=== PATIENT | male | born 1955 | race Two or more races ===

== ENCOUNTER 2022-08-21 10:37 | Emergency (ER) | payer MEDICARE, MEDICAID ==
[~2022-08-21] VITALS: Ht 157.5 cm; Wt 48.0 kg
[2022-08-21 12:27] LABS: Basophils # (auto) 0 10 ^3/uL (0-0.2); Basophils % (auto) 0.5 % (0.0-2.0); Eosinophils # (auto) 0.5 10 ^3/uL (0-0.8); Eosinophils % (auto) 10.6 % (0.0-7.0); Hematocrit 29.7 % (41.0-53.0); Hemoglobin 9.9 g/dL (13.5-17.5); Lymphocytes # (auto) 0.9 10 ^3/uL (0.4-5.4); Lymphocytes % (auto) 18.6 % (10.0-50.0); Mean Corpuscular Hemoglobin 32.6 pg (28.0-32.0); Mean Corpuscular Hgb Conc. 33.4 g/dL (32.0-36.0); Mean Corpuscular Volume 97.4 fL (80.0-100.0); Monocytes # (auto) 0.6 10 ^3/uL (0-1.3); Neutrophils # (auto) 2.9 10 ^3/uL (1.6-8.6); Neutrophils % (auto) 58.3 % (37.0-80.0); Nucleated Red Blood Cells % 0.1 %; Red Blood Cells 3.05 10^6/uL (4.5-5.90); Red Cell Distribution Width 14.5 % (11.8-14.3)
[2022-08-21 12:42] LABS: Albumin 3.2 g/dL (3.4-5.0); Calcium 8.2 mg/dL (8.5-10.1); Magnesium 2.4 mg/dL (1.6-2.6); Potassium 4.6 mmol/L (3.5-5.1)
[2022-08-21 12:48] LABS: BUN/Creatinine Ratio 6.3; Bilirubin, Total 0.5 mg/dL (0.2-1.0); Total Protein 6.8 g/dL (6.4-8.2)
[2022-08-21] MEDS ORDERED: HYDROcodone-ACET 5/325MG TAB PO ONE (13:45)
[2022-08-21 17:00] VITALS: BP 147/19
== END 2022-08-21 17:06 | disposition home or self-care (01) ==
LOC: ER 10:37
DX: R51.9 Headache, unspecified (principal); I12.0 Hypertensive chronic kidney disease with stage 5 chronic kidney disease or end stage renal disease; E11.22 Type 2 diabetes mellitus with diabetic chronic kidney disease; N18.6 End stage renal disease; E78.5 Hyperlipidemia, unspecified; I25.10 Atherosclerotic heart disease of native coronary artery without angina pectoris; Z95.1 Presence of aortocoronary bypass graft
CPT/HCPCS: 36415; 70450; 80053; 82962; 83735; 85025

== ENCOUNTER → 2024-07-14 | Outpatient (CLI) | payer MEDICARE, MEDICAID ==
[~2024-07-14] VITALS: Ht 160 cm; Wt 46.7 kg
[~2024-07-14] MED LIST: ADENOSINE 39 MG in GIVE UN-DILUTED 0 ML IV ONE; ADENOSINE 90 MG/30 ML INJ IV ONE; LIDOCAINE 2%HCL (LOCAL ANESTH.) INJ 20ML MDV ONE
== END | disposition home or self-care (01) ==
LOC: Rad HDHVI 13:36
PROVIDERS: ATTEND Internal Medicine Cardiovascular Disease
DX: I12.0 Hypertensive chronic kidney disease with stage 5 chronic kidney disease or end stage renal disease (principal); E11.22 Type 2 diabetes mellitus with diabetic chronic kidney disease; N18.6 End stage renal disease; I25.10 Atherosclerotic heart disease of native coronary artery without angina pectoris; E78.5 Hyperlipidemia, unspecified; Z99.2 Dependence on renal dialysis; Z95.1 Presence of aortocoronary bypass graft
CPT/HCPCS: 78452; 93005; 93306; 96374; 96375; A9500; J0153

== ENCOUNTER 2024-08-20 20:12 | Inpatient (IN) | payer MEDICARE, MEDICAID ==
[~2024-08-20] VITALS: Ht 154.9 cm; Wt 98.3 kg
[~2024-08-20 20:12] MED LIST changes: -ADENOSINE 39 MG in GIVE UN-DILUTED 0 ML IV ONE; -ADENOSINE 90 MG/30 ML INJ IV ONE; +AMLO1TAB23 PO; +APIX2.5T PO; +ATOR10TA PO; +B-CO-6 PO; +CALC667C PO; +CARV12.544 PO; +LEVO500T91 PO; -LIDOCAINE 2%HCL (LOCAL ANESTH.) INJ 20ML MDV ONE; +METO1TAB77 PO; +MIRT1TAB38 PO; +PRED20TA2 PO
[2024-08-20 21:33] LABS: Alanine Aminotransferase 12 U/L (7-40); Albumin 3.6 g/dL (3.2-4.8); Alkaline Phosphatase 144 U/L (46-116); Anion Gap 5 (5-15); Aspartate Aminotransferase 14 U/L (13-40); BUN/Creatinine Ratio 10.5 (10.0-20.0); Blood Urea Nitrogen 58 mg/dL (9-23); Calcium 8.4 mg/dL (8.7-10.4); Carbon Dioxide 33 mmol/L (20-30); Chloride 94 mmol/L (98-107); Glucose 96 mg/dL (74-106); Lipase 53 U/L (12-53); Potassium 4.2 mmol/L (3.5-5.1); Sodium 132 mmol/L (136-145)
[2024-08-20 21:34] LABS: Bilirubin, Total 0.4 mg/dL (0.2-1.0); Total Protein 6.4 g/dL (5.7-8.2)
[2024-08-20 21:56] LABS: Basophils # (auto) 0 10 ^3/uL (0-0.2); Hemoglobin 10.3 g/dL (13.5-17.5); Neutrophils # (auto) 6.8 10 ^3/uL (1.6-8.6)
[2024-08-20 21:58] LABS: Basophils % (auto) 0.1 % (0.0-2.0); Eosinophils # (auto) 0.3 10 ^3/uL (0-0.8); Eosinophils % (auto) 3.1 % (0.0-7.0); Hematocrit 29.8 % (41.0-53.0); Lymphocytes # (auto) 0.6 10 ^3/uL (0.4-5.4); Lymphocytes % (auto) 6.7 % (10.0-50.0); Mean Corpuscular Hemoglobin 34.9 pg (28.0-32.0); Mean Corpuscular Hgb Conc. 34.6 g/dL (32.0-36.0); Mean Corpuscular Volume 100.9 fL (80.0-100.0); Monocytes # (auto) 0.9 10 ^3/uL (0-1.3); Monocytes % (auto) 10.6 % (0.0-12.0); Neutrophils % (auto) 79.5 % (37.0-80.0); Platelet Count (auto) 130 10^3/uL (140-450); Red Blood Cells 2.96 10^6/uL (4.5-5.90); Red Cell Distribution Width 14.7 % (11.8-14.3); White Blood Cell 8.5 10^3/uL (4.4-10.8)
[2024-08-20 22:40] VITALS: PULSE 70; RESP 18; O2SAT 100
[2024-08-21] MEDS: FUROSEMIDE 40 MG/4 ML VIAL IV ONE (01:25)
[2024-08-21] MEDS ORDERED: ONDANSETRON HCL 4 MG/2 ML VIAL IV PRN (02:00)
[2024-08-21] MEDS ORDERED: MORPHINE SULFATE INJ 2 MG/ml SYRG IV PRN (02:00)
[2024-08-21] MEDS ORDERED: ACETAMINOPHEN 325 MG TAB PO PRN (02:00)
[2024-08-21] MEDS ORDERED: DEXTROSE (50%) 50ML SYRG IV PRN (02:00)
[2024-08-21] MEDS ORDERED: HYDROcodone-ACET 5/325MG TAB PO PRN (02:00)
[2024-08-21] MEDS ORDERED: NITROGLYCERIN 0.4 MG SL TAB SL PRN (02:00)
[2024-08-21] MEDS: MELATONIN 5 MG TAB PO ONE (04:16)
[2024-08-21 05:28] LABS: Basophils # (auto) 0 10 ^3/uL (0-0.2); Eosinophils # (auto) 0.3 10 ^3/uL (0-0.8); Lymphocytes # (auto) 0.7 10 ^3/uL (0.4-5.4); Neutrophils # (auto) 6.2 10 ^3/uL (1.6-8.6)
[2024-08-21 05:31] LABS: Basophils % (auto) 0.1 % (0.0-2.0); Eosinophils % (auto) 3.4 % (0.0-7.0); Hematocrit 30.1 % (41.0-53.0); Hemoglobin 10.6 g/dL (13.5-17.5); Lymphocytes % (auto) 9.1 % (10.0-50.0); Mean Corpuscular Hemoglobin 35.2 pg (28.0-32.0); Mean Corpuscular Hgb Conc. 35.2 g/dL (32.0-36.0); Mean Corpuscular Volume 99.9 fL (80.0-100.0); Monocytes # (auto) 0.9 10 ^3/uL (0-1.3); Monocytes % (auto) 10.8 % (0.0-12.0); Neutrophils % (auto) 76.6 % (37.0-80.0); Platelet Count (auto) 125 10^3/uL (140-450); Red Blood Cells 3.01 10^6/uL (4.5-5.90); Red Cell Distribution Width 14.8 % (11.8-14.3)
[2024-08-21] MEDS: SODIUM CHLOR 0.9% PF (SALINE LOCK) 10ML VIAL/SYR IV SCH (05:52)
[2024-08-21 05:57] LABS: Alanine Aminotransferase 11 U/L (7-40); Alkaline Phosphatase 115 U/L (46-116); Anion Gap 8 (5-15); Blood Urea Nitrogen 64 mg/dL (9-23); Calcium 8.4 mg/dL (8.7-10.4); Carbon Dioxide 31 mmol/L (20-30); Chloride 93 mmol/L (98-107); Glucose 101 mg/dL (74-106); Potassium 4.1 mmol/L (3.5-5.1); Sodium 132 mmol/L (136-145)
[2024-08-21 05:58] LABS: BUN/Creatinine Ratio 10.8 (10.0-20.0)
[2024-08-21 05:59] LABS: Albumin 3.4 g/dL (3.2-4.8); Aspartate Aminotransferase 15 U/L (13-40)
[2024-08-21 06:00] LABS: Bilirubin, Total 0.6 mg/dL (0.2-1.0); Total Protein 6.1 g/dL (5.7-8.2)
[2024-08-21] MEDS: ACCU-CHEK COMFORT CURVE STRIP VI SCH (06:52)
[2024-08-21] MEDS: InsuLIN REG 1unit/0.01ml Soln (100units/ml) SC SCH (06:53)
[2024-08-21 08:00] VITALS: PULSE 73; RESP 26; O2SAT 97
[2024-08-21] MEDS: B-COMPLEX W/ C & FOLIC ACID(NEPHROVITE TAB) PO SCH (10:32)
[2024-08-21] MEDS: FAMOTIDINE (10MG/ML) 2ML VL IV SCH (10:45)
[2024-08-21] MEDS: CARVEDILOL 3.125 MG TAB PO SCH (10:46)
[2024-08-21] MEDS: SODIUM CHL 0.9% 1000 ML BAG XX ONE (14:00)
[2024-08-21 16:04] VITALS: BP 146/26; PULSE 71; RESP 18; TEMP 97.3; O2SAT 96
[2024-08-21 16:16] VITALS: BP 146/35; PULSE 72; RESP 18; TEMP 97.6; O2SAT 100
[2024-08-21 16:51] VITALS: PULSE 71; RESP 18; O2SAT 96
[2024-08-21 20:00] VITALS: PULSE 74
[2024-08-21 21:00] VITALS: BP 143/48; PULSE 74; RESP 17; TEMP 97.7; O2SAT 100
[2024-08-21] MEDS: EPOETIN ALFA-EPBX 4,000 UNIT/ML VIAL SC ONE (23:20)
[2024-08-22] VITALS (8 sets, daily range): BP systolic 102–146; BP diastolic 21–50; PULSE 71–77; RESP 16–19; TEMP 97.8–98.6; O2SAT 99–100
[2024-08-22 07:25] LABS: Alanine Aminotransferase 12 U/L (7-40); Albumin 3.5 g/dL (3.2-4.8); Alkaline Phosphatase 95 U/L (46-116); Anion Gap 10 (5-15); BUN/Creatinine Ratio 9.7 (10.0-20.0); Blood Urea Nitrogen 48 mg/dL (9-23); Carbon Dioxide 30 mmol/L (20-30); Chloride 99 mmol/L (98-107); Glucose 71 mg/dL (74-106); Potassium 3.8 mmol/L (3.5-5.1); Sodium 139 mmol/L (136-145)
[2024-08-22 07:26] LABS: Aspartate Aminotransferase 15 U/L (13-40); Bilirubin, Total 0.7 mg/dL (0.2-1.0); Total Protein 6.1 g/dL (5.7-8.2)
[2024-08-22 07:31] LABS: Basophils # (auto) 0 10 ^3/uL (0-0.2); Basophils % (auto) 0.5 % (0.0-2.0); Eosinophils # (auto) 0.4 10 ^3/uL (0-0.8); Hematocrit 29.2 % (41.0-53.0); Hemoglobin 10.2 g/dL (13.5-17.5); Lymphocytes # (auto) 0.6 10 ^3/uL (0.4-5.4); Lymphocytes % (auto) 8.3 % (10.0-50.0); Mean Corpuscular Hemoglobin 35.3 pg (28.0-32.0); Mean Corpuscular Volume 100.8 fL (80.0-100.0); Monocytes % (auto) 13.2 % (0.0-12.0); Neutrophils # (auto) 5.5 10 ^3/uL (1.6-8.6); Nucleated Red Blood Cells % 0.1 %; Platelet Count (auto) 116 10^3/uL (140-450); Red Cell Distribution Width 15.2 % (11.8-14.3); White Blood Cell 7.6 10^3/uL (4.4-10.8)
[2024-08-22] MEDS: AZITHROMYCIN 500MG/ 250ML 250 ML IV ONE (15:30)
[2024-08-22 16:50] LABS: Body Fluid Polymorphonuclear 5 % (0-25); Body Fluid Red Blood Cells 33 CUMM (0-2000); Body Fluid White Blood Cells 58 CUMM (0-200)
[2024-08-22] MEDS: cefTRIAXone 1GM/50ML D5W 50 ML IV ONE (16:57)
[2024-08-22 18:04] LABS: COVID19 ANTIGEN SOFIA FIA NEGATIVE (NEGATIVE); Rapid Influenza A Negative (Negative); Rapid Influenza B Negative (Negative)
[2024-08-23] VITALS (8 sets, daily range): BP systolic 120–170; BP diastolic 24–50; PULSE 68–73; RESP 16–18; TEMP 96.7–98.4; O2SAT 95–100
[2024-08-23] MEDS: cefTRIAXone 1GM/50ML D5W 50 ML IV SCH (10:00)
[2024-08-23] MEDS: AZITHROMYCIN 500MG/ 250ML 250 ML IV SCH (10:13)
[2024-08-24] VITALS (8 sets, daily range): BP systolic 129–172; BP diastolic 29–80; PULSE 74–83; RESP 16–18; TEMP 97.7–98.7; O2SAT 93–100
[2024-08-24 06:20] LABS: Basophils # (auto) 0 10 ^3/uL (0-0.2); Eosinophils # (auto) 0.5 10 ^3/uL (0-0.8); Hemoglobin 10.6 g/dL (13.5-17.5); Lymphocytes # (auto) 0.8 10 ^3/uL (0.4-5.4); Neutrophils # (auto) 5.9 10 ^3/uL (1.6-8.6); Nucleated Red Blood Cells % 0.1 %; Platelet Count (auto) 102 10^3/uL (140-450)
[2024-08-24 06:23] LABS: Basophils % (auto) 0.4 % (0.0-2.0); Eosinophils % (auto) 5.8 % (0.0-7.0); Hematocrit 30.3 % (41.0-53.0); Lymphocytes % (auto) 9.1 % (10.0-50.0); Mean Corpuscular Hemoglobin 35.1 pg (28.0-32.0); Mean Corpuscular Hgb Conc. 34.9 g/dL (32.0-36.0); Mean Corpuscular Volume 100.5 fL (80.0-100.0); Monocytes # (auto) 1.1 10 ^3/uL (0-1.3); Monocytes % (auto) 13.4 % (0.0-12.0); Neutrophils % (auto) 71.3 % (37.0-80.0); Red Blood Cells 3.02 10^6/uL (4.5-5.90); White Blood Cell 8.3 10^3/uL (4.4-10.8)
[2024-08-24 06:38] LABS: Alanine Aminotransferase 11 U/L (7-40); Albumin 3.2 g/dL (3.2-4.8); Alkaline Phosphatase 89 U/L (46-116); Anion Gap 12 (5-15); Aspartate Aminotransferase 15 U/L (13-40); BUN/Creatinine Ratio 10.2 (10.0-20.0); Calcium 8.9 mg/dL (8.7-10.4); Carbon Dioxide 27 mmol/L (20-30); Chloride 96 mmol/L (98-107); Glucose 83 mg/dL (74-106); Sodium 135 mmol/L (136-145)
[2024-08-24 06:39] LABS: Bilirubin, Total 0.3 mg/dL (0.2-1.0); Total Protein 5.7 g/dL (5.7-8.2)
[2024-08-24 06:50] LABS: Blood Urea Nitrogen 81 mg/dL (9-23)
[2024-08-24] MEDS ORDERED: SODIUM CHL 0.9% 1000 ML BAG XX ONE (07:00)
[2024-08-24 13:07] LABS: Protein, Body Fluid 3.5 g/dL (.)
[2024-08-24] MEDS: EPOETIN ALFA-EPBX 4,000 UNIT/ML VIAL SC ONE (21:24)
[2024-08-25 01:00] VITALS: BP 154/32; PULSE 82; RESP 17; TEMP 98.2; O2SAT 100
[2024-08-25 05:00] VITALS: BP 159/39; PULSE 83; RESP 17; TEMP 98.1; O2SAT 100
[2024-08-25 07:50] LABS: Basophils # (auto) 0 10 ^3/uL (0-0.2); Basophils % (auto) 0.4 % (0.0-2.0); Lymphocytes # (auto) 0.7 10 ^3/uL (0.4-5.4); Monocytes # (auto) 1.3 10 ^3/uL (0-1.3); Neutrophils # (auto) 6.1 10 ^3/uL (1.6-8.6); White Blood Cell 8.6 10^3/uL (4.4-10.8)
[2024-08-25 07:53] LABS: Eosinophils # (auto) 0.5 10 ^3/uL (0-0.8); Eosinophils % (auto) 5.3 % (0.0-7.0); Hematocrit 31.7 % (41.0-53.0); Lymphocytes % (auto) 8.4 % (10.0-50.0); Mean Corpuscular Hemoglobin 34.8 pg (28.0-32.0); Mean Corpuscular Hgb Conc. 34.7 g/dL (32.0-36.0); Mean Corpuscular Volume 100.4 fL (80.0-100.0); Monocytes % (auto) 15.1 % (0.0-12.0); Neutrophils % (auto) 70.8 % (37.0-80.0); Red Blood Cells 3.16 10^6/uL (4.5-5.90); Red Cell Distribution Width 15.2 % (11.8-14.3)
[2024-08-25 08:00] VITALS: PULSE 80; PULSE 81; RESP 14; O2SAT 100
[2024-08-25 08:19] LABS: Alanine Aminotransferase 10 U/L (7-40); Alkaline Phosphatase 130 U/L (46-116); Anion Gap 8 (5-15); Aspartate Aminotransferase 16 U/L (13-40); BUN/Creatinine Ratio 10.1 (10.0-20.0); Calcium 9.1 mg/dL (8.7-10.4); Carbon Dioxide 31 mmol/L (20-30); Chloride 97 mmol/L (98-107); Glucose 90 mg/dL (74-106); Potassium 4.6 mmol/L (3.5-5.1); Sodium 136 mmol/L (136-145)
[2024-08-25 08:20] LABS: Albumin 3.4 g/dL (3.2-4.8); Bilirubin, Total 0.3 mg/dL (0.2-1.0); Total Protein 5.9 g/dL (5.7-8.2)
[2024-08-25 08:21] LABS: Blood Urea Nitrogen 60 mg/dL (9-23)
[2024-08-25 08:29] LABS: Platelet Count (auto) 93 10^3/uL (140-450)
[2024-08-25 09:00] VITALS: BP 137/87; PULSE 71; RESP 16; TEMP 98.2; O2SAT 96
[2024-08-25] MEDS ORDERED: METH4PAK PO (11:14)
[2024-08-25] MEDS ORDERED: ALBUAER3 IN (11:14)
[2024-08-25] MEDS ORDERED: AZIT500T66 PO (11:14)
[2024-08-25 13:00] VITALS: BP 127/43; PULSE 81; RESP 14; TEMP 97.9; O2SAT 100
[2024-08-25 13:53] VITALS: BP 154/32; PULSE 82; TEMP 97.9
== END 2024-08-25 15:45 | disposition home health service (06) | DRG 177 ==
LOC: ER 20:12 → TELE 08-21 01:56 → TELE-WESTW 08-21 16:29
PROVIDERS: ADMIT Nurse Practitioner Family; ATTEND Family Medicine
PROC: 5A1D70Z Performance of Urinary Filtration, Intermittent, Less than 6 Hours Per Day (ICD-10-PCS; 2024-08-21)
PROC: 0W993ZX Drainage of Right Pleural Cavity, Percutaneous Approach, Diagnostic (ICD-10-PCS; principal; 2024-08-22)
PROC: 5A1D70Z Performance of Urinary Filtration, Intermittent, Less than 6 Hours Per Day (ICD-10-PCS; 2024-08-24)
DX: J15.69 Pneumonia due to other Gram-negative bacteria (principal); I50.33 Acute on chronic diastolic (congestive) heart failure; J96.01 Acute respiratory failure with hypoxia; N18.6 End stage renal disease; I13.2 Hypertensive heart and chronic kidney disease with heart failure and with stage 5 chronic kidney disease, or end stage renal disease; E46 Unspecified protein-calorie malnutrition; E87.1 Hypo-osmolality and hyponatremia; J93.9 Pneumothorax, unspecified; Z68.41 Body mass index [BMI] 40.0-44.9, adult; J91.8 Pleural effusion in other conditions classified elsewhere; J15.9 Unspecified bacterial pneumonia; D63.1 Anemia in chronic kidney disease; D69.6 Thrombocytopenia, unspecified; E11.22 Type 2 diabetes mellitus with diabetic chronic kidney disease; I25.10 Atherosclerotic heart disease of native coronary artery without angina pectoris; E78.00 Pure hypercholesterolemia, unspecified; I35.0 Nonrheumatic aortic (valve) stenosis; I48.0 Paroxysmal atrial fibrillation; Z79.01 Long term (current) use of anticoagulants; Z95.1 Presence of aortocoronary bypass graft; Z95.2 Presence of prosthetic heart valve; Z86.16 Personal history of COVID-19; Z99.2 Dependence on renal dialysis; Z79.899 Other long term (current) drug therapy; Z79.4 Long term (current) use of insulin
CPT/HCPCS: 32555; 36415; 71045; 76604; 78582; 80053; 82962; 83690; 83880; 83986; 84484; 85025; 85379; 87040; 87081; 87205; 87426; 87804; 89051; 90935; 93005; 93970; 97163; A4565; G0378; J1815; J3490

== ENCOUNTER → 2024-09-14 | Outpatient (CLI) | payer MEDICARE, MEDICAID ==
[~2024-09-14] MED LIST changes: +ALBUAER3 IN; +AZIT500T66 PO; +METH4PAK PO
[2024-09-14 12:55] VITALS: BP 141/56; PULSE 74; RESP 16; O2SAT 94
[2024-09-14 13:12] VITALS: BP 150/59; PULSE 74; RESP 16; O2SAT 74
== END | disposition home or self-care (01) ==
LOC: Rad HDHVI 12:52
PROVIDERS: ATTEND Internal Medicine Cardiovascular Disease
DX: Z01.811 Encounter for preprocedural respiratory examination (principal); J81.1 Chronic pulmonary edema; J90 Pleural effusion, not elsewhere classified; I35.0 Nonrheumatic aortic (valve) stenosis; I27.21 Secondary pulmonary arterial hypertension; R06.02 Shortness of breath
CPT/HCPCS: 71046; 93005; G0463

== ENCOUNTER 2024-09-16 08:07 | Day surgery (SDC) | payer MEDICARE, MEDICAID ==
[2024-09-14 15:07] LABS: Basophils # (auto) 0.1 10 ^3/uL (0-0.2); Basophils % (auto) 1.5 % (0.0-2.0); Eosinophils # (auto) 0.2 10 ^3/uL (0-0.8); Eosinophils % (auto) 4.7 % (0.0-7.0); Hematocrit 35.8 % (41.0-53.0); Lymphocytes # (auto) 0.8 10 ^3/uL (0.4-5.4); Mean Corpuscular Hemoglobin 33.7 pg (28.0-32.0); Mean Corpuscular Hgb Conc. 33.5 g/dL (32.0-36.0); Mean Corpuscular Volume 100.5 fL (80.0-100.0); Monocytes # (auto) 0.7 10 ^3/uL (0-1.3); Monocytes % (auto) 15.6 % (0.0-12.0); Neutrophils # (auto) 2.7 10 ^3/uL (1.6-8.6); Neutrophils % (auto) 60.2 % (37.0-80.0); Nucleated Red Blood Cells % 0.2 %; Platelet Count (auto) 105 10^3/uL (140-450); Red Blood Cells 3.56 10^6/uL (4.5-5.90); Red Cell Distribution Width 14.4 % (11.8-14.3); White Blood Cell 4.5 10^3/uL (4.4-10.8)
[2024-09-14 15:20] LABS: Chloride 96 mmol/L (98-107); Potassium 3.8 mmol/L (3.5-5.1); Sodium 137 mmol/L (136-145)
[2024-09-14 15:21] LABS: Anion Gap 4 (5-15); Carbon Dioxide 37 mmol/L (20-31)
[2024-09-14 15:22] LABS: Calcium 9.5 mg/dL (8.7-10.4)
[2024-09-14 15:27] LABS: BUN/Creatinine Ratio 6.6 (10.0-20.0); Blood Urea Nitrogen 22 mg/dL (9-23); Glucose 90 mg/dL (74-106)
[2024-09-14 15:39] LABS: INR 1.04 (0.9-1.15); Partial Thromboplastin Time 32.4 SEC (24.5-34.5)
[2024-09-16] VITALS (9 sets, daily range): BP systolic 128–159; BP diastolic 33–44; PULSE 58–66; RESP 12–14; O2SAT 96–100
[~2024-09-16] VITALS: Ht 160 cm; Wt 43.0 kg
[~2024-09-16 08:07] MED LIST changes: -AZIT500T66 PO; -LEVO500T91 PO; -METH4PAK PO; -METO1TAB77 PO; -PRED20TA2 PO
[2024-09-16] MEDS: cloNIDine HCL 0.1 MG TAB PO ONE (09:40)
[2024-09-16] MEDS ORDERED: fentaNYL CITRATE 100 MCG/2 ML VL ONE (10:41)
[2024-09-16] MEDS ORDERED: HEPARIN IN NS 1000Units/500mL 1,500 ML ONE (10:42)
[2024-09-16] MEDS ORDERED: MIDAZOLAM HCL 2MG/2ML 2ml VIAL (1mg/ml) ONE (10:42)
[2024-09-16] MEDS ORDERED: IOHEXOL 350 MG/ML 100ML IJ ONE (10:42)
[2024-09-16] MEDS ORDERED: LIDOCAINE 2%HCL (LOCAL ANESTH.) INJ 20ML MDV ONE ×2 (10:42→12:42)
[2024-09-16] MEDS ORDERED: IODIXANOL 320MG/ML 100ML BTL IV ONE (12:25)
[2024-09-16] MEDS ORDERED: ANGIOMAX 250 MG VIAL IV ONE (12:42)
[2024-09-16] MEDS ORDERED: SODIUM CHL 0.9% 0 ML ONE (12:42)
== END 2024-09-16 16:06 | disposition home or self-care (01) ==
LOC: CATH 08:07
PROVIDERS: ATTEND Internal Medicine Cardiovascular Disease
DX: I25.10 Atherosclerotic heart disease of native coronary artery without angina pectoris (principal); I70.0 Atherosclerosis of aorta; I10 Essential (primary) hypertension; F41.9 Anxiety disorder, unspecified; Z95.1 Presence of aortocoronary bypass graft; Z79.899 Other long term (current) drug therapy
CPT/HCPCS: 36415; 75625; 80048; 85025; 85610; 85730; 93457; C1725; C1760; C1769; C1887; C1894; J1644; J2250; J3010; Q9967; 99152; 99153

== ENCOUNTER 2024-10-26 07:44 | Emergency (ER) | payer MEDICARE, MEDICAID ==
[~2024-10-26] VITALS: Ht 177.8 cm; Wt 65.0 kg
--- NOTE | 2024-10-26 08:14 | ED.PDOC ---
History of Present Illness(SKN HPI Comments Portions of this chart may have been created with an modal fluency direct voice recognition software. Occasional wrong-word or "sound-alike" substitutions may have occurred due to the inherent limitations of voice recognition software. Please read the chart carefully and recognize, using context, where these substitutions have occurred. 69 Year old male presents with his daughters for dialysis dressing change. Reports he had the dialysis port changed yesterday at [facility] and was discharged home. Patient reports taking blood thinners but states the dressings are bleeding. . Denies CP/SOB Denies fevers chills nausea vomiting diarrhea Chief Complaint: Wound Check Time Seen by MD: 08:02 History of Present Illness: Nurses Notes, Medications, Allergies Allergies: Coded Allergies: NO KNOWN ALLERGIES (Unverified , 09/14/24) Home Meds Active Scripts Albuterol Sulfate (VENTOLIN MDI) 90 Mcg Ih, 90 MCG IN Q4HR, #1 INH Prov:CHI KAM MD 08/25/24 Reported Medications B-Complex W/ C & Folic Acid (Henny-Xavier Rx) Tab, 1 TAB PO DAILY for 90 Days, #90 08/23/24 Apixaban Base (ELIQUIS) 2.5 Mg Tab, 1 TAB PO BID for 30 Days, #60 08/23/24 Mirtazapine (Mirtazapine Oral Disintegrating Tablet) 15 Mg Tab, 7.5 MG PO DAILY for 30 Days, #30 08/23/24 Atorvastatin Calcium (Lipitor) 10 Mg Tab, 1 TAB PO DAILY for 30 Days, #30 08/23/24 Carvedilol (Carvedilol) 12.5 Mg Tab, 1 TAB PO BID for 30 Days, #60 08/23/24 Calcium Acetate (Phosphate Bin (Calcium Acetate) 667 Mg Cap, 1 TAB PO TIDWM for 30 Days, #90 08/23/24 Amlodipine Besylate (Amlodipine Besylate) 10 Mg Tab, 1 TAB PO DAILY for 30 Days, #30 08/23/24 Information Source: Patient Mode of Arrival: Ambulatory Past Medical History PAST MEDICAL HISTORY: DM, ESRD, High Lipids, HTN Surgical History: CABG Family History Family History: Reviewed,noncontributory to illness Social History Smoker: Non-Smoker Alcohol: Denies ETOH Use Drugs: Denies Drug Use Lives In: Home All Other Systems: Reviewed and Negative (Per HPI) Physical Exam General Appearance: No Apparent Distress, Normal HEENT: Normal ENT Inspection, Pharynx Normal, TMs Normal Neck: Full Range of Motion, Non-Tender, Normal, Normal Inspection Respiratory: Chest Non-Tender, Lungs Clear, No Accessory Muscle Use, No Respiratory Distress, Normal Breath Sounds Cardiovascular: No Edema, No JVD, No Murmur, No Gallop, Normal Peripheral Pulses, Regular Rate/Rhythm Breast Exam: Deferred Gastrointestinal: No Organomegaly, Non Tender, No Pulsatile Mass, Normal Bowel Sounds, Soft Genitalia: Deferred Pelvic: Deferred Rectal: Deferred Extremities: No calf tenderness, Normal capillary refill, Normal inspection, Normal range of motion, Non-tender, No pedal edema Musculoskeletal : Apperance: Normal Neurologic: Alert, mobility specialist II-XII nml as Tested, No Motor Deficits, Normal Affect, Normal Mood, No Sensory Deficits Cerebellar Function: Normal Reflexes: Normal Skin: Dry, Normal Color, Warm Lymphatic: No Adenopathy Was a procedure done? Was a procedure done?: No Images 1 - Dialysis port soild. No hemorrhaging but mild continuous bleeding. No hemostasis at the exit port. Differential Diagnosis (INTG) Differential Diagnosis: Other X-Ray, Labs, Meds, VS Vital Signs Date Time Temp Pulse Resp B/P (MAP) Pulse Ox O2 Delivery O2 Flow Rate FiO2 10/26/24 07:55 98.9 87 20 154/37 (76) 99 X-Ray, Labs, Meds, VS Comment Spoke with Dr. Carter vascular surgeon at [facility] and advised patient to return to for reevaluation due to bleeding from exit site. Pt stable Time of 1ST Reevaluation: 08:46 Reevaluation 1ST: Improved Patient Education/Counseling: Diagnosis, Treatment Family Education/Counseling: Diagnosis, Treatment Departure 1 Departure Time of Disposition: 08:47 Impression: Primary Impression: Visit for wound check Disposition: 01 HOME / SELF CARE / HOMELESS Condition: Fair Critical Care Note Critical Care Time?: No Stability Stability form required: No Heart Score Heart Score: Heart Score Response (Comments) Value History N/A 0 EKG N/A 0 Age N/A 0 Risk Factors N/A 0 Troponin N/A 0 Total 0 DOMINIC DRUMMOND NP Oct 26, 2024 08:14
[2024-10-26] MEDS: ACETAMINOPHEN 500 MG TAB PO ONE (08:49)
[2024-10-26 08:54] VITALS: BP 133/37; PULSE 89; RESP 18; TEMP 97.8; O2SAT 100
== END 2024-10-26 08:55 | disposition home or self-care (01) ==
LOC: ER 07:44
DX: Z00.00 Encounter for general adult medical examination without abnormal findings (principal)

== ENCOUNTER 2024-11-19 14:30 | Emergency (ER) | payer OTHER, MEDICAID ==
[~2024-11-19] VITALS: Ht 160 cm; Wt 43.3 kg
[2024-11-19 15:20] VITALS: PULSE 86; RESP 20; O2SAT 100
--- NOTE | 2024-11-19 15:55 | ED.PDOC ---
SOB-HPI HPI Comments 69 y.o male with PMH of ESRD, DM, HTN was sent to the ED by control systems drafting officer Dr. Rajput due to reoccurring pleura effusions. Patient reports ongoing SOB with fluid build up, had fluid removed earlier today but was sent to the ED for chest tube procedure that will be done by Dr. Rajput. Patient denies any chest pain, nausea, vomiting, abdominal pain, fever, or chills. Patient uses oxygen at home. Chief Complaint: Shortness of Breath Time Seen by MD: 15:12 Reviewed notes: Nurses Notes, Medications, Allergies Information Source: Patient, Relative, DrKarl Office Mode of Arrival: Ambulatory Severity: Moderate Timing: Days Duration: Since onset Context: At Rest Modifying Factors: Nothing Associated Signs and Symptoms: None Past Medical History PAST MEDICAL HISTORY: DM, ESRD, High Lipids, HTN Surgical History: CABG Surgical History (Other): left upper arm fistula Family History Family History: Reviewed,noncontributory to illness Social History Smoker: Non-Smoker Alcohol: Denies ETOH Use Drugs: Denies Drug Use Lives In: Home Constitutional: denies: chills, diaphoresis, fatigue, fever, malaise, sweats, weakness, others EENTM: denies: blurred vision, double vision, ear bleeding, ear discharge, ear drainage, ear pain, ear ringing, eye pain, eye redness, hearing loss, mouth pain, mouth swelling, nasal discharge, nose bleeding, nose congestion, nose pain, photophobia, tearing, throat pain, throat swelling, voice changes, others Respiratory: reports: SOB at rest, shortness of breath, SOB with excertion; denies: cough, hemoptysis, orthopnea, stridor, wheezing, others Cardiovascular: denies: chest pain, dizzy spells, diaphoresis, Dyspnea on exertion, edema, irregular heart beat, left arm pain, lightheadedness, palpitations, PND, syncope, others Gastrointestinal: denies: abdomen distended, abdominal pain, blood streaked bowels, constipated, diarrhea, dysphagia, difficulty swallowing, hematemesis, melena, nausea, poor appetite, poor fluid intake, rectal bleeding, rectal pain, vomiting, others Genitourinary: denies: burning, dysuria, flank pain, frequency, hematuria, incontinence, penile discharge, penile sore, pain, testicle pain, testicle swelling, urgency, others Neurological: denies: dizziness, fainting, headache, left sided numbness, left sided weakness, numbness, paresthesia, pre-existing deficit, right sided numbness, right sided weakness, seizure, speech problems, tingling, tremors, weakness, others Musculoskeletal: denies: back pain, gout, joint pain, joint swelling, muscle pain, muscle stiffness, neck pain, others Integumetry: denies: bruises, change in color, change in hair/nails, dryness, laceration, lesions, lumps, rash, wounds, others Allergic/Immunocompromised: denies: Difficulty Healing, Frequent Infections, Hives, Itching, others Hematologic/Lymphatic: denies: anemia, blood clots, easy bleeding, easy bruising, swollen glands, others Endocrine: denies: excessive hunger, excessive sweating, excessive thirst, excessive urination, flushing, intolerance to cold, intolerance to heat, u nexplained weight gain, unexplained weight loss, others Psychiatric: denies: anxiety, bipolar disorder, depression, hopeless, panic disorder, schizophrenia, sleepless, suicidal, others All Other Systems: Reviewed and Negative Physical Exam General Appearance: Moderate Distress, Thin HEENT: Normal ENT Inspection, Pharynx Normal, TMs Normal Neck: Full Range of Motion, Non-Tender, Normal, Normal Inspection Respiratory: Respiratory Distress, Other (Decreased right-sided breath sounds) Cardiovascular: No Edema, No JVD, No Murmur, No Gallop, Normal Peripheral Pulses, Regular Rate/Rhythm Breast Exam: Deferred Gastrointestinal: No Organomegaly, Non Tender, No Pulsatile Mass, Normal Bowel Sounds, Soft Genitalia: Deferred Pelvic: Deferred Rectal: Deferred Extremities: No calf tenderness Musculoskeletal : Apperance: Normal Neurologic: Alert Cerebellar Function: NOT DONE Reflexes: NOT DONE Skin: Dry, Normal Color, Warm Peripheral Pulses: 3+ Radial (R), 3+ Radial (L) Lymphatic: No Adenopathy Was a procedure done? Was a procedure done?: No Differential Dx Differential Diagnosis: Anxiety, Asthma, Bronchitis, CHF, COPD, Pneumonia, Pneumothorax, Respiratory Distress, URI X-Ray, Labs, Meds, VS Vital Signs Date Time Temp Pulse Resp B/P (MAP) Pulse Ox O2 Delivery O2 Flow Rate FiO2 11/19/24 15:20 98.4 86 20 159/29 (72) 100 98.4 11/19/24 15:20 86 20 100 Nasal Cannula* 2 28 11/19/24 15:04 98.4 92 16 107/21 (49) 99 Lab Test 11/19/24 15:55 Range/Units White Blood Count 8.4 4.4-10.8 10^3/uL Red Blood Count 2.96 L 4.5-5.90 10^6/uL Hemoglobin 9.6 L 13.5-17.5 g/dL Hematocrit 29.2 L 41.0-53.0 % Mean Corpuscular Volume 98.7 80.0-100.0 fL Mean Corpuscular Hemoglobin 32.4 H 28.0-32.0 pg Mean Corpuscular Hemoglobin Concent 32.9 32.0-36.0 g/dL Red Cell Distribution Width 15.6 H 11.8-14.3 % Platelet Count 166 140-450 10^3/uL Mean Platelet Volume 9.4 6.9-10.8 fL Neutrophils (%) (Auto) 71.8 37.0-80.0 % Lymphocytes (%) (Auto) 8.8 L 10.0-50.0 % Monocytes (%) (Auto) 13.3 H 0.0-12.0 % Eosinophils (%) (Auto) 4.7 0.0-7.0 % Basophils (%) (Auto) 1.4 0.0-2.0 % Neutrophils # (Auto) 6.0 1.6-8.6 10 ^3/uL Lymphocytes # (Auto) 0.7 0.4-5.4 10 ^3/uL Monocytes # (Auto) 1.1 0-1.3 10 ^3/uL Eosinophils # (Auto) 0.4 0-0.8 10 ^3/uL Basophils # (Auto) 0.1 0-0.2 10 ^3/uL Nucleated Red Blood Cells 0.0 % Prothrombin Time 11.7 9.3-11.8 sec Prothrombin Time INR 1.11 0.9-1.15 Activated Partial Thromboplast Time 31.6 24.5-34.5 SEC Sodium Level 135 L 136-145 mmol/L Potassium Level 4.9 3.5-5.1 mmol/L Chloride Level 97 L 98-107 mmol/L Carbon Dioxide Level 30 20-31 mmol/L Anion Gap 8 5-15 Blood Urea Nitrogen 37 H 9-23 mg/dL Creatinine 5.18 H 0.700-1.30 mg/dL Glomerular Filtration Rate Calc 11 >90 mL/min BUN/Creatinine Ratio 7.1 L 10.0-20.0 Serum Glucose 106 74-106 mg/dL Calcium Level 9.0 8.7-10.4 mg/dL Total Bilirubin 0.3 0.2-1.0 mg/dL Aspartate Amino Transferase (AST) 21 13-40 U/L Alanine Aminotransferase (ALT) < 9 7-40 U/L Alkaline Phosphatase 108 46-116 U/L Troponin I High Sensitivity 34 </=54 ng/L Total Protein 6.9 5.7-8.2 g/dL Albumin 3.6 3.2-4.8 g/dL Patient alert. Complaining of shortness a breath. Chronic history. Placed on oxygen. Was sent from his control systems drafting officer. Dialysis patient. Nephrology consultation. Anemia. Continue oxygen. Will require chest tube. Reviewed his previous visit. Explained to the patient. Continue cardiac monitoring. Spoke with control systems drafting officer. Time of 1ST Reevaluation: 17:14 Reevaluation 1ST: Unchanged Patient Education/Counseling: Diagnosis, Treatment, Prognosis Family Education/Counseling: Diagnosis, Treatment, Prognosis Additional Information I reviewed the following notes from patient's past medical encounters: LAB and CT Chest The following tests were ordered, and results were reviewed by me: Labs and CT Chest Additional Information was gathered from interviewing the following independent historians: Family member and Process Chemist, Dr. Rajput I reviewed and agreed with the following test results read by other providers: CT chest I discussed treatment and results with medical personnel and Dr. Rajput, family member and patient Departure 1 Departure Time of Disposition: 17:15 Impression: Primary Impression: Acute respiratory failure Qualified Codes: J96.01 - Acute respiratory failure with hypoxia Additional Impressions: End stage renal disease on dialysis Anemia of chronic disease Disposition: ADMITTED INPATIENT Admit to: Med Surg Condition: Guarded Critical Care Note Critical Care Time?: Yes (90 min-critical care time only) Stability Stability form required: No I personally scribed for MARIBEL CARLOS MD ([email or web address]) on 11/19/24 at 15:55. Electronically submitted by Brina Gipson ([facility]). MARIBEL CARLOS MD Nov 19, 2024 15:55
[2024-11-19 16:11] LABS: Basophils # (auto) 0.1 10 ^3/uL (0-0.2); Basophils % (auto) 1.4 % (0.0-2.0); Eosinophils # (auto) 0.4 10 ^3/uL (0-0.8); Eosinophils % (auto) 4.7 % (0.0-7.0); Hematocrit 29.2 % (41.0-53.0); Hemoglobin 9.6 g/dL (13.5-17.5); Lymphocytes # (auto) 0.7 10 ^3/uL (0.4-5.4); Lymphocytes % (auto) 8.8 % (10.0-50.0); Mean Corpuscular Hemoglobin 32.4 pg (28.0-32.0); Mean Corpuscular Hgb Conc. 32.9 g/dL (32.0-36.0); Mean Corpuscular Volume 98.7 fL (80.0-100.0); Monocytes # (auto) 1.1 10 ^3/uL (0-1.3); Monocytes % (auto) 13.3 % (0.0-12.0); Neutrophils % (auto) 71.8 % (37.0-80.0); Platelet Count (auto) 166 10^3/uL (140-450); Red Blood Cells 2.96 10^6/uL (4.5-5.90); Red Cell Distribution Width 15.6 % (11.8-14.3); White Blood Cell 8.4 10^3/uL (4.4-10.8)
[2024-11-19 16:26] LABS: INR 1.11 (0.9-1.15); Partial Thromboplastin Time 31.6 SEC (24.5-34.5); Prothrombin Time 11.7 sec (9.3-11.8)
[2024-11-19 16:32] LABS: Alkaline Phosphatase 108 U/L (46-116); Anion Gap 8 (5-15); BUN/Creatinine Ratio 7.1 (10.0-20.0); Carbon Dioxide 30 mmol/L (20-31); Potassium 4.9 mmol/L (3.5-5.1)
[2024-11-19 16:33] LABS: Albumin 3.6 g/dL (3.2-4.8); Aspartate Aminotransferase 21 U/L (13-40); Bilirubin, Total 0.3 mg/dL (0.2-1.0); Total Protein 6.9 g/dL (5.7-8.2)
[2024-11-19 16:34] LABS: Alanine Aminotransferase < 9 U/L (7-40); Blood Urea Nitrogen 37 mg/dL (9-23); Chloride 97 mmol/L (98-107); Glucose 106 mg/dL (74-106); Sodium 135 mmol/L (136-145)
--- NOTE | 2024-11-19 17:42 | DVH ---
Procedure: CT CHEST WITH CONTRAST Reason for study/Clinical History: Lung mass. Comparison Study: None available at time of dictation. Exam Date: 11/19/2024 05:00 PM Radiation Dose Information: CT Dose: CTDI volume is 4.61 mGy. Dose-length product is 167.21 mGy*cm TECHNIQUE: After the uneventful administration of intravenous contrast intravenously, CT imaging was performed through the chest. Coronal and sagittal reformations were performed by the technologist. 10 0 cc of Omnipaque 300 contrast was injected intravenously. All CT scans at this medical facility are performed using dose modulation techniques as appropriate t o a performed exam including the following:Automated exposure control was utilized; adjustment of the MA and/or KV according to patient size; and use of iterative reconstruction technique. FINDINGS: Lungs/pleura: There is right lung hydropneumothorax with moderate pneumothorax and [id number] size right pleural effusion. There is a 2.9 cm enhancing mass along the peripheral right lower lobe. There is opacity with air bronchograms in the right lower lobe which may represent airspace disease. There is small left pleural effusion with mild scarring versus atelectasis in the left lung base. Aorta and Vasculature: Normal caliber of thoracic aorta. There are calcified atherosclerotic changes in the coronary arteries and thoracic aorta. Lymph Nodes: No enlarged intrathoracic lymph nodes. Mediastinum: Heart size is normal. There is no pericardial effusion. Upper abdomen: Limited portions of the upper abdomen are unremarkable. Musculoskeletal: No acute osseous abnormality. IMPRESSION: 1. Moderate size right hydropneumothorax. 2. 2.9 cm enhancing mass along the peripheral right lower lobe concerning for primary lung malignancy . 3. There is opacity with air bronchograms in the right lower lobe which may represent airspace diseas e. 4. Small left pleural effusion. HS:Y
[2024-11-19] MEDS: IOHEXOL 350 MG/ML 100ML IJ ONE (17:45)
--- NOTE | 2024-11-19 19:26 | DVHINCON2 ---
Date of service: Nov 19, [address] Sabillon Reason for Consultation Possible chest tube placement, recurrent pleural effusion, pneumonia. History of Present Illness A 69-year-old man with past medical history of recurrent right pleural effusion, end-stage renal disease on hemodialysis, and chronic hypoxic respiratory failure, on supplemental oxygen who presented to ER for possible chest tube placement. Patient was seen at Dr. Rajput's office for thoracentesis, during procedure was noted to have possible pus drainage and was sent to ER by Dr. Rajput for possible placement of chest tube. Patient was admitted for further care and pulmonary consultation is requested for evaluation and management due to the above findings. Review of Systems: 14-point review of systems negative unless otherwise noted above. Past Medical History: Recurrent right pleural effusion, end-stage renal disease on hemodialysis, chronic hypoxic respiratory failure on supplemental oxygen Past Surgical History: Unknown Medications: Reviewed. Allergies: No known drug allergies. Family History: Cancer and pulmonary embolism Social History: Nonsmoker. No alcohol or illicit drug use. Family History: FH: cancer of digestive organ G8 MOTHER FH: pulmonary embolism G8 FATHER Allergies: Coded Allergies: NO KNOWN ALLERGIES (Unverified , 09/14/24) Home Meds Active Scripts Albuterol Sulfate (VENTOLIN MDI) 90 Mcg Ih, 90 MCG IN Q4HR, #1 INH Prov:CHI KAM MD 08/25/24 Reported Medications B-Complex W/ C & Folic Acid (Henny-Xavier Rx) Tab, 1 TAB PO DAILY for 90 Days, #90 08/23/24 Apixaban Base (ELIQUIS) 2.5 Mg Tab, 1 TAB PO BID for 30 Days, #60 08/23/24 Mirtazapine (Mirtazapine Oral Disintegrating Tablet) 15 Mg Tab, 7.5 MG PO DAILY for 30 Days, #30 08/23/24 Atorvastatin Calcium (Lipitor) 10 Mg Tab, 1 TAB PO DAILY for 30 Days, #30 08/23/24 Carvedilol (Carvedilol) 12.5 Mg Tab, 1 TAB PO BID for 30 Days, #60 08/23/24 Calcium Acetate (Phosphate Bin (Calcium Acetate) 667 Mg Cap, 1 TAB PO TIDWM for 30 Days, #90 08/23/24 Amlodipine Besylate (Amlodipine Besylate) 10 Mg Tab, 1 TAB PO DAILY for 30 Days, #30 08/23/24 Vital Signs Vital Signs Date Time Temp Pulse Resp B/P (MAP) Pulse Ox O2 Delivery O2 Flow Rate FiO2 11/19/24 17:30 84 15 157/46 (83) 100 11/19/24 15:20 98.4 98.4 11/19/24 15:20 Nasal Cannula* 2 28 Physical Exam Gen.: Patient lying in bed in no apparent distress. On supplemental oxygen. Head: Normocephalic, atraumatic. Eyes: EOMI/PERRLA. Ears: Normal hearing. Normal anatomy. Neck/trachea: Trachea midline, supple. Nose: Normal external anatomy. Mouth: Moist mucous membranes. Chest: Decreased air entry bilaterally. No wheezing or rhonchi. Cardiovascular: Positive S1, positive S2. Regular rate and rhythm. Abdomen: Positive bowel sounds in all 4 quadrants. Soft, non-tender, non- distended. : Deferred. Rectal: Deferred. Skin: Warm, dry. Intact. Extremities: 2+ radial pulses bilaterally. No lower extremity edema. Neuro: Awake, alert, oriented x3. No gross motor or sensory deficits. Cranial nerves II through XII intact. Gait not assessed. Labs/Diagnostic Data Labs Test 11/19/24 15:55 Range/Units White Blood Count 8.4 4.4-10.8 10^3/uL Red Blood Count 2.96 L 4.5-5.90 10^6/uL Hemoglobin 9.6 L 13.5-17.5 g/dL Hematocrit 29.2 L 41.0-53.0 % Mean Corpuscular Volume 98.7 80.0-100.0 fL Mean Corpuscular Hemoglobin 32.4 H 28.0-32.0 pg Mean Corpuscular Hemoglobin Concent 32.9 32.0-36.0 g/dL Red Cell Distribution Width 15.6 H 11.8-14.3 % Platelet Count 166 140-450 10^3/uL Mean Platelet Volume 9.4 6.9-10.8 fL Neutrophils (%) (Auto) 71.8 37.0-80.0 % Lymphocytes (%) (Auto) 8.8 L 10.0-50.0 % Monocytes (%) (Auto) 13.3 H 0.0-12.0 % Eosinophils (%) (Auto) 4.7 0.0-7.0 % Basophils (%) (Auto) 1.4 0.0-2.0 % Neutrophils # (Auto) 6.0 1.6-8.6 10 ^3/uL Lymphocytes # (Auto) 0.7 0.4-5.4 10 ^3/uL Monocytes # (Auto) 1.1 0-1.3 10 ^3/uL Eosinophils # (Auto) 0.4 0-0.8 10 ^3/uL Basophils # (Auto) 0.1 0-0.2 10 ^3/uL Nucleated Red Blood Cells 0.0 % Prothrombin Time 11.7 9.3-11.8 sec Prothrombin Time INR 1.11 0.9-1.15 Activated Partial Thromboplast Time 31.6 24.5-34.5 SEC Sodium Level 135 L 136-145 mmol/L Potassium Level 4.9 3.5-5.1 mmol/L Chloride Level 97 L 98-107 mmol/L Carbon Dioxide Level 30 20-31 mmol/L Anion Gap 8 5-15 Blood Urea Nitrogen 37 H 9-23 mg/dL Creatinine 5.18 H 0.700-1.30 mg/dL Glomerular Filtration Rate Calc 11 >90 mL/min BUN/Creatinine Ratio 7.1 L 10.0-20.0 Serum Glucose 106 74-106 mg/dL Calcium Level 9.0 8.7-10.4 mg/dL Total Bilirubin 0.3 0.2-1.0 mg/dL Aspartate Amino Transferase (AST) 21 13-40 U/L Alanine Aminotransferase (ALT) < 9 7-40 U/L Alkaline Phosphatase 108 46-116 U/L Troponin I High Sensitivity 34 </=54 ng/L Total Protein 6.9 5.7-8.2 g/dL Albumin 3.6 3.2-4.8 g/dL Assessment Impression: Recurrent right pleural effusion, sanguineous Hydropneumothorax Pneumonia, likely gram negative Atelectasis Cachexia ESRD on HD Chronic hypoxic respiratory failure Dependence on supplemental oxygen Plan: CT chest reviewed. Hydropneumothorax. RLL Pneumonia. Atelectasis. Cannot exclude malignancy. Supp O2 Keep o2 sat above 92 % ESRD on HD Monitor renal fxn Monitor electrolytes Supplement as necessary. Explained CT chest results to patient and daughter He does not want to be admitted. He wishes to spend holidays with family Requests to leave [facility] with full knowledge of risks and benefits. He is aware of risks and benefits. He still chose to leave [facility] Sent prescription to abx to preferred pharmacy. Discussed with daughter. Aware to return if any chest pain, palpitations, fevers, lightheadedness to the ED. DVT prophylaxis. Condition: Critical Prognosis: Poor given multiple comorbidities. Rest of plan per hospitalist and other consultants. A total of 36 minutes of critical care time was spent reviewing the patient record, examining the patient, making a diagnostic and therapeutic plan, discussing this plan with the medical personnel, following up on diagnostic st udies and following the patient for clinical stability excluding any and all procedures. At least 50% of this time was spent in direct, [id number] contact. Thank you Dr. Sabillon for allowing me to participate in this patient's care. Further recommendations will depend on patient's clinical course. Please do not hesitate to contact me if you have any questions or concerns. This medical document was created using an electronic medical record system with [employer] computerized dictation system. Although this document has been carefully reviewed, there may still be some phonetic and typographical errors. These areas are purely typographical due to imperfections of the software programs, and do not reflect any compromise in the patient's medical care. Plan discussed with: Patient, Daughter, Other (ALVARO Back) AUSTIN RAJPUT MD Nov 19, 2024 19:26
[2024-11-19 20:40] VITALS: PULSE 86; RESP 20; O2SAT 100
[2024-11-19 20:41] VITALS: BP 157/21; PULSE 86; RESP 20; TEMP 97.6; O2SAT 100
== END 2024-11-19 21:44 | disposition left against medical advice (07) ==
LOC: ER 14:30
DX: J96.00 Acute respiratory failure, unspecified whether with hypoxia or hypercapnia (principal); E11.22 Type 2 diabetes mellitus with diabetic chronic kidney disease; I12.0 Hypertensive chronic kidney disease with stage 5 chronic kidney disease or end stage renal disease; J18.9 Pneumonia, unspecified organism; J90 Pleural effusion, not elsewhere classified; D63.1 Anemia in chronic kidney disease; J94.8 Other specified pleural conditions; J96.21 Acute and chronic respiratory failure with hypoxia; N18.6 End stage renal disease; Z46.82 Encounter for fitting and adjustment of non-vascular catheter; Z79.01 Long term (current) use of anticoagulants; Z79.899 Other long term (current) drug therapy; Z95.1 Presence of aortocoronary bypass graft; Z99.2 Dependence on renal dialysis; Z99.81 Dependence on supplemental oxygen
CPT/HCPCS: 36415; 71260; 80053; 84484; 85025; 85610; 85730; 99291; 99292; Q9967

== ENCOUNTER 2024-11-29 18:36 | Emergency (ER) | payer MEDICARE, MEDICAID ==
[~2024-11-29] VITALS: Ht 160 cm; Wt 44.0 kg
[2024-11-29 19:43] VITALS: BP 127/48; PULSE 88; RESP 18; O2SAT 97
--- NOTE | 2024-11-29 19:49 | ED.PDOC ---
SOB-HPI HPI Comments 69-year-old male with PMHx COPD presents with a chief complaint of SOB. Per son, patient was instructed by Dr. Rajput to come into the ER to "check for cancer". Patient, however, does not report any symptoms that are not within his baseline. Patient is normally on 4L of home O2 via [place] and states that he feels like he always does. Patient is sating at 97% on 4L. Patient denies any chest pain, abdominal pain, headache, worsening SOB, or vomiting. Chief Complaint: Shortness of Breath Time Seen by MD: 19:39 Reviewed notes: Medications, Allergies Information Source: Patient, Relative (Child) Mode of Arrival: Ambulatory Severity: Moderate Timing: Days Duration: Since onset Context: At Rest PE Risk Factors: None History of: COPD Prehospital treatment: Oxygen (4L of home O2) Associated Signs and Symptoms: None Past Medical History PAST MEDICAL HISTORY: COPD, DM, ESRD, High Lipids, HTN Surgical History: CABG Family History Family History: Reviewed,noncontributory to illness Social History Smoker: Non-Smoker Alcohol: Denies ETOH Use Drugs: Denies Drug Use Lives In: Home Constitutional: denies: chills, diaphoresis, fatigue, fever, malaise, sweats, weakness, others EENTM: denies: blurred vision, double vision, ear bleeding, ear discharge, ear drainage, ear pain, ear ringing, eye pain, eye redness, hearing loss, mouth pain, mouth swelling, nasal discharge, nose bleeding, nose congestion, nose pain, photophobia, tearing, throat pain, throat swelling, voice changes, others Respiratory: reports: shortness of breath; denies: cough, hemoptysis, orth opnea, SOB at rest, SOB with excertion, stridor, wheezing, others Cardiovascular: denies: chest pain, dizzy spells, diaphoresis, Dyspnea on exertion, edema, irregular heart beat, left arm pain, lightheadedness, palpitations, PND, syncope, others Gastrointestinal: denies: abdomen distended, abdominal pain, blood streaked bowels, constipated, diarrhea, dysphagia, difficulty swallowing, hematemesis, melena, nausea, poor appetite, poor fluid intake, rectal bleeding, rectal pain, vomiting, others Genitourinary: denies: burning, dysuria, flank pain, frequency, hematuria, in continence, penile discharge, penile sore, pain, testicle pain, testicle swelling, urgency, others Neurological: denies: dizziness, fainting, headache, left sided numbness, left sided weakness, numbness, paresthesia, pre-existing deficit, right sided numbness, right sided weakness, seizure, speech problems, tingling, tremors, weakness, others Musculoskeletal: denies: back pain, gout, joint pain, joint swelling, muscle pain, muscle stiffness, neck pain, others Integumetry: denies: bruises, change in color, change in hair/nails, dryness, laceration, lesions, lumps, rash, wounds, others Allergic/Immunocompromised: denies: Difficulty Healing, Frequent Infections, Hives, Itching, others Hematologic/Lymphatic: denies: anemia, blood clots, easy bleeding, easy bruising, swollen glands, others Endocrine: denies: excessive hunger, excessive sweating, excessive thirst, excessive urination, flushing, intolerance to cold, intolerance to heat, unexplained weight gain, unexplained weight loss, others Psychiatric: denies: anxiety, bipolar disorder, depression, hopeless, panic disorder, schizophrenia, sleepless, suicidal, others All Other Systems: Reviewed and Negative Physical Exam General Appearance: Mild Distress, Normal HEENT: Normal ENT Inspection, Pharynx Normal, TMs Normal Neck: Full Range of Motion, Non-Tender, Normal, Normal Inspection Respiratory: Chest Non-Tender, Lungs Clear, No Accessory Muscle Use, Other (increased expiratory phase, barrel chest, emphysematous changes) Cardiovascular: No Edema, No JVD, No Murmur, No Gallop, Normal Peripheral Pulses, Regular Rate/Rhythm Breast Exam: Deferred Gastrointestinal: No Organomegaly, Non Tender, No Pulsatile Mass, Normal Bowel Sounds, Soft Genitalia: Deferred Pelvic: Deferred Rectal: Deferred Extremities: No calf tenderness, Normal capillary refill, Normal inspection, Normal range of motion, Non-tender, No pedal edema Musculoskeletal : Apperance: Normal Neurologic: Alert, 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 Was a procedure done?: No Differential Dx Differential Diagnosis: Asthma, Bronchitis, CHF, COPD, Myocardial infarction, Pneumonia, Pneumothorax, URI, Other X-Ray, Labs, Meds, VS Vital Signs Date Time Temp Pulse Resp B/P (MAP) Pulse Ox O2 Delivery O2 Flow Rate FiO2 11/29/24 19:43 97.6 88 18 127/48 (74) 97 Time of 1ST Reevaluation: 20:09 Reevaluation 1ST: Unchanged Time of 2ND Reevaluation: 19:55 Reevaluation 2ND: Unchanged Patient Education/Counseling: Diagnosis, Treatment, Prognosis Family Education/Counseling: Diagnosis, Treatment, Prognosis Departure 1 Departure Time of Disposition: 19:55 (On reevaluation the patient is declining admission and wants to go home. I have voiced my concerns for the patient's health given that a full evaluation and treatment had not occurred. I have discussed the need for continued evaluation to determine if their symptoms are caused by a condition that present risk of or morbidity. Risks including but not limited to , permanent disability, prolonged hospitalization, prolonged illness, were discussed. I discussed the specific benefits of additional treatment, as well as tried offering alternative options in hopes that the patient might be amenable to partial evaluation and treatment which would be medically beneficial to the patient. However, the patient declined my options and insisted on leaving. Patient has a clear sensorium and GCS 15 and expresses understanding of the risks with leaving. Because I have been unable to convince the patient to stay, I answered all of their questions about their condition and asked them to return to the ED as soon as possible to complete their evaluation, especially if their symptoms worsen or do not improve. I emphasized that leaving against medical advice does not preclude returning here for further evaluation. I asked the patient to return if they change their mind about the further evaluation and treatment. I strongly encouraged the patient to return to this Emergency Department or any Emergency Department at any time, particularly with worsening symptoms.) Impression: Primary Impression: COPD (chronic obstructive pulmonary disease) Additional Impression: Dyspnea Disposition: 07 LEFT AGAINST MEDICAL ADVICE Condition: Guarded Discharged With: Self, Relative Critical Care Note Critical Care Time?: No Stability Stability form required: No Heart Score Heart Score: Heart Score Response (Comments) Value History Slightly Suspicious 0 EKG N/A 0 Age >65 2 Risk Factors 1 or 2 risk factors 1 Troponin N/A 0 Total 3 I personally scribed for MARTIR DAY MD ([email or web address]) on 11/29/24 at 19:49. Electronically submitted by Mukund Brush ([email or web address]). MARTIR DAY MD Nov 29, 2024 19:49
== END 2024-11-29 19:50 | disposition left against medical advice (07) ==
LOC: ER 18:36
DX: J44.9 Chronic obstructive pulmonary disease, unspecified (principal); E11.22 Type 2 diabetes mellitus with diabetic chronic kidney disease; I12.0 Hypertensive chronic kidney disease with stage 5 chronic kidney disease or end stage renal disease; N18.6 End stage renal disease; Z95.1 Presence of aortocoronary bypass graft

== ENCOUNTER 2024-12-01 03:36 | Inpatient (IN) | payer MEDICARE, MEDICAID ==
[~2024-12-01] VITALS: Ht 160 cm; Wt 69.4 kg
[2024-12-01] VITALS (10 sets, daily range): BP systolic 99–177; BP diastolic 17–42; PULSE 83–90; RESP 16–25; TEMP 97.4–97.8; O2SAT 2–100
--- NOTE | 2024-12-01 04:17 | ED.PDOC ---
History of Present Illness HPI Comments 69-year-old male brought in by EMS presents with a chief complaint of syncope and generalized weakness x 1 hour. Per EMS, family called due to patient having a near syncope at home where patient became pale, sweaty, and dizzy. Patient reports that he overall feels weak. Patient is on 2L of home O2. Patient is A/Ox4. Patient was given Zofran by EMS after having one episode of vomiting. Chief Complaint: General Weakness Time Seen by MD: 03:53 Reviewed Notes: Medications, Allergies Allergies: Coded Allergies: NO KNOWN ALLERGIES (Unverified , 09/14/24) Home Meds Active Scripts Albuterol Sulfate (VENTOLIN MDI) 90 Mcg Ih, 90 MCG IN Q4HR, #1 INH Prov:CHI KAM MD 08/25/24 Reported Medications B-Complex W/ C & Folic Acid ([facility]-Xavier Rx) Tab, 1 TAB PO DAILY for 90 Days, #90 08/23/24 Apixaban Base (ELIQUIS) 2.5 Mg Tab, 1 TAB PO BID for 30 Days, #60 08/23/24 Mirtazapine (Mirtazapine Oral Disintegrating Tablet) 15 Mg Tab, 7.5 MG PO DAILY for 30 Days, #30 08/23/24 Atorvastatin Calcium (Lipitor) 10 Mg Tab, 1 TAB PO DAILY for 30 Days, #30 08/23/24 Carvedilol (Carvedilol) 12.5 Mg Tab, 1 TAB PO BID for 30 Days, #60 24 Calcium Acetate (Phosphate Bin (Calcium Acetate) 667 Mg Cap, 1 TAB PO TIDWM for 30 Days, #90 08/23/24 Amlodipine Besylate (Amlodipine Besylate) 10 Mg Tab, 1 TAB PO DAILY for 30 Days, #30 08/23/24 Information Source: Emergency Med Personnel Mode of Arrival: EMS Severity: Moderate Timing: Hours Duration: Since onset Prehospital treatment: Accucheck (137), Treatment (4mg Zofran) Past Medical History PAST MEDICAL HISTORY: COPD, DM, ESRD, High Lipids, HTN Surgical History: CABG Family History Family History: Reviewed,noncontributory to illness Social History Smoker: Non-Smoker Alcohol: Denies ETOH Use Drugs: Denies Drug Use Lives In: Home Constitutional: reports: weakness; denies: chills, diaphoresis, fatigue, fever, malaise, sweats, others EENTM: denies: blurred vision, double vision, ear bleeding, ear discharge, ear drainage, ear pain, ear ringing, eye pain, eye redness, hearing loss, mouth pain, mouth swelling, nasal discharge, nose bleeding, nose congestion, nose pain, photophobia, tearing, throat pain, throat swelling, voice changes, others Respiratory: denies: cough, hemoptysis, orthopnea, SOB at rest, shortness of breath, SOB with excertion, stridor, wheezing, others Cardiovascular: reports: syncope; denies: chest pain, dizzy spells, diaphoresis, Dyspnea on exertion, edema, irregular heart beat, left arm pain, lightheadedness, palpitations, PND, others Gastrointestinal: denies: abdomen distended, abdominal pain, blood streaked bowels, constipated, diarrhea, dysphagia, difficulty swallowing, hematemesis, melena, nausea, poor appetite, poor fluid intake, rectal bleeding, rectal pain, vomiting, others Genitourinary: denies: burning, dysuria, flank pain, frequency, hematuria, incontinence, penile discharge, penile sore, pain, testicle pain, testicle swelling, urgency, others Neurological: denies: dizziness, fainting, headache, left sided numbness, left sided weakness, numbness, paresthesia, pre-existing deficit, right sided numbness, right sided weakness, seizure, speech problems, tingling, tremors, weakness, others Musculoskeletal: denies: back pain, gout, joint pain, joint swelling, muscle pain, muscle stiffness, neck pain, others Integumetry: denies: bruises, change in color, change in hair/nails, dryness, laceration, lesions, lumps, rash, wounds, others Allergic/Immunocompromised: denies: Difficulty Healing, Frequent Infections, Hives, Itching, others Hematologic/Lymphatic: denies: anemia, blood clots, easy bleeding, easy bruising, swollen glands, others Endocrine: denies: excessive hunger, excessive sweating, excessive thirst, excessive urination, flushing, intolerance to cold, intolerance to heat, unexplained weight gain, unexplained weight loss, others Psychiatric: denies: anxiety, bipolar disorder, depression, hopeless, panic disorder, schizophrenia, sleepless, suicidal, others All Other Systems: Reviewed and Negative Physical Exam General Appearance: Mild Distress, Thin HEENT: Normal ENT Inspection, Pharynx Normal, TMs Normal Neck: Full Range of Motion, Non-Tender, Normal, Normal Inspection Respiratory: Chest Non-Tender, Lungs Clear, No Accessory Muscle Use, No Respiratory Distress, Normal Breath Sounds Cardiovascular: No Edema, No JVD, No Murmur, No Gallop, Normal Peripheral Pulses, Regular Rate/Rhythm, Other (Dialysis shunt left upper arm and dialysis catheter in right chest) Breast Exam: Deferred Gastrointestinal: No Organomegaly, Non Tender, No Pulsatile Mass, Normal Bowel Sounds, Soft Genitalia: Deferred Pelvic: Deferred Rectal: Deferred Extremities: No calf tenderness, Normal capillary refill, Normal inspection, Normal range of motion, Non-tender, No pedal edema Musculoskeletal : Apperance: Normal Neurologic: Alert, 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 Was a procedure done?: No Differential Dx Considerations may include: Differential diagnosis includes but is not limited to: coronary ischemia, dehyd ration, sepsis, electrolyte abnormality, symptomatic anemia, hypovolemia and others X-Ray, Labs, Meds, VS Vital Signs Date Time Temp Pulse Resp B/P (MAP) Pulse Ox O2 Delivery O2 Flow Rate FiO2 12/01/24 03:48 97.6 91 22 115/19 (51) 99 12/01/24 03:39 89 Lab Test 12/01/24 04:12 Range/Units White Blood Count 12.1 H 4.4-10.8 10^3/uL Red Blood Count 1.86 L 4.5-5.90 10^6/uL Hemoglobin 5.8 *L 13.5-17.5 g/dL Hematocrit 18.4 L 41.0-53.0 % Mean Corpuscular Volume 99.2 80.0-100.0 fL Mean Corpuscular Hemoglobin 31.4 28.0-32.0 pg Mean Corpuscular Hemoglobin Concent 31.7 L 32.0-36.0 g/dL Red Cell Distribution Width 16.0 H 11.8-14.3 % Platelet Count 131 L 140-450 10^3/uL Mean Platelet Volume 8.3 6.9-10.8 fL Neutrophils (%) (Auto) 77.0 37.0-80.0 % Lymphocytes (%) (Auto) 9.8 L 10.0-50.0 % Monocytes (%) (Auto) 9.9 0.0-12.0 % Eosinophils (%) (Auto) 2.5 0.0-7.0 % Basophils (%) (Auto) 0.8 0.0-2.0 % Neutrophils # (Auto) 9.3 H 1.6-8.6 10 ^3/uL Lymphocytes # (Auto) 1.2 0.4-5.4 10 ^3/uL Monocytes # (Auto) 1.2 0-1.3 10 ^3/uL Eosinophils # (Auto) 0.3 0-0.8 10 ^3/uL Basophils # (Auto) 0.1 0-0.2 10 ^3/uL Nucleated Red Blood Cells 0.1 % Sodium Level Pending Potassium Level Pending Chloride Level Pending Carbon Dioxide Level Pending Anion Gap Pending Blood Urea Nitrogen Pending Creatinine Pending Glomerular Filtration Rate Calc Pending BUN/Creatinine Ratio Pending Serum Glucose Pending Calcium Level Pending Total Bilirubin Pending Aspartate Amino Transferase (AST) Pending Alanine Aminotransferase (ALT) Pending Alkaline Phosphatase Pending Troponin I High Sensitivity Pending Total Protein Pending Albumin Pending Time of 1ST Reevaluation: 04:23 Reevaluation 1ST: Unchanged Time of 2ND Reevaluation: 04:25 Reevaluation 2ND: Unchanged Patient Education/Counseling: Diagnosis, Treatment, Prognosis Family Education/Counseling: No Family Present Departure 1 Departure Time of Disposition: 04:25 Impression: Primary Impression: End stage renal disease on dialysis Additional Impressions: Near syncope Symptomatic anemia Disposition: 09 ADMITTED INPATIENT Admit to: [facility] Condition: Guarded Discharged With: Self Critical Care Note Critical Care Time?: Yes (45 min-critical care time only) Critical care comment: Total critical care time: Approximately 36 minutes Due to a high probability of clinically significant, life threatening deterioration, the patient required my highest level of preparedness to intervene emergently and I personally spent this critical care time directly and personally managing the patient. This critical care time included obtaining a history; examining the patient; pulse oximetry; ordering and review of studies; arranging urgent treatment with development of a management plan; evaluation of patient's response to treatment; frequent reassessment; and, discussions with o ther providers. This critical care time was performed to assess and manage the high probability of imminent, life-threatening deterioration that could result in multi-organ failure. It was exclusive of separately billable procedures and treating other patients. Stability Stability form required: No Heart Score Heart Score: Heart Score Response (Comments) Value History Slightly Suspicious 0 EKG Normal 0 Age >65 2 Risk Factors 1 or 2 risk factors 1 Troponin 1-2 x's Normal limit 1 Total 4 I personally scribed for MARTIR DAY MD ([email or web address]) on 12/01/24 at 04:17. Electronically submitted by Mukund Brush [email or web address]). MARTIR DAY MD Dec 01, 2024 04:17
[2024-12-01 04:19] LABS: Basophils # (auto) 0.1 10 ^3/uL (0-0.2); Basophils % (auto) 0.8 % (0.0-2.0); Eosinophils # (auto) 0.3 10 ^3/uL (0-0.8); Eosinophils % (auto) 2.5 % (0.0-7.0); Hematocrit 18.4 % (41.0-53.0); Lymphocytes # (auto) 1.2 10 ^3/uL (0.4-5.4); Lymphocytes % (auto) 9.8 % (10.0-50.0); Mean Corpuscular Hemoglobin 31.4 pg (28.0-32.0); Mean Corpuscular Hgb Conc. 31.7 g/dL (32.0-36.0); Mean Corpuscular Volume 99.2 fL (80.0-100.0); Monocytes # (auto) 1.2 10 ^3/uL (0-1.3); Monocytes % (auto) 9.9 % (0.0-12.0); Neutrophils # (auto) 9.3 10 ^3/uL (1.6-8.6); Nucleated Red Blood Cells % 0.1 %; Platelet Count (auto) 131 10^3/uL (140-450); Red Blood Cells 1.86 10^6/uL (4.5-5.90); White Blood Cell 12.1 10^3/uL (4.4-10.8)
[2024-12-01 04:22] LABS: Hemoglobin 5.8 g/dL (13.5-17.5)
[2024-12-01] MEDS: SODIUM CHLORIDE 0.9% 250 ML IV ONE (04:32)
[2024-12-01 04:36] LABS: Alkaline Phosphatase 103 U/L (46-116); Anion Gap 11 (5-15); Aspartate Aminotransferase 23 U/L (13-40); BUN/Creatinine Ratio 6.6 (10.0-20.0); Bilirubin, Total 0.4 mg/dL (0.2-1.0); Carbon Dioxide 28 mmol/L (20-31); Chloride 99 mmol/L (98-107); Potassium 4.2 mmol/L (3.5-5.1); Sodium 138 mmol/L (136-145)
[2024-12-01 05:03] LABS: INR 1.25 (0.9-1.15); Partial Thromboplastin Time 26.2 SEC (24.5-34.5)
[2024-12-01 05:05] LABS: Alanine Aminotransferase < 9 U/L (7-40); Albumin 2.9 g/dL (3.2-4.8); Blood Urea Nitrogen 37 mg/dL (9-23); Calcium 8.5 mg/dL (8.7-10.4); Glucose 167 mg/dL (74-106); Total Protein 5.4 g/dL (5.7-8.2)
[2024-12-01] MEDS ORDERED: ACETAMINOPHEN 325 MG TAB PO PRN (08:00)
[2024-12-01] MEDS ORDERED: ONDANSETRON HCL 4 MG/2 ML VIAL IV PRN (08:00)
[2024-12-01] MEDS ORDERED: MORPHINE SULFATE INJ 2 MG/ml SYRG IV PRN ×2 (08:00→08:45)
[2024-12-01] MEDS: ONDANSETRON HCL 4 MG/2 ML VIAL IV ONE (08:12)
[2024-12-01] MEDS ORDERED: hydrALAZINE HCL 20 MG/ML VL IV PRN (08:15)
--- NOTE | 2024-12-01 08:36 | DVHHP2 ---
History of Present Illness Reason for Visit: Generalized weakness History of Present Illness The patient is a 69-year-old male with past medical history of COPD, DM, end- stage renal disease on hemodialysis, hyperlipidemia, and hypertension who presented to [facility] ED with complaint of generalized weakness. As reported by family, patient was having a syncope episode at home where patient became pale, sweaty, episodes of vomiting, and dizziness. Patient was seen and evaluated in the ED, laboratory data shows WBC 12.1, hemoglobin 5.8, hematocrit 18.4, platelets 131, sodium 138, potassium 4.2, BUN 37, creatinine 5.62, GFR 10, glucose 169, calcium 8.5, protein 5.4, albumin 2.9 blood pressure 108/28, heart rate 86, temperature 97.6 F, O2 saturation 99% on oxygen. Chest x-ray revealing multifocal right lung airspace disease. Patient was started on IV antibiotic regimen azithromycin, please see medication orders section in the computer. On my assessment, patient denied chest pain, no headache, no dizziness, no diaphoresis, currently on oxygen, no diarrhea, no nausea, no vomiting, no fever, no chills. Patient was admitted for further evaluation and medical management. Past Medical History COPD, DM, ESRD, High Lipids, HTN Past Surgical History CABG, Dialysis access Family History Reviewed, noncontributory to the management of this case. Past Social History The patient lives at home, denies smoking, alcohol or illicit drugs abuse. Review of Systems Constitutional: Yes: Weakness; No: Fever, Chills, Sweats, Malaise, Other Eyes: No: Pain, Vision change, Conjunctivae inflammation, Eyelid inflammation, Other, Redness ENT: No: Ear pain, Ear discharge, Nose pain, Nose discharge, Nose congestion, Mouth pain, Mouth swelling, Throat pain, Throat swelling, Other Respiratory: Shortness of breath; No: Cough, Dry, SOB with excertion, Wheezing, Hemoptysis, Pleuritic Pain, Sputum, Wheezing, Other Cardiovascular: Other (Syncope); No: Chest Pain, Palpitations, Orthopnea, Paroxysmal Noc. Dyspnea, Edema, Lt Headedness Gastrointestinal: No: Nausea, Vomiting, Abdominal Pain, Diarrhea, Constipation, Melena, Hematochezia, Other Genitourinary: No Dysuria, No Frequency, No Incontinence, No Hematuria, No Retention, No Other Musculoskeletal: No: other, neck pain, shoulder pain, arm pain, back pain, hand pain, leg pain, foot pain Skin: No: Rash, Lesions, Jaundice, Bruising, Other Neurological: No: Weakness, Numbness, Incoordination, Change in speech, Confusion, Seizures, Other Allergies: Coded Allergies: NO KNOWN ALLERGIES (Unverified , 09/14/24) Medications Current Medications Medications Dose Ordered Sig/Dioni Route Start Time Stop Time Status Last Admin Dose Admin Sevelamer HCl 800 mg TIDWM PO 12/01/24 08:00 Multivit/Ca Carb/ B Cmplx/FA/Prenat 1 tab DAILY PO 12/01/24 10:00 Atorvastatin Calcium 10 mg HS PO 12/01/24 22:00 Apixaban 2.5 mg BID PO 12/01/24 10:00 Diagnostic Test (Pha) 1 strip ACHS 12/01/24 11:30 Insulin Human Regular ACHS SC 12/01/24 11:30 Dextrose 50 ml UD PRN IV 12/01/24 08:00 Sodium Chloride 10 ml Q8HR IV 12/01/24 14:00 Acetaminophen/ Hydrocodone Bitart 1 tab Q4HP PRN PO 12/01/24 08:00 Ondansetron HCl 4 mg Q4HP PRN IV 12/01/24 08:00 Docusate Sodium 100 mg BIDPRN PRN PO 12/01/24 08:00 Acetaminophen 650 mg Q6HP PRN PO 12/01/24 08:00 Morphine Sulfate 2 mg Q4HPRN PRN IV 12/01/24 08:00 Hydralazine HCl 10 mg Q6HP PRN IV 12/01/24 08:15 Exam Vital Signs Vital Signs Date Time Temp Pulse Resp B/P (MAP) Pulse Ox O2 Delivery O2 Flow Rate FiO2 12/01/24 07:00 86 25 108/28 (54) 12/01/24 04:10 97.6 97.6 12/01/24 04:10 Nasal Cannula* 2 28 12/01/24 03:48 99 General Appearance: Alert, Oriented X3, Cooperative, No acute distress HEENT: Atraumatic, PERRLA, EOMI, Mucous membr. moist/pink Respiratory: Normal air movement, Other (Diminished breath sounds) Cardiovascular: Regular rate, Normal S1, Normal S2, No murmurs Abdominal: Normal bowel sounds, Soft, No tenderness, No hepatospenomegaly, No masses Extremities: No clubbing, No cyanosis, No edema, Normal pulses, No tenderness/swelling Skin: No rashes, No breakdown, No significant lesion Neuro: Normal speech, Normal tone, Sensation intact, Cranial nerves 3-12 NL, Reflexes 2+, Other (Generalized weakness) Psych/Mental Status: Mental status NL, Mood NL Labs/Xrays Labs Test 12/01/24 04:12 Range/Units White Blood Count 12.1 H 4.4-10.8 10^3/uL Red Blood Count 1.86 L 4.5-5.90 10^6/uL Hemoglobin 5.8 *L 13.5-17.5 g/dL Hematocrit 18.4 L 41.0-53.0 % Mean Corpuscular Volume 99.2 80.0-100.0 fL Mean Corpuscular Hemoglobin 31.4 28.0-32.0 pg Mean Corpuscular Hemoglobin Concent 31.7 L 32.0-36.0 g/dL Red Cell Distribution Width 16.0 H 11.8-14.3 % Platelet Count 131 L 140-450 10^3/uL Mean Platelet Volume 8.3 6.9-10.8 fL Neutrophils (%) (Auto) 77.0 37.0-80.0 % Lymphocytes (%) (Auto) 9.8 L 10.0-50.0 % Monocytes (%) (Auto) 9.9 0.0-12.0 % Eosinophils (%) (Auto) 2.5 0.0-7.0 % Basophils (%) (Auto) 0.8 0.0-2.0 % Neutrophils # (Auto) 9.3 H 1.6-8.6 10 ^3/uL Lymphocytes # (Auto) 1.2 0.4-5.4 10 ^3/uL Monocytes # (Auto) 1.2 0-1.3 10 ^3/uL Eosinophils # (Auto) 0.3 0-0.8 10 ^3/uL Basophils # (Auto) 0.1 0-0.2 10 ^3/uL Nucleated Red Blood Cells 0.1 % Prothrombin Time 13.0 H 9.3-11.8 sec Prothrombin Time INR 1.25 H 0.9-1.15 Activated Partial Thromboplast Time 26.2 24.5-34.5 SEC Sodium Level 138 136-145 mmol/L Potassium Level 4.2 3.5-5.1 mmol/L Chloride Level 99 98-107 mmol/L Carbon Dioxide Level 28 20-31 mmol/L Anion Gap 11 5-15 Blood Urea Nitrogen 37 H 9-23 mg/dL Creatinine 5.62 H 0.700-1.30 mg/dL Glomerular Filtration Rate Calc 10 >90 mL/min BUN/Creatinine Ratio 6.6 L 10.0-20.0 Serum Glucose 167 H 74-106 mg/dL Calcium Level 8.5 L 8.7-10.4 mg/dL Total Bilirubin 0.4 0.2-1.0 mg/dL Aspartate Amino Transferase (AST) 23 13-40 U/L Alanine Aminotransferase (ALT) < 9 7-40 U/L Alkaline Phosphatase 103 46-116 U/L Troponin I High Sensitivity 44 </=54 ng/L Total Protein 5.4 L 5.7-8.2 g/dL Albumin 2.9 L 3.2-4.8 g/dL PATIENT: JIMMY LOREDOOACCT: [id number] UNIT: [id number] : 1955 LOC: [facility] ROOM / BED: [address] [place] [address] AGE / SEX: 69 / M ADM STATUS: ADM IN SERVICE 8 ORDERING PHYSICIAN: RIGO SNYDER DNP PROCEDURE(s): CXRP - CHEST PORTABLE REASON: sob ORDER NUMBER(s): [id number], ACCESSION NUMBER(s): [id number] CHEST RADIOGRAPH Indication: sob Technique: Single frontal view of the chest was obtained COMPARISON: XY CHEST XRAY 1 VIEW on DOS: 08/24/24, XY CHEST XRAY 1 VIEW on DOS: 08/23/24, XY CHEST XRAY 1 VIEW on DOS: 08/22/24, XY CHEST XRAY 1 VIEW on DOS: 08/22/24, XY CHEST PORTABLE on DOS: 08/20/24 FINDINGS: Lines and Tubes: Tunneled right central venous catheter in satisfactory position. Median sternotomy. Lungs: Multifocal right lung airspace disease. Pleura: Small right pleural effusion. No pneumothorax. Cardiomediastinal contours: Unremarkable Bones: Unremarkable IMPRESSION: Multifocal right lung airspace disease. Assessment/Plan Assessment/Plan End stage renal disease on dialysis Near syncope Symptomatic anemia Generalized weakness Leukocytosis, unspecified Pneumonia, unspecified organism Diabetes mellitus with hyperglycemia Plan 1. Admit to telemetry unit 2. Breathing treatment 3. Pain control management 4. IV antibiotic management 5. Management of fluids and electrolytes 6. Consultation for pulmonology 7. Diagnostic test chest x-ray 8. DVT prophylaxis on SCDs 9. Repeat labs CBC, CMP in a.m. 10. Home medication reviewed and reconciled 11. Continue with current medical management 12. Treatment plan discussed with patient and RN. Patient/sister verbalized understanding. Plan discussed with: Patient, Other (RN) My Orders Orders - RIGO SNYDER DNP Procedure Category Date Status Time Sevelamer (Renagel) PHA 12/01/24 In Process 08:00 B-Complex W/ C & PHA 12/01/24 In Process Folic Tablet 10:00 Atorvastatin (Lipitor) PHA 12/01/24 In Process 22:00 Consistent DIET 12/01/24 Transmitted Carb(Ccho)Diabetes Breakfast Albumin 25% (Albutein) PHA 12/01/24 In Process 08:00 Apixaban (Eliquis) PHA 12/01/24 In Process 10:00 Glucose Blood PHA 12/01/24 In Process (Accu-Chek Comfort 11:30 Insulin R (Human) PHA 12/01/24 In Process (Insulin R) 11:30 Dextrose 50% Syringe PHA 12/01/24 In Process 08:00 Allergies BIENVENIDO 12/01/24 In Process 07:59 Code Status CODE 12/01/24 Transmitted 07:59 Renal DIET 12/01/24 Transmitted Standard(2gna,3gk,Lopho) Breakfast Sodium Chloride Lock PHA 12/01/24 In Process (Saline Lock Ns) 14:00 Oxygen Per Hour RT 12/01/24 Transmitted 07:59 Hydrocodone-Acet PHA 12/01/24 In Process 5/325mg Tab ([place] 08:00 Ondansetron Hcl PHA 12/01/24 In Process (Zofran) 08:00 Docusate Sodium PHA 12/01/24 In Process Capsule (Colace 08:00 Complete Blood Count LAB 12/02/24 Verified 04:00 Comprehensive LAB 12/02/24 Verified Metabolic Panel 04:00 Condition: Serious BIENVENIDO 12/01/24 In Process 07:59 Acetaminophen Tablet PHA 12/01/24 In Process (Tylenol Tablet) 08:00 Bedrest With Bathroom [facility] 12/01/24 In Process Privileg 07:59 Morphine Sulfate PHA 12/01/24 In Process Injection 08:00 Sequential BIENVENIDO 12/01/24 In Process Compression Device Hydralazine Injection [facility] 12/01/24 In Process (Apresoline Inject 08:15 Chest Portable XY 12/01/24 Logged 08:29 *Consult CONS 12/01/24 Transmitted / 08:29 Admit ADMIT 12/01/24 Verified 08:35 Nitroglycerin [facility] 12/01/24 Verified Sublingual (Ntrostat 08:45 Morphine Sulfate [facility] 12/01/24 Verified Injection 08:45 Notify Of Changes [facility] 12/01/24 Verified From Base 08:35 Youth Ministry Director For [facility] 12/01/24 Verified 24 Hours 08:35 Emergency Dysrhythmia [facility] 12/01/24 Verified Protocol 08:35 Rhythm Strips Once [facility] 12/01/24 Verified Every Shift 08:35 Oxygen By Nasal RT 12/01/24 Verified Cannula 08:35 Problem List: (1) End stage renal disease on dialysis (2) Near syncope (3) Symptomatic anemia (4) Generalized weakness (5) Leukocytosis, unspecified (6) Pneumonia, unspecified organism (7) Diabetes mellitus with hyperglycemia Date of Service: Dec 01, 2024 Billing Provider: RIGO SNYDER DNP Common Visit Codes: [id number] INP/OBS CARE (HIGH) RIGO SNYDER DNP Dec 01, 2024 08:36
[2024-12-01] MEDS ORDERED: NITROGLYCERIN 0.4 MG SL TAB SL PRN (08:45)
[2024-12-01] MEDS: ALBUMIN 25% 100 ML IV ONE (08:52)
--- NOTE | 2024-12-01 09:13 | DVH ---
CHEST RADIOGRAPH Indication: sob Technique: Single frontal view of the chest was obtained COMPARISON: XY CHEST XRAY 1 VIEW on DOS: 08/24/24, XY CHEST XRAY 1 VIEW on DOS: 08/23/24, XY CHEST XRAY 1 VIEW on DOS: 08/22/24, XY CHEST XRAY 1 VIEW on DOS: 08/22/24, XY CHEST PORTABLE on DOS: 08/20/24 FINDINGS: Lines and Tubes: Tunneled right central venous catheter in satisfactory position. Median sternotomy. Lungs: Multifocal right lung airspace disease. Pleura: Small right pleural effusion. No pneumothorax. Cardiomediastinal contours: Unremarkable Bones: Unremarkable IMPRESSION: Multifocal right lung airspace disease.
[2024-12-01] MEDS: APIXABAN 2.5 MG TAB PO SCH (10:00)
[2024-12-01] MEDS: SEVELAMER 800 MG TAB PO SCH (10:04)
[2024-12-01] MEDS: B-COMPLEX W/ C & FOLIC ACID(NEPHROVITE TAB) PO SCH (10:04)
[2024-12-01] MEDS: ACCU-CHEK COMFORT CURVE STRIP VI SCH (11:49)
[2024-12-01] MEDS: InsuLIN REG 1unit/0.01ml Soln (100units/ml) SC SCH (12:14)
[2024-12-01] MEDS: AZITHROMYCIN 500MG/ 250ML 250 ML IV ONE (12:25)
[2024-12-01 12:47] LABS: Hematocrit 18.4 % (41.0-53.0)
[2024-12-01 13:09] LABS: Hemoglobin 5.7 g/dL (13.5-17.5)
[2024-12-01] MEDS: SODIUM CHLOR 0.9% PF (SALINE LOCK) 10ML VIAL/SYR IV SCH (14:03)
[2024-12-01 14:21] LABS: Hematocrit 16.8 % (41.0-53.0)
[2024-12-01 14:24] LABS: Hemoglobin 5.5 g/dL (13.5-17.5)
--- NOTE | 2024-12-01 15:12 | DVHINCON2 ---
Date of service: Dec 01, 2024 Referring Physician Sy Oliver Reason for Consultation Dialysis History of Present Illness 69-year-old male with history of ESRD on HD, hypertension, anemia of chronic kidney disease, hyperphosphatemia, secondary hyperparathyroidism presented chief complaint of near-syncope, after he was found to be pale sweaty and dizzy. Labs significant for hemoglobin of 5.8 g/dl. He was admitted for symptomatic anemia. Patient had last hemodialysis on Friday11/02/2024. In the emergency room patient with a very low diastolic blood pressure. Chest x-ray shows multifocal right lung airspace disease. IV antibiotics versus normal Nephrology is consulted for maintenance dialysis. Past Medical History ESRD HTN Anemia Secondary hyperparathyroidism Past Surgical History AVF creation Allergies: Coded Allergies: NO KNOWN ALLERGIES (Unverified , 09/14/24) Home Meds Active Scripts Albuterol Sulfate (VENTOLIN MDI) 90 Mcg Ih, 90 MCG IN Q4HR, #1 INH Prov:CHI KAM MD 08/25/24 Reported Medications B-Complex W/ C & Folic Acid (Henny-Xavier Rx) Tab, 1 TAB PO DAILY for 90 Days, #90 08/23/24 Apixaban Base (ELIQUIS) 2.5 Mg Tab, 1 TAB PO BID for 30 Days, #60 08/23/24 Mirtazapine (Mirtazapine Oral Disintegrating Tablet) 15 Mg Tab, 7.5 MG PO DAILY for 30 Days, #30 08/23/24 Atorvastatin Calcium (Lipitor) 10 Mg Tab, 1 TAB PO DAILY for 30 Days, #30 08/23/24 Carvedilol (Carvedilol) 12.5 Mg Tab, 1 TAB PO BID for 30 Days, #60 08/23/24 Calcium Acetate (Phosphate Bin (Calcium Acetate) 667 Mg Cap, 1 TAB PO TIDWM for 30 Days, #90 08/23/24 Amlodipine Besylate (Amlodipine Besylate) 10 Mg Tab, 1 TAB PO DAILY for 30 Days, #30 08/23/24 Current Medications Current Medications Medications (Trade) Dose Ordered Sig/Dioni Route PRN Reason Start Time Stop Time Status Last Admin Sevelamer HCl (Renagel) 800 mg TIDWM PO 12/01/24 08:00 12/01/24 10:04 Multivit/Ca Carb/ B Cmplx/FA/Prenat (Nephro-Xavier Tablet) 1 tab DAILY PO 12/01/24 10:00 12/01/24 10:04 Atorvastatin Calcium (Lipitor) 10 mg HS PO 12/01/24 22:00 Apixaban (Eliquis) 2.5 mg BID PO 12/01/24 10:00 Diagnostic Test (Pha) (Accu-Chek Comfort Curve T) 1 strip ACHS 12/01/24 11:30 12/01/24 11:49 Insulin Human Regular (InsuLIN R) ACHS SC 12/01/24 11:30 12/01/24 12:14 Dextrose 50 ml UD PRN IV Blood Sugar LESS THAN 60 12/01/24 08:00 Sodium Chloride (Saline Lock Ns) 10 ml Q8HR IV 12/01/24 14:00 12/01/24 14:03 Acetaminophen/ Hydrocodone Bitart ([place] 5/325MG Tab) 1 tab Q4HP PRN PO MODERATE PAIN (4-6 PAIN SCALE) 12/01/24 08:00 12/01/24 15:31 Ondansetron HCl (Zofran) 4 mg Q4HP PRN IV NAUSEA / VOMITING 12/01/24 08:00 Docusate Sodium (Colace Capsule) 100 mg BIDPRN PRN PO FOR CONSTIPATION 12/01/24 08:00 Acetaminophen (Tylenol Tablet) 650 mg Q6HP PRN PO PAIN SCALE 1-3 OR TEMP>100.4 12/01/24 08:00 Morphine Sulfate 2 mg Q4HPRN PRN IV SEVERE PAIN (7-10 PAIN SCALE) 12/01/24 08:00 Hydralazine HCl (Apresoline Injection) 10 mg Q6HP PRN IV SBP>150 12/01/24 08:15 Nitroglycerin (Ntrostat Sublingual) 0.4 mg Q5MINP PRN SL FOR CHEST PAIN 12/01/24 08:45 Morphine Sulfate 2 mg Q30M PRN IV FOR CHEST PAIN 12/01/24 08:45 Azithromycin 250 ml @ 125 mls/hr DAILY IV 12/02/24 10:00 Family History: FH: cancer of digestive organ G8 MOTHER FH: pulmonary embolism G8 FATHER Review of Systems As per HPI , all other systems were reviewed and are negative. H&P Exam Vital Signs/I&O Vital Sign Date Time Temp Pulse Resp B/P (MAP) Pulse Ox O2 Delivery O2 Flow Rate FiO2 12/01/24 15:07 97.5 89 19 99/17 97.5 12/01/24 04:10 Nasal Cannula* 2 28 12/01/24 03:48 99 Intake and Output 11/30/24 12/01/24 19:00 07:00 Intake Total 250 ml Output Total 0 ml Balance 250 ml Intake Oral 0 ml IV Total 250 ml Output Urine Total 0 ml Physical Exam Gen: NAD HEENT: NC,AT Lungs: decreased breath sounds Rt lung Cardiac: RRR, no murmur Abd: soft, no tenderness Ext: no edema Neuro: no focal deficits Labs/Diagnostic Data Labs/Diagnostic Data Laboratory Tests Test 12/01/24 12:52 12/01/24 11:47 12/01/24 04:12 Range/Units Hemoglobin 5.5 *L 5.7 *L 13.5-17.5 g/dL Hematocrit 16.8 L 18.4 L 41.0-53.0 % POC Glucose 136 H 70-106 mg/dl White Blood Count 12.1 H 4.4-10.8 10^3/uL Red Blood Count 1.86 L 4.5-5.90 10^6/uL Mean Corpuscular Volume 99.2 80.0-100.0 fL Mean Corpuscular Hemoglobin 31.4 28.0-32.0 pg Mean Corpuscular Hemoglobin Concent 31.7 L 32.0-36.0 g/dL Red Cell Distribution Width 16.0 H 11.8-14.3 % Platelet Count 131 L 140-450 10^3/uL Mean Platelet Volume 8.3 6.9-10.8 fL Neutrophils (%) (Auto) 77.0 37.0-80.0 % Lymphocytes (%) (Auto) 9.8 L 10.0-50.0 % Monocytes (%) (Auto) 9.9 0.0-12.0 % Eosinophils (%) (Auto) 2.5 0.0-7.0 % Basophils (%) (Auto) 0.8 0.0-2.0 % Neutrophils # (Auto) 9.3 H 1.6-8.6 10 ^3/uL Lymphocytes # (Auto) 1.2 0.4-5.4 10 ^3/uL Monocytes # (Auto) 1.2 0-1.3 10 ^3/uL Eosinophils # (Auto) 0.3 0-0.8 10 ^3/uL Basophils # (Auto) 0.1 0-0.2 10 ^3/uL Nucleated Red Blood Cells 0.1 % Prothrombin Time 13.0 H 9.3-11.8 sec Prothrombin Time INR 1.25 H 0.9-1.15 Activated Partial Thromboplast Time 26.2 24.5-34.5 SEC Sodium Level 138 136-145 mmol/L Potassium Level 4.2 3.5-5.1 mmol/L Chloride Level 99 98-107 mmol/L Carbon Dioxide Level 28 20-31 mmol/L Anion Gap 11 5-15 Blood Urea Nitrogen 37 H 9-23 mg/dL Creatinine 5.62 H 0.700-1.30 mg/dL Glomerular Filtration Rate Calc 10 >90 mL/min BUN/Creatinine Ratio 6.6 L 10.0-20.0 Serum Glucose 167 H 74-106 mg/dL Calcium Level 8.5 L 8.7-10.4 mg/dL Total Bilirubin 0.4 0.2-1.0 mg/dL Aspartate Amino Transferase (AST) 23 13-40 U/L Alanine Aminotransferase (ALT) < 9 7-40 U/L Alkaline Phosphatase 103 46-116 U/L Troponin I High Sensitivity 44 </=54 ng/L Total Protein 5.4 L 5.7-8.2 g/dL Albumin 2.9 L 3.2-4.8 g/dL Assessment Assessment: ESRD on HD Symptomatic anemia. Unclear source of bleeding Hypotension from blood loss ? Rt hydrothorax Pneumonia Hyperphosphatemia Secondary hyperparathyroidism Metabolic acidosis Plan: Last hemodialysis treatment was on Friday11/29/2024 I will schedule next HD once patient is more hemodynamically stable, unless patient would need it urgently for electrolyte abnormalities. Transfuse PRBC to maintain Hb > 7 g/dl monitor H&H obtain pulmonary consult. Rec getting CT chest CATE post HD Plan discussed with: Patient, Other EVON DAWSON MD Dec 01, 2024 15:12
[2024-12-01] MEDS: HYDROcodone-ACET 5/325MG TAB PO PRN (15:31)
[2024-12-01] MEDS: ATORVASTATIN 20 MG TAB PO SCH (22:23)
--- NOTE | 2024-12-01 23:13 | DVHINCON2 ---
Date of service: Dec 01, 2024 Referring Physician Sy Oliver NP Reason for Consultation AHRF, recurrent pleural effusion, atelectasis History of Present Illness A 69-year-old man with past medical history of COPD, DM, end-stage renal disease on hemodialysis, hyperlipidemia, and hypertension who presented to ED today with c/o generalized weakness. Per family, patient was having a syncopal episode at home where he became pale, sweaty w/ episodes of vomiting and dizziness. ED workup noted WBC 12.1, hemoglobin 5.8, hematocrit 18.4, platelets 131, sodium 138, potassium 4.2, BUN 37, creatinine 5.62, GFR 10, glucose 169, calcium 8.5, protein 5.4, albumin 2.9. O2 saturation was 99% on oxygen. Chest x-ray revealed multifocal right lung airspace disease. Patient was admitted for further care and pulmonary consultation is requested for evaluation and management due to the above findings. Review of Systems: 14-point review of systems negative unless otherwise noted above. Past Medical History: COPD, DM, ESRD on hemodialysis, High Lipids, HTN Past Surgical History: CABG, Dialysis access Medications: Reviewed. Allergies: No known drug allergies. Family History: Pulmonary embolism, cancer. Social History: Nonsmoker. No alcohol or illicit drug use. Family History: FH: cancer of digestive organ G8 MOTHER FH: pulmonary embolism G8 FATHER Allergies: Coded Allergies: NO KNOWN ALLERGIES (Unverified , 09/14/24) Home Meds Active Scripts Albuterol Sulfate (VENTOLIN MDI) 90 Mcg Ih, 90 MCG IN Q4HR, #1 INH Prov:CHI KAM MD 08/25/24 Reported Medications B-Complex W/ C & Folic Acid (Henny-Xavier Rx) Tab, 1 TAB PO DAILY for 90 Days, #90 08/23/24 Apixaban Base (ELIQUIS) 2.5 Mg Tab, 1 TAB PO BID for 30 Days, #60 08/23/24 Mirtazapine (Mirtazapine Oral Disintegrating Tablet) 15 Mg Tab, 7.5 MG PO DAILY for 30 Days, #30 08/23/24 Atorvastatin Calcium (Lipitor) 10 Mg Tab, 1 TAB PO DAILY for 30 Days, #30 08/23/24 Carvedilol (Carvedilol) 12.5 Mg Tab, 1 TAB PO BID for 30 Days, #60 08/23/24 Calcium Acetate (Phosphate Bin (Calcium Acetate) 667 Mg Cap, 1 TAB PO TIDWM for 30 Days, #90 08/23/24 Amlodipine Besylate (Amlodipine Besylate) 10 Mg Tab, 1 TAB PO DAILY for 30 Days, #30 08/23/24 Current Medications Current Medications Medications (Trade) Dose Ordered Sig/Dioni Route PRN Reason Start Time Stop Time Status Last Admin Sevelamer HCl (Renagel) 800 mg TIDWM PO 12/01/24 08:00 12/01/24 18:39 Multivit/Ca Carb/ B Cmplx/FA/Prenat (Nephro-Xavier Tablet) 1 tab DAILY PO 12/01/24 10:00 12/01/24 10:04 Atorvastatin Calcium (Lipitor) 10 mg HS PO 12/01/24 22:00 12/01/24 22:23 Apixaban (Eliquis) 2.5 mg BID PO 12/01/24 10:00 12/01/24 22:22 Diagnostic Test (Pha) (Accu-Chek Comfort Curve T) 1 strip ACHS 12/01/24 11:30 12/01/24 22:19 Insulin Human Regular (InsuLIN R) ACHS SC 12/01/24 11:30 12/01/24 12:14 Dextrose 50 ml UD PRN IV Blood Sugar LESS THAN 60 12/01/24 08:00 Sodium Chloride (Saline Lock Ns) 10 ml Q8HR IV 12/01/24 14:00 12/01/24 22:18 Acetaminophen/ Hydrocodone Bitart ([place] 5/325MG Tab) 1 tab Q4HP PRN PO MODERATE PAIN (4-6 PAIN SCALE) 12/01/24 08:00 12/01/24 15:31 Ondansetron HCl (Zofran) 4 mg Q4HP PRN IV NAUSEA / VOMITING 12/01/24 08:00 Docusate Sodium (Colace Capsule) 100 mg BIDPRN PRN PO FOR CONSTIPATION 12/01/24 08:00 Acetaminophen (Tylenol Tablet) 650 mg Q6HP PRN PO PAIN SCALE 1-3 OR TEMP>100.4 12/01/24 08:00 Morphine Sulfate 2 mg Q4HPRN PRN IV SEVERE PAIN (7-10 PAIN SCALE) 12/01/24 08:00 Hydralazine HCl (Apresoline Injection) 10 mg Q6HP PRN IV SBP>150 12/01/24 08:15 Nitroglycerin (Ntrostat Sublingual) 0.4 mg Q5MINP PRN SL FOR CHEST PAIN 12/01/24 08:45 Morphine Sulfate 2 mg Q30M PRN IV FOR CHEST PAIN 12/01/24 08:45 Azithromycin 250 ml @ 125 mls/hr DAILY IV 12/02/24 10:00 Vital Signs Vital Signs Date Time Temp Pulse Resp B/P (MAP) Pulse Ox O2 Delivery O2 Flow Rate FiO2 12/01/24 21:00 97.8 85 22 134/40 (71) 98 97.8 12/01/24 17:02 Nasal Cannula* 2 28 Physical Exam Gen.: Patient lying in bed in no apparent distress. On supplemental oxygen. Head: Normocephalic, atraumatic. Eyes: EOMI/PERRLA. Ears: Normal hearing. Normal anatomy. Neck/trachea: Trachea midline, supple. Nose: Normal external anatomy. Mouth: Moist mucous membranes. Chest: Decreased air entry bilaterally. No wheezing or rhonchi. Cardiovascular: Positive S1, positive S2. Regular rate and rhythm. Abdomen: Positive bowel sounds in all 4 quadrants. Soft, non-tender, non- distended. : Deferred. Rectal: Deferred. Skin: Warm, dry. Intact. Extremities: 2+ radial pulses bilaterally. No lower extremity edema. Neuro: Awake, alert, oriented x3. No gross motor or sensory deficits. Cranial nerves II through XII intact. Gait not assessed. Labs/Diagnostic Data Labs Test 12/01/24 18:14 12/01/24 12:52 12/01/24 04:12 Range/Units POC Glucose 110 H 70-106 mg/dl Hemoglobin 5.5 *L 13.5-17.5 g/dL Hematocrit 16.8 L 41.0-53.0 % White Blood Count 12.1 H 4.4-10.8 10^3/uL Red Blood Count 1.86 L 4.5-5.90 10^6/uL Mean Corpuscular Volume 99.2 80.0-100.0 fL Mean Corpuscular Hemoglobin 31.4 28.0-32.0 pg Mean Corpuscular Hemoglobin Concent 31.7 L 32.0-36.0 g/dL Red Cell Distribution Width 16.0 H 11.8-14.3 % Platelet Count 131 L 140-450 10^3/uL Mean Platelet Volume 8.3 6.9-10.8 fL Neutrophils (%) (Auto) 77.0 37.0-80.0 % Lymphocytes (%) (Auto) 9.8 L 10.0-50.0 % Monocytes (%) (Auto) 9.9 0.0-12.0 % Eosinophils (%) (Auto) 2.5 0.0-7.0 % Basophils (%) (Auto) 0.8 0.0-2.0 % Neutrophils # (Auto) 9.3 H 1.6-8.6 10 ^3/uL Lymphocytes # (Auto) 1.2 0.4-5.4 10 ^3/uL Monocytes # (Auto) 1.2 0-1.3 10 ^3/uL Eosinophils # (Auto) 0.3 0-0.8 10 ^3/uL Basophils # (Auto) 0.1 0-0.2 10 ^3/uL Nucleated Red Blood Cells 0.1 % Prothrombin Time 13.0 H 9.3-11.8 sec Prothrombin Time INR 1.25 H 0.9-1.15 Activated Partial Thromboplast Time 26.2 24.5-34.5 SEC Sodium Level 138 136-145 mmol/L Potassium Level 4.2 3.5-5.1 mmol/L Chloride Level 99 98-107 mmol/L Carbon Dioxide Level 28 20-31 mmol/L Anion Gap 11 5-15 Blood Urea Nitrogen 37 H 9-23 mg/dL Creatinine 5.62 H 0.700-1.30 mg/dL Glomerular Filtration Rate Calc 10 >90 mL/min BUN/Creatinine Ratio 6.6 L 10.0-20.0 Serum Glucose 167 H 74-106 mg/dL Calcium Level 8.5 L 8.7-10.4 mg/dL Total Bilirubin 0.4 0.2-1.0 mg/dL Aspartate Amino Transferase (AST) 23 13-40 U/L Alanine Aminotransferase (ALT) < 9 7-40 U/L Alkaline Phosphatase 103 46-116 U/L Troponin I High Sensitivity 44 </=54 ng/L Total Protein 5.4 L 5.7-8.2 g/dL Albumin 2.9 L 3.2-4.8 g/dL Assessment Impression: Acute hypoxic respiratory failure Dependence on supplemental oxygen Recurrent pleural effusion Atelectasis End-stage renal disease, on hemodialysis Anemia, symptomatic Plan: Supplemental oxygen 2 LPM NC Titrate to keep O2 sats above 92%. Taper O2 as tolerated. CXR demonstrates multifocal right lung airspace disease. Small right pleural effusion. No pneumothorax. Plan for right chest tube in AM. Hemoglobin low - plan for PRBC tranfusion Monitor hemoglobin Transfuse if less than 7.0 g/dL. Continue antibiotics Incentive spirometry d/t atelectasis Pain control Avoid oversedation On Eliquis Accu-Cheks, ISS. HD per Nephrology Monitor renal function. Monitor electrolytes. Supplement as necessary. Monitor ins and outs. DVT prophylaxis. D/w RN Tae Prognosis: Poor given patient's multiple co-morbidities. Rest of plan per hospitalist and other consultants. Thank you, Sy Oliver NP, for allowing me to participate in this patient's care. Further recommendations will depend on the patient's clinical course. Please do not hesitate to contact me if you have any questions or concerns. This medical document was created using an electronic medical record system with Pull dictation system. Although these documentations are being carefully reviewed, there may still be some phonetic and typographical changes. The errors are purely typographical, due to imperfection on the software program, and do not reflect any compromise in the patient's medical care. Plan discussed with: Patient, Other AUSTIN LISA MD Dec 01, 2024 23:13
[2024-12-02] VITALS (10 sets, daily range): BP systolic 124–149; BP diastolic 18–43; PULSE 81–86; RESP 16–22; TEMP 97.5–97.8; O2SAT 97–100
[2024-12-02 08:02] LABS: Eosinophils # (auto) 0.2 10 ^3/uL (0-0.8); Eosinophils % (auto) 2.1 % (0.0-7.0); Lymphocytes # (auto) 0.8 10 ^3/uL (0.4-5.4); Neutrophils # (auto) 7.4 10 ^3/uL (1.6-8.6); White Blood Cell 9.6 10^3/uL (4.4-10.8)
[2024-12-02 08:04] LABS: Basophils # (auto) 0.1 10 ^3/uL (0-0.2); Basophils % (auto) 1.3 % (0.0-2.0); Hematocrit 24.1 % (41.0-53.0); Lymphocytes % (auto) 8.7 % (10.0-50.0); Mean Corpuscular Hemoglobin 30.6 pg (28.0-32.0); Mean Corpuscular Hgb Conc. 33.4 g/dL (32.0-36.0); Mean Corpuscular Volume 91.6 fL (80.0-100.0); Monocytes % (auto) 10.8 % (0.0-12.0); Neutrophils % (auto) 77.1 % (37.0-80.0); Platelet Count (auto) 127 10^3/uL (140-450); Red Blood Cells 2.63 10^6/uL (4.5-5.90); Red Cell Distribution Width 17.2 % (11.8-14.3)
[2024-12-02 08:21] LABS: Alkaline Phosphatase 73 U/L (46-116); Anion Gap 11 (5-15); BUN/Creatinine Ratio 7.1 (10.0-20.0); Calcium 9.4 mg/dL (8.7-10.4); Carbon Dioxide 29 mmol/L (20-31); Glucose 83 mg/dL (74-106); Potassium 5.1 mmol/L (3.5-5.1); Sodium 137 mmol/L (136-145)
[2024-12-02 08:22] LABS: Albumin 3.3 g/dL (3.2-4.8); Aspartate Aminotransferase 25 U/L (13-40); Bilirubin, Total 0.5 mg/dL (0.2-1.0); Total Protein 6.3 g/dL (5.7-8.2)
[2024-12-02 08:23] LABS: Alanine Aminotransferase 9 U/L (7-40); Blood Urea Nitrogen 49 mg/dL (9-23); Chloride 97 mmol/L (98-107)
[2024-12-02] MEDS: AZITHROMYCIN 500MG/ 250ML 250 ML IV SCH (11:51)
--- NOTE | 2024-12-02 13:35 | DVH ---
Procedure: CT CHEST WITHOUT CONTRAST Reason for study/Clinical History: 69 years old, Male; rule out pneumo. Comparison Study: None available at time of dictation. Exam Date: 12/02/2024 01:09 PM TECHNIQUE: Multidetector CT of the chest was performed from the lung apices to the upper abdomen with out the use of intravenous contract. Axial, coronal and sagittal multiplanar reformats were performed . Radiation dose Information: CT Dose: CTDI volume is 4.74 mGy. Dose-length product is 168.27 mGy*cm The dose indicators for CT are the volume computed Tomography (CT) dose Index (CTDIvol) and the dose Length product (DLP), and are measured in units of mGy and mGy-cm, respectively. These indicators are not patient dose, but values generated from the CT scanner acquisition factors. The report includes radiation exposure data for exposures received during this examination. FINDINGS: Lower neck: Right IJ dialysis catheter in place. Lungs: Patchy atelectasis and consolidation in both lungs. Patchy ground-glass opacities in both rei gs. Heart/Vascular Structures: Moderate cardiomegaly. No pericardial effusion. Calcified atherosclerotic disease noted. Lymph Nodes: No adenopathy Pleura: Large loculated right hydro hemothorax. Small left pleural effusion. No definite pneumothorax identified. Musculoskeletal: No acute osseous abnormality. Soft tissues: Normal. Upper abdomen: Ascites IMPRESSION: 1. Large right hydro hemothorax. No pneumothorax. Small left pleural effusion. Patchy consolidation a nd ground-glass opacities in both lungs. Ascites. Clinical correlation and continued follow-up is rec ommended. Radiation optimization: All CT scans at this facility use at least one of these dose optimization pardeep hniques: Automated exposure control mA and/or kV adjustment per patient size (includes targeted exams where dose is matched to clinical indication) or iterative reconstruction. HS:Y
--- NOTE | 2024-12-02 16:11 | DVHPN2 ---
Progress Note - Dictate Date Seen: Dec 02, 2024 Medical Necessity Reason Pt with a Central, PICC or Fol: No Subjective no new symptoms vital signs Vital Sign Date Time Temp Pulse Resp B/P (MAP) Pulse Ox O2 Delivery O2 Flow Rate FiO2 12/02/24 09:57 100 Nasal Cannula 3.0 12/02/24 08:00 85 16 32 12/02/24 05:00 97.8 134/42 (72) 97.8 Total Intake and Output 12/01/24 12/01/24 12/02/24 15:00 23:00 07:00 Intake Total 350 ml 550 ml 25 ml Balance 350 ml 550 ml 25 ml medications Current Medications Medications Dose Ordered Sig/Dioni Route Start Time Stop Time Status Last Admin Dose Admin Sevelamer HCl 800 mg TIDWM PO 12/01/24 08:00 12/02/24 11:50 800 MG Multivit/Ca Carb/ B Cmplx/FA/Prenat 1 tab DAILY PO 12/01/24 10:00 12/02/24 11:50 1 TAB Atorvastatin Calcium 10 mg HS PO 12/01/24 22:00 12/01/24 22:23 10 MG Apixaban 2.5 mg BID PO 12/01/24 10:00 Hold 12/02/24 11:51 2.5 MG Diagnostic Test (Pha) 1 strip ACHS 12/01/24 11:30 12/02/24 11:56 1 STRIP Insulin Human Regular ACHS SC 12/01/24 11:30 12/01/24 12:14 2 UNITS Dextrose 50 ml UD PRN IV 12/01/24 08:00 Sodium Chloride 10 ml Q8HR IV 12/01/24 14:00 12/02/24 06:29 10 ML Acetaminophen/ Hydrocodone Bitart 1 tab Q4HP PRN PO 12/01/24 08:00 12/01/24 15:31 1 TAB Ondansetron HCl 4 mg Q4HP PRN IV 12/01/24 08:00 Docusate Sodium 100 mg BIDPRN PRN PO 12/01/24 08:00 Acetaminophen 650 mg Q6HP PRN PO 12/01/24 08:00 Morphine Sulfate 2 mg Q4HPRN PRN IV 12/01/24 08:00 Hydralazine HCl 10 mg Q6HP PRN IV 12/01/24 08:15 Nitroglycerin 0.4 mg Q5MINP PRN SL 12/01/24 08:45 Morphine Sulfate 2 mg Q30M PRN IV 12/01/24 08:45 Azithromycin 250 ml @ 125 mls/hr DAILY IV 12/02/24 10:00 12/02/24 11:51 125 MLS/HR objective gen: NAD HEENT: NC,AT Lungs: no breath sounds Rt lung Cardiac: RRR, no murmur Abd: soft, no tenderness Ext: no edema Neuro: no focal deficits laboratory and microbiology Laboratory Tests 12/02/24 07:30 Test 12/02/24 07:30 Range/Units Serum Glucose 83 74-106 mg/dL Assessment/Plan Assessment: ESRD on HD Symptomatic anemia. Unclear source of bleeding Hypotension from blood loss ? Rt hydrothorax Pneumonia Hyperphosphatemia Secondary hyperparathyroidism Metabolic acidosis Plan: I will hold off on hemodialysis for today. there is no urgent need for dialysis, patients diastolic blood pressure is still very low. Next dialysis likely tomorrow with 0 UF Last hemodialysis treatment was on Friday11/29/2024 Pulmonary consult appreciated. plan for chest tube placement Lokelma 10 g PO x1 Anemia has improved. most recent Hb is 8 g/dl Transfuse PRBC to maintain Hb > 7 g/dl monitor H&H obtain pulmonary consult. Rec getting CT chest CATE post HD Plan discussed with: Patient CC Plasma Assessment Blood Product Administration S: [id number] EVON DAWSON MD Dec 02, 2024 16:11
--- NOTE | 2024-12-02 16:53 | DVHPN2 ---
Subjective better Reviewed: Care Plan, H&P, Labs, Medications, Previous Orders, Radiology, Other (consultants) Changes from previous H/P or p: No Changes Objective Vitals Vital Signs Date Time Temp Pulse Resp B/P (MAP) Pulse Ox O2 Delivery O2 Flow Rate FiO2 12/02/24 13:00 97.5 84 16 149/43 (78) 100 97.5 12/02/24 09:57 Nasal Cannula 3.0 12/02/24 08:00 32 Intake/Output Intake and Output 12/02/24 07:00 Intake Total 925 ml Balance 925 ml Intake Oral 25 ml IV Total 350 ml Blood Product 300 ml Other 250 ml General Appearance: Alert, Oriented X3, Cooperative, No acute distress HEENT: Atraumatic Lungs: Other (decreased air entry on right side) Cardiovascular: Regular rate Abdomen: Normal bowel sounds, Soft, No tenderness Extremities: Other (minimal edema ble) Medications Current Medications Medications Dose Ordered Sig/Dioni Route Start Time Stop Time Status Last Admin Dose Admin Sevelamer HCl 800 mg TIDWM PO 12/01/24 08:00 12/02/24 11:50 800 MG Multivit/Ca Carb/ B Cmplx/FA/Prenat 1 tab DAILY PO 12/01/24 10:00 12/02/24 11:50 1 TAB Atorvastatin Calcium 10 mg HS PO 12/01/24 22:00 12/01/24 22:23 10 MG Apixaban 2.5 mg BID PO 12/01/24 10:00 Hold 12/02/24 11:51 2.5 MG Diagnostic Test (Pha) 1 strip ACHS 12/01/24 11:30 12/02/24 11:56 1 STRIP Insulin Human Regular ACHS SC 12/01/24 11:30 12/01/24 12:14 2 UNITS Dextrose 50 ml UD PRN IV 12/01/24 08:00 Sodium Chloride 10 ml Q8HR IV 12/01/24 14:00 12/02/24 16:40 10 ML Acetaminophen/ Hydrocodone Bitart 1 tab Q4HP PRN PO 12/01/24 08:00 12/01/24 15:31 1 TAB Ondansetron HCl 4 mg Q4HP PRN IV 12/01/24 08:00 Docusate Sodium 100 mg BIDPRN PRN PO 12/01/24 08:00 Acetaminophen 650 mg Q6HP PRN PO 12/01/24 08:00 Morphine Sulfate 2 mg Q4HPRN PRN IV 12/01/24 08:00 Hydralazine HCl 10 mg Q6HP PRN IV 12/01/24 08:15 Nitroglycerin 0.4 mg Q5MINP PRN SL 12/01/24 08:45 Morphine Sulfate 2 mg Q30M PRN IV 12/01/24 08:45 Azithromycin 250 ml @ 125 mls/hr DAILY IV 12/02/24 10:00 12/02/24 11:51 125 MLS/HR Laboratory Results Laboratory Tests 12/02/24 07:30 Chemistry Test 12/02/24 07:30 Albumin 3.3 g/dL (3.2-4.8) Calcium Level 9.4 mg/dL (8.7-10.4) Total Protein 6.3 g/dL (5.7-8.2) LFT Test 12/02/24 07:30 Alanine Aminotransferase (ALT) 9 U/L (7-40) Alkaline Phosphatase 73 U/L (46-116) Aspartate Amino Transferase (AST) 25 U/L (13-40) Total Bilirubin 0.5 mg/dL (0.2-1.0) Assessment/Plan Assessment/Plan right hydro-hemothorax minimal left pleural effusion ESRD-HD COPD DM2 CAD/CABG HTN DYSLIPIDEMIA GEN WEAKNESS PLAN CHEST TUBE PER CARDIOVASCULAR RADIOLOGIC TECHNOLOGIST HD TOMORROW PER NEPHRO. HOLD ELIQUIS BECAUSE OF RIGHT HEMOTHORAX CONTINUE CURRENT POC Plan discussed with: Patient, Other (FAMILY AT BEDSIDE) Date of Service: Dec 02, 2024 Billing Provider: PREET BARRIGA MD Common Visit Codes: [id number] INP/OBS CARE(HIGH) PREET BARRIGA MD Dec 02, 2024 16:53
--- NOTE | 2024-12-02 17:10 | ECG ---
[facility] Test Date: 2024-12-01 Test Time: 03:39:26 Pat Name: EULOGIO NAZARIO Department: ED Room: 0290T A Gender: M Activity Therapist: DENIS : [id number] Requested By: MARTIR DAY Order Number: [id number] Reading MD: Reilly Baltazar Measurements Intervals [place] Rate: 89 P: 0 [place]: 0 QRS: -88 QRSD: 94 T: 229 QT: 404 QTc: 492 Interpretive Statements Accelerated junctional rhythm Left anterior fascicular block RSR' in V1 or V2, right VCD or RVH Abnrm T, consider ischemia, anterolateral lds Electronically Signed On 12-03-2024 12:07:45 PST by Reilly Baltazar Please click the below link to view image of tracing.
[2024-12-02] MEDS: SODIUM ZIRCONIUM CYCL 10 GM PAK PO ONE (19:39)
--- NOTE | 2024-12-02 22:26 | DVHPN2 ---
Progress Note - Dictate Date Seen: Dec 02, 2024 Medical Necessity Reason Pt with a Central, PICC or Fol: No Subjective Patient seen and examined at bedside. Remains on supplemental oxygen Overnight events reviewed. vital signs Vital Sign Date Time Temp Pulse Resp B/P (MAP) Pulse Ox O2 Delivery O2 Flow Rate FiO2 12/02/24 20:00 16 Nasal Cannula* 3 32 12/02/24 18:00 149/35 (73) 12/02/24 17:00 97.6 84 99 97.6 Total Intake and Output 12/01/24 12/01/24 12/02/24 15:00 23:00 07:00 Intake Total 350 ml 550 ml 25 ml Balance 350 ml 550 ml 25 ml medications Current Medications Medications Dose Ordered Sig/Dioni Route Start Time Stop Time Status Last Admin Dose Admin Sevelamer HCl 800 mg TIDWM PO 12/01/24 08:00 12/02/24 18:26 800 MG Multivit/Ca Carb/ B Cmplx/FA/Prenat 1 tab DAILY PO 12/01/24 10:00 12/02/24 11:50 1 TAB Atorvastatin Calcium 10 mg HS PO 12/01/24 22:00 12/01/24 22:23 10 MG Diagnostic Test (Pha) 1 strip ACHS 12/01/24 11:30 12/02/24 17:49 1 STRIP Insulin Human Regular ACHS SC 12/01/24 11:30 12/01/24 12:14 2 UNITS Dextrose 50 ml UD PRN IV 12/01/24 08:00 Sodium Chloride 10 ml Q8HR IV 12/01/24 14:00 12/02/24 16:40 10 ML Acetaminophen/ Hydrocodone Bitart 1 tab Q4HP PRN PO 12/01/24 08:00 12/01/24 15:31 1 TAB Ondansetron HCl 4 mg Q4HP PRN IV 12/01/24 08:00 Docusate Sodium 100 mg BIDPRN PRN PO 12/01/24 08:00 Acetaminophen 650 mg Q6HP PRN PO 12/01/24 08:00 Morphine Sulfate 2 mg Q4HPRN PRN IV 12/01/24 08:00 Hydralazine HCl 10 mg Q6HP PRN IV 12/01/24 08:15 Nitroglycerin 0.4 mg Q5MINP PRN SL 12/01/24 08:45 Morphine Sulfate 2 mg Q30M PRN IV 12/01/24 08:45 Azithromycin 250 ml @ 125 mls/hr DAILY IV 12/02/24 10:00 12/02/24 11:51 125 MLS/HR objective Gen.: Patient lying in bed in no apparent distress. On supplemental oxygen. Head: Normocephalic, atraumatic. Eyes: EOMI/PERRLA. Ears: Normal hearing. Normal anatomy. Neck/trachea: Trachea midline, supple. Nose: Normal external anatomy. Mouth: Moist mucous membranes. Chest: Decreased air entry bilaterally. No wheezing or rhonchi. Cardiovascular: Positive S1, positive S2. Regular rate and rhythm. Abdomen: Positive bowel sounds in all 4 quadrants. Soft, non-tender, non- distended. : Deferred. Rectal: Deferred. Skin: Warm, dry. Intact. Extremities: 2+ radial pulses bilaterally. No lower extremity edema. Neuro: Awake, alert, oriented x3. No gross motor or sensory deficits. Cranial nerves II through XII intact. Gait not assessed. laboratory and microbiology Laboratory Tests 12/02/24 07:30 Test 12/02/24 07:30 Range/Units Serum Glucose 83 74-106 mg/dL Assessment/Plan Impression: Acute hypoxic respiratory failure Dependence on supplemental oxygen Recurrent pleural effusion Atelectasis End-stage renal disease, on hemodialysis Anemia, symptomatic Events: Remains on supplemental oxygen, 3 LPM NC Taper O2 as tolerated CT chest without contrast demonstrates Large right hydro hemothorax. No pneumothorax. Small left pleural effusion. Patchy consolidation and ground-glass opacities in both lungs. Ascites. Consult Surgery for decortication. Limited chest ultrasound demonstrated loculated viscous fluid by ultrasound appearance Continue antibiotics Incentive spirometry Labs and imaging reviewed. Rest of plan as noted below. Plan: Supplemental oxygen Titrate to keep O2 sats above 92%. CXR demonstrates multifocal right lung airspace disease. Small right pleural effusion. No pneumothorax. Plan for right chest tube. Monitor hemoglobin Transfuse if less than 7.0 g/dL. Continue antibiotics Incentive spirometry d/t atelectasis Pain control Avoid oversedation On Eliquis Accu-Cheks, ISS. HD per Nephrology Monitor renal function. Monitor electrolytes. Supplement as necessary. Monitor ins and outs. DVT prophylaxis. Prognosis: Poor given patient's multiple co-morbidities. Rest of plan per hospitalist and other consultants. Thank you, Sy Oliver NP, for allowing me to participate in this patient's care. Further recommendations will depend on the patient's clinical course. Please do not hesitate to contact me if you have any questions or concerns. This medical document was created using an electronic medical record system with [employer] dictation system. Although these documentations are being carefully reviewed, there may still be some phonetic and typographical changes. The errors are purely typographical, due to imperfection on the software program, and do not reflect any compromise in the patient's medical care. Plan discussed with: Patient, Other (ALVARO Hopson) CC Plasma Assessment Blood Product Administration S: [id number] AUSTIN LISA MD Dec 02, 2024 22:26
[2024-12-02] MEDS: DOCUSATE SOD 100 MG CAP PO PRN (23:20)
[2024-12-03] VITALS (38 sets, daily range): BP systolic 90–153; BP diastolic 30–89; PULSE 67–102; RESP 16–24; TEMP 97.6–98.8; O2SAT 88–100
--- NOTE | 2024-12-03 05:46 | DVH ---
CHEST RADIOGRAPH Indication: FU Technique: Single frontal view of the chest was obtained COMPARISON: XY CHEST PORTABLE on DOS: 12/01/24, XY CHEST XRAY 1 VIEW on DOS: 08/24/24, XY CHEST XRAY 1 V IEW on DOS: 08/23/24, XY CHEST XRAY 1 VIEW on DOS: 08/22/24, XY CHEST XRAY 1 VIEW on DOS: 08/22/24 FINDINGS: Lines and Tubes: Median sternotomy. Tunneled right central venous catheter in satisfactory position. Lungs: Congestion. Multifocal right lung airspace disease. Pleura: No effusion. No pneumothorax. Cardiomediastinal contours: Cardiomegaly Bones: Unremarkable IMPRESSION: Lines and tubes in satisfactory position. No significant interval change.
--- NOTE | 2024-12-03 06:28 | DVHPN2 ---
Progress Note - Dictate Date Seen: Dec 03, 2024 Medical Necessity Reason Pt with a Central, PICC or Fol: No Subjective no new symptoms vital signs Vital Sign Date Time Temp Pulse Resp B/P (MAP) Pulse Ox O2 Delivery O2 Flow Rate FiO2 12/02/24 21:00 97.6 86 18 124/30 (61) 100 97.6 12/02/24 20:00 Nasal Cannula* 3 32 Total Intake and Output 12/02/24 12/02/24 12/03/24 15:00 23:00 07:00 Intake Total 250 ml 500 ml Balance 250 ml 500 ml medications Current Medications Medications Dose Ordered Sig/Dioni Route Start Time Stop Time Status Last Admin Dose Admin Sevelamer HCl 800 mg TIDWM PO 12/01/24 08:00 12/02/24 18:26 800 MG Multivit/Ca Carb/ B Cmplx/FA/Prenat 1 tab DAILY PO 12/01/24 10:00 12/02/24 11:50 1 TAB Atorvastatin Calcium 10 mg HS PO 12/01/24 22:00 12/02/24 22:55 10 MG Diagnostic Test (Pha) 1 strip ACHS 12/01/24 11:30 12/02/24 22:00 1 STRIP Insulin Human Regular ACHS SC 12/01/24 11:30 12/02/24 22:56 2 UNITS Dextrose 50 ml UD PRN IV 12/01/24 08:00 Sodium Chloride 10 ml Q8HR IV 12/01/24 14:00 12/03/24 06:17 10 ML Acetaminophen/ Hydrocodone Bitart 1 tab Q4HP PRN PO 12/01/24 08:00 12/01/24 15:31 1 TAB Ondansetron HCl 4 mg Q4HP PRN IV 12/01/24 08:00 Docusate Sodium 100 mg BIDPRN PRN PO 12/01/24 08:00 12/02/24 23:20 100 MG Acetaminophen 650 mg Q6HP PRN PO 12/01/24 08:00 Morphine Sulfate 2 mg Q4HPRN PRN IV 12/01/24 08:00 Hydralazine HCl 10 mg Q6HP PRN IV 12/01/24 08:15 Nitroglycerin 0.4 mg Q5MINP PRN SL 12/01/24 08:45 Morphine Sulfate 2 mg Q30M PRN IV 12/01/24 08:45 Azithromycin 250 ml @ 125 mls/hr DAILY IV 12/02/24 10:00 12/02/24 11:51 125 MLS/HR objective gen: NAD HEENT: NC,AT Lungs: no breath sounds Rt lung Cardiac: RRR, no murmur Abd: soft, no tenderness Ext: no edema Neuro: no focal deficits laboratory and microbiology Laboratory Tests 12/02/24 07:30 Test 12/02/24 07:30 Range/Units Serum Glucose 83 74-106 mg/dL Assessment/Plan Assessment: ESRD on HD Symptomatic anemia. Hypotension from blood loss Large Rt hydrothorax, hemothorax Pneumonia Hyperphosphatemia Secondary hyperparathyroidism Metabolic acidosis Plan: Scheduled for HD for today, patient is somewhat fluid overloaded. will attempt 2 L UF Last hemodialysis treatment was on Friday11/29/2024 at [facility] Pulmonary consult appreciated. plan for chest tube placement s/p [facility] x1 yesterday. Anemia has improved. most recent Hb is 8 g/dl Transfuse PRBC to maintain Hb > 7 g/dl monitor H&H CATE post HD Plan discussed with: Patient CC Plasma Assessment Blood Product Administration S: [id number] EVON DAWSON MD Dec 03, 2024 06:28
[2024-12-03] MEDS: SODIUM CHL 0.9% 1000 ML BAG XX ONE (07:00)
[2024-12-03 07:11] LABS: Albumin 3.5 g/dL (3.2-4.8); Alkaline Phosphatase 73 U/L (46-116); Anion Gap 13 (5-15); Aspartate Aminotransferase 23 U/L (13-40); BUN/Creatinine Ratio 7.8 (10.0-20.0); Calcium 9.4 mg/dL (8.7-10.4); Carbon Dioxide 28 mmol/L (20-31); Glucose 78 mg/dL (74-106); Potassium 4.6 mmol/L (3.5-5.1)
[2024-12-03 07:12] LABS: Basophils # (auto) 0.1 10 ^3/uL (0-0.2); Bilirubin, Total 0.4 mg/dL (0.2-1.0); Eosinophils # (auto) 0.3 10 ^3/uL (0-0.8); Eosinophils % (auto) 2.4 % (0.0-7.0); Lymphocytes # (auto) 0.7 10 ^3/uL (0.4-5.4); Monocytes # (auto) 1.3 10 ^3/uL (0-1.3); Neutrophils % (auto) 77.5 % (37.0-80.0); Red Blood Cells 2.51 10^6/uL (4.5-5.90); Total Protein 6.7 g/dL (5.7-8.2); White Blood Cell 10.5 10^3/uL (4.4-10.8)
[2024-12-03 07:15] LABS: Basophils % (auto) 1.3 % (0.0-2.0); Lymphocytes % (auto) 6.6 % (10.0-50.0); Mean Corpuscular Hemoglobin 31.8 pg (28.0-32.0); Mean Corpuscular Hgb Conc. 34.6 g/dL (32.0-36.0); Mean Corpuscular Volume 91.9 fL (80.0-100.0); Monocytes % (auto) 12.2 % (0.0-12.0); Neutrophils # (auto) 8.1 10 ^3/uL (1.6-8.6); Platelet Count (auto) 138 10^3/uL (140-450); Red Cell Distribution Width 16.7 % (11.8-14.3)
[2024-12-03 07:21] LABS: Alanine Aminotransferase < 9 U/L (7-40); Blood Urea Nitrogen 59 mg/dL (9-23); Chloride 95 mmol/L (98-107); Sodium 136 mmol/L (136-145)
--- NOTE | 2024-12-03 14:18 | DVHPN2 ---
Subjective Same Reviewed: Care Plan, H&P, Labs, Medications, Previous Orders, Radiology, Other (consultants) Changes from previous H/P or p: No Changes Objective Vitals Vital Signs Date Time Temp Pulse Resp B/P (MAP) Pulse Ox O2 Delivery O2 Flow Rate FiO2 12/03/24 09:00 97.6 88 18 153/48 (83) 99 97.6 12/03/24 08:47 Nasal Cannula 3.0 12/03/24 08:00 32 Intake/Output Intake and Output 12/03/24 07:00 Intake Total 1250 ml Balance 1250 ml Intake Oral 1000 ml IV Total 250 ml General Appearance: Alert, Oriented X3, Cooperative, No acute distress HEENT: Atraumatic Lungs: Other (decreased air entry on right side) Cardiovascular: Regular rate Abdomen: Normal bowel sounds, Soft, No tenderness Extremities: Other (minimal edema ble) Medications Current Medications Medications Dose Ordered Sig/Dioni Route Start Time Stop Time Status Last Admin Dose Admin Sevelamer HCl 800 mg TIDWM PO 12/01/24 08:00 12/03/24 12:14 800 MG Multivit/Ca Carb/ B Cmplx/FA/Prenat 1 tab DAILY PO 12/01/24 10:00 12/03/24 09:27 1 TAB Atorvastatin Calcium 10 mg HS PO 12/01/24 22:00 12/02/24 22:55 10 MG Diagnostic Test (Pha) 1 strip ACHS 12/01/24 11:30 12/03/24 12:14 1 STRIP Insulin Human Regular ACHS SC 12/01/24 11:30 12/02/24 22:56 2 UNITS Dextrose 50 ml UD PRN IV 12/01/24 08:00 Sodium Chloride 10 ml Q8HR IV 12/01/24 14:00 12/03/24 06:17 10 ML Acetaminophen/ Hydrocodone Bitart 1 tab Q4HP PRN PO 12/01/24 08:00 12/01/24 15:31 1 TAB Ondansetron HCl 4 mg Q4HP PRN IV 12/01/24 08:00 Docusate Sodium 100 mg BIDPRN PRN PO 12/01/24 08:00 12/02/24 23:20 100 MG Acetaminophen 650 mg Q6HP PRN PO 12/01/24 08:00 Morphine Sulfate 2 mg Q4HPRN PRN IV 12/01/24 08:00 Hydralazine HCl 10 mg Q6HP PRN IV 12/01/24 08:15 Nitroglycerin 0.4 mg Q5MINP PRN SL 12/01/24 08:45 Morphine Sulfate 2 mg Q30M PRN IV 12/01/24 08:45 Azithromycin 250 ml @ 125 mls/hr DAILY IV 12/02/24 10:00 12/03/24 09:28 125 MLS/HR Midodrine 10 mg ONCE PRN PO 12/03/24 06:30 Laboratory Results Laboratory Tests 12/03/24 06:05 Chemistry Test 12/03/24 06:05 Albumin 3.5 g/dL (3.2-4.8) Calcium Level 9.4 mg/dL (8.7-10.4) Total Protein 6.7 g/dL (5.7-8.2) LFT Test 12/03/24 06:05 Alanine Aminotransferase (ALT) < 9 U/L (7-40) Alkaline Phosphatase 73 U/L (46-116) Aspartate Amino Transferase (AST) 23 U/L (13-40) Total Bilirubin 0.4 mg/dL (0.2-1.0) Assessment/Plan Assessment/Plan right hydro-hemothorax minimal left pleural effusion ESRD-HD COPD DM2 CAD/CABG HTN DYSLIPIDEMIA GEN WEAKNESS PLAN Surgery consult per pulmonology for thoracotomy. Hemoglobin stable. Repeat x-ray and labs Plan discussed with: Patient My Orders Orders - PREET BARRIGA MD Procedure Category Date Status Time Chest Portable XY 12/03/24 Resulted 06:00 Date of Service: Dec 03, 2024 Billing Provider: PREET BARRIGA MD Common Visit Codes: [id number] INP/OBS CARE(HIGH) PREET BARRIGA MD Dec 03, 2024 14:18
--- NOTE | 2024-12-03 14:55 | DVHSR ---
APPROVED REPORT EXAM: Two-dimensional and M-mode echocardiogram with Doppler and color Doppler. Blood Pressure: 139/41 mmHg INDICATION Pre-Op Surgery/Intervention Valve Replacement: Type: AV RISK FACTORS Height: 5'3", Weight: 114 DIMENSIONS LVDd4.7 (3.8-5.7cm)LA (2D)5.0 (1.9-4.0cm)Aortic Root2.9 (2.0-3.7cm) LVDs3.4 (2.5-4.0cm)LA (MM) (1.9-4.0cm)Aortic Cusp Exc0.2 (1.5-2.0cm) EF (%) 40.0 (55-70%)Rt. Atrium5.0 (1.9-4.0cm)Asc. Aorta3.2 cm IVSd1.3 (0.7-1.1cm)RV (D)5.2 (1.8-2.4cm) PWd1.0 (0.7-1.1cm) Mitral Valve MitralMitral Stenosis E wave1.49m/sMV Mean GR.mmHg A wave0.62m/sMV Peak GR.mmHg E/A ratio2.42D MVA1.82cm2 DECEL [id number] 1/2 Timems Aortic Valve Aortic ValveAortic Stenosis V10.81m/Kwasi Mean GR.21mmHg V22.86m/Kwasi Peak GR.33mmHg LVOT Diameter1.9 (1.8-2.4cm)Doppler AVA0.80cm2 AI P 1/2 Kqtc838.88ms Pulmonic Valve V20.61m/s Tricuspid Valve TR Velocity3.36m/s [id number] LEFT VENTRICLE Normal left ventricular size. There is mild left ventricular hypertrophy most prominent in the septu m. Ejection fraction is estimated at 40% based on visual estimate. There is mild global hypokinesis . There is paradoxical septal wall motion abnormality consistent with post open heart surgery status . There is restrictive filling pattern of the left ventricle. RIGHT VENTRICLE The right ventricle is moderately dilated in size. Right ventricular systolic function is mildly dec reased. ATRIA Severe biatrial enlargement. MITRAL VALVE There is yryrotyl-ib-oidojf mitral annular calcification. There is mild mitral regurgitation. PULMONIC VALVE Likely normal. TRICUSPID VALVE Normal structure and function. There is mild tricuspid regurgitation. PA systolic pressure is estim ated at 60 mm Hg. AORTIC VALVE Status post aortic valve replacement with a tissue valve. The leaflets appeared to be thickened and calcified. The aortic valve area is estimated at 0.8 cm2. Peak velocity is 2.9 m/sec with mean grad ient of 22 mm Hg. There is rosd-pi-lvdxaynd aortic insufficiency. GREAT VESSELS The aortic root is of normal size. PERICARDIAL EFFUSION No significant pericardial effusion. IVC is dilated in size and does not collapse normally with insp iration. Conclusion Normal left ventricular size with ejection fraction of 40%. Dilated right ventricle with mildly decreased systolic function. Restrictive filling pattern of the left ventricle. Severe biatrial enlargement. Status post aortic valve replacement with a tissue valve. Mean valve gradient is estimated at 22 mm Hg with aortic valve area 0.8 cm2. PA systolic pressure is estimated at 60 mm Hg.
[2024-12-03] MEDS: MIDODRINE HCL 10 MG TAB PO PRN (15:11)
[2024-12-03] MEDS: NOREPINEPHRINE 8 MG/250ML KIT 250 ML IV ONE (16:05)
[2024-12-03] MEDS: ALBUMIN 25% 50 ML IV ONE (16:05)
[2024-12-03 16:29] LABS: Base Excess -6.6 mmol/L (-2.0-3.0)
--- NOTE | 2024-12-03 16:33 | DVH ---
EXAM: XY CHEST PORTABLE TECHNIQUE: Single frontal chest radiograph CLINICAL HISTORY: sob COMPARISON: XY CHEST PORTABLE on DOS: 12/03/24, XY CHEST PORTABLE on DOS: 12/01/24, XY CHEST XRAY 1 VIEW on DOS: 08/24/24 Findings/Impression: Frontal chest radiograph demonstrates no acute osseous or superficial soft tissue abnormalities. Tunneled right sided HD catheter terminates in the right atrium. Left axillary stent. The trachea is midline. The cardiac silhouette and mediastinum are partially obscured. Multifocal opacities in the right lung, similar to slightly worse from prior. No pneumothorax.
[2024-12-03] MEDS: ALBUMIN 25% 100 ML IV SCH (16:36)
[2024-12-03] MEDS: NOREPINEPHRINE 8 MG/250ML KIT 250 ML IV SCH (16:50)
[2024-12-03] MEDS: ETOMIDATE (2MG/ML) 20ML VIAL IV ONE ×2 (17:02→17:04)
[2024-12-03] MEDS: SUCCINYLCHOLINE CHLORIDE 20 MG/ML 10ML VIAL IV ONE (17:02)
[2024-12-03] MEDS: ROCURONIUM 10MG/ML 10ML VIAL IV ONE (17:04)
[2024-12-03] MEDS: MIDAZOLAM DRIP 50 mg/50mL 50 ML IV ONE (17:12)
[2024-12-03] MEDS: fentaNYL Drip 2500mCg/250mlNS 250 ML IV ONE (17:12)
[2024-12-03] MEDS: MIDAZOLAM DRIP 50 mg/50mL 50 ML IV SCH (18:15)
[2024-12-03] MEDS: fentaNYL Drip 2500mCg/250mlNS 250 ML IV SCH (18:15)
[2024-12-03 18:20] LABS: Basophils # (auto) 0 10 ^3/uL (0-0.2); Eosinophils # (auto) 0 10 ^3/uL (0-0.8); Lymphocytes # (auto) 0.5 10 ^3/uL (0.4-5.4); Lymphocytes % (auto) 2.9 % (10.0-50.0); Mean Corpuscular Volume 94.2 fL (80.0-100.0); Monocytes # (auto) 1.6 10 ^3/uL (0-1.3); Nucleated Red Blood Cells % 0.1 %; Platelet Count (auto) 116 10^3/uL (140-450); White Blood Cell 16.4 10^3/uL (4.4-10.8)
[2024-12-03 18:21] LABS: Base Excess -8.5 mmol/L (-2.0-3.0)
[2024-12-03 18:21] LABS: Basophils % (auto) 0.3 % (0.0-2.0); Eosinophils % (auto) 0.1 % (0.0-7.0); Hematocrit 18.8 % (41.0-53.0); Mean Corpuscular Hemoglobin 30.2 pg (28.0-32.0); Monocytes % (auto) 9.7 % (0.0-12.0); Neutrophils # (auto) 14.3 10 ^3/uL (1.6-8.6); Red Cell Distribution Width 16.6 % (11.8-14.3)
--- NOTE | 2024-12-03 18:32 | DVH ---
EXAM: XY CHEST PORTABLE TECHNIQUE: Single frontal chest radiograph CLINICAL HISTORY: s/[p intubation and CVL placement COMPARISON: XY CHEST PORTABLE on DOS: 12/03/24, XY CHEST PORTABLE on DOS: 12/03/24, XY CHEST PORTABLE on DOS: 12/01/24 Findings/Impression: Frontal chest radiograph demonstrates no acute osseous or superficial soft tissue abnormalities. Left axillary stent. Endotracheal tube terminates 3.6 cm from the christa. Enteric tube is overlying the plane of the stoma ch. Tunneled right sided HD catheter terminates in the right atrium. The trachea is midline. The cardiac silhouette and mediastinum are within normal limits. Right lower lung field opacity with diffuse right interstitial coarsening. Small right pleural effusion. No pneumothorax.
[2024-12-03 18:37] LABS: Albumin 3.3 g/dL (3.2-4.8); Alkaline Phosphatase 70 U/L (46-116); Anion Gap 22 (5-15); BUN/Creatinine Ratio 7.9 (10.0-20.0); Calcium 8.9 mg/dL (8.7-10.4); Potassium 4.5 mmol/L (3.5-5.1); Sodium 136 mmol/L (136-145)
[2024-12-03 18:38] LABS: Bilirubin, Total 1.1 mg/dL (0.2-1.0); Total Protein 6.3 g/dL (5.7-8.2)
[2024-12-03 18:39] LABS: Alanine Aminotransferase 287 U/L (7-40); Aspartate Aminotransferase 569 U/L (13-40); Blood Urea Nitrogen 67 mg/dL (9-23); Carbon Dioxide 20 mmol/L (20-31); Chloride 94 mmol/L (98-107); Glucose 206 mg/dL (74-106)
--- NOTE | 2024-12-03 20:22 | RESUS ---
CODE BLUE ASSESSSMENT History of Events History of Events: PATIENT BECAME UNRESPONSIVE WHEN DR LISA WAS AT BEDSIDE DISCUSSING INTUBATION WITH PATIENT'S FAMILY Initial Information Date: Dec 03, 2024 Time: 16:58 [place] of Arrest: [place] Witnessed: Yes CPR started initial time: 17:00 CPR started by whom: Hospital Staff Type of arrest: Cardiac Spontaneous Respirations: No Pulse Present: No Monitoring: ECG, Pulse Oximetry, Capnography Crash Cart Opened and Supplies: Yes Airway Ventilation Breathing at Onset: Assisted O2 Sat by Pulse Oximetry: 65 Oxygen Delivery Method: Ambu-Bag Time of first Assisted Ventila: 16:58 Artificial Ventilation: Bag/Mask Intubation Time: 17:07 Intubation Size: 8.0 cuffed Intubated by: DR LISA Intubation Attempts: 2 Intubated orally: Yes Tube secured at: 22 CO2 indicator used: Yes Confirmation: Auscultation, Exhaled CO2 Suctioning (Oral/Tracheal): No Circulation Circulation #1: Time: 17:01 Pulse Rate (adult): 0 Blood Pressure Systolic: 0 Blood Pressure Diastolic: 0 Circulation Comment: [place] Circulation #2: Time: 17:03 Pulse Rate (adult): 109 Circulation Comment: ROSC Medications & Response Medications and Responses : Medication Time: 17:00 ADULT Medications Given ADULT: Epinephrine 1 mg Route of Administration: IV Heart Rate: 109 Nurses Notes Malakoff Coma Scale Eye Opening: None (1) Mal[place]off Coma Scale Verbal: None (1) Mal[place]off Coma Scale Motor: None (1) Pupil Reaction: Brisk Bedside Blood Glucose: 160 Nurses Notes - Comment: FAMILY AT BEDSIDE,WILFREDO JOHN INSERTED NG TUBE, DR LISA AT BEDSIDE INSERTED TLC CENTRAL LINE AFTER CODE. TRANSFERRED TO [facility] WITH REFRACTORY MIXER Time Code Ended Time Code Ended: 17:03 Post Arrest Status: Spontaneous Breathing, Ventilated Outcome of code: Successful Family notified: Yes Attending called: Yes Code Team Present: DR MARIA L WALLIS RT Roseanne CALIXTO RN Dayday LEWIS RN Dayday MCMULLEN RT DR GRACE Post Resuscitation Neurologica Pupil Size: 3 ROSC Time of ROSC: 17:03 Raine Lewis Dec 03, 2024 20:22
[2024-12-03] MEDS: EPOETIN ALFA-EPBX 10,000 UNIT/1ML VIAL SC ONE (21:00)
--- NOTE | 2024-12-03 21:18 | DVHNC2 ---
Procedure - Procedure: Endotracheal Intubation INDICATION: Acute hypoxic respiratory failure, accessory muscle usage Physician: Austin Rajput MD CONSENT: Emergent procedure. Implied. Patient medications and allergies reviewed. Patient identification and proposed procedure were verified prior to the procedure by the physician, and a nurse in the patient's room. The heart rate, respiratory rate, oxygen saturations, blood pressure, adequacy of pulmonary ventilation, and response to care were monitored throughout the procedure. The physical status of the patient was reassessed after the procedure. PROCEDURE SUMMARY: A time out was performed. My hands were washed immediately prior to the procedure. I wore a surgical cap, mask with protective eyewear, gown and gloves throughout the procedure. The patient was placed on a gluer and slicer hand including continuous pulse oximetry. The patient received 16 mg Etomidate and 50 mg rocuronium for induction. Cricoid pressure was maintained from time induction agent was given to time of cuff balloon inflation. Using a MAC 3 laryngoscope and a size 7.5 endotracheal tube with stylet, the patient was intubated on the 2nd attempt. The stylet was removed and cuff balloon was inflated. Appropriate endotracheal tube position was confirmed by direct visualization of vocal cord passage, fogging of the tube, CO2 colorimetric indicator and symmetric breath sounds. The tube was secured at 23 cm at the lips. Post intubation chest x-ray is demonstrates the ETT between 2-6 cm above the christa. CPT Code: 20139 AUSTIN RAJPUT MD Dec 03, 2024 21:18
--- NOTE | 2024-12-03 21:20 | DVHNC2 ---
Procedure - ULTRASOUND-GUIDED RIGHT Femoral Vein CENTRAL VENOUS CANNULATION CPT Codes: 77856 (ultrasound guidance) 16136 (insertion of non-tunneled centrally inserted central venous catheter) DATE: 12/03/2024 PHYSICIAN: Austin Rajput PREOPERATIVE DIAGNOSIS: Anemia, s/p cardiac arrest POSTOPERATIVE DIAGNOSIS: Anemia, s/p cardiac arrest PROCEDURE PERFORMED: Limited Ultrasound-guided Right femoral central line placement. ANESTHESIA: 2 mL of 1% lidocaine plain. ESTIMATED BLOOD LOSS: less than 5 mL. SPECIMENS: None. COMPLICATIONS: None. INDICATIONS FOR PROCEDURE: The patient is in need of large bore IV access for administration of fluids, including blood products and vasoactive drugs, and possibly CVP monitoring for hemodynamic instability. DESCRIPTION OF PROCEDURE IN DETAIL: The patient was lying in the reverse Trendelenburg position. The skin was thor oughly sponged with chlorhexidine and allowed to dry. All persons involved were shielded with hair nets, face masks and sterile gowns. With sterile-gloved hands the right neck area was draped with the large disposable sterile field provided in the pre-manufactured kit. The skin and subcutaneous tissues superficial to the RIGHT femoral vein were anesthetized with 2 mL of 1% lidocaine. The RIGHT femoral vein was identified on ultrasound using the linear ultrasound probe in the transverse orientation. The femoral artery was identified and avoided utilizing color-flow. The femoral vein was then placed in the center of the ultrasound field and compressed for patency. A movement artifact was identified as the needle was advanced through the skin and advanced toward the vessel. A real time hyperechoic signal revealed visualization of vascular needle entry into the lumen as blood was noted to flashback in the syringe. The needle was then held in place while the guide wire was advanced. The needle was then removed. Direct visualization of guide wire location within the vein was noted on ultrasound indicating proper placement and was document in the electronic medical record chart. A skin dilator was advanced over the guidewire and removed, and the triple-lumen catheter was then advanced over the guide wire into proper position. The guide wire was removed and discarded. The ports were aspirated which showed good blood return and then carefully flushed with normal saline. The catheter was stabilized and sutured to the skin with 2-0 silk at 2 anchor points. A sterile bio-patch and dressing was placed over the catheter, including the insertion site. The patient tolerated the procedure well. An image recording of the procedure accompanies the chart. AUSTIN RAJPUT MD Dec 03, 2024 21:20
--- NOTE | 2024-12-03 21:22 | DVHNC2 ---
Procedure - Femoral Arterial Line Procedure Note INDICATION: SHOCK, hemodynamic monitoring, frequent abgs PROCEDURE AUTOMATION AND CONTROL ENGINEER: DR Lauri LISA CONSENT: Emergent procedure. Consent implied. Patient medications and allergies reviewed. The risks and benefits of the procedure and the sedation options and risk were discussed with the patient's healthcare proxy. All questions were answered and informed consent was obtained. Patient identification and proposed procedure were verified prior to the procedure by the physician, and a nurse in the patient's room. The heart ra te, respiratory rate, oxygen saturations, blood pressure, adequacy of pulmonary ventilation, and response to care were monitored throughout the procedure. The physical status of the patient was reassessed after the procedure. PROCEDURE SUMMARY: A time out was performed. My hands were washed immediately prior to the procedure. I wore a surgical cap, mask with protective eyewear, sterile gown and sterile gloves throughout the procedure. The RIGHT inguinal region was prepped using chlorhexidine scrub and draped in sterile fashion using a three quarter sheet drape and sterile towels. The femoral pulse was identified. Anesthesia was achieved using 1% lidocaine. Palpating the femoral pulse throughout the procedure and visualization on ultrasound using the linear ultrasound probe in the transverse orientation. The femoral artery was identified and avoided utilizing color-flow. The femoral artery was then placed in the center of the ultrasound field and pulsation was evident. A movement artifact was identified as the needle was advanced through the skin and advanced toward the vessel. A real time hyperechoic signal revealed visualization of vascular needle entry into the lumen of the femoral artery as blood was noted to flashback in the syri nge. Arterial blood was withdrawn. The syringe was removed and a guidewire was advanced through the needle into the femoral artery. The needle was exchanged over the wire for an arterial catheter. The wire was removed and the catheter was secured to the skin using 2 sutures. The patient tolerated the procedure without any hemodynamic compromise. At time of procedure completion, the catheter was connected to the color television console monitor and calibrated. Appropriate waveform and blood pressure tracing was observed. Estimated blood loss is 5mL. CPT 66995 arterial line placement CPT 70007 ultrasound Add On AUSTIN LISA MD Dec 03, 2024 21:22
[2024-12-03 21:50] LABS: Lactic Acid w/Reflex 8.9 mmol/L (0.4-2.0)
[2024-12-03] MEDS ORDERED: EPINEPHrine HCL 1 MG/10 ML SYRG IV ONE (22:12)
--- NOTE | 2024-12-03 23:26 | DVHPN2 ---
Progress Note - Dictate Date Seen: Dec 03, 2024 Medical Necessity Reason Pt with a Central, PICC or Fol: No Subjective Patient seen and examined at bedside. Sedated, intubated on mechanical ventilator. Overnight events reviewed. vital signs Vital Sign Date Time Temp Pulse Resp B/P (MAP) Pulse Ox O2 Delivery O2 Flow Rate FiO2 12/03/24 23:05 130/45 12/03/24 23:00 98.0 80 20 98.0 12/03/24 23:00 98 12/03/24 21:35 Mechanical Ventilator+ 100 100 12/03/24 08:47 3.0 Total Intake and Output 12/02/24 12/02/24 12/03/24 15:00 23:00 07:00 Intake Total 250 ml 500 ml 500 ml Balance 250 ml 500 ml 500 ml medications Current Medications Medications Dose Ordered Sig/Dioni Route Start Time Stop Time Status Last Admin Dose Admin Sevelamer HCl 800 mg TIDWM PO 12/01/24 08:00 12/03/24 12:14 800 MG Multivit/Ca Carb/ B Cmplx/FA/Prenat 1 tab DAILY PO 12/01/24 10:00 12/03/24 09:27 1 TAB Atorvastatin Calcium 10 mg HS PO 12/01/24 22:00 12/03/24 21:55 10 MG Diagnostic Test (Pha) 1 strip ACHS 12/01/24 11:30 12/03/24 21:55 1 STRIP Insulin Human Regular ACHS SC 12/01/24 11:30 12/03/24 21:56 3 UNITS Dextrose 50 ml UD PRN IV 12/01/24 08:00 Sodium Chloride 10 ml Q8HR IV 12/01/24 14:00 12/03/24 21:55 10 ML Acetaminophen/ Hydrocodone Bitart 1 tab Q4HP PRN PO 12/01/24 08:00 12/01/24 15:31 1 TAB Ondansetron HCl 4 mg Q4HP PRN IV 12/01/24 08:00 Docusate Sodium 100 mg BIDPRN PRN PO 12/01/24 08:00 12/02/24 23:20 100 MG Acetaminophen 650 mg Q6HP PRN PO 12/01/24 08:00 Morphine Sulfate 2 mg Q4HPRN PRN IV 12/01/24 08:00 Hydralazine HCl 10 mg Q6HP PRN IV 12/01/24 08:15 Nitroglycerin 0.4 mg Q5MINP PRN SL 12/01/24 08:45 Morphine Sulfate 2 mg Q30M PRN IV 12/01/24 08:45 Azithromycin 250 ml @ 125 mls/hr DAILY IV 12/02/24 10:00 12/03/24 09:28 125 MLS/HR Midodrine 10 mg ONCE PRN PO 12/03/24 06:30 12/03/24 15:11 10 MG Norepinephrine Bitartrate 250 ml @ 3.75 mls/hr Q24H IV 12/03/24 16:00 12/03/24 16:50 3.75 MLS/HR Albumin Human 100 ml @ 100 mls/hr Q8H IV 12/03/24 16:00 12/04/24 08:59 12/03/24 16:36 100 MLS/HR Midazolam HCl 50 ml @ 1 mls/hr Q24H IV 12/03/24 18:00 12/03/24 18:15 3 MLS/HR Fentanyl Citrate 250 ml @ 2.5 mls/hr Q24H IV 12/03/24 18:00 12/03/24 18:15 5 MLS/HR Ceftriaxone Sodium 50 ml @ 100 mls/hr DAILY@09 IV 12/05/24 09:00 objective Gen.: Patient lying in bed in medical ICU. Sedated, intubated on mechanical ventilator. Head: Normocephalic, atraumatic. Eyes: PERRLA. Ears: Normal external anatomy. Throat: Endotracheal tube and orogastric tube in place. Neck: Supple, trachea midline. Chest: Transmitted breath sounds bilaterally. Decreased air entry bilaterally. No wheezing. Bibasilar crackles. Cardiovascular: Positive S1, positive S2. Regular rate and rhythm. Abdomen: Positive bowel sounds in all 4 quadrants. Soft, nontender, nondistended. : Su in place. Normal external genitalia. Rectal: Deferred. Skin: Warm, dry. Intact. Extremities: 2+ radial pulses bilaterally. No lower extremity edema. Neuro: Sedated. laboratory and microbiology Laboratory Tests 12/03/24 17:52 Test 12/03/24 17:52 Range/Units Serum Glucose 206 #H 74-106 mg/dL Assessment/Plan Impression: Acute hypoxic respiratory failure On mechanical ventilator Recurrent pleural effusion Atelectasis End-stage renal disease, on hemodialysis Anemia, symptomatic Events: Currently s/p intubation on mechanical ventilator. On AC mode with RR 20, VT 450, PEEP 10, FiO2 100% Sedated on Versed, Fentanyl 50 mcg/min S/p cardiac arrest, ROSC achieved PEEP tapered to 8 ABG reviewed, compensated. CXR demonstrates devices in place; Multifocal opacities in the right lung, similar to slightly worse from prior. No pneumothorax. On pressors for hemodynamic support Levophed 4 mcg/min Titrate to keep mean arterial pressure greater than 65 mmHg. Continue antibiotics Monitor hemoglobin Transfuse if less than 7.0 g/dL. HD per Nephrology Monitor renal function CT chest without contrast demonstrates Large right hydro hemothorax. No pneumothorax. Small left pleural effusion. Patchy consolidation and ground-glass opacities in both lungs. Ascites. Consult Surgery for decortication. Limited chest ultrasound demonstrated loculated viscous fluid by ultrasound appearance Labs and imaging reviewed. Rest of plan as noted below. Plan: s/p intubation on mechanical ventilator. On AC mode with RR 20, VT 450, PEEP 10 -->8, FiO2 100% Titrate FIO2 to keep O2 saturation above 90%. VAP bundle. Daily ABG and CXR while intubated Sedate for ventilator synchrony On pressors for hemodynamic support Titrate to keep mean arterial pressure greater than 65 mmHg. Monitor hemoglobin Transfuse if less than 7.0 g/dL. Continue antibiotics Pain control Avoid oversedation On Eliquis Accu-Cheks, ISS. HD per Nephrology Monitor renal function. Monitor electrolytes. Supplement as necessary. Monitor ins and outs. DVT prophylaxis. Prognosis: Poor given patient's multiple co-morbidities. Rest of plan per hospitalist and other consultants. Thank you, Sy Oliver NP, for allowing me to participate in this patient's care. Further recommendations will depend on the patient's clinical course. Please do not hesitate to contact me if you have any questions or concerns. This medical document was created using an electronic medical record system with [employer] system. Although these documentations are being carefully reviewed, there may still be some phonetic and typographical changes. The errors are purely typographical, due to imperfection on the software program, and do not reflect any compromise in the patient's medical care. Plan discussed with: Other (ALVARO Busch) Critical Care Time(min): 35 CC Plasma Assessment Blood Product Administration S: [id number] AUSTIN LISA MD Dec 03, 2024 23:26
[2024-12-03] MEDS: cefTRIAXone 1GM/50ML D5W 50 ML IV ONE (23:35)
[2024-12-04] VITALS (111 sets, daily range): BP systolic 94–162; BP diastolic 13–51; PULSE 69–87; RESP 17–22; TEMP 97–100.2; O2SAT 98–100
[2024-12-04 04:20] LABS: Basophils # (auto) 0.1 10 ^3/uL (0-0.2); Eosinophils # (auto) 0.1 10 ^3/uL (0-0.8)
[2024-12-04 04:24] LABS: Basophils % (auto) 0.3 % (0.0-2.0); Eosinophils % (auto) 0.5 % (0.0-7.0); Hematocrit 20.6 % (41.0-53.0); Lymphocytes # (auto) 1.3 10 ^3/uL (0.4-5.4); Lymphocytes % (auto) 7.8 % (10.0-50.0); Mean Corpuscular Hemoglobin 30.1 pg (28.0-32.0); Mean Corpuscular Hgb Conc. 33.9 g/dL (32.0-36.0); Mean Corpuscular Volume 88.8 fL (80.0-100.0); Monocytes # (auto) 1.9 10 ^3/uL (0-1.3); Monocytes % (auto) 11.2 % (0.0-12.0); Neutrophils # (auto) 13.7 10 ^3/uL (1.6-8.6); Neutrophils % (auto) 80.2 % (37.0-80.0); Nucleated Red Blood Cells % 0.2 %; Platelet Count (auto) 95 10^3/uL (140-450); Red Blood Cells 2.33 10^6/uL (4.5-5.90); Red Cell Distribution Width 16.3 % (11.8-14.3)
--- NOTE | 2024-12-04 05:41 | DVH ---
CHEST RADIOGRAPH Indication: fu Technique: Single frontal view of the chest was obtained Comparison: XY CHEST PORTABLE on DOS: 12/03/24, XY CHEST PORTABLE on DOS: 12/03/24, XY CHEST PORTABLE on DOS: 12/03/24 IMPRESSION: The heart is enlarged with median sternotomy and prosthetic cardiac valve. Support lines and tubes a ppear unchanged in position. Findings appear similar to mildly improved with persistent small effusio n and airspace opacity in the right lower lung. Moderate pulmonary vascular congestion.
[2024-12-04 05:43] LABS: Anion Gap 11 (5-15); Carbon Dioxide 28 mmol/L (20-31)
[2024-12-04 05:48] LABS: BUN/Creatinine Ratio 7.8 (10.0-20.0); Glucose 91 mg/dL (74-106)
[2024-12-04 05:50] LABS: Blood Urea Nitrogen 67 mg/dL (9-23); Chloride 97 mmol/L (98-107); Sodium 136 mmol/L (136-145)
[2024-12-04 08:06] LABS: Base Excess 3.2 mmol/L (-2.0-3.0)
[2024-12-04] MEDS ORDERED: VANCOMYCIN PER PHARMACY 0 MG IV SCH (09:45)
--- NOTE | 2024-12-04 10:13 | DVHPN2 ---
Subjective Intubated yesterday. Transferred to ICU. Received 1 unit of blood last night earlier this morning. Reviewed: Care Plan, H&P, Labs, Medications, Previous Orders, Radiology, Other (consultants) Changes from previous H/P or p: No Changes Objective Vitals Vital Signs Date Time Temp Pulse Resp B/P (MAP) Pulse Ox O2 Delivery O2 Flow Rate FiO2 12/04/24 09:15 84 20 134/42 (72) 100 12/04/24 08:00 Mechanical Ventilator+ 100 100 12/04/24 04:00 98.1 98.1 12/03/24 08:47 3.0 Intake/Output Intake and Output 12/04/24 07:00 Intake Total 1531.75 ml Output Total 0 ml Balance 1531.75 ml Intake Oral 240 ml IV Total 731.75 ml Blood Product 400 ml Other 160 ml Output Urine Total 0 ml Stool Total 0 ml General Appearance: Other (Intubated and sedated) HEENT: Atraumatic, Other (Pinpoint pupils) Lungs: Other (Better air entry on both lungs) Cardiovascular: Regular rate Abdomen: Normal bowel sounds, Soft, No tenderness Extremities: Other (No edema bilateral lower extremities) Medications Current Medications Medications Dose Ordered Sig/Dioni Route Start Time Stop Time Status Last Admin Dose Admin Sevelamer HCl 800 mg TIDWM PO 12/01/24 08:00 12/03/24 12:14 800 MG Multivit/Ca Carb/ B Cmplx/FA/Prenat 1 tab DAILY PO 12/01/24 10:00 12/03/24 09:27 1 TAB Atorvastatin Calcium 10 mg HS PO 12/01/24 22:00 12/03/24 21:55 10 MG Diagnostic Test (Pha) 1 strip ACHS 12/01/24 11:30 12/04/24 06:35 1 STRIP Insulin Human Regular ACHS SC 12/01/24 11:30 12/03/24 21:56 3 UNITS Dextrose 50 ml UD PRN IV 12/01/24 08:00 Sodium Chloride 10 ml Q8HR IV 12/01/24 14:00 12/04/24 05:50 10 ML Acetaminophen/ Hydrocodone Bitart 1 tab Q4HP PRN PO 12/01/24 08:00 12/01/24 15:31 1 TAB Ondansetron HCl 4 mg Q4HP PRN IV 12/01/24 08:00 Docusate Sodium 100 mg BIDPRN PRN PO 12/01/24 08:00 12/02/24 23:20 100 MG Acetaminophen 650 mg Q6HP PRN PO 12/01/24 08:00 Morphine Sulfate 2 mg Q4HPRN PRN IV 12/01/24 08:00 Hydralazine HCl 10 mg Q6HP PRN IV 12/01/24 08:15 Nitroglycerin 0.4 mg Q5MINP PRN SL 12/01/24 08:45 Morphine Sulfate 2 mg Q30M PRN IV 12/01/24 08:45 Azithromycin 250 ml @ 125 mls/hr DAILY IV 12/02/24 10:00 12/03/24 09:28 125 MLS/HR Midodrine 10 mg ONCE PRN PO 12/03/24 06:30 12/03/24 15:11 10 MG Norepinephrine Bitartrate 250 ml @ 3.75 mls/hr Q24H IV 12/03/24 16:00 12/03/24 16:50 3.75 MLS/HR Midazolam HCl 50 ml @ 1 mls/hr Q24H IV 12/03/24 18:00 12/04/24 01:04 3 MLS/HR Fentanyl Citrate 250 ml @ 2.5 mls/hr Q24H IV 12/03/24 18:00 12/03/24 18:15 5 MLS/HR Vancomycin HCl 0 ml @ 0 mls/hr UD IV 12/04/24 09:45 Cefepime HCl 50 ml @ 12.5 mls/hr Q8HR IV 12/04/24 14:00 Laboratory Results Laboratory Tests 12/04/24 03:15 Chemistry Test 12/03/24 17:52 12/04/24 03:15 Albumin 3.3 g/dL (3.2-4.8) Calcium Level 8.9 mg/dL (8.7-10.4) 9.0 mg/dL (8.7-10.4) Total Protein 6.3 g/dL (5.7-8.2) LFT Test 12/03/24 17:52 Alanine Aminotransferase (ALT) 287 U/L (7-40) H Alkaline Phosphatase 70 U/L (46-116) Aspartate Amino Transferase (AST) 569 U/L (13-40) H Total Bilirubin 1.1 mg/dL (0.2-1.0) H Blood Gas Results Test 12/03/24 16:20 12/03/24 18:10 12/04/24 06:26 Arterial Blood pH 7.337 (7.350-7.450) 7.361 (7.350-7.450) 7.490 (7.350-7.450) FiO2 % 36.0 100.0 80.0 Assessment/Plan Assessment/Plan Acute respiratory failure status post intubation Hypotension Right pneumonia/airspace opacities Small right pleural effusion and hemothorax minimal left pleural effusion ESRD-HD COPD DM2 CAD/CABG HTN DYSLIPIDEMIA GEN WEAKNESS PLAN Change IV antibiotics. Vasopressors. CBC and CMP. Chest x-ray tomorrow. ABGs tomorrow. Hemodialysis chest done this morning. Further plans as per orders Total critical care time 45 minutes Plan discussed with: Other (Nursing) My Orders Orders - PREET BARRIGA MD Procedure Category Date Status Time Chest Portable XY 12/04/24 Resulted 06:00 Transfer Orders XFER 12/03/24 Transmitted 15:23 Chest Portable XY 12/03/24 Resulted 15:45 Vancomycin Per PHA 12/04/24 In Process Pharmacy 09:45 Blood Culture JJ 12/04/24 Logged 09:42 Respiratory Culture JJ 12/04/24 Logged W/ Gs 09:42 Cefepime 2gm/50ml Ns PHA 12/04/24 In Process (Maxipime 2gm/50ml) 14:00 Complete Blood Count LAB 12/05/24 Verified 06:00 Comprehensive LAB 12/05/24 Verified Metabolic Panel 06:00 Chest Portable XY 12/05/24 Logged 06:00 Abg W/ Co-Ox RT 12/05/24 Logged 06:00 Packedcell-Noactive BBK 12/04/24 Logged Bleeding 09:55 Vancomycin 750mg Kit PHA 12/04/24 In Process (Vancomycin Hcl) 10:00 Vancomycin,Random LAB 12/05/24 Verified 04:00 Date of Service: Dec 04, 2024 Billing Provider: PREET BARRIGA MD Common Visit Codes: [id number] CARE 30-74 MIN PREET BARRIGA MD Dec 04, 2024 10:13
[2024-12-04] MEDS: VANCOMYCIN 750MG KIT 100 ML IV ONE (11:51)
[2024-12-04] MEDS: CEFEPIME 2GM/50ML NS 50 ML IV SCH (14:26)
--- NOTE | 2024-12-04 16:46 | DVHPN2 ---
Progress Note - Dictate Date Seen: Dec 04, 2024 Medical Necessity Reason Pt with a Central, PICC or Fol: No Subjective upgraded to ICU s/p cardiac arrest with ROSC Intubated on Vasopressors vital signs Vital Sign Date Time Temp Pulse Resp B/P (MAP) Pulse Ox O2 Delivery O2 Flow Rate FiO2 12/04/24 15:45 99.7 86 20 144/47 99.7 12/04/24 15:39 100 50 12/04/24 14:00 Mechanical Ventilator+ 12/03/24 08:47 3.0 Total Intake and Output 12/03/24 12/03/24 12/04/24 15:00 23:00 07:00 Intake Total 250 ml 425.0 ml 856.75 ml Output Total 0 ml 0 ml Balance 250 ml 425.0 ml 856.75 ml medications Current Medications Medications Dose Ordered Sig/Dioni Route Start Time Stop Time Status Last Admin Dose Admin Sevelamer HCl 800 mg TIDWM PO 12/01/24 08:00 12/04/24 11:57 800 MG Multivit/Ca Carb/ B Cmplx/FA/Prenat 1 tab DAILY PO 12/01/24 10:00 12/04/24 10:14 1 TAB Atorvastatin Calcium 10 mg HS PO 12/01/24 22:00 12/03/24 21:55 10 MG Diagnostic Test (Pha) 1 strip ACHS 12/01/24 11:30 12/04/24 11:57 1 STRIP Insulin Human Regular ACHS SC 12/01/24 11:30 12/03/24 21:56 3 UNITS Dextrose 50 ml UD PRN IV 12/01/24 08:00 Sodium Chloride 10 ml Q8HR IV 12/01/24 14:00 12/04/24 14:26 10 ML Acetaminophen/ Hydrocodone Bitart 1 tab Q4HP PRN PO 12/01/24 08:00 12/01/24 15:31 1 TAB Ondansetron HCl 4 mg Q4HP PRN IV 12/01/24 08:00 Docusate Sodium 100 mg BIDPRN PRN PO 12/01/24 08:00 12/02/24 23:20 100 MG Acetaminophen 650 mg Q6HP PRN PO 12/01/24 08:00 Morphine Sulfate 2 mg Q4HPRN PRN IV 12/01/24 08:00 Hydralazine HCl 10 mg Q6HP PRN IV 12/01/24 08:15 Nitroglycerin 0.4 mg Q5MINP PRN SL 12/01/24 08:45 Morphine Sulfate 2 mg Q30M PRN IV 12/01/24 08:45 Azithromycin 250 ml @ 125 mls/hr DAILY IV 12/02/24 10:00 12/03/24 09:28 125 MLS/HR Midodrine 10 mg ONCE PRN PO 12/03/24 06:30 12/03/24 15:11 10 MG Norepinephrine Bitartrate 250 ml @ 3.75 mls/hr Q24H IV 12/03/24 16:00 12/03/24 16:50 3.75 MLS/HR Midazolam HCl 50 ml @ 1 mls/hr Q24H IV 12/03/24 18:00 12/04/24 01:04 3 MLS/HR Fentanyl Citrate 250 ml @ 2.5 mls/hr Q24H IV 12/03/24 18:00 12/03/24 18:15 5 MLS/HR Vancomycin HCl 0 ml @ 0 mls/hr UD IV 12/04/24 09:45 Cefepime HCl 0.5 gm/Dextrose 50 ml @ 12.5 mls/hr Q24H IV 12/05/24 18:00 objective gen: NAD HEENT: NC,AT Lungs: no breath sounds Rt lung Cardiac: RRR, no murmur Abd: soft, no tenderness Ext: no edema Neuro: no focal deficits laboratory and microbiology Laboratory Tests 12/04/24 03:15 Test 12/04/24 03:15 Range/Units Serum Glucose 91 # 74-106 mg/dL Assessment/Plan Assessment: ESRD on HD Symptomatic anemia. s/p cardiac arrest Hemorrhagic shock Large Rt hydrothorax, hemothorax Acute hypoxic respiratory failure s/p intubation on mechanical ventilator Pneumonia Hyperphosphatemia Secondary hyperparathyroidism Metabolic acidosis Plan: s/p HD this morning Next HD on Friday vs Friday Pulmonary consult appreciated. Pending surgical eval for Rt hemothorax Vasopressors to maintain MAP > 65 mmHg glucose borderline low. if develops hypoglycemia then can start D10 at 30 cc/h Transfuse PRBC to maintain Hb > 7 g/dl monitor H&H CATE post HD Plan discussed with: Patient, Daughter, Son CC Plasma Assessment Blood Product Administration S: [id number] EVON DAWSON MD 4, 2025 16:46
[2024-12-04] MEDS: NOREPINEPHRINE 8 MG/250ML KIT 250 ML IV SCH (17:44)
[2024-12-04] MEDS: MIDODRINE HCL 10 MG TAB PO SCH (21:48)
[2024-12-04 21:53] LABS: Hemoglobin 9.6 g/dL (13.5-17.5)
--- NOTE | 2024-12-04 23:14 | DVHPN2 ---
Progress Note - Dictate Date Seen: Dec 04, 2024 Medical Necessity Reason Pt with a Central, PICC or Fol: Yes The following are medically ne: Central Line Subjective Patient seen and examined at bedside. Sedated, intubated on mechanical ventilator. Overnight events reviewed. vital signs Vital Sign Date Time Temp Pulse Resp B/P (MAP) Pulse Ox O2 Delivery O2 Flow Rate FiO2 12/04/24 22:30 80 22 117/42 (67) 100 30 12/04/24 22:00 99.7 99.7 12/04/24 21:39 Mechanical Ventilator+ 12/03/24 08:47 3.0 Total Intake and Output 12/03/24 12/03/24 12/04/24 15:00 23:00 07:00 Intake Total 250 ml 425.0 ml 856.75 ml Output Total 0 ml 0 ml Balance 250 ml 425.0 ml 856.75 ml medications Current Medications Medications Dose Ordered Sig/Dioni Route Start Time Stop Time Status Last Admin Dose Admin Sevelamer HCl 800 mg TIDWM PO 12/01/24 08:00 12/04/24 17:46 800 MG Multivit/Ca Carb/ B Cmplx/FA/Prenat 1 tab DAILY PO 12/01/24 10:00 12/04/24 10:14 1 TAB Atorvastatin Calcium 10 mg HS PO 12/01/24 22:00 12/04/24 21:48 10 MG Diagnostic Test (Pha) 1 strip ACHS 12/01/24 11:30 12/04/24 21:48 1 STRIP Insulin Human Regular ACHS SC 12/01/24 11:30 12/03/24 21:56 3 UNITS Dextrose 50 ml UD PRN IV 12/01/24 08:00 Sodium Chloride 10 ml Q8HR IV 12/01/24 14:00 12/04/24 21:48 10 ML Acetaminophen/ Hydrocodone Bitart 1 tab Q4HP PRN PO 12/01/24 08:00 12/01/24 15:31 1 TAB Ondansetron HCl 4 mg Q4HP PRN IV 12/01/24 08:00 Docusate Sodium 100 mg BIDPRN PRN PO 12/01/24 08:00 12/02/24 23:20 100 MG Acetaminophen 650 mg Q6HP PRN PO 12/01/24 08:00 Morphine Sulfate 2 mg Q4HPRN PRN IV 12/01/24 08:00 Hydralazine HCl 10 mg Q6HP PRN IV 12/01/24 08:15 Nitroglycerin 0.4 mg Q5MINP PRN SL 12/01/24 08:45 Morphine Sulfate 2 mg Q30M PRN IV 12/01/24 08:45 Azithromycin 250 ml @ 125 mls/hr DAILY IV 12/02/24 10:00 12/03/24 09:28 125 MLS/HR Midodrine 10 mg ONCE PRN PO 12/03/24 06:30 12/03/24 15:11 10 MG Midazolam HCl 50 ml @ 1 mls/hr Q24H IV 12/03/24 18:00 12/04/24 01:04 3 MLS/HR Fentanyl Citrate 250 ml @ 2.5 mls/hr Q24H IV 12/03/24 18:00 12/03/24 18:15 5 MLS/HR Vancomycin HCl 0 ml @ 0 mls/hr UD IV 12/04/24 09:45 Cefepime HCl 0.5 gm/Dextrose 50 ml @ 12.5 mls/hr Q24H IV 12/05/24 18:00 Norepinephrine Bitartrate 250 ml @ 0.938 mls/ hr Q24H IV 12/04/24 17:15 12/04/24 17:44 3.75 MLS/HR Midodrine 10 mg Q8HR PO 12/04/24 22:00 12/04/24 21:48 10 MG objective Gen.: Patient lying in bed in medical ICU. Sedated, intubated on mechanical ventilator. Head: Normocephalic, atraumatic. Eyes: PERRLA. Ears: Normal external anatomy. Throat: Endotracheal tube and orogastric tube in place. Neck: Supple, trachea midline. Chest: Transmitted breath sounds bilaterally. Decreased air entry bilaterally. No wheezing. Bibasilar crackles. Cardiovascular: Positive S1, positive S2. Regular rate and rhythm. Abdomen: Positive bowel sounds in all 4 quadrants. Soft, nontender, nondistended. : Su in place. Normal external genitalia. Rectal: Deferred. Skin: Warm, dry. Intact. Extremities: 2+ radial pulses bilaterally. No lower extremity edema. Neuro: Sedated. laboratory and microbiology Laboratory Tests 12/04/24 21:15 12/04/24 03:15 Test 12/04/24 03:15 Range/Units Serum Glucose 91 # 74-106 mg/dL Assessment/Plan Impression: Acute hypoxic respiratory failure On mechanical ventilator Recurrent pleural effusion Atelectasis End-stage renal disease, on hemodialysis Anemia, symptomatic Lactic acidosis Events: Currently s/p intubation on mechanical ventilator. On AC mode with RR 20, VT 450, PEEP 10, FiO2 50% Improved FiO2 requirements Sedated on Versed, Fentanyl 50 mcg/min PEEP tapered to 8 ABG reviewed, compensated. CXR demonstrates devices in place; Multifocal opacities in the right lung, similar to slightly worse from prior. No pneumothorax. Off pressors. He was initiated on midodrine. Continue antibiotics Monitor hemoglobin Transfuse if less than 7.0 g/dL. Received 1 unit of PRBC. HD per Nephrology Status post hemodialysis today. Monitor renal function CT chest without contrast demonstrates Large right hydro hemothorax. No pneumothorax. Small left pleural effusion. Patchy consolidation and ground-glass opacities in both lungs. Ascites. Consult Surgery for decortication. Limited chest ultrasound demonstrated loculated viscous fluid by ultrasound appearance Labs and imaging reviewed. Rest of plan as noted below. Plan: s/p intubation on mechanical ventilator. On AC mode with RR 20, VT 450, PEEP 10 -->8, FiO2 100% Titrate FIO2 to keep O2 saturation above 90%. VAP bundle. Daily ABG and CXR while intubated Sedate for ventilator synchrony On pressors for hemodynamic support Titrate to keep mean arterial pressure greater than 65 mmHg. Monitor hemoglobin Transfuse if less than 7.0 g/dL. Continue antibiotics Pain control Avoid oversedation On Eliquis Accu-Cheks, ISS. HD per Nephrology Monitor renal function. Monitor electrolytes. Supplement as necessary. Monitor ins and outs. DVT prophylaxis. Prognosis: Poor given patient's multiple co-morbidities. Rest of plan per hospitalist and other consultants. Thank you, Sy Oliver NP, for allowing me to participate in this patient's care. Further recommendations will depend on the patient's clinical course. Please do not hesitate to contact me if you have any questions or concerns. This medical document was created using an electronic medical record system with [employer] system. Although these documentations are being carefully reviewed, there may still be some phonetic and typographical changes. The errors are purely typographical, due to imperfection on the software program, and do not reflect any compromise in the patient's medical care. Dietary Evaluation Review Comments: 1. Consider EN or PN if NPO >7 days 2. Consider f/u with [employer] if medically appropriate for PO Expected Outcomes/Goals: 1. Pt will meet >75% of estimated needs within 2-3 days Plan discussed with: Other (ALVARO Busch, RT, MD) Critical Care Time(min): 35 CC Plasma Assessment Blood Product Administration S: [id number] AUSTIN LISA MD Dec 04, 2024 23:14
[2024-12-04] MEDS: DEXTROSE 10% 1,000 ML IV SCH (23:47)
[2024-12-04] MEDS: DEXTROSE (50%) 50ML SYRG IV PRN (23:47)
[2024-12-05] VITALS (115 sets, daily range): BP systolic 77–170; BP diastolic 10–89; PULSE 66–87; RESP 17–24; TEMP 98.6–99.7; O2SAT 99–100
[2024-12-05 04:12] LABS: Basophils # (auto) 0.1 10 ^3/uL (0-0.2); Basophils % (auto) 0.8 % (0.0-2.0); Eosinophils # (auto) 0.4 10 ^3/uL (0-0.8); Eosinophils % (auto) 4.4 % (0.0-7.0); Hematocrit 28.6 % (41.0-53.0); Hemoglobin 9.8 g/dL (13.5-17.5); Lymphocytes # (auto) 0.5 10 ^3/uL (0.4-5.4); Lymphocytes % (auto) 4.8 % (10.0-50.0); Mean Corpuscular Hemoglobin 30.9 pg (28.0-32.0); Mean Corpuscular Hgb Conc. 34.4 g/dL (32.0-36.0); Mean Corpuscular Volume 89.6 fL (80.0-100.0); Monocytes # (auto) 0.9 10 ^3/uL (0-1.3); Monocytes % (auto) 9.5 % (0.0-12.0); Neutrophils # (auto) 7.9 10 ^3/uL (1.6-8.6); Neutrophils % (auto) 80.5 % (37.0-80.0); Platelet Count (auto) 98 10^3/uL (140-450); Red Blood Cells 3.19 10^6/uL (4.5-5.90); Red Cell Distribution Width 15.7 % (11.8-14.3); White Blood Cell 9.8 10^3/uL (4.4-10.8)
[2024-12-05 04:48] LABS: Alkaline Phosphatase 64 U/L (46-116); Anion Gap 9 (5-15); BUN/Creatinine Ratio 6.7 (10.0-20.0); Calcium 9.2 mg/dL (8.7-10.4); Carbon Dioxide 27 mmol/L (20-31); Chloride 100 mmol/L (98-107); Glucose 106 mg/dL (74-106); Potassium 4.3 mmol/L (3.5-5.1)
[2024-12-05 04:49] LABS: Albumin 3.4 g/dL (3.2-4.8); Bilirubin, Total 0.9 mg/dL (0.2-1.0); Total Protein 6.2 g/dL (5.7-8.2)
[2024-12-05 04:50] LABS: Alanine Aminotransferase 151 U/L (7-40); Aspartate Aminotransferase 193 U/L (13-40); Blood Urea Nitrogen 34 mg/dL (9-23); Sodium 136 mmol/L (136-145)
--- NOTE | 2024-12-05 06:10 | DVH ---
CHEST RADIOGRAPH Indication: FOLLOW UP Technique: Single frontal view of the chest was obtained COMPARISON: XY CHEST PORTABLE on DOS: 12/04/24, XY CHEST PORTABLE on DOS: 12/03/24, XY CHEST PORTABLE on DOS: 12/03/24, XY CHEST PORTABLE on DOS: 12/03/24, XY CHEST PORTABLE on DOS: 12/01/24 FINDINGS: Lines and Tubes: Endotracheal tube, enteric catheter and right tunneled central venous catheter in sa tisfactory position. Median sternotomy. Lungs: Multifocal right lung airspace disease. Pleura: No effusion. No pneumothorax. Cardiomediastinal contours: Unremarkable Bones: Unremarkable IMPRESSION: Lines and tubes in satisfactory position. No significant interval change.
--- NOTE | 2024-12-05 06:13 | DVHPN2 ---
Progress Note - Dictate Date Seen: Dec 05, 2024 Medical Necessity Reason Pt with a Central, PICC or Fol: Yes The following are medically ne: Central Line Subjective upgraded to ICU s/p cardiac arrest with ROSC Intubated on Vasopressors vital signs Vital Sign Date Time Temp Pulse Resp B/P (MAP) Pulse Ox O2 Delivery O2 Flow Rate FiO2 12/05/24 06:00 98.6 77 20 140/43 (75) 100 98.6 156/18 (64) 12/05/24 05:34 30 12/05/24 05:34 Mechanical Ventilator+ 12/03/24 08:47 3.0 Total Intake and Output 12/04/24 12/04/24 12/05/24 15:00 23:00 07:00 Intake Total 298.50 ml 442.875 ml 330.250 ml Output Total 0 ml Balance 298.50 ml 442.875 ml 330.250 ml medications Current Medications Medications Dose Ordered Sig/Dioni Route Start Time Stop Time Status Last Admin Dose Admin Sevelamer HCl 800 mg TIDWM PO 12/01/24 08:00 12/04/24 17:46 800 MG Multivit/Ca Carb/ B Cmplx/FA/Prenat 1 tab DAILY PO 12/01/24 10:00 12/04/24 10:14 1 TAB Atorvastatin Calcium 10 mg HS PO 12/01/24 22:00 12/04/24 21:48 10 MG Diagnostic Test (Pha) 1 strip ACHS 12/01/24 11:30 12/04/24 21:48 1 STRIP Insulin Human Regular ACHS SC 12/01/24 11:30 12/03/24 21:56 3 UNITS Dextrose 50 ml UD PRN IV 12/01/24 08:00 12/04/24 23:47 50 ML Sodium Chloride 10 ml Q8HR IV 12/01/24 14:00 12/05/24 05:19 10 ML Acetaminophen/ Hydrocodone Bitart 1 tab Q4HP PRN PO 12/01/24 08:00 12/01/24 15:31 1 TAB Ondansetron HCl 4 mg Q4HP PRN IV 12/01/24 08:00 Docusate Sodium 100 mg BIDPRN PRN PO 12/01/24 08:00 12/02/24 23:20 100 MG Acetaminophen 650 mg Q6HP PRN PO 12/01/24 08:00 Morphine Sulfate 2 mg Q4HPRN PRN IV 12/01/24 08:00 Hydralazine HCl 10 mg Q6HP PRN IV 12/01/24 08:15 Nitroglycerin 0.4 mg Q5MINP PRN SL 12/01/24 08:45 Morphine Sulfate 2 mg Q30M PRN IV 12/01/24 08:45 Azithromycin 250 ml @ 125 mls/hr DAILY IV 12/02/24 10:00 12/03/24 09:28 125 MLS/HR Midodrine 10 mg ONCE PRN PO 12/03/24 06:30 12/03/24 15:11 10 MG Midazolam HCl 50 ml @ 1 mls/hr Q24H IV 12/03/24 18:00 12/04/24 01:04 3 MLS/HR Fentanyl Citrate 250 ml @ 2.5 mls/hr Q24H IV 12/03/24 18:00 12/03/24 18:15 5 MLS/HR Vancomycin HCl 0 ml @ 0 mls/hr UD IV 12/04/24 09:45 Cefepime HCl 0.5 gm/Dextrose 50 ml @ 12.5 mls/hr Q24H IV 12/05/24 18:00 Norepinephrine Bitartrate 250 ml @ 0.938 mls/ hr Q24H IV 12/04/24 17:15 12/04/24 17:44 3.75 MLS/HR Midodrine 10 mg Q8HR PO 12/04/24 22:00 12/05/24 05:19 10 MG Dextrose 1,000 ml @ 30 mls/hr Q24H IV 12/04/24 23:45 12/04/24 23:47 30 MLS/HR objective gen: NAD HEENT: NC,AT Lungs: no breath sounds Rt lung Cardiac: RRR, no murmur Abd: soft, no tenderness Ext: no edema Neuro: no focal deficits laboratory and microbiology Laboratory Tests 12/05/24 03:20 Test 12/05/24 03:20 Range/Units Serum Glucose 106 74-106 mg/dL Assessment/Plan Assessment: ESRD on HD Symptomatic anemia. s/p cardiac arrest Hemorrhagic shock Large Rt hydrothorax, hemothorax Acute hypoxic respiratory failure s/p intubation on mechanical ventilator Pneumonia Hyperphosphatemia Secondary hyperparathyroidism Metabolic acidosis Plan: s/p HD this Friday. 0 UF due to hemodynamic instability and ongoing hemorrhage. Next HD Likely on Friday Pulmonary consult appreciated. Pending surgical eval for Rt hemothorax Vasopressors to maintain MAP > 65 mmHg glucose borderline low. if develops hypoglycemia then can start D10 at 30 cc/h Most recent Hb has improved to 9.8 g/dl Transfuse PRBC to maintain Hb > 7 g/dl monitor H&H CATE post HD Dietary Evaluation Review Comments: 1. Consider EN or PN if NPO >7 days 2. Consider f/u with WILDLIFE REHABILITATOR if medically appropriate for PO Expected Outcomes/Goals: 1. Pt will meet >75% of estimated needs within 2-3 days Plan discussed with: Other CC Plasma Assessment Blood Product Administration S: [id number] EVON DAWSON MD Dec 05, 2024 06:13
[2024-12-05 08:28] LABS: Base Excess 3.1 mmol/L (-2.0-3.0)
[2024-12-05] MEDS ORDERED: cefTRIAXone 1GM/50ML D5W 50 ML IV SCH (09:00)
--- NOTE | 2024-12-05 10:28 | DVHPN2 ---
Subjective Intubated and sedated Reviewed: Care Plan, H&P, Labs, Medications, Previous Orders, Radiology, Other (consultants) Changes from previous H/P or p: No Changes Objective Vitals Vital Signs Date Time Temp Pulse Resp B/P (MAP) Pulse Ox O2 Delivery O2 Flow Rate FiO2 12/05/24 08:20 74 20 100 Mechanical Ventilator+ 30 30 12/05/24 08:05 150/27 (68) 12/05/24 06:46 98.6 98.6 12/03/24 08:47 3.0 Intake/Output Intake and Output 12/05/24 07:00 Intake Total 1071.625 ml Output Total 0 ml Balance 1071.625 ml Intake Oral 100 ml IV Total 671.625 ml Blood Product 300 ml Output Urine Total 0 ml General Appearance: Other (Intubated and sedated) HEENT: Atraumatic, Other (Pinpoint pupils) Lungs: Other (Better air entry on both lungs) Cardiovascular: Regular rate Abdomen: Normal bowel sounds, Soft, No tenderness Extremities: Other (No edema bilateral lower extremities) Medications Current Medications Medications Dose Ordered Sig/Dioni Route Start Time Stop Time Status Last Admin Dose Admin Sevelamer HCl 800 mg TIDWM PO 12/01/24 08:00 12/04/24 17:46 800 MG Multivit/Ca Carb/ B Cmplx/FA/Prenat 1 tab DAILY PO 12/01/24 10:00 12/05/24 10:11 1 TAB Atorvastatin Calcium 10 mg HS PO 12/01/24 22:00 12/04/24 21:48 10 MG Diagnostic Test (Pha) 1 strip ACHS 12/01/24 11:30 12/05/24 06:33 1 STRIP Insulin Human Regular ACHS SC 12/01/24 11:30 12/03/24 21:56 3 UNITS Dextrose 50 ml UD PRN IV 12/01/24 08:00 12/04/24 23:47 50 ML Sodium Chloride 10 ml Q8HR IV 12/01/24 14:00 12/05/24 05:19 10 ML Acetaminophen/ Hydrocodone Bitart 1 tab Q4HP PRN PO 12/01/24 08:00 12/01/24 15:31 1 TAB Ondansetron HCl 4 mg Q4HP PRN IV 12/01/24 08:00 Docusate Sodium 100 mg BIDPRN PRN PO 12/01/24 08:00 12/02/24 23:20 100 MG Acetaminophen 650 mg Q6HP PRN PO 12/01/24 08:00 Morphine Sulfate 2 mg Q4HPRN PRN IV 12/01/24 08:00 Hydralazine HCl 10 mg Q6HP PRN IV 12/01/24 08:15 Nitroglycerin 0.4 mg Q5MINP PRN SL 12/01/24 08:45 Morphine Sulfate 2 mg Q30M PRN IV 12/01/24 08:45 Azithromycin 250 ml @ 125 mls/hr DAILY IV 12/02/24 10:00 12/05/24 10:12 125 MLS/HR Midodrine 10 mg ONCE PRN PO 12/03/24 06:30 12/03/24 15:11 10 MG Midazolam HCl 50 ml @ 1 mls/hr Q24H IV 12/03/24 18:00 12/04/24 01:04 3 MLS/HR Fentanyl Citrate 250 ml @ 2.5 mls/hr Q24H IV 12/03/24 18:00 12/03/24 18:15 5 MLS/HR Vancomycin HCl 0 ml @ 0 mls/hr UD IV 12/04/24 09:45 Cefepime HCl 0.5 gm/Dextrose 50 ml @ 12.5 mls/hr Q24H IV 12/05/24 18:00 Norepinephrine Bitartrate 250 ml @ 0.938 mls/ hr Q24H IV 12/04/24 17:15 12/04/24 17:44 3.75 MLS/HR Midodrine 10 mg Q8HR PO 12/04/24 22:00 12/05/24 05:19 10 MG Dextrose 1,000 ml @ 30 mls/hr Q24H IV 12/04/24 23:45 12/04/24 23:47 30 MLS/HR Laboratory Results Laboratory Tests 12/05/24 03:20 Chemistry Test 12/05/24 03:20 Albumin 3.4 g/dL (3.2-4.8) Calcium Level 9.2 mg/dL (8.7-10.4) Total Protein 6.2 g/dL (5.7-8.2) LFT Test 12/05/24 03:20 Alanine Aminotransferase (ALT) 151 U/L (7-40) H Alkaline Phosphatase 64 U/L (46-116) Aspartate Amino Transferase (AST) 193 U/L (13-40) H Total Bilirubin 0.9 mg/dL (0.2-1.0) Blood Gas Results Test 12/05/24 07:57 Arterial Blood pH 7.424 (7.350-7.450) FiO2 % 30.0 Microbiology Microbiology Date/Time Source Procedure Growth Status 12/03/24 21:30 Sputum Gram Stain - Final Resulted 12/03/24 21:30 Sputum Respiratory Culture - Preliminary Resulted 12/03/24 21:05 Blood Blood Culture - Preliminary NO GROWTH AFTER 24 HOURS OF INCUBATION. Resulted Assessment/Plan Assessment/Plan Acute respiratory failure status post intubation Hypotension Right pneumonia/airspace opacities Small right pleural effusion and hemothorax minimal left pleural effusion ESRD-HD COPD DM2 CAD/CABG HTN DYSLIPIDEMIA GEN WEAKNESS Rhabdomyolysis/mild PLAN Vancomycin per pharmacy. Repeat ABGs. Chest x-ray. CBC CMP. CPK. Surgery consulted for right thoracotomy. Monitor vital signs and oxygenation. Further plan per orders. Total critical care time 33 minutes Plan discussed with: Other (Nursing) My Orders Orders - PREET BARRIGA MD Procedure Category Date Status Time Chest Portable XY 12/05/24 Resulted 04:00 Cefepime (Maxipime) PHA 12/05/24 In Process 18:00 Norepinephrine 8 PHA 12/04/24 In Process Mg/250ml Kit 17:15 Midodrine Tablet PHA 12/04/24 In Process (Proamatine Tablet) 22:00 Mrsa Screen JJ 12/05/24 In Process 01:30 Complete Blood Count LAB 12/06/24 Verified 06:00 Comprehensive LAB 12/06/24 Verified Metabolic Panel 06:00 Chest Portable XY 12/06/24 Logged 06:00 Abg W/ Co-Ox RT 12/06/24 Logged 06:00 Vancomycin 750mg Vial PHA 12/05/24 In Process (Vancomycin Hcl) 12:00 Vancomycin,Random LAB 12/06/24 Verified 05:00 Vancomycin Per [facility] 12/05/24 In Process Pharmacy Protoc 12:00 Date of Service: Dec 05, 2024 Billing Provider: PREET BARRIGA MD Common Visit Codes: [id number] CARE 30-74 MIN PREET BARRIGA MD Dec 05, 2024 10:28
[2024-12-05] MEDS: VANCOMYCIN 750MG VIAL 750 MG in D5W 5% 100 ML IV ONE (12:20)
[2024-12-05] MEDS: Nepro With Carb Steady 1 Liter Bottle GT SCH (14:23)
[2024-12-05] MEDS: InsuLIN REG 1unit/0.01ml Soln (100units/ml) SC SCH (15:59)
[2024-12-05] MEDS: ACCU-CHEK COMFORT CURVE STRIP VI SCH (15:59)
[2024-12-05] MEDS: CEFEPIME 0.5 GM in D5W 5% 50 ML IV SCH (18:12)
--- NOTE | 2024-12-05 23:48 | DVHPN2 ---
Progress Note - Dictate Date Seen: Dec 05, 2024 Medical Necessity Reason Pt with a Central, PICC or Fol: Yes The following are medically ne: Central Line Subjective Patient seen and examined at bedside. Sedated, intubated on mechanical ventilator. Overnight events reviewed. vital signs Vital Sign Date Time Temp Pulse Resp B/P (MAP) Pulse Ox O2 Delivery O2 Flow Rate FiO2 12/05/24 22:13 77 24 133/37 (69) 100 30 12/05/24 18:30 99.2 99.2 12/05/24 18:00 Mechanical Ventilator+ 12/03/24 08:47 3.0 Total Intake and Output 12/04/24 12/04/24 12/05/24 15:00 23:00 07:00 Intake Total 298.50 ml 442.875 ml 369.125 ml Output Total 0 ml Balance 298.50 ml 442.875 ml 369.125 ml medications Current Medications Medications Dose Ordered Sig/Dioni Route Start Time Stop Time Status Last Admin Dose Admin Sevelamer HCl 800 mg TIDWM PO 12/01/24 08:00 12/05/24 18:13 800 MG Multivit/Ca Carb/ B Cmplx/FA/Prenat 1 tab DAILY PO 12/01/24 10:00 12/05/24 10:11 1 TAB Atorvastatin Calcium 10 mg HS PO 12/01/24 22:00 12/05/24 20:29 10 MG Sodium Chloride 10 ml Q8HR IV 12/01/24 14:00 12/05/24 20:29 10 ML Acetaminophen/ Hydrocodone Bitart 1 tab Q4HP PRN PO 12/01/24 08:00 12/01/24 15:31 1 TAB Ondansetron HCl 4 mg Q4HP PRN IV 12/01/24 08:00 Docusate Sodium 100 mg BIDPRN PRN PO 12/01/24 08:00 12/02/24 23:20 100 MG Acetaminophen 650 mg Q6HP PRN PO 12/01/24 08:00 Morphine Sulfate 2 mg Q4HPRN PRN IV 12/01/24 08:00 Hydralazine HCl 10 mg Q6HP PRN IV 12/01/24 08:15 Nitroglycerin 0.4 mg Q5MINP PRN SL 12/01/24 08:45 Morphine Sulfate 2 mg Q30M PRN IV 12/01/24 08:45 Azithromycin 250 ml @ 125 mls/hr DAILY IV 12/02/24 10:00 12/05/24 10:12 125 MLS/HR Midodrine 10 mg ONCE PRN PO 12/03/24 06:30 12/03/24 15:11 10 MG Midazolam HCl 50 ml @ 1 mls/hr Q24H IV 12/03/24 18:00 12/05/24 18:19 2 MLS/HR Fentanyl Citrate 250 ml @ 2.5 mls/hr Q24H IV 12/03/24 18:00 12/05/24 12:18 5 MLS/HR Vancomycin HCl 0 ml @ 0 mls/hr UD IV 12/04/24 09:45 Cefepime HCl 0.5 gm/Dextrose 50 ml @ 12.5 mls/hr Q24H IV 12/05/24 18:00 12/05/24 18:12 12.5 MLS/HR Norepinephrine Bitartrate 250 ml @ 0.938 mls/ hr Q24H IV 12/04/24 17:15 12/05/24 18:21 2.813 MLS/HR Midodrine 10 mg Q8HR PO 12/04/24 22:00 12/05/24 20:29 10 MG Dextrose 1,000 ml @ 30 mls/hr Q24H IV 12/04/24 23:45 12/04/24 23:47 30 MLS/HR Enteral Nutritional Formula 1,000 ml 30ML/HR GT 12/05/24 12:15 12/05/24 14:23 1,000 ML Diagnostic Test (Pha) 1 strip IQ4HR 12/05/24 16:00 12/05/24 23:22 1 STRIP Insulin Human Regular IQ4HR SC 12/05/24 16:00 Dextrose 50 ml UD PRN IV 12/05/24 14:00 objective Gen.: Patient lying in bed in medical ICU. Sedated, intubated on mechanical ventilator. Head: Normocephalic, atraumatic. Eyes: PERRLA. Ears: Normal external anatomy. Throat: Endotracheal tube and orogastric tube in place. Neck: Supple, trachea midline. Chest: Transmitted breath sounds bilaterally. Decreased air entry bilaterally. No wheezing. Bibasilar crackles. Cardiovascular: Positive S1, positive S2. Regular rate and rhythm. Abdomen: Positive bowel sounds in all 4 quadrants. Soft, nontender, nondistended. : Su in place. Normal external genitalia. Rectal: Deferred. Skin: Warm, dry. Intact. Extremities: 2+ radial pulses bilaterally. No lower extremity edema. Neuro: Sedated. laboratory and microbiology Laboratory Tests 12/05/24 03:20 Test 12/05/24 03:20 Range/Units Serum Glucose 106 74-106 mg/dL Assessment/Plan Impression: Acute hypoxic respiratory failure On mechanical ventilator Recurrent pleural effusion Atelectasis End-stage renal disease, on hemodialysis Anemia, symptomatic Lactic acidosis Events: Remains on mechanical ventilator. On AC mode with RR 20, VT 450, PEEP 8, FiO2 30% Improved FiO2 requirements Sedated on Versed, Fentanyl ABG reviewed, compensated. On pressors for hemodynamic support Levophed 2 mcg/min Titrate to keep mean arterial pressure greater than 65 mmHg. On midodrine. Continue antibiotics Monitor hemoglobin Transfuse if less than 7.0 g/dL. HD per Nephrology Status post hemodialysis yesterday Monitor renal function CT chest without contrast demonstrates Large right hydro hemothorax. No pneumothorax. Small left pleural effusion. Patchy consolidation and ground-glass opacities in both lungs. Ascites. Consult Surgery for decortication. Limited chest ultrasound demonstrated loculated viscous fluid by ultrasound appearance Labs and imaging reviewed. Rest of plan as noted below. Plan: s/p intubation on mechanical ventilator. On AC mode with RR 20, VT 450, PEEP 8, FiO2 30% Improved FiO2 requirements Titrate FIO2 to keep O2 saturation above 90%. VAP bundle. Daily ABG and CXR while intubated Sedate for ventilator synchrony On pressors for hemodynamic support Titrate to keep mean arterial pressure greater than 65 mmHg. Monitor hemoglobin Transfuse if less than 7.0 g/dL. Continue antibiotics Pain control Avoid oversedation On Eliquis Accu-Cheks, ISS. HD per Nephrology Monitor renal function. Monitor electrolytes. Supplement as necessary. Monitor ins and outs. DVT prophylaxis. Prognosis: Poor given patient's multiple co-morbidities. Condition: Critical Rest of plan per hospitalist and other consultants. A total of 35 minutes of critical care time was spent reviewing the patient record, examining the patient, making a diagnostic and therapeutic plan, discussing this plan with the medical personnel, following up on diagnostic studies and following the patient for clinical stability excluding any and all procedures. At least 50% of this time was spent in direct, [id number] contact. Thank you, Sy Oliver NP, for allowing me to participate in this patient's care. Further recommendations will depend on the patient's clinical course. Please do not hesitate to contact me if you have any questions or concerns. This medical document was created using an electronic medical record system with [employer] dictation system. Although these documentations are being carefully reviewed, there may still be some phonetic and typographical changes. The errors are purely typographical, due to imperfection on the software program, and do not reflect any compromise in the patient's medical care. Dietary Evaluation Review Comments: 1. Consider EN or PN if NPO >7 days 2. Consider f/u with FAT PRESSROOM WORKER if medically appropriate for PO Expected Outcomes/Goals: 1. Pt will meet >75% of estimated needs within 2-3 days Plan discussed with: Other (ALVARO Gordillo) Critical Care Time(min): 35 CC Plasma Assessment Blood Product Administration S: [id number] AUSTIN LISA MD Dec 05, 2024 23:48
[2024-12-06] VITALS (105 sets, daily range): BP systolic 97–174; BP diastolic 14–81; PULSE 59–83; RESP 9–26; TEMP 98.4–99.7; O2SAT 100
[2024-12-06 04:08] LABS: Basophils # (auto) 0.1 10 ^3/uL (0-0.2); Basophils % (auto) 0.6 % (0.0-2.0); Eosinophils # (auto) 0.6 10 ^3/uL (0-0.8); Eosinophils % (auto) 5.3 % (0.0-7.0); Hematocrit 28.8 % (41.0-53.0); Hemoglobin 9.6 g/dL (13.5-17.5); Lymphocytes # (auto) 0.7 10 ^3/uL (0.4-5.4); Lymphocytes % (auto) 5.6 % (10.0-50.0); Mean Corpuscular Hemoglobin 30.2 pg (28.0-32.0); Mean Corpuscular Hgb Conc. 33.4 g/dL (32.0-36.0); Mean Corpuscular Volume 90.6 fL (80.0-100.0); Monocytes # (auto) 1.2 10 ^3/uL (0-1.3); Monocytes % (auto) 9.9 % (0.0-12.0); Neutrophils # (auto) 9.5 10 ^3/uL (1.6-8.6); Neutrophils % (auto) 78.6 % (37.0-80.0); Nucleated Red Blood Cells % 0.1 %; Platelet Count (auto) 100 10^3/uL (140-450); Red Blood Cells 3.17 10^6/uL (4.5-5.90); Red Cell Distribution Width 16.1 % (11.8-14.3); White Blood Cell 12.1 10^3/uL (4.4-10.8)
[2024-12-06 04:18] LABS: Albumin 3.2 g/dL (3.2-4.8); Alkaline Phosphatase 69 U/L (46-116); Anion Gap 6 (5-15); BUN/Creatinine Ratio 6.5 (10.0-20.0); Bilirubin, Total 0.7 mg/dL (0.2-1.0); Calcium 9.2 mg/dL (8.7-10.4); Carbon Dioxide 30 mmol/L (20-31); Potassium 4.6 mmol/L (3.5-5.1); Total Protein 6.1 g/dL (5.7-8.2)
[2024-12-06 04:25] LABS: INR 1.47 (0.9-1.15); Prothrombin Time 15.1 sec (9.3-11.8)
[2024-12-06 04:33] LABS: Alanine Aminotransferase 106 U/L (7-40); Aspartate Aminotransferase 101 U/L (13-40); Blood Urea Nitrogen 38 mg/dL (9-23); Chloride 95 mmol/L (98-107); Glucose 134 mg/dL (74-106); Sodium 131 mmol/L (136-145)
--- NOTE | 2024-12-06 04:56 | DVH ---
CHEST RADIOGRAPH Indication: fu Technique: Single frontal view of the chest was obtained COMPARISON: XY CHEST PORTABLE on DOS: 12/05/24, XY CHEST PORTABLE on DOS: 12/04/24, XY CHEST PORTABLE on DOS: 12/03/24, XY CHEST PORTABLE on DOS: 12/03/24, XY CHEST PORTABLE on DOS: 12/03/24, XY CHEST PORTABLE on DOS: 12/05/24 FINDINGS: Lines and Tubes: Endotracheal tube, enteric catheter and right tunneled central venous catheter in sa tisfactory position. Median sternotomy. Lungs: Multifocal right lung airspace disease. Pleura: No effusion. No pneumothorax. Cardiomediastinal contours: Unremarkable Bones: Unremarkable IMPRESSION: Lines and tubes in satisfactory position. No significant interval change.
[2024-12-06 09:06] LABS: Hepatitis B Surface Antigen Negative (Negative)
[2024-12-06 09:17] LABS: Hepatitis A Ab IgM Negative; Hepatitis B Core IgM Negative (Negative); Hepatitis C Antibody Negative (Negative)
--- NOTE | 2024-12-06 09:18 | DVHPN2 ---
Progress Note - Dictate Date Seen: Dec 05, 2024 Medical Necessity Reason Pt with a Central, PICC or Fol: Yes The following are medically ne: Central Line Subjective PT WITH RESP FAILURE/ RESP ARREST PNEUMONIA HYPOTENSION SEVERE ANEMIA/ HEMOTHORAX? INTUBATED ESRD-HD COPD DM2 CAD/CABG HTN DYSLIPIDEMIA C * Left main shows 50% heavily calcified narrowing with moderate diffuse disease. * Left anterior descending artery, high-grade narrowing proximally and in the mid lesion greater than 90%. * ELY to the LAD was patent. * Circumflex artery, moderate diffuse disease throughout. * Right coronary artery was occluded. * Saphenous vein graft to the OM is patent; however, there is a sluggish flow, in fact obtuse marginal is being supplied by the [place] vessel even though the patient has a high-grade narrowing of the left main. * Right coronary artery was occluded. Saphenous vein graft to the PDA was patent; however. * The patient on fluoroscopy appears to have normal functioning aortic valve with no restriction or calcification noted. * Right heart catheterization showed RA pressure of 8, RV pressure of 52/12, PA pressure of 50/20 and capillary wedge pressure of 18. Thus, the patient with heavily calcified anatomy throughout the aorta, coronaries, carotid, subclavian. Anatomy as described above. At this time, the patient is not a candidate for any revascularization. He has got a patent ELY to the LAD, patent saphenous vein graft to the OM, although it is heavily degenerated with very sluggish flow. The circumflex artery is actually being supplied by the [place] vessel. Right coronary artery was occluded, however, saphenous vein graft to the PDA was patent. At this time, conservative medical management, aggressive risk modification, antiplatelet therapy should be maintained especially with EDP inhibitors, receptor inhibitors such as Plavix or Brilinta and the patient should be maintained on Eliquis as well. The patient is a poor candidate for any revascularization percutaneously or surgical. The patient has a visible stent in the left subclavian vein as well. vital signs Vital Sign Date Time Temp Pulse Resp B/P (MAP) Pulse Ox O2 Delivery O2 Flow Rate FiO2 12/06/24 07:30 99.3 76 20 143/35 (71) 100 210.7 130/23 (58) 12/06/24 06:07 30 12/06/24 06:00 Mechanical Ventilator+ Total Intake and Output 12/05/24 12/05/24 12/06/24 15:00 23:00 07:00 Intake Total 630.383 ml 620.254 ml 613.504 ml Output Total 0 ml Balance 630.383 ml 620.254 ml 613.504 ml medications Current Medications Medications Dose Ordered Sig/Dioni Route Start Time Stop Time Status Last Admin Dose Admin Sevelamer HCl 800 mg TIDWM PO 12/01/24 08:00 12/06/24 08:44 800 MG Multivit/Ca Carb/ B Cmplx/FA/Prenat 1 tab DAILY PO 12/01/24 10:00 12/05/24 10:11 1 TAB Atorvastatin Calcium 10 mg HS PO 12/01/24 22:00 12/05/24 20:29 10 MG Sodium Chloride 10 ml Q8HR IV 12/01/24 14:00 12/06/24 04:50 10 ML Acetaminophen/ Hydrocodone Bitart 1 tab Q4HP PRN PO 12/01/24 08:00 12/01/24 15:31 1 TAB Ondansetron HCl 4 mg Q4HP PRN IV 12/01/24 08:00 Docusate Sodium 100 mg BIDPRN PRN PO 12/01/24 08:00 12/02/24 23:20 100 MG Acetaminophen 650 mg Q6HP PRN PO 12/01/24 08:00 Morphine Sulfate 2 mg Q4HPRN PRN IV 12/01/24 08:00 Hydralazine HCl 10 mg Q6HP PRN IV 12/01/24 08:15 Nitroglycerin 0.4 mg Q5MINP PRN SL 12/01/24 08:45 Morphine Sulfate 2 mg Q30M PRN IV 12/01/24 08:45 Azithromycin 250 ml @ 125 mls/hr DAILY IV 12/02/24 10:00 12/05/24 10:12 125 MLS/HR Midodrine 10 mg ONCE PRN PO 12/03/24 06:30 12/03/24 15:11 10 MG Midazolam HCl 50 ml @ 1 mls/hr Q24H IV 12/03/24 18:00 12/05/24 18:19 2 MLS/HR Fentanyl Citrate 250 ml @ 2.5 mls/hr Q24H IV 12/03/24 18:00 12/05/24 12:18 5 MLS/HR Vancomycin HCl 0 ml @ 0 mls/hr UD IV 12/04/24 09:45 Cefepime HCl 0.5 gm/Dextrose 50 ml @ 12.5 mls/hr Q24H IV 12/05/24 18:00 12/05/24 18:12 12.5 MLS/HR Norepinephrine Bitartrate 250 ml @ 0.938 mls/ hr Q24H IV 12/04/24 17:15 12/05/24 18:21 2.813 MLS/HR Midodrine 10 mg Q8HR PO 12/04/24 22:00 12/06/24 04:58 10 MG Dextrose 1,000 ml @ 30 mls/hr Q24H IV 12/04/24 23:45 12/06/24 04:58 30 MLS/HR Enteral Nutritional Formula 1,000 ml 30ML/HR GT 12/05/24 12:15 12/05/24 14:23 1,000 ML Diagnostic Test (Pha) 1 strip IQ4HR 12/05/24 16:00 12/06/24 04:50 1 STRIP Insulin Human Regular IQ4HR SC 12/05/24 16:00 Dextrose 50 ml UD PRN IV 12/05/24 14:00 laboratory and microbiology Laboratory Tests 12/06/24 03:30 Test 12/06/24 03:30 Range/Units Serum Glucose 134 H 74-106 mg/dL Problem List RESP FAILURE PNEUMONIA HYPOTENSION SEVERE ANEMIA INTUBATED ESRD-HD COPD DM2 CAD/CABG HTN DYSLIPIDEMIA C * Left main shows 50% heavily calcified narrowing with moderate diffuse disease. * Left anterior descending artery, high-grade narrowing proximally and in the mid lesion greater than 90%. * ELY to the LAD was patent. * Circumflex artery, moderate diffuse disease throughout. * Right coronary artery was occluded. * Saphenous vein graft to the OM is patent; however, there is a sluggish flow, in fact obtuse marginal is being supplied by the [place] vessel even though the patient has a high-grade narrowing of the left main. * Right coronary artery was occluded. Saphenous vein graft to the PDA was patent; however. * The patient on fluoroscopy appears to have normal functioning aortic valve with no restriction or calcification noted. * Right heart catheterization showed RA pressure of 8, RV pressure of 52/12, PA pressure of 50/20 and capillary wedge pressure of 18. Thus, the patient with heavily calcified anatomy throughout the aorta, coronaries, carotid, subclavian. Anatomy as described above. At this time, the patient is not a candidate for any revascularization. He has got a patent ELY to the LAD, patent saphenous vein graft to the OM, although it is heavily degenerated with very sluggish flow. The circumflex artery is actually being supplied by the [place] vessel. Right coronary artery was occluded, however, saphenous vein graft to the PDA was patent. At this time, conservative medical management, aggressive risk modification, antiplatelet therapy should be maintained especially with EDP inhibitors, receptor inhibitors such as Plavix or Brilinta and the patient should be maintained on Eliquis as well. The patient is a poor candidate for any revascularization percutaneously or surgical. The patient has a visible stent in the left subclavian vein as well. Assessment/Plan CARDIAC STATUS STABLE ECHO EF 40% AV PROSTHESIS MAY PROCEED WITH SURGICAL INTERVENTION ASA II/ III Dietary Evaluation Review Comments: 1. Consider EN or PN if NPO >7 days 2. Consider f/u with BUILDING TRADES INSTRUCTOR if medically appropriate for PO Expected Outcomes/Goals: 1. Pt will meet >75% of estimated needs within 2-3 days Plan discussed with: Other Critical Care Time(min): 35 CC Plasma Assessment Blood Product Administration S: [id number] BALAJI KING MD Dec 06, 2024 09:18
[2024-12-06] MEDS ORDERED: MIDODRINE HCL 10 MG TAB PO ONE (11:45)
--- NOTE | 2024-12-06 14:13 | ECG ---
[facility] Test Date: 2024-12-07 Test Time: 00:48:11 Pat Name: EULOGIO NAZARIO Department: Room: [address] [place] [address] Gender: M Jewelry Coater: RAMYA : 1955 Requested By: BRADLEY SORIA Order Number: [id number] Reading MD: Catherine Denise Measurements Intervals Elbe Rate: 67 P: 0 OH: 0 QRS: 266 QRSD: 96 T: 206 QT: 472 QTc: 498 Interpretive Statements Atrial fibrillation Right ventricular hypertrophy ST & T wave abnormality, consider inferior ischemia ST & T wave abnormality, consider anterior ischemia Electronically Signed On 12-08-2024 12:25:30 PST by Catherine Denise Please click the below link to view image of tracing.
[2024-12-06] MEDS: PANTOPRAZOLE 40 MG/10 ML VIAL INJ IV ONE (14:20)
--- NOTE | 2024-12-06 14:38 | DVHPN2 ---
Progress Note - Dictate Date Seen: Dec 06, 2024 Medical Necessity Reason Pt with a Central, PICC or Fol: Yes The following are medically ne: Central Line Subjective Intubated and on 30 % Fio2 vital signs Vital Sign Date Time Temp Pulse Resp B/P (MAP) Pulse Ox O2 Delivery O2 Flow Rate FiO2 12/06/24 13:19 70 22 117/15 (49) 100 30 12/06/24 12:10 Mechanical Ventilator+ 12/06/24 10:30 98.8 209.8 Total Intake and Output 12/05/24 12/05/24 12/06/24 15:00 23:00 07:00 Intake Total 630.383 ml 620.254 ml 613.504 ml Output Total 0 ml Balance 630.383 ml 620.254 ml 613.504 ml medications Current Medications Medications Dose Ordered Sig/Dioni Route Start Time Stop Time Status Last Admin Dose Admin Sevelamer HCl 800 mg TIDWM PO 12/01/24 08:00 12/06/24 09:33 800 MG Multivit/Ca Carb/ B Cmplx/FA/Prenat 1 tab DAILY PO 12/01/24 10:00 12/06/24 09:33 1 TAB Atorvastatin Calcium 10 mg HS PO 12/01/24 22:00 12/05/24 20:29 10 MG Sodium Chloride 10 ml Q8HR IV 12/01/24 14:00 12/06/24 14:21 10 ML Acetaminophen/ Hydrocodone Bitart 1 tab Q4HP PRN PO 12/01/24 08:00 12/01/24 15:31 1 TAB Ondansetron HCl 4 mg Q4HP PRN IV 12/01/24 08:00 Docusate Sodium 100 mg BIDPRN PRN PO 12/01/24 08:00 12/02/24 23:20 100 MG Acetaminophen 650 mg Q6HP PRN PO 12/01/24 08:00 Morphine Sulfate 2 mg Q4HPRN PRN IV 12/01/24 08:00 Hydralazine HCl 10 mg Q6HP PRN IV 12/01/24 08:15 Nitroglycerin 0.4 mg Q5MINP PRN SL 12/01/24 08:45 Morphine Sulfate 2 mg Q30M PRN IV 12/01/24 08:45 Azithromycin 250 ml @ 125 mls/hr DAILY IV 12/02/24 10:00 12/06/24 09:33 125 MLS/HR Midazolam HCl 50 ml @ 1 mls/hr Q24H IV 12/03/24 18:00 12/05/24 18:19 2 MLS/HR Fentanyl Citrate 250 ml @ 2.5 mls/hr Q24H IV 12/03/24 18:00 12/05/24 12:18 5 MLS/HR Vancomycin HCl 0 ml @ 0 mls/hr UD IV 12/04/24 09:45 Cefepime HCl 0.5 gm/Dextrose 50 ml @ 12.5 mls/hr Q24H IV 12/05/24 18:00 12/05/24 18:12 12.5 MLS/HR Norepinephrine Bitartrate 250 ml @ 0.938 mls/ hr Q24H IV 12/04/24 17:15 12/05/24 18:21 2.813 MLS/HR Midodrine 10 mg Q8HR PO 12/04/24 22:00 12/06/24 14:20 10 MG Dextrose 1,000 ml @ 30 mls/hr Q24H IV 12/04/24 23:45 12/06/24 04:58 30 MLS/HR Enteral Nutritional Formula 1,000 ml 30ML/HR GT 12/05/24 12:15 12/05/24 14:23 1,000 ML Diagnostic Test (Pha) 1 strip IQ4HR 12/05/24 16:00 12/06/24 12:25 1 STRIP Insulin Human Regular IQ4HR SC 12/05/24 16:00 Dextrose 50 ml UD PRN IV 12/05/24 14:00 Pantoprazole Sodium 40 mg DAILY IV 12/07/24 10:00 objective gen: on vent HEENT: NC,AT Lungs: no breath sounds Rt lung Cardiac: RRR, no murmur Abd: soft, no tenderness Ext: no edema Neuro: sedated laboratory and microbiology Laboratory Tests 12/06/24 03:30 Test 12/06/24 03:30 Range/Units Serum Glucose 134 H 74-106 mg/dL Problem List ESRD on HD s/p cardiac arrest Hemorrhagic shock Large Rt hydrothorax, hemothorax Acute hypoxic respiratory failure s/p intubation on mechanical ventilator Pneumonia Hyperphosphatemia Secondary hyperparathyroidism Metabolic acidosis Assessment/Plan s/p HD on Friday. 0 UF due to hemodynamic instability and ongoing hemorrhage. Next HD Likely on Friday Pulmonary consult appreciated. Pending surgical eval for Rt hemothorax Vasopressors to maintain MAP > 65 mmHg glucose borderline low. if develops hypoglycemia then can start D10 at 30 cc/h Most recent Hb has improved to 9.6 g/dl Transfuse PRBC to maintain Hb > 7 g/dl monitor H&H CATE post HD Dietary Evaluation Review Comments: 1. Consider EN or PN if NPO >7 days 2. Consider f/u with PROFESSOR OF CHEMICAL ENGINEERING if medically appropriate for PO Expected Outcomes/Goals: 1. Pt will meet >75% of estimated needs within 2-3 days Plan discussed with: Other CC Plasma Assessment Blood Product Administration S: [id number] NIKKI CHRISTIANSON MD Dec 06, 2024 14:38
--- NOTE | 2024-12-06 16:41 | DVH ---
EXAM: CT HEAD WITHOUT CONTRAST HISTORY: anisocoria and impaired responsiveness COMPARISON: CT CHEST WITHOUT CONTRAST on DOS: 12/02/24, CT CHEST WITH CONTRAST on DOS: 11/19/24 TECHNIQUE: Axial images of the head were obtained and reformatted in coronal and sagittal planes. All CT scans at this medical facility are performed using dose modulation techniques as appropriate t o a performed exam including the following: Automated exposure control was utilized; adjustment of th e MA and/or KV according to patient size; and use of iterative reconstruction technique. CT Dose: CTDI volume is 62 mGy. Dose-length product is 995 mGy*cm FINDINGS: There is no evidence of acute intracranial hemorrhage, mass, mass effect midline shift. There is no h ydrocephalus or extra-axial fluid collection. Is likely a small chronic lacunar infarct in the right caudate head region. The siddiqi-white matter differentiation otherwise appears maintained. The visualized paranasal sinuses and mastoid air cells are clear. The calvarium is intact. IMPRESSION: 1. No acute intracranial process. HS:Y
[2024-12-06] MEDS: ACCU-CHEK COMFORT CURVE STRIP VI SCH (17:52)
[2024-12-06] MEDS: InsuLIN REG 1unit/0.01ml Soln (100units/ml) SC SCH (17:55)
--- NOTE | 2024-12-06 20:39 | DVHPNRES ---
Progress Note Date Seen: Dec 06, 2024 Resident Creating Document: DUSTIN MCLEOD [facility] Medical Necessity Reason Pt with a Central, PICC or Fol: Yes The following are medically ne: Central Line, Su Catheter Subjective Review of Systems This is a 69-year-old male patient with PMHx of CHF, status post CABG 2018, COPD on home oxygen, diabetes mellitus, ESRD on hemodialysis with [facility] Tue/Th/Sat, dyslipidemia, hypertension, secondary hyperparathyroidism who presented to the ER with a chief complaint of generalized weakness and nausea vomiting and dizziness. Per daughter Hilda, patient has history of recurrent right-sided pleural effusion from the past 5 years for which he initially would get thoracocentesis every month but recently he has been getting thoracocentesis every week. Last thoracocentesis was done on November 19 which was bloody. Patient reported generalized weakness and dizziness but was not altered and he would do daily activities himself. He does not make any urine and is dependent on dialysis. Associated symptoms include sweating. On arrival patient was hypotensive, map was 37, and on 12/03 he underwent cardiac arrest for which he experienced 2 rounds of CPR and 1 dose of epinephrine. Consequently he underwent intubation and mechanical ventilation on 12/03. ABG showed non-anion gap metabolic acidosis. Lactic acid was 8 which resolved. He was started on azithromycin and vancomycin in midodrine and require pressor support and sedatives. Echocardiogram was completed which showed EF 40% with mild LVH. Or a and RV dilated. PASP 60. Chest CT completed, shows loculated right-sided pleural effusion. His hemoglobin was 6 on arrival, he received 4 units of packed RBCs. Right femoral CVC was placed 12/03. Patient seen and examined at the bedside. Overnight temperature 99.3 F. saturating 100% on FiO2 30% and PEEP of 8. Planning for surgical thoracostomy 12/09. DC azithromycin. Head CT completed 12/06, shows no acute intracranial abnormality. Objective vital signs Vital Sign Date Time Temp Pulse Resp B/P (MAP) Pulse Ox O2 Delivery O2 Flow Rate FiO2 12/06/24 18:37 74 22 141/41 (74) 100 30 12/06/24 18:23 Mechanical Ventilator+ 12/06/24 18:15 98.6 209.5 Total Intake and Output 12/05/24 12/05/24 12/06/24 15:00 23:00 07:00 Intake Total 630.383 ml 620.254 ml 613.504 ml Output Total 0 ml Balance 630.383 ml 620.254 ml 613.504 ml medications Current Medications Medications Dose Ordered Sig/Dioni Route Start Time Stop Time Status Last Admin Dose Admin Sevelamer HCl 800 mg TIDWM PO 12/01/24 08:00 12/06/24 17:51 800 MG Sodium Chloride 10 ml Q8HR IV 12/01/24 14:00 12/06/24 14:21 10 ML Docusate Sodium 100 mg BIDPRN PRN PO 12/01/24 08:00 12/02/24 23:20 100 MG Acetaminophen 650 mg Q6HP PRN PO 12/01/24 08:00 Morphine Sulfate 2 mg Q4HPRN PRN IV 12/01/24 08:00 Hydralazine HCl 10 mg Q6HP PRN IV 12/01/24 08:15 Nitroglycerin 0.4 mg Q5MINP PRN SL 12/01/24 08:45 Morphine Sulfate 2 mg Q30M PRN IV 12/01/24 08:45 Midazolam HCl 50 ml @ 1 mls/hr Q24H IV 12/03/24 18:00 12/05/24 18:19 2 MLS/HR Fentanyl Citrate 250 ml @ 2.5 mls/hr Q24H IV 12/03/24 18:00 12/05/24 12:18 5 MLS/HR Vancomycin HCl 0 ml @ 0 mls/hr UD IV 12/04/24 09:45 Cefepime HCl 0.5 gm/Dextrose 50 ml @ 12.5 mls/hr Q24H IV 12/05/24 18:00 12/06/24 17:52 12.5 MLS/HR Norepinephrine Bitartrate 250 ml @ 0.938 mls/ hr Q24H IV 12/04/24 17:15 12/05/24 18:21 2.813 MLS/HR Midodrine 10 mg Q8HR PO 12/04/24 22:00 12/06/24 14:20 10 MG Enteral Nutritional Formula 1,000 ml 30ML/HR GT 12/05/24 12:15 12/06/24 17:51 1,000 ML Dextrose 50 ml UD PRN IV 12/05/24 14:00 Pantoprazole Sodium 40 mg DAILY IV 12/07/24 10:00 Diagnostic Test (Pha) 1 strip Q6HR 12/06/24 18:00 12/06/24 17:52 1 STRIP Insulin Human Regular Q6HR SC 12/06/24 18:00 Dextrose 50 ml UD PRN IV 12/06/24 15:15 Examination Patient lying in bed, in no acute distress General: Cachectic, afebrile, palor, mucosae are moist Cardiovascular: Regular S1 and S2. No murmurs, gallops or rubs. No JVD elevation. No pedal edema Respiratory: Decreased right-sided breath sounds Abdomen: Soft, nontender, nondistended, normoactive bowel sounds, no rebound tenderness, no organomegaly, no masses. Right 5th toe and left big Genitourinary: Su seen. MSK/skin: Mobilizes 4 limbs. Skin is dry and warm Neurological: Pupils are anisocoric and sluggish laboratory and microbiology Laboratory Tests 12/06/24 03:30 Test 12/06/24 03:30 Range/Units Serum Glucose 134 H 74-106 mg/dL Microbiology Date/Time Source Procedure Growth Status 12/05/24 01:30 Nose MRSA Screen - Final Complete 12/04/24 11:15 Blood Blood Culture - Preliminary NO GROWTH AFTER 48 HOURS OF INCUBATION. Resulted 12/03/24 21:30 Sputum Gram Stain - Final Complete 12/03/24 21:30 Sputum Respiratory Culture - Final Complete Labs and/or images reviewed: Labs reviewed by me, Image(s) reviewed by me Problem List/Assessment/Plan Problem List/Assessment/Plan NEUROLOGY Generalized weakness Dizziness Head CT completed 12/06 unremarkable CARDIOVASCULAR Status post cardiac arrest 12/03 Coronary artery disease status post CABG 2019 Hypertension Dyslipidemia Lactic acidosis-resolved Continue midodrine 10 mg Q 8 hour RESPIRATORY Acute hypoxic respiratory failure secondary to pneumonia, Gram-positive and gram negative status post intubation Recurrent right-sided pleural effusion likely Right-sided hemothorax Atelectasis COPD on home oxygen Prelim respiratory culture negative Continue IV cefepime and IV vancomycin DC IVC azithromycin on 12/06 GI Transaminitis likely shock liver Monitor /KIDNEY End-stage renal disease, on hemodialysis Anemia, symptomatic Rhabdomyolysis Continue hemodialysis and continue sevelamer 800 mg TID ENDO Secondary hyperparathyroidism Diabetes mellitus type 2 Hyponatremia On ISS ID 12/04-Prelim blood culture negative 12/03-Prelim respiratory culture negative IV cefepime starting 12/05 and vancomycin starting 12/04 HEM-ONCO Severe anemia likely secondary to blood loss Coagulopathy 4 packed RBCs transfused SKIN Amputation of the toes Monitor LINES Intubated 12/03 Right femoral CVC 12/03 DRIPS Levophed 1 Versed 2 Fentanyl 50 NUTRITION: Nepro 30 mL/hour Goals of care/advance care planning; FULL CODE; discussed on for 24 minutes. PUD prophylaxis; pantoprazole 40 mg daily IV DVT prophylaxis: SCDs given the severe anemia Plan discussed with patient's daughter and spouse at the bedside (Hilda and Yamilet) in which all questions have been answered critical care time including dw family/individual pension consultant was 81 mins Case discussed with Dr. Pham Plan discussed with: Patient, Spouse (At the bedside), Daughter My Orders My Orders Orders - TAM ORTIZ Procedure Category Date Status Time Pantoprazole PHA 12/07/24 In Process (Protonix) 10:00 Stool Occult Blood LAB 12/06/24 Logged 11:29 * Dietary Consult CONS 12/06/24 Transmitted 11:[address] 12/06/24 Resulted 14:38 Dietary Evaluation Review Comments: 1. Consider EN or PN if NPO >7 days 2. Consider f/u with PROTOTYPE ENGINEER MANAGER if medically appropriate for PO Expected Outcomes/Goals: 1. Pt will meet >75% of estimated needs within 2-3 days CC Plasma Assessment Blood Product Administration S: [id number] Date of Service: Dec 06, 2024 Billing Provider: PANCHO PHAM MD Common Visit Codes: 90196-[id number] CARE 30-74 MIN, 71845-[id number] CARE-EACH +30MIN TAM ORTIZ Dec 06, 2024 20:39 PANCHO PHAM MD Dec 07, 2024 10:28
--- NOTE | 2024-12-06 22:56 | DVHPN2 ---
Progress Note - Dictate Date Seen: Dec 06, 2024 Medical Necessity Reason Pt with a Central, PICC or Fol: Yes The following are medically ne: Central Line, Su Catheter Subjective Patient seen and examined at bedside. Sedated, intubated on mechanical ventilator. Overnight events reviewed. vital signs Vital Sign Date Time Temp Pulse Resp B/P (MAP) Pulse Ox O2 Delivery O2 Flow Rate FiO2 12/06/24 22:30 98.8 68 20 140/40 (73) 100 209.8 12/06/24 22:15 30 12/06/24 22:00 Mechanical Ventilator+ Total Intake and Output 12/05/24 12/05/24 12/06/24 15:00 23:00 07:00 Intake Total 630.383 ml 620.254 ml 613.504 ml Output Total 0 ml Balance 630.383 ml 620.254 ml 613.504 ml medications Current Medications Medications Dose Ordered Sig/Dioni Route Start Time Stop Time Status Last Admin Dose Admin Sevelamer HCl 800 mg TIDWM PO 12/01/24 08:00 12/06/24 17:51 800 MG Sodium Chloride 10 ml Q8HR IV 12/01/24 14:00 12/06/24 21:42 10 ML Docusate Sodium 100 mg BIDPRN PRN PO 12/01/24 08:00 12/02/24 23:20 100 MG Acetaminophen 650 mg Q6HP PRN PO 12/01/24 08:00 Morphine Sulfate 2 mg Q4HPRN PRN IV 12/01/24 08:00 Hydralazine HCl 10 mg Q6HP PRN IV 12/01/24 08:15 Nitroglycerin 0.4 mg Q5MINP PRN SL 12/01/24 08:45 Morphine Sulfate 2 mg Q30M PRN IV 12/01/24 08:45 Midazolam HCl 50 ml @ 1 mls/hr Q24H IV 12/03/24 18:00 12/05/24 18:19 2 MLS/HR Fentanyl Citrate 250 ml @ 2.5 mls/hr Q24H IV 12/03/24 18:00 12/05/24 12:18 5 MLS/HR Vancomycin HCl 0 ml @ 0 mls/hr UD IV 12/04/24 09:45 Cefepime HCl 0.5 gm/Dextrose 50 ml @ 12.5 mls/hr Q24H IV 12/05/24 18:00 12/06/24 17:52 12.5 MLS/HR Norepinephrine Bitartrate 250 ml @ 0.938 mls/ hr Q24H IV 12/04/24 17:15 12/05/24 18:21 2.813 MLS/HR Midodrine 10 mg Q8HR PO 12/04/24 22:00 12/06/24 21:42 10 MG Enteral Nutritional Formula 1,000 ml 30ML/HR GT 12/05/24 12:15 12/06/24 17:51 1,000 ML Dextrose 50 ml UD PRN IV 12/05/24 14:00 Pantoprazole Sodium 40 mg DAILY IV 12/07/24 10:00 Diagnostic Test (Pha) 1 strip Q6HR 12/06/24 18:00 12/06/24 17:52 1 STRIP Insulin Human Regular Q6HR SC 12/06/24 18:00 Dextrose 50 ml UD PRN IV 12/06/24 15:15 Levalbuterol HCl 0.625 mg Q6HR NEB 12/07/24 00:00 Ipratropium [place] 0.5 mg Q6HR NEB 12/07/24 00:00 objective Gen.: Patient lying in bed in medical ICU. Sedated, intubated on mechanical ventilator. Head: Normocephalic, atraumatic. Eyes: PERRLA. Ears: Normal external anatomy. Throat: Endotracheal tube and orogastric tube in place. Neck: Supple, trachea midline. Chest: Transmitted breath sounds bilaterally. Decreased air entry bilaterally. No wheezing. Bibasilar crackles. Cardiovascular: Positive S1, positive S2. Regular rate and rhythm. Abdomen: Positive bowel sounds in all 4 quadrants. Soft, nontender, nondistended. : Su in place. Normal external genitalia. Rectal: Deferred. Skin: Warm, dry. Intact. Extremities: 2+ radial pulses bilaterally. No lower extremity edema. Neuro: Sedated. laboratory and microbiology Laboratory Tests 12/06/24 03:30 Test 12/06/24 03:30 Range/Units Serum Glucose 134 H 74-106 mg/dL Assessment/Plan Impression: Acute hypoxic respiratory failure On mechanical ventilator Recurrent pleural effusion Atelectasis End-stage renal disease, on hemodialysis Anemia, symptomatic Lactic acidosis Events: Remains on mechanical ventilator. On AC mode with RR 20, VT 450, PEEP 8, FiO2 30% Sedated on Fentanyl ABG reviewed, compensated. CXR demonstrates Multifocal right lung airspace disease. No effusion or pneumothorax. Off Levophed, hemodynamically stable. On midodrine. Continue antibiotics Monitor hemoglobin Transfuse if less than 7.0 g/dL. HD per Nephrology Will hold off for thoracotomy eval and chest tube placement CT chest without contrast demonstrates Large right hydro hemothorax. No pneumothorax. Small left pleural effusion. Patchy consolidation and ground-glass opacities in both lungs. Ascites. Surgery recs appreciated. Limited chest ultrasound demonstrated loculated viscous fluid by ultrasound appearance Labs and imaging reviewed. Rest of plan as noted below. Plan: s/p intubation on mechanical ventilator. On AC mode with RR 20, VT 450, PEEP 8, FiO2 30% Improved FiO2 requirements Titrate FIO2 to keep O2 saturation above 90%. VAP bundle. Daily ABG and CXR while intubated Sedate for ventilator synchrony Pressors if necessary for hemodynamic support Titrate to keep mean arterial pressure greater than 65 mmHg. Monitor hemoglobin Transfuse if less than 7.0 g/dL. Continue antibiotics Pain control Avoid oversedation On Eliquis Accu-Cheks, ISS. HD per Nephrology Monitor renal function. Monitor electrolytes. Supplement as necessary. Monitor ins and outs. DVT prophylaxis. Prognosis: Poor given patient's multiple co-morbidities. Condition: Critical Rest of plan per hospitalist and other consultants. A total of 35 minutes of critical care time was spent reviewing the patient record, examining the patient, making a diagnostic and therapeutic plan, discussing this plan with the medical personnel, following up on diagnostic studies and following the patient for clinical stability excluding any and all procedures. At least 50% of this time was spent in direct, [id number] contact. Thank you, Sy Oliver NP, for allowing me to participate in this patient's care. Further recommendations will depend on the patient's clinical course. Please do not hesitate to contact me if you have any questions or concerns. This medical document was created using an electronic medical record system with [employer] system. Although these documentations are being carefully reviewed, there may still be some phonetic and typographical changes. The errors are purely typographical, due to imperfection on the software program, and do not reflect any compromise in the patient's medical care. Dietary Evaluation Review Comments: 1. Consider EN or PN if NPO >7 days 2. Consider f/u with HOT CELL TECHNICIAN if medically appropriate for PO Expected Outcomes/Goals: 1. Pt will meet >75% of estimated needs within 2-3 days Plan discussed with: Other (ALVARO Moon) Critical Care Time(min): 35 CC Plasma Assessment Blood Product Administration S: [id number] AUSTIN LISA MD Dec 06, 2024 22:56
[2024-12-07] VITALS (110 sets, daily range): BP systolic 92–189; BP diastolic 16–109; PULSE 56–97; RESP 6–23; TEMP 97.2–99; O2SAT 100
[2024-12-07] MEDS: LEVALBUTEROL HCL 1.25 MG/3 ML NEB NEB SCH (00:06)
[2024-12-07] MEDS: IPRATROPIUM BROM 0.5 MG/2.5ML INH SOL NEB SCH (00:06)
[2024-12-07 03:17] LABS: Base Excess 2.9 mmol/L (-2.0-3.0)
[2024-12-07 04:33] LABS: Basophils # (auto) 0 10 ^3/uL (0-0.2); Basophils % (auto) 0.3 % (0.0-2.0); Eosinophils # (auto) 0.4 10 ^3/uL (0-0.8); Eosinophils % (auto) 2.9 % (0.0-7.0); Hematocrit 26.8 % (41.0-53.0); Hemoglobin 9.1 g/dL (13.5-17.5); Lymphocytes # (auto) 0.6 10 ^3/uL (0.4-5.4); Lymphocytes % (auto) 4.7 % (10.0-50.0); Mean Corpuscular Volume 90.9 fL (80.0-100.0); Monocytes # (auto) 1.4 10 ^3/uL (0-1.3); Monocytes % (auto) 10.6 % (0.0-12.0); Neutrophils # (auto) 10.6 10 ^3/uL (1.6-8.6); Neutrophils % (auto) 81.5 % (37.0-80.0); Platelet Count (auto) 86 10^3/uL (140-450); Red Blood Cells 2.95 10^6/uL (4.5-5.90); White Blood Cell 13.1 10^3/uL (4.4-10.8)
[2024-12-07 04:44] LABS: Alkaline Phosphatase 70 U/L (46-116); Anion Gap 10 (5-15); BUN/Creatinine Ratio 6.8 (10.0-20.0); Bilirubin, Total 0.6 mg/dL (0.2-1.0); Calcium 9.3 mg/dL (8.7-10.4); Carbon Dioxide 26 mmol/L (20-31); Glucose 102 mg/dL (74-106); Magnesium 2.1 mg/dL (1.6-2.6); Potassium 4.9 mmol/L (3.5-5.1)
[2024-12-07 04:54] LABS: Alanine Aminotransferase 80 U/L (7-40); Albumin 3.1 g/dL (3.2-4.8); Aspartate Aminotransferase 73 U/L (13-40); Blood Urea Nitrogen 44 mg/dL (9-23); Chloride 93 mmol/L (98-107); Sodium 129 mmol/L (136-145)
--- NOTE | 2024-12-07 04:55 | DVH ---
CHEST RADIOGRAPH Indication: f/u Technique: Single frontal view of the chest was obtained Comparison: XY CHEST PORTABLE on DOS: 12/06/24 FINDINGS: Lines and Tubes: The endotracheal tube terminates 4.8 cm above christa. Right central venous catheter terminates in the right atrium. The NG tube is seen to the level of the GE junction but not below th e left hemidiaphragm. Multiple lines overlie the patient limiting assessment. There is a left vascul ar stent. Cardiac valve prosthesis noted. Lungs: Right basilar opacities. Bilateral interstitial prominence. Pleura: Right pleural effusion. No pneumothorax. Cardiomediastinal contours: Unremarkable Bones: No acute osseous abnormality. Status post median sternotomy. IMPRESSION: 1. NG tube seen to the level of the GE junction but not below the left hemidiaphragm. Consider advanc ing with repeat imaging. 2. No significant change in right pleural effusion and bilateral opacities reflecting edema or pneumo roman.
--- NOTE | 2024-12-07 06:23 | DVHPNRES ---
Progress Note Date Seen: Dec 07, 2024 Resident Creating Document: TAM ORTIZ RESIDENT Medical Necessity Reason Pt with a Central, PICC or Fol: Yes The following are medically ne: Central Line, Su Catheter Subjective Review of Systems This is a 69-year-old male patient with PMHx of CHF, status post CABG 2018, COPD on home oxygen, diabetes mellitus, ESRD on hemodialysis with [facility] Tue//Sat, dyslipidemia, hypertension, secondary hyperparathyroidism who presented to the ER with a chief complaint of generalized weakness and nausea vomiting and dizziness. Per daughter Hilda, patient has history of recurrent right-sided pleural effusion from the past 5 years for which he initially would get thoracocentesis every month but recently he has been getting thoracocentesis every week. Last thoracocentesis was done on November 19 which was bloody. Patient reported generalized weakness and dizziness but was not altered and he would do daily activities himself. He does not make any urine and is dependent on dialysis. Associated symptoms include sweating. After heart catheterization 08/[address] López - patent ELY to the LAD, patent saphenous vein graft to the OM. patient is visibly stent in the left subclavian vein. On arrival patient was hypotensive, map was 37, and on 12/03 he underwent cardiac arrest for which he experienced 2 rounds of CPR and 1 dose of epinephrine. Consequently he underwent intubation and mechanical ventilation on 12/03. ABG showed non-anion gap metabolic acidosis. Lactic acid was 8 which resolved. He was started on azithromycin and vancomycin in midodrine and require pressor support and sedatives. Echocardiogram was completed which showed EF 40% with mild LVH. Or a and RV dilated. PASP 60. Chest CT completed, shows loculated right-sided pleural effusion. His hemoglobin was 6 on arrival, he received 4 units of packed RBCs. Right femoral CVC was placed 12/03. Patient seen and examined at the bedside. Surgical thoracostomy 12/09. Underwent hemodialysis, 2.2 L drained. ABG showing respiratory alkalosis. Respiratory rate decreased to 18. Reglan Q 8 scheduled. One dose of vitamin K 10 mg subQ administered. Consider 1 unit FFP if INR high tomorrow Objective vital signs Vital Sign Date Time Temp Pulse Resp B/P (MAP) Pulse Ox O2 Delivery O2 Flow Rate FiO2 12/07/24 06:00 67 12/07/24 06:00 30 12/07/24 06:00 20 100 Mechanical Ventilator+ 12/07/24 05:45 98.1 135/38 (70) 208.6 Total Intake and Output 12/06/24 12/06/24 12/07/24 15:00 23:00 07:00 Intake Total 355.501 ml 270.0 ml 47.5 ml Output Total 0 ml Balance 355.501 ml 270.0 ml 47.5 ml medications Current Medications Medications Dose Ordered Sig/Dioni Route Start Time Stop Time Status Last Admin Dose Admin Sevelamer HCl 800 mg TIDWM PO 12/01/24 08:00 12/06/24 17:51 800 MG Sodium Chloride 10 ml Q8HR IV 12/01/24 14:00 12/07/24 05:15 10 ML Docusate Sodium 100 mg BIDPRN PRN PO 12/01/24 08:00 12/02/24 23:20 100 MG Acetaminophen 650 mg Q6HP PRN PO 12/01/24 08:00 Morphine Sulfate 2 mg Q4HPRN PRN IV 12/01/24 08:00 Hydralazine HCl 10 mg Q6HP PRN IV 12/01/24 08:15 Nitroglycerin 0.4 mg Q5MINP PRN SL 12/01/24 08:45 Morphine Sulfate 2 mg Q30M PRN IV 12/01/24 08:45 Midazolam HCl 50 ml @ 1 mls/hr Q24H IV 12/03/24 18:00 12/05/24 18:19 2 MLS/HR Fentanyl Citrate 250 ml @ 2.5 mls/hr Q24H IV 12/03/24 18:00 12/07/24 01:05 2.5 MLS/HR Vancomycin HCl 0 ml @ 0 mls/hr UD IV 12/04/24 09:45 Cefepime HCl 0.5 gm/Dextrose 50 ml @ 12.5 mls/hr Q24H IV 12/05/24 18:00 12/06/24 17:52 12.5 MLS/HR Norepinephrine Bitartrate 250 ml @ 0.938 mls/ hr Q24H IV 12/04/24 17:15 12/05/24 18:21 2.813 MLS/HR Midodrine 10 mg Q8HR PO 12/04/24 22:00 12/07/24 05:15 10 MG Enteral Nutritional Formula 1,000 ml 30ML/HR GT 12/05/24 12:15 12/06/24 17:51 1,000 ML Dextrose 50 ml UD PRN IV 12/05/24 14:00 Pantoprazole Sodium 40 mg DAILY IV 12/07/24 10:00 Diagnostic Test (Pha) 1 strip Q6HR 12/06/24 18:00 12/07/24 06:12 1 STRIP Insulin Human Regular Q6HR SC 12/06/24 18:00 Dextrose 50 ml UD PRN IV 12/06/24 15:15 Levalbuterol HCl 0.625 mg Q6HR NEB 12/07/24 00:00 12/07/24 00:06 0.625 MG Ipratropium [place] 0.5 mg Q6HR NEB 12/07/24 00:00 12/07/24 00:06 0.5 MG Albumin Human 100 ml @ 100 mls/hr PRN PRN IV 12/07/24 06:15 Examination Patient lying in bed, opening eyes and squeezing fingers with verbal commands. General: Cachectic, afebrile, palor, mucosae are moist Cardiovascular: Regular S1 and S2. No murmurs, gallops or rubs. No JVD elevation. No pedal edema Respiratory: Decreased right-sided breath sounds Abdomen: Soft, nontender, nondistended, normoactive bowel sounds, no rebound tenderness, no organomegaly, no masses. 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 MSK/skin: Skin is dry and warm Neurological: Pupils are anisocoric and sluggish laboratory and microbiology Laboratory Tests 12/07/24 03:25 Test 12/07/24 03:25 Range/Units Serum Glucose 102 74-106 mg/dL Microbiology Date/Time Source Procedure Growth Status 12/05/24 01:30 Nose MRSA Screen - Final Complete 12/04/24 11:15 Blood Blood Culture - Preliminary NO GROWTH AFTER 48 HOURS OF INCUBATION. Resulted 12/03/24 21:30 Sputum Gram Stain - Final Complete 12/03/24 21:30 Sputum Respiratory Culture - Final Complete Labs and/or images reviewed: Labs reviewed by me, Image(s) reviewed by me Problem List/Assessment/Plan Problem List/Assessment/Plan NEUROLOGY Generalized weakness Dizziness Head CT completed 12/06 unremarkable CARDIOVASCULAR Status post cardiac arrest 12/03 Coronary artery disease status post CABG 2018 Hypertension Dyslipidemia Lactic acidosis-resolved Continue midodrine 10 mg Q 8 hour RESPIRATORY Acute hypoxic respiratory failure secondary to pneumonia, Gram-positive and gram negative status post intubation Recurrent right-sided pleural effusion Right-sided hemothorax Atelectasis COPD on home oxygen Prelim respiratory culture negative Continue IV cefepime and IV vancomycin DC IVC azithromycin on 12/06 Scheduled for thoracostomy 12/09 GI Transaminitis likely shock liver Monitor Reglan IV 5 mg Q 8 scheduled /KIDNEY End-stage renal disease, on hemodialysis Anemia, symptomatic Rhabdomyolysis Continue hemodialysis and continue sevelamer 800 mg TID Hemodialysis 12/07-2.2 L taken out ENDO Secondary hyperparathyroidism Diabetes mellitus type 2 Hyponatremia On ISS ID 12/04-Prelim blood culture negative 12/03-Prelim respiratory culture negative IV cefepime starting 12/05 and vancomycin starting 12/04 HEM-ONCO Severe anemia likely secondary to blood loss Coagulopathy 4 packed RBCs transfused 1 dose of vitamin K 10 mg subcutaneous administered SKIN Amputation of the toes Monitor LINES Intubated 12/03 Right femoral CVC 12/03 DRIPS Levophed 0 Versed 0 Fentanyl 25 NUTRITION: Nepro 30 mL/hour Goals of care/advance care planning; FULL CODE; discussed on for 24 minutes. PUD prophylaxis; pantoprazole 40 mg daily IV DVT prophylaxis: SCDs given the severe anemia Plan discussed with patient's daughter and spouse at the bedside (Abby) in which all questions have been answered Critical Care time including chart review, discussing with patient's family and nurse: 63 minutes Case discussed with Dr. Pham. Scheduled for thoracostomy 12/09 Plan discussed with: Patient, Spouse (At the bedside), Daughter (At the bedside) My Orders My Orders Orders - TAM ORTIZ RESIDENT Procedure Category Date Status Time Pantoprazole PHA 12/07/24 In Process (Protonix) 10:00 Stool Occult Blood LAB 12/06/24 Logged 11:29 * Dietary Consult CONS 12/06/24 Transmitted 11:[address] 12/06/24 Resulted 14:38 Chest Portable XY 12/07/24 Resulted 04:00 Abg W/ Co-Ox RT 12/07/24 Logged 04:00 Levalbuterol Hcl PHA 12/07/24 In Process (Xopenex Medneb) 00:00 Ipratropium Medneb PHA 12/07/24 In Process (Atrovent Medneb) 00:00 Dietary Evaluation Review Comments: 1. Consider EN or PN if NPO >7 days 2. Consider f/u with PAPER PATTERN INSPECTOR if medically appropriate for PO Expected Outcomes/Goals: 1. Pt will meet >75% of estimated needs within 2-3 days CC Plasma Assessment Blood Product Administration S: [id number] Date of Service: Dec 07, 2024 Billing Provider: PANCHO PHAM MD Common Visit Codes: 36982-[id number] CARE 30-74 MIN TAM ORTIZ RESIDENT Dec 07, 2024 06:23 PANCHO PHAM MD Dec 08, 2024 10:17
[2024-12-07] MEDS: ALBUMIN 25% 100 ML IV PRN (06:30)
[2024-12-07 09:21] LABS: INR 1.4 (0.9-1.15); Partial Thromboplastin Time 37.9 SEC (24.5-34.5); Prothrombin Time 14.5 sec (9.3-11.8)
[2024-12-07] MEDS: PANTOPRAZOLE 40 MG/10 ML VIAL INJ IV SCH (09:46)
[2024-12-07] MEDS: METOCLOPRAMIDE HCL 5MG/ml INJ 2ml VIAL IV ONE (11:16)
[2024-12-07] MEDS: PHYTONADIONE (VIT K)10 MG/ML 1ML VIAL SUBCUT ONE (12:35)
--- NOTE | 2024-12-07 14:33 | DVHPN2 ---
Progress Note - Dictate Date Seen: Dec 07, 2024 Medical Necessity Reason Pt with a Central, PICC or Fol: Yes The following are medically ne: Central Line, Su Catheter Subjective PT WITH RESP FAILURE/ RESP ARREST PNEUMONIA HYPOTENSION SEVERE ANEMIA/ HEMOTHORAX? INTUBATED ESRD-HD COPD DM2 CAD/CABG HTN DYSLIPIDEMIA LHC * Left main shows 50% heavily calcified narrowing with moderate diffuse disease. * Left anterior descending artery, high-grade narrowing proximally and in the mid lesion greater than 90%. * ELY to the LAD was patent. * Circumflex artery, moderate diffuse disease throughout. * Right coronary artery was occluded. * Saphenous vein graft to the OM is patent; however, there is a sluggish flow, in fact obtuse marginal is being supplied by the [place] vessel even though the patient has a high-grade narrowing of the left main. * Right coronary artery was occluded. Saphenous vein graft to the PDA was patent; however. * The patient on fluoroscopy appears to have normal functioning aortic valve with no restriction or calcification noted. * Right heart catheterization showed RA pressure of 8, RV pressure of 52/12, PA pressure of 50/20 and capillary wedge pressure of 18. Thus, the patient with heavily calcified anatomy throughout the aorta, coronaries, carotid, subclavian. Anatomy as described above. At this time, the patient is not a candidate for any revascularization. He has got a patent ELY to the LAD, patent saphenous vein graft to the OM, although it is heavily degenerated with very sluggish flow. The circumflex artery is actually being supplied by the [place] vessel. Right coronary artery was occluded, however, saphenous vein graft to the PDA was patent. At this time, conservative medical management, aggressive risk modification, antiplatelet therapy should be maintained especially with EDP inhibitors, receptor inhibitors such as Plavix or Brilinta and the patient should be maintained on Eliquis as well. The patient is a poor candidate for any revascularization percutaneously or surgical. The patient has a visible stent in the left subclavian vein as well. vital signs Vital Sign Date Time Temp Pulse Resp B/P (MAP) Pulse Ox O2 Delivery O2 Flow Rate FiO2 12/07/24 14:19 75 18 140/43 (75) 100 30 12/07/24 12:30 98.6 209.5 12/07/24 11:54 Mechanical Ventilator+ Total Intake and Output 12/06/24 12/06/24 12/07/24 15:00 23:00 07:00 Intake Total 355.501 ml 270.0 ml 50.0 ml Output Total 0 ml Balance 355.501 ml 270.0 ml 50.0 ml medications Current Medications Medications Dose Ordered Sig/Dioni Route Start Time Stop Time Status Last Admin Dose Admin Sevelamer HCl 800 mg TIDWM PO 12/01/24 08:00 12/06/24 17:51 800 MG Sodium Chloride 10 ml Q8HR IV 12/01/24 14:00 12/07/24 05:15 10 ML Docusate Sodium 100 mg BIDPRN PRN PO 12/01/24 08:00 12/02/24 23:20 100 MG Acetaminophen 650 mg Q6HP PRN PO 12/01/24 08:00 Morphine Sulfate 2 mg Q4HPRN PRN IV 12/01/24 08:00 Hydralazine HCl 10 mg Q6HP PRN IV 12/01/24 08:15 Nitroglycerin 0.4 mg Q5MINP PRN SL 12/01/24 08:45 Morphine Sulfate 2 mg Q30M PRN IV 12/01/24 08:45 Midazolam HCl 50 ml @ 1 mls/hr Q24H IV 12/03/24 18:00 12/05/24 18:19 2 MLS/HR Fentanyl Citrate 250 ml @ 2.5 mls/hr Q24H IV 12/03/24 18:00 12/07/24 01:05 2.5 MLS/HR Vancomycin HCl 0 ml @ 0 mls/hr UD IV 12/04/24 09:45 Cefepime HCl 0.5 gm/Dextrose 50 ml @ 12.5 mls/hr Q24H IV 12/05/24 18:00 12/06/24 17:52 12.5 MLS/HR Norepinephrine Bitartrate 250 ml @ 0.938 mls/ hr Q24H IV 12/04/24 17:15 12/05/24 18:21 2.813 MLS/HR Midodrine 10 mg Q8HR PO 12/04/24 22:00 12/07/24 05:15 10 MG Enteral Nutritional Formula 1,000 ml 30ML/HR GT 12/05/24 12:15 12/06/24 17:51 1,000 ML Dextrose 50 ml UD PRN IV 12/05/24 14:00 Pantoprazole Sodium 40 mg DAILY IV 12/07/24 10:00 12/07/24 09:46 40 MG Diagnostic Test (Pha) 1 strip Q6HR 12/06/24 18:00 12/07/24 11:30 1 STRIP Insulin Human Regular Q6HR SC 12/06/24 18:00 Dextrose 50 ml UD PRN IV 12/06/24 15:15 Levalbuterol HCl 0.625 mg Q6HR NEB 12/07/24 00:00 12/07/24 12:27 0.625 MG Ipratropium [place] 0.5 mg Q6HR NEB 12/07/24 00:00 12/07/24 12:27 0.5 MG Albumin Human 100 ml @ 100 mls/hr PRN PRN IV 12/07/24 06:15 12/07/24 07:30 100 MLS/HR Metoclopramide HCl 5 mg Q8HR IV 12/07/24 14:00 laboratory and microbiology Laboratory Tests 12/07/24 03:25 Test 12/07/24 03:25 Range/Units Serum Glucose 102 74-106 mg/dL Problem List RESP FAILURE PNEUMONIA HYPOTENSION SEVERE ANEMIA INTUBATED ESRD-HD COPD DM2 CAD/CABG HTN DYSLIPIDEMIA [facility] * Left main shows 50% heavily calcified narrowing with moderate diffuse disease. * Left anterior descending artery, high-grade narrowing proximally and in the mid lesion greater than 90%. * ELY to the LAD was patent. * Circumflex artery, moderate diffuse disease throughout. * Right coronary artery was occluded. * Saphenous vein graft to the OM is patent; however, there is a sluggish flow, in fact obtuse marginal is being supplied by the [place] vessel even though the patient has a high-grade narrowing of the left main. * Right coronary artery was occluded. Saphenous vein graft to the PDA was patent; however. * The patient on fluoroscopy appears to have normal functioning aortic valve with no restriction or calcification noted. * Right heart catheterization showed RA pressure of 8, RV pressure of 52/12, PA pressure of 50/20 and capillary wedge pressure of 18. Thus, the patient with heavily calcified anatomy throughout the aorta, coronaries, carotid, subclavian. Anatomy as described above. At this time, the patient is not a candidate for any revascularization. He has got a patent ELY to the LAD, patent saphenous vein graft to the OM, although it is heavily degenerated with very sluggish flow. The circumflex artery is actually being supplied by the [place] vessel. Right coronary artery was occluded, however, saphenous vein graft to the PDA was patent. At this time, conservative medical management, aggressive risk modification, antiplatelet therapy should be maintained especially with EDP inhibitors, receptor inhibitors such as Plavix or Brilinta and the patient should be maintained on Eliquis as well. The patient is a poor candidate for any revascularization percutaneously or surgical. The patient has a visible stent in the left subclavian vein as well. Assessment/Plan CARDIAC STATUS STABLE ECHO EF 40% AV PROSTHESIS MAY PROCEED WITH SURGICAL INTERVENTION ASA II/ III ALL CULTURES NEGATIVE NASAL SWAB NEGATIVE PERSISTENT LEUKOCYTOSIS CONSIDER VICKY IF CONTINUED LEUKOCYTOSIS Dietary Evaluation Review Comments: 1) Increase EN nutrition to meet at least 75% of estimated needs (Nepro 1.8 @ 30ml/hr x 24 hrs uninterrupted continuous feed adequately meets pt needs) 2) Advance pt diet when medically feasible to a Renal Standard diet modified per AUDIO VISUAL ARTS DIRECTOR recommendations 3) Continue current plan of care Expected Outcomes/Goals: 1) Pt to receive adequate nutrition support 2) Pt diet to advance 3) F/U in 2-3 days Plan discussed with: Patient Critical Care Time(min): 35 CC Plasma Assessment Blood Product Administration S: [id number] BALAJI KING MD Dec 07, 2024 14:33
[2024-12-07] MEDS: METOCLOPRAMIDE HCL 5MG/ml INJ 2ml VIAL IV SCH (14:43)
[2024-12-07] MEDS: SODIUM CHL 0.9% 1000 ML BAG XX ONE (17:45)
[2024-12-07] MEDS: VANCOMYCIN 500mg/100mL 100 ML IV ONE (17:46)
--- NOTE | 2024-12-07 20:37 | DVHPN2 ---
Progress Note - Dictate Date Seen: Dec 07, 2024 Medical Necessity Reason Pt with a Central, PICC or Fol: Yes The following are medically ne: Central Line, Su Catheter Subjective Intubated and on 30 % Fio2 He was dialyzed today with UF of 2.2 liters vital signs Vital Sign Date Time Temp Pulse Resp B/P (MAP) Pulse Ox O2 Delivery O2 Flow Rate FiO2 12/07/24 20:15 98.4 85 18 121/41 (67) 100 209.1 12/07/24 20:00 Mechanical Ventilator+ 30 30 Total Intake and Output 12/06/24 12/06/24 12/07/24 15:00 23:00 07:00 Intake Total 355.501 ml 270.0 ml 50.0 ml Output Total 0 ml Balance 355.501 ml 270.0 ml 50.0 ml medications Current Medications Medications Dose Ordered Sig/Dioni Route Start Time Stop Time Status Last Admin Dose Admin Sevelamer HCl 800 mg TIDWM PO 12/01/24 08:00 12/06/24 17:51 800 MG Sodium Chloride 10 ml Q8HR IV 12/01/24 14:00 12/07/24 14:00 10 ML Docusate Sodium 100 mg BIDPRN PRN PO 12/01/24 08:00 12/02/24 23:20 100 MG Acetaminophen 650 mg Q6HP PRN PO 12/01/24 08:00 Morphine Sulfate 2 mg Q4HPRN PRN IV 12/01/24 08:00 Hydralazine HCl 10 mg Q6HP PRN IV 12/01/24 08:15 Nitroglycerin 0.4 mg Q5MINP PRN SL 12/01/24 08:45 Morphine Sulfate 2 mg Q30M PRN IV 12/01/24 08:45 Midazolam HCl 50 ml @ 1 mls/hr Q24H IV 12/03/24 18:00 12/07/24 17:11 1 MLS/HR Fentanyl Citrate 250 ml @ 2.5 mls/hr Q24H IV 12/03/24 18:00 12/07/24 01:05 2.5 MLS/HR Vancomycin HCl 0 ml @ 0 mls/hr UD IV 12/04/24 09:45 Cefepime HCl 0.5 gm/Dextrose 50 ml @ 12.5 mls/hr Q24H IV 12/05/24 18:00 12/07/24 19:35 12.5 MLS/HR Norepinephrine Bitartrate 250 ml @ 0.938 mls/ hr Q24H IV 12/04/24 17:15 12/05/24 18:21 2.813 MLS/HR Midodrine 10 mg Q8HR PO 12/04/24 22:00 12/07/24 05:15 10 MG Enteral Nutritional Formula 1,000 ml 30ML/HR GT 12/05/24 12:15 12/06/24 17:51 1,000 ML Dextrose 50 ml UD PRN IV 12/05/24 14:00 Pantoprazole Sodium 40 mg DAILY IV 12/07/24 10:00 12/07/24 09:46 40 MG Diagnostic Test (Pha) 1 strip Q6HR 12/06/24 18:00 12/07/24 17:52 1 STRIP Insulin Human Regular Q6HR SC 12/06/24 18:00 Dextrose 50 ml UD PRN IV 12/06/24 15:15 Levalbuterol HCl 0.625 mg Q6HR NEB 12/07/24 00:00 12/07/24 18:51 0.625 MG Ipratropium [place] 0.5 mg Q6HR NEB 12/07/24 00:00 12/07/24 18:51 0.5 MG Albumin Human 100 ml @ 100 mls/hr PRN PRN IV 12/07/24 06:15 12/07/24 07:30 100 MLS/HR Metoclopramide HCl 5 mg Q8HR IV 12/07/24 14:00 12/07/24 14:43 5 MG objective gen: on vent HEENT: NC,AT Lungs: no breath sounds Rt lung Cardiac: RRR, no murmur Abd: soft, no tenderness Ext: no edema Neuro: sedated laboratory and microbiology Laboratory Tests 12/07/24 03:25 Test 12/07/24 03:25 Range/Units Serum Glucose 102 74-106 mg/dL Problem List ESRD on HD s/p cardiac arrest Hemorrhagic shock Large Rt hydrothorax, hemothorax Acute hypoxic respiratory failure s/p intubation on mechanical ventilator Pneumonia Hyperphosphatemia Secondary hyperparathyroidism Metabolic acidosis Assessment/Plan s/p HD today . For probable surgical intervention on CATE post HD Dietary Evaluation Review Comments: 1) Increase EN nutrition to meet at least 75% of estimated needs (Nepro 1.8 @ 30ml/hr x 24 hrs uninterrupted continuous feed adequately meets pt needs) 2) Advance pt diet when medically feasible to a Renal Standard diet modified per DOUGH MOLDER recommendations 3) Continue current plan of care Expected Outcomes/Goals: 1) Pt to receive adequate nutrition support 2) Pt diet to advance 3) F/U in 2-3 days Plan discussed with: Daughter CC Plasma Assessment Blood Product Administration S: [id number] NIKKI CHRISTIANSON MD Dec 07, 2024 20:37
--- NOTE | 2024-12-07 21:12 | DVHPN2 ---
Progress Note - Dictate Date Seen: Dec 07, 2024 Medical Necessity Reason Pt with a Central, PICC or Fol: Yes The following are medically ne: Central Line, Su Catheter Subjective Patient seen and examined at bedside. Sedated, intubated on mechanical ventilator. Overnight events reviewed. vital signs Vital Sign Date Time Temp Pulse Resp B/P (MAP) Pulse Ox O2 Delivery O2 Flow Rate FiO2 12/07/24 20:45 98.4 83 18 129/44 (72) 100 209.1 12/07/24 20:33 30 12/07/24 20:00 Mechanical Ventilator+ Total Intake and Output 12/06/24 12/06/24 12/07/24 15:00 23:00 07:00 Intake Total 355.501 ml 270.0 ml 50.0 ml Output Total 0 ml Balance 355.501 ml 270.0 ml 50.0 ml medications Current Medications Medications Dose Ordered Sig/Dioni Route Start Time Stop Time Status Last Admin Dose Admin Sevelamer HCl 800 mg TIDWM PO 12/01/24 08:00 12/06/24 17:51 800 MG Sodium Chloride 10 ml Q8HR IV 12/01/24 14:00 12/07/24 14:00 10 ML Docusate Sodium 100 mg BIDPRN PRN PO 12/01/24 08:00 12/02/24 23:20 100 MG Acetaminophen 650 mg Q6HP PRN PO 12/01/24 08:00 Morphine Sulfate 2 mg Q4HPRN PRN IV 12/01/24 08:00 Hydralazine HCl 10 mg Q6HP PRN IV 12/01/24 08:15 Nitroglycerin 0.4 mg Q5MINP PRN SL 12/01/24 08:45 Morphine Sulfate 2 mg Q30M PRN IV 12/01/24 08:45 Midazolam HCl 50 ml @ 1 mls/hr Q24H IV 12/03/24 18:00 12/07/24 17:11 1 MLS/HR Fentanyl Citrate 250 ml @ 2.5 mls/hr Q24H IV 12/03/24 18:00 12/07/24 01:05 2.5 MLS/HR Vancomycin HCl 0 ml @ 0 mls/hr UD IV 12/04/24 09:45 Cefepime HCl 0.5 gm/Dextrose 50 ml @ 12.5 mls/hr Q24H IV 12/05/24 18:00 12/07/24 19:35 12.5 MLS/HR Norepinephrine Bitartrate 250 ml @ 0.938 mls/ hr Q24H IV 12/04/24 17:15 12/05/24 18:21 2.813 MLS/HR Midodrine 10 mg Q8HR PO 12/04/24 22:00 12/07/24 05:15 10 MG Enteral Nutritional Formula 1,000 ml 30ML/HR GT 12/05/24 12:15 12/06/24 17:51 1,000 ML Dextrose 50 ml UD PRN IV 12/05/24 14:00 Pantoprazole Sodium 40 mg DAILY IV 12/07/24 10:00 12/07/24 09:46 40 MG Diagnostic Test (Pha) 1 strip Q6HR 12/06/24 18:00 12/07/24 17:52 1 STRIP Insulin Human Regular Q6HR SC 12/06/24 18:00 Dextrose 50 ml UD PRN IV 12/06/24 15:15 Levalbuterol HCl 0.625 mg Q6HR NEB 12/07/24 00:00 12/07/24 18:51 0.625 MG Ipratropium Stanley 0.5 mg Q6HR NEB 12/07/24 00:00 12/07/24 18:51 0.5 MG Albumin Human 100 ml @ 100 mls/hr PRN PRN IV 12/07/24 06:15 12/07/24 07:30 100 MLS/HR Metoclopramide HCl 5 mg Q8HR IV 12/07/24 14:00 12/07/24 14:43 5 MG objective Gen.: Patient lying in bed in medical ICU. Sedated, intubated on mechanical ventilator. Head: Normocephalic, atraumatic. Eyes: PERRLA. Ears: Normal external anatomy. Throat: Endotracheal tube and orogastric tube in place. Neck: Supple, trachea midline. Chest: Transmitted breath sounds bilaterally. Decreased air entry bilaterally. No wheezing. Bibasilar crackles. Cardiovascular: Positive S1, positive S2. Regular rate and rhythm. Abdomen: Positive bowel sounds in all 4 quadrants. Soft, nontender, nondistended. : Su in place. Normal external genitalia. Rectal: Deferred. Skin: Warm, dry. Intact. Extremities: 2+ radial pulses bilaterally. No lower extremity edema. Neuro: Sedated. laboratory and microbiology Laboratory Tests 12/07/24 03:25 Test 12/07/24 03:25 Range/Units Serum Glucose 102 74-106 mg/dL Assessment/Plan Impression: Acute hypoxic respiratory failure On mechanical ventilator Recurrent pleural effusion Atelectasis End-stage renal disease, on hemodialysis Anemia, symptomatic Lactic acidosis Events: Remains on mechanical ventilator. On AC mode with RR 18, VT 450, PEEP 8, FiO2 30% Sedated on Fentanyl 50 mcg ABG reviewed, notable for alkalemia CXR demonstrates Right basilar opacities. Right pleural effusion. No pneumothorax. Awaiting surgery on . S/p hemodialysis - removed 2.2 liters. Off Levophed, hemodynamically stable. Continue antibiotics Monitor hemoglobin Transfuse if less than 7.0 g/dL. HD per Nephrology Monitor renal function CT chest without contrast demonstrates Large right hydro hemothorax. No pneumothorax. Small left pleural effusion. Patchy consolidation and ground-glass opacities in both lungs. Ascites. Surgery recs appreciated. Limited chest ultrasound demonstrated loculated viscous fluid by ultrasound appearance Labs and imaging reviewed. Rest of plan as noted below. Plan: s/p intubation on mechanical ventilator. On AC mode with RR 18, VT 450, PEEP 8, FiO2 30% Improved FiO2 requirements Titrate FIO2 to keep O2 saturation above 90%. VAP bundle. Daily ABG and CXR while intubated Sedate for ventilator synchrony Pressors if necessary for hemodynamic support Titrate to keep mean arterial pressure greater than 65 mmHg. Monitor hemoglobin Transfuse if less than 7.0 g/dL. Continue antibiotics Pain control Avoid oversedation On Eliquis Accu-Cheks, ISS. HD per Nephrology Monitor renal function. Monitor electrolytes. Supplement as necessary. Monitor ins and outs. DVT prophylaxis. Prognosis: Poor given patient's multiple co-morbidities. Condition: Critical Rest of plan per hospitalist and other consultants. A total of 35 minutes of critical care time was spent reviewing the patient record, examining the patient, making a diagnostic and therapeutic plan, discussing this plan with the medical personnel, following up on diagnostic studies and following the patient for clinical stability excluding any and all procedures. At least 50% of this time was spent in direct, [id number] contact. Thank you, Sy Oliver NP, for allowing me to participate in this patient's care. Further recommendations will depend on the patient's clinical course. Please do not hesitate to contact me if you have any questions or concerns. This medical document was created using an electronic medical record system with [employer] dictation system. Although these documentations are being carefully reviewed, there may still be some phonetic and typographical changes. The errors are purely typographical, due to imperfection on the software program, and do not reflect any compromise in the patient's medical care. Dietary Evaluation Review Comments: 1) Increase EN nutrition to meet at least 75% of estimated needs (Nepro 1.8 @ 30ml/hr x 24 hrs uninterrupted continuous feed adequately meets pt needs) 2) Advance pt diet when medically feasible to a Renal Standard diet modified per [employer] recommendations 3) Continue current plan of care Expected Outcomes/Goals: 1) Pt to receive adequate nutrition support 2) Pt diet to advance 3) F/U in 2-3 days Plan discussed with: Other (ALVARO Moon) Critical Care Time(min): 35 CC Plasma Assessment Blood Product Administration S: [id number] AUSTIN LISA MD Dec 07, 2024 21:12
[2024-12-07] MEDS: EPOETIN ALFA-EPBX 10,000 UNIT/1ML VIAL SC ONE (21:18)
[2024-12-08] VITALS (108 sets, daily range): BP systolic 86–144; BP diastolic 11–49; PULSE 71–94; RESP 10–25; TEMP 97.9–99; O2SAT 100
[2024-12-08 03:49] LABS: Albumin 3.6 g/dL (3.2-4.8); Alkaline Phosphatase 66 U/L (46-116); Anion Gap 8 (5-15); BUN/Creatinine Ratio 6.3 (10.0-20.0); Bilirubin, Total 0.8 mg/dL (0.2-1.0); Calcium 9.7 mg/dL (8.7-10.4); Carbon Dioxide 29 mmol/L (20-31); Glucose 104 mg/dL (74-106); Potassium 4.6 mmol/L (3.5-5.1); Total Protein 6.2 g/dL (5.7-8.2)
[2024-12-08 03:50] LABS: Basophils # (auto) 0.1 10 ^3/uL (0-0.2); Basophils % (auto) 0.8 % (0.0-2.0); Eosinophils # (auto) 0.3 10 ^3/uL (0-0.8); Eosinophils % (auto) 2.8 % (0.0-7.0); Hematocrit 26.8 % (41.0-53.0); Hemoglobin 8.9 g/dL (13.5-17.5); Lymphocytes # (auto) 0.5 10 ^3/uL (0.4-5.4); Lymphocytes % (auto) 4.3 % (10.0-50.0); Mean Corpuscular Hemoglobin 30.3 pg (28.0-32.0); Mean Corpuscular Hgb Conc. 33.1 g/dL (32.0-36.0); Mean Corpuscular Volume 91.6 fL (80.0-100.0); Monocytes # (auto) 1.4 10 ^3/uL (0-1.3); Neutrophils # (auto) 9.3 10 ^3/uL (1.6-8.6); Neutrophils % (auto) 80.1 % (37.0-80.0); Platelet Count (auto) 87 10^3/uL (140-450); Red Blood Cells 2.92 10^6/uL (4.5-5.90); Red Cell Distribution Width 16.6 % (11.8-14.3); White Blood Cell 11.6 10^3/uL (4.4-10.8)
[2024-12-08 03:58] LABS: Alanine Aminotransferase 64 U/L (7-40); Aspartate Aminotransferase 50 U/L (13-40); Blood Urea Nitrogen 32 mg/dL (9-23); Chloride 97 mmol/L (98-107); Sodium 134 mmol/L (136-145)
[2024-12-08 04:10] LABS: INR 1.27 (0.9-1.15); Partial Thromboplastin Time 37.2 SEC (24.5-34.5); Prothrombin Time 13.5 sec (9.3-11.8)
--- NOTE | 2024-12-08 04:48 | DVH ---
CHEST RADIOGRAPH Indication: Follow up Technique: Single frontal view of the chest was obtained Comparison: XY CHEST PORTABLE on DOS: 12/07/24 FINDINGS: Lines and Tubes: Right central venous catheter terminates in the right atrium. The enteric tube cours es below the left hemidiaphragm and the tip extends outside the field of view. Cardiac valve prosthes is. Endotracheal tube terminates 6.3 cm above the christa. There is a left vascular stent. Lungs: Pulmonary opacities are unchanged. Pleura: Right pleural effusion. No pneumothorax. Cardiomediastinal contours: Stable. Bones: No acute osseous abnormality. IMPRESSION: 1. No significant interval change.
--- NOTE | 2024-12-08 07:42 | DVHPNRES ---
Progress Note Date Seen: Dec 08, 2024 Resident Creating Document: TAM ORTIZ RESIDENT Medical Necessity Reason Pt with a Central, PICC or Fol: Yes The following are medically ne: Central Line, Su Catheter Subjective Review of Systems This is a 69-year-old male patient with PMHx of CHF, status post CABG 2018, COPD on home oxygen, diabetes mellitus, ESRD on hemodialysis with [facility] Tue/Th/Sat, dyslipidemia, hypertension, secondary hyperparathyroidism who presented to the ER with a chief complaint of generalized weakness and nausea vomiting and dizziness. Per daughter Hilda, patient has history of recurrent right-sided pleural effusion from the past 5 years for which he initially would get thoracocentesis every month but recently he has been getting thoracocentesis every week. Last thoracocentesis was done on November 19 which was bloody. Patient reported generalized weakness and dizziness but was not altered and he would do daily activities himself. He does not make any urine and is dependent on dialysis. Associated symptoms include sweating. After heart catheterization 08/[address] López - patent ELY to the LAD, patent saphenous vein graft to the OM. patient is visibly stent in the left subclavian vein. On arrival patient was hypotensive, map was 37, and on 12/03 he underwent cardiac arrest for which he experienced 2 rounds of CPR and 1 dose of epinephrine. Consequently he underwent intubation and mechanical ventilation on 12/03. ABG showed non-anion gap metabolic acidosis. Lactic acid was 8 which resolved. He was started on azithromycin and vancomycin in midodrine and require pressor support and sedatives. Echocardiogram was completed which showed EF 40% with mild LVH. Or a and RV dilated. PASP 60. Chest CT completed, shows loculated right-sided pleural effusion. His hemoglobin was 6 on arrival, he received 4 units of packed RBCs. Right femoral CVC was placed 1/. Patient seen and examined at the bedside. Platelets 87, ordered 1 platelet apheresis unit. Objective vital signs Vital Sign Date Time Temp Pulse Resp B/P (MAP) Pulse Ox O2 Delivery O2 Flow Rate FiO2 12/08/24 06:45 98.1 75 20 130/38 (68) 100 208.6 12/08/24 06:00 30 12/08/24 06:00 Mechanical Ventilator+ Total Intake and Output 12/07/24 12/07/24 12/08/24 15:00 23:00 07:00 Intake Total 120.0 ml 63.5 ml 162.0 ml Output Total 0 ml 0 ml Balance 120.0 ml 63.5 ml 162.0 ml medications Current Medications Medications Dose Ordered Sig/Dioni Route Start Time Stop Time Status Last Admin Dose Admin Sevelamer HCl 800 mg TIDWM PO 12/01/24 08:00 12/06/24 17:51 800 MG Sodium Chloride 10 ml Q8HR IV 12/01/24 14:00 12/08/24 05:29 10 ML Docusate Sodium 100 mg BIDPRN PRN PO 12/01/24 08:00 12/02/24 23:20 100 MG Acetaminophen 650 mg Q6HP PRN PO 12/01/24 08:00 Morphine Sulfate 2 mg Q4HPRN PRN IV 12/01/24 08:00 Hydralazine HCl 10 mg Q6HP PRN IV 12/01/24 08:15 Nitroglycerin 0.4 mg Q5MINP PRN SL 12/01/24 08:45 Morphine Sulfate 2 mg Q30M PRN IV 12/01/24 08:45 Midazolam HCl 50 ml @ 1 mls/hr Q24H IV 12/03/24 18:00 12/07/24 17:11 1 MLS/HR Fentanyl Citrate 250 ml @ 2.5 mls/hr Q24H IV 12/03/24 18:00 12/07/24 01:05 2.5 MLS/HR Vancomycin HCl 0 ml @ 0 mls/hr UD IV 12/04/24 09:45 Cefepime HCl 0.5 gm/Dextrose 50 ml @ 12.5 mls/hr Q24H IV 12/05/24 18:00 12/07/24 19:35 12.5 MLS/HR Norepinephrine Bitartrate 250 ml @ 0.938 mls/ hr Q24H IV 12/04/24 17:15 12/05/24 18:21 2.813 MLS/HR Midodrine 10 mg Q8HR PO 12/04/24 22:00 12/08/24 05:29 10 MG Enteral Nutritional Formula 1,000 ml 30ML/HR GT 12/05/24 12:15 12/08/24 00:09 1,000 ML Dextrose 50 ml UD PRN IV 12/05/24 14:00 Pantoprazole Sodium 40 mg DAILY IV 12/07/24 10:00 12/07/24 09:46 40 MG Diagnostic Test (Pha) 1 strip Q6HR 12/06/24 18:00 12/08/24 06:00 1 STRIP Insulin Human Regular Q6HR SC 12/06/24 18:00 Dextrose 50 ml UD PRN IV 12/06/24 15:15 Levalbuterol HCl 0.625 mg Q6HR NEB 12/07/24 00:00 12/08/24 06:57 0.625 MG Ipratropium Saxton 0.5 mg Q6HR NEB 12/07/24 00:00 12/08/24 06:56 0.5 MG Albumin Human 100 ml @ 100 mls/hr PRN PRN IV 12/07/24 06:15 12/07/24 07:30 100 MLS/HR Metoclopramide HCl 5 mg Q8HR IV 12/07/24 14:00 12/08/24 05:29 5 MG Examination Patient lying in bed, opening eyes and squeezing fingers with verbal commands. General: Cachectic, afebrile, palor, mucosae are moist Cardiovascular: Regular S1 and S2. No murmurs, gallops or rubs. No JVD elevation. No pedal edema Respiratory: Decreased right-sided breath sounds Abdomen: Soft, nontender, nondistended, hypoactive bowel sounds, no rebound tenderness, no organomegaly, no masses. 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 MSK/skin: Skin is dry and warm Neurological: Pupils are anisocoric and sluggish laboratory and microbiology Laboratory Tests 12/08/24 03:10 Test 12/08/24 03:10 Range/Units Serum Glucose 104 74-106 mg/dL Microbiology Date/Time Source Procedure Growth Status 12/05/24 01:30 Nose MRSA Screen - Final Complete 12/04/24 11:15 Blood Blood Culture - Preliminary NO GROWTH AFTER 72 HOURS OF INCUBATION. Resulted 12/03/24 21:30 Sputum Gram Stain - Final Complete 12/03/24 21:30 Sputum Respiratory Culture - Final Complete Labs and/or images reviewed: Labs reviewed by me, Image(s) reviewed by me Problem List/Assessment/Plan Problem List/Assessment/Plan NEUROLOGY Generalized weakness Dizziness Head CT completed 12/06 unremarkable CARDIOVASCULAR Status post cardiac arrest 12/03 Septic shock secondary to pneumonia Coronary artery disease status post CABG 2018 Hypertension Dyslipidemia Lactic acidosis-resolved Continue midodrine 10 mg Q 8 hour RESPIRATORY Acute hypoxic respiratory failure secondary to pneumonia, Gram-positive and gram negative status post intubation Recurrent right-sided pleural effusion Right-sided hemothorax Atelectasis COPD on home oxygen Prelim respiratory culture negative Continue IV cefepime and IV vancomycin DC IVC azithromycin on 12/06 Scheduled for thoracostomy 12/09 GI Transaminitis likely shock liver Monitor Reglan IV 5 mg Q 8 scheduled /KIDNEY End-stage renal disease, on hemodialysis Anemia, symptomatic Rhabdomyolysis Continue hemodialysis and continue sevelamer 800 mg TID Hemodialysis 12/07-2.2 L taken out ENDO Secondary hyperparathyroidism Diabetes mellitus type 2 Hyponatremia On ISS ID 12/04-Prelim blood culture negative 12/03-Prelim respiratory culture negative IV cefepime starting 12/05 and vancomycin starting 12/04 HEM-ONCO Severe anemia likely secondary to blood loss Coagulopathy Thrombocytopenia 4 packed RBCs transfused 1 dose of vitamin K 10 mg subcutaneous administered 1 unit of platelet pheresis 12/08 SKIN Amputation of the toes Monitor LINES Intubated 12/03 Right femoral CVC 12/03 DRIPS Levophed 0 Versed 1 Fentanyl 75 NUTRITION: Nepro 30 mL/hour Goals of care/advance care planning; FULL CODE; discussed on for 24 minutes. PUD prophylaxis; pantoprazole 40 mg daily IV DVT prophylaxis: SCDs given the severe anemia Plan discussed with patient's daughter and spouse at the bedside (Hilda and Yamilet) in which all questions have been answered Critical Care time including chart review, discussing with patient's family and nurse: 64 minutes Case discussed with Dr. Pham. Scheduled for thoracostomy 12/09. Ordered 1 unit of platelet apheresis. NPO after midnight. Plan discussed with: Patient, Daughter (At the bedside) My Orders My Orders Orders - TAM ORTIZ RESIDENT Procedure Category Date Status Time Ventilator Orders RT 12/07/24 Transmitted 06:39 Osmolality Urine LAB 12/07/24 Logged 14:49 Urine Sodium LAB 12/07/24 Logged 14:49 Chest Xray 1 View XY 12/08/24 Resulted 04:00 Abg W/ Co-Ox RT 12/08/24 Logged 04:00 Osmolality, Serum LAB 12/07/24 Logged 15:21 Dietary Evaluation Review Comments: 1) Increase EN nutrition to meet at least 75% of estimated needs (Nepro 1.8 @ 30ml/hr x 24 hrs uninterrupted continuous feed adequately meets pt needs) 2) Advance pt diet when medically feasible to a Renal Standard diet modified per [employer] recommendations 3) Continue current plan of care Expected Outcomes/Goals: 1) Pt to receive adequate nutrition support 2) Pt diet to advance 3) F/U in 2-3 days CC Plasma Assessment Blood Product Administration S: [id number] Date of Service: Dec 08, 2024 Billing Provider: PANCHO PHAM MD Common Visit Codes: 82905-[id number] CARE 30-74 MIN TAM ORTIZ RESIDENT Dec 08, 2024 07:42 PANCHO PHAM MD Dec 09, 2024 11:59
[2024-12-08 08:30] LABS: Base Excess -0.1 mmol/L (-2.0-3.0)
[2024-12-08 11:05] LABS: INR 1.25 (0.9-1.15); Partial Thromboplastin Time 36.2 SEC (24.5-34.5)
--- NOTE | 2024-12-08 13:15 | DVHPN2 ---
Progress Note - Dictate Date Seen: Dec 08, 2024 Medical Necessity Reason Pt with a Central, PICC or Fol: Yes The following are medically ne: Central Line, Su Catheter Subjective PT WITH RESP FAILURE/ RESP ARREST PNEUMONIA HYPOTENSION SEVERE ANEMIA/ HEMOTHORAX? INTUBATED ESRD-HD COPD DM2 CAD/CABG HTN DYSLIPIDEMIA LHC * Left main shows 50% heavily calcified narrowing with moderate diffuse disease. * Left anterior descending artery, high-grade narrowing proximally and in the mid lesion greater than 90%. * ELY to the LAD was patent. * Circumflex artery, moderate diffuse disease throughout. * Right coronary artery was occluded. * Saphenous vein graft to the OM is patent; however, there is a sluggish flow, in fact obtuse marginal is being supplied by the [place] vessel even though the patient has a high-grade narrowing of the left main. * Right coronary artery was occluded. Saphenous vein graft to the PDA was patent; however. * The patient on fluoroscopy appears to have normal functioning aortic valve with no restriction or calcification noted. * Right heart catheterization showed RA pressure of 8, RV pressure of 52/12, PA pressure of 50/20 and capillary wedge pressure of 18. Thus, the patient with heavily calcified anatomy throughout the aorta, coronaries, carotid, subclavian. Anatomy as described above. At this time, the patient is not a candidate for any revascularization. He has got a patent ELY to the LAD, patent saphenous vein graft to the OM, although it is heavily degenerated with very sluggish flow. The circumflex artery is actually being supplied by the [place] vessel. Right coronary artery was occluded, however, saphenous vein graft to the PDA was patent. At this time, conservative medical management, aggressive risk modification, antiplatelet therapy should be maintained especially with EDP inhibitors, receptor inhibitors such as Plavix or Brilinta and the patient should be maintained on Eliquis as well. The patient is a poor candidate for any revascularization percutaneously or surgical. The patient has a visible stent in the left subclavian vein as well. vital signs Vital Sign Date Time Temp Pulse Resp B/P (MAP) Pulse Ox O2 Delivery O2 Flow Rate FiO2 12/08/24 11:21 78 20 97/17 (43) 100 30 12/08/24 06:45 98.1 208.6 12/08/24 06:00 Mechanical Ventilator+ Total Intake and Output 12/07/24 12/07/24 12/08/24 15:00 23:00 07:00 Intake Total 120.0 ml 63.5 ml 162.0 ml Output Total 0 ml 0 ml Balance 120.0 ml 63.5 ml 162.0 ml medications Current Medications Medications Dose Ordered Sig/Dioni Route Start Time Stop Time Status Last Admin Dose Admin Sevelamer HCl 800 mg TIDWM PO 12/01/24 08:00 12/08/24 11:55 800 MG Sodium Chloride 10 ml Q8HR IV 12/01/24 14:00 12/08/24 05:29 10 ML Docusate Sodium 100 mg BIDPRN PRN PO 12/01/24 08:00 12/02/24 23:20 100 MG Acetaminophen 650 mg Q6HP PRN PO 12/01/24 08:00 Morphine Sulfate 2 mg Q4HPRN PRN IV 12/01/24 08:00 Hydralazine HCl 10 mg Q6HP PRN IV 12/01/24 08:15 Nitroglycerin 0.4 mg Q5MINP PRN SL 12/01/24 08:45 Morphine Sulfate 2 mg Q30M PRN IV 12/01/24 08:45 Midazolam HCl 50 ml @ 1 mls/hr Q24H IV 12/03/24 18:00 12/07/24 17:11 1 MLS/HR Fentanyl Citrate 250 ml @ 2.5 mls/hr Q24H IV 12/03/24 18:00 12/07/24 01:05 2.5 MLS/HR Vancomycin HCl 0 ml @ 0 mls/hr UD IV 12/04/24 09:45 Cefepime HCl 0.5 gm/Dextrose 50 ml @ 12.5 mls/hr Q24H IV 12/05/24 18:00 12/07/24 19:35 12.5 MLS/HR Norepinephrine Bitartrate 250 ml @ 0.938 mls/ hr Q24H IV 12/04/24 17:15 12/05/24 18:21 2.813 MLS/HR Midodrine 10 mg Q8HR PO 12/04/24 22:00 12/08/24 05:29 10 MG Enteral Nutritional Formula 1,000 ml 30ML/HR GT 12/05/24 12:15 12/08/24 00:09 1,000 ML Dextrose 50 ml UD PRN IV 12/05/24 14:00 Pantoprazole Sodium 40 mg DAILY IV 12/07/24 10:00 12/08/24 10:26 40 MG Diagnostic Test (Pha) 1 strip Q6HR 12/06/24 18:00 12/08/24 11:59 1 STRIP Insulin Human Regular Q6HR SC 12/06/24 18:00 Dextrose 50 ml UD PRN IV 12/06/24 15:15 Levalbuterol HCl 0.625 mg Q6HR NEB 12/07/24 00:00 12/08/24 11:46 0.625 MG Ipratropium Mclean 0.5 mg Q6HR NEB 12/07/24 00:00 12/08/24 11:46 0.5 MG Albumin Human 100 ml @ 100 mls/hr PRN PRN IV 12/07/24 06:15 12/07/24 07:30 100 MLS/HR Metoclopramide HCl 5 mg Q8HR IV 12/07/24 14:00 12/08/24 05:29 5 MG laboratory and microbiology Laboratory Tests 12/08/24 03:10 Test 12/08/24 03:10 Range/Units Serum Glucose 104 74-106 mg/dL Problem List RESP FAILURE PNEUMONIA HYPOTENSION SEVERE ANEMIA INTUBATED ESRD-HD COPD DM2 CAD/CABG HTN DYSLIPIDEMIA C * Left main shows 50% heavily calcified narrowing with moderate diffuse disease. * Left anterior descending artery, high-grade narrowing proximally and in the mid lesion greater than 90%. * ELY to the LAD was patent. * Circumflex artery, moderate diffuse disease throughout. * Right coronary artery was occluded. * Saphenous vein graft to the OM is patent; however, there is a sluggish flow, in fact obtuse marginal is being supplied by the [place] vessel even though the patient has a high-grade narrowing of the left main. * Right coronary artery was occluded. Saphenous vein graft to the PDA was patent; however. * The patient on fluoroscopy appears to have normal functioning aortic valve with no restriction or calcification noted. * Right heart catheterization showed RA pressure of 8, RV pressure of 52/12, PA pressure of 50/20 and capillary wedge pressure of 18. Thus, the patient with heavily calcified anatomy throughout the aorta, coronaries, carotid, subclavian. Anatomy as described above. At this time, the patient is not a candidate for any revascularization. He has got a patent ELY to the LAD, patent saphenous vein graft to the OM, although it is heavily degenerated with very sluggish flow. The circumflex artery is actually being supplied by the [place] vessel. Right coronary artery was occluded, however, saphenous vein graft to the PDA was patent. At this time, conservative medical management, aggressive risk modification, antiplatelet therapy should be maintained especially with EDP inhibitors, receptor inhibitors such as Plavix or Brilinta and the patient should be maintained on Eliquis as well. The patient is a poor candidate for any revascularization percutaneously or surgical. The patient has a visible stent in the left subclavian vein as well. Assessment/Plan CARDIAC STATUS STABLE ECHO EF 40% AV PROSTHESIS MAY PROCEED WITH SURGICAL INTERVENTION ASA II/ III ALL CULTURES NEGATIVE NASAL SWAB NEGATIVE PERSISTENT LEUKOCYTOSIS CONSIDER VICKY IF CONTINUED LEUKOCYTOSIS WBC TRENDING UP CONSIDER CHANGING ABX VICKY IN AM Dietary Evaluation Review Comments: 1) Increase EN nutrition to meet at least 75% of estimated needs (Nepro 1.8 @ 30ml/hr x 24 hrs uninterrupted continuous feed adequately meets pt needs) 2) Advance pt diet when medically feasible to a Renal Standard diet modified per COURT MAGISTRATE recommendations 3) Continue current plan of care Expected Outcomes/Goals: 1) Pt to receive adequate nutrition support 2) Pt diet to advance 3) F/U in 2-3 days Plan discussed with: Patient Critical Care Time(min): 35 CC Plasma Assessment Blood Product Administration S: [id number] BALAJI KING MD Dec 08, 2024 13:15
--- NOTE | 2024-12-08 15:34 | DVHPN2 ---
Progress Note - Dictate Date Seen: Dec 08, 2024 Medical Necessity Reason Pt with a Central, PICC or Fol: Yes The following are medically ne: Central Line, Su Catheter Subjective Intubated and on 30 % Fio2 vital signs Vital Sign Date Time Temp Pulse Resp B/P (MAP) Pulse Ox O2 Delivery O2 Flow Rate FiO2 12/08/24 15:22 82 20 101/14 (43) 100 30 12/08/24 14:00 Mechanical Ventilator+ 12/08/24 13:45 98.2 208.8 Total Intake and Output 12/07/24 12/07/24 12/08/24 15:00 23:00 07:00 Intake Total 120.0 ml 63.5 ml 170.5 ml Output Total 0 ml 0 ml Balance 120.0 ml 63.5 ml 170.5 ml medications Current Medications Medications Dose Ordered Sig/Dioni Route Start Time Stop Time Status Last Admin Dose Admin Sevelamer HCl 800 mg TIDWM PO 12/01/24 08:00 12/08/24 11:55 800 MG Sodium Chloride 10 ml Q8HR IV 12/01/24 14:00 12/08/24 05:29 10 ML Docusate Sodium 100 mg BIDPRN PRN PO 12/01/24 08:00 12/02/24 23:20 100 MG Acetaminophen 650 mg Q6HP PRN PO 12/01/24 08:00 Morphine Sulfate 2 mg Q4HPRN PRN IV 12/01/24 08:00 Hydralazine HCl 10 mg Q6HP PRN IV 12/01/24 08:15 Nitroglycerin 0.4 mg Q5MINP PRN SL 12/01/24 08:45 Morphine Sulfate 2 mg Q30M PRN IV 12/01/24 08:45 Midazolam HCl 50 ml @ 1 mls/hr Q24H IV 12/03/24 18:00 12/07/24 17:11 1 MLS/HR Fentanyl Citrate 250 ml @ 2.5 mls/hr Q24H IV 12/03/24 18:00 12/07/24 01:05 2.5 MLS/HR Vancomycin HCl 0 ml @ 0 mls/hr UD IV 12/04/24 09:45 Cefepime HCl 0.5 gm/Dextrose 50 ml @ 12.5 mls/hr Q24H IV 12/05/24 18:00 12/07/24 19:35 12.5 MLS/HR Norepinephrine Bitartrate 250 ml @ 0.938 mls/ hr Q24H IV 12/04/24 17:15 12/05/24 18:21 2.813 MLS/HR Midodrine 10 mg Q8HR PO 12/04/24 22:00 12/08/24 05:29 10 MG Enteral Nutritional Formula 1,000 ml 30ML/HR GT 12/05/24 12:15 12/08/24 00:09 1,000 ML Dextrose 50 ml UD PRN IV 12/05/24 14:00 Pantoprazole Sodium 40 mg DAILY IV 12/07/24 10:00 12/08/24 10:26 40 MG Diagnostic Test (Pha) 1 strip Q6HR 12/06/24 18:00 12/08/24 11:59 1 STRIP Insulin Human Regular Q6HR SC 12/06/24 18:00 Dextrose 50 ml UD PRN IV 12/06/24 15:15 Levalbuterol HCl 0.625 mg Q6HR NEB 12/07/24 00:00 12/08/24 11:46 0.625 MG Ipratropium [place] 0.5 mg Q6HR NEB 12/07/24 00:00 12/08/24 11:46 0.5 MG Albumin Human 100 ml @ 100 mls/hr PRN PRN IV 12/07/24 06:15 12/07/24 07:30 100 MLS/HR Metoclopramide HCl 5 mg Q8HR IV 12/07/24 14:00 12/08/24 05:29 5 MG objective gen: on vent HEENT: NC,AT Lungs: no breath sounds Rt lung Cardiac: RRR, no murmur Abd: soft, no tenderness Ext: no edema Neuro: sedated laboratory and microbiology Laboratory Tests 12/08/24 03:10 Test 12/08/24 03:10 Range/Units Serum Glucose 104 74-106 mg/dL Problem List ESRD on HD s/p cardiac arrest Hemorrhagic shock Large Rt hydrothorax, hemothorax Acute hypoxic respiratory failure s/p intubation on mechanical ventilator Pneumonia Hyperphosphatemia Secondary hyperparathyroidism Metabolic acidosis Assessment/Plan For probable surgical intervention on will dialyse on friday CATE post HD Dietary Evaluation Review Comments: 1) Increase EN nutrition to meet at least 75% of estimated needs (Nepro 1.8 @ 30ml/hr x 24 hrs uninterrupted continuous feed adequately meets pt needs) 2) Advance pt diet when medically feasible to a Renal Standard diet modified per SECURITIES RESEARCH ANALYST recommendations 3) Continue current plan of care Expected Outcomes/Goals: 1) Pt to receive adequate nutrition support 2) Pt diet to advance 3) F/U in 2-3 days Plan discussed with: Other CC Plasma Assessment Blood Product Administration S: [id number] NIKKI CHRISTIANSON MD Dec 08, 2024 15:34
--- NOTE | 2024-12-08 21:34 | DVHPN2 ---
Progress Note - Dictate Date Seen: Dec 08, 2024 Medical Necessity Reason Pt with a Central, PICC or Fol: Yes The following are medically ne: Central Line, Su Catheter Subjective Patient seen and examined at bedside. Sedated, intubated on mechanical ventilator. Overnight events reviewed. vital signs Vital Sign Date Time Temp Pulse Resp B/P (MAP) Pulse Ox O2 Delivery O2 Flow Rate FiO2 12/08/24 20:06 91 20 118/42 (67) 100 30 12/08/24 18:30 98.8 209.8 12/08/24 18:00 Mechanical Ventilator+ Total Intake and Output 12/07/24 12/07/24 12/08/24 15:00 23:00 07:00 Intake Total 120.0 ml 63.5 ml 170.5 ml Output Total 0 ml 0 ml Balance 120.0 ml 63.5 ml 170.5 ml medications Current Medications Medications Dose Ordered Sig/Dioni Route Start Time Stop Time Status Last Admin Dose Admin Sevelamer HCl 800 mg TIDWM PO 12/01/24 08:00 12/08/24 18:27 800 MG Sodium Chloride 10 ml Q8HR IV 12/01/24 14:00 12/08/24 15:56 10 ML Docusate Sodium 100 mg BIDPRN PRN PO 12/01/24 08:00 12/02/24 23:20 100 MG Acetaminophen 650 mg Q6HP PRN PO 12/01/24 08:00 Morphine Sulfate 2 mg Q4HPRN PRN IV 12/01/24 08:00 Hydralazine HCl 10 mg Q6HP PRN IV 12/01/24 08:15 Nitroglycerin 0.4 mg Q5MINP PRN SL 12/01/24 08:45 Morphine Sulfate 2 mg Q30M PRN IV 12/01/24 08:45 Midazolam HCl 50 ml @ 1 mls/hr Q24H IV 12/03/24 18:00 12/08/24 17:10 1 MLS/HR Fentanyl Citrate 250 ml @ 2.5 mls/hr Q24H IV 12/03/24 18:00 12/08/24 17:09 7.5 MLS/HR Vancomycin HCl 0 ml @ 0 mls/hr UD IV 12/04/24 09:45 Cefepime HCl 0.5 gm/Dextrose 50 ml @ 12.5 mls/hr Q24H IV 12/05/24 18:00 12/08/24 18:26 12.5 MLS/HR Norepinephrine Bitartrate 250 ml @ 0.938 mls/ hr Q24H IV 12/04/24 17:15 12/05/24 18:21 2.813 MLS/HR Midodrine 10 mg Q8HR PO 12/04/24 22:00 12/08/24 05:29 10 MG Enteral Nutritional Formula 1,000 ml 30ML/HR GT 12/05/24 12:15 12/08/24 00:09 1,000 ML Dextrose 50 ml UD PRN IV 12/05/24 14:00 Pantoprazole Sodium 40 mg DAILY IV 12/07/24 10:00 12/08/24 10:26 40 MG Diagnostic Test (Pha) 1 strip Q6HR 12/06/24 18:00 12/08/24 18:26 1 STRIP Insulin Human Regular Q6HR SC 12/06/24 18:00 Dextrose 50 ml UD PRN IV 12/06/24 15:15 Levalbuterol HCl 0.625 mg Q6HR NEB 12/07/24 00:00 12/08/24 18:40 0.625 MG Ipratropium [place] 0.5 mg Q6HR NEB 12/07/24 00:00 12/08/24 18:40 0.5 MG Albumin Human 100 ml @ 100 mls/hr PRN PRN IV 12/07/24 06:15 12/07/24 07:30 100 MLS/HR Metoclopramide HCl 5 mg Q8HR IV 12/07/24 14:00 12/08/24 15:56 5 MG objective Gen.: Patient lying in bed in medical ICU. Sedated, intubated on mechanical ventilator. Head: Normocephalic, atraumatic. Eyes: PERRLA. Ears: Normal external anatomy. Throat: Endotracheal tube and orogastric tube in place. Neck: Supple, trachea midline. Chest: Transmitted breath sounds bilaterally. Decreased air entry bilaterally. No wheezing. Bibasilar crackles. Cardiovascular: Positive S1, positive S2. Regular rate and rhythm. Abdomen: Positive bowel sounds in all 4 quadrants. Soft, nontender, nondistended. : Su in place. Normal external genitalia. Rectal: Deferred. Skin: Warm, dry. Intact. Extremities: 2+ radial pulses bilaterally. No lower extremity edema. Neuro: Sedated. laboratory and microbiology Laboratory Tests 12/08/24 03:10 Test 12/08/24 03:10 Range/Units Serum Glucose 104 74-106 mg/dL Assessment/Plan Impression: Acute hypoxic respiratory failure On mechanical ventilator Recurrent pleural effusion Atelectasis End-stage renal disease, on hemodialysis Anemia, symptomatic Lactic acidosis Events: Remains on mechanical ventilator. On AC mode with RR 18, VT 450, PEEP 8 --> 5, FiO2 30% Sedated on Fentanyl, Versed Bloody secretions from ET tube decreased. On pressors for hemodynamic support Levophed 5 mcg/min Titrate to keep mean arterial pressure greater than 65 mmHg. ABG reviewed, compensated CXR demonstrates Right basilar opacities. Right pleural effusion. No pneumothorax. Awaiting surgery on . Continue antibiotics Tube feeds for nutritional support Monitor hemoglobin Transfuse if less than 7.0 g/dL. HD per Nephrology Monitor renal function CT chest without contrast demonstrates Large right hydro hemothorax. No pneumothorax. Small left pleural effusion. Patchy consolidation and ground-glass opacities in both lungs. Ascites. Surgery recs appreciated. Limited chest ultrasound demonstrated loculated viscous fluid by ultrasound appearance Labs and imaging reviewed. Rest of plan as noted below. Plan: s/p intubation on mechanical ventilator. On AC mode with RR 18, VT 450, PEEP 5, FiO2 30% Improved FiO2 requirements Titrate FIO2 to keep O2 saturation above 90%. VAP bundle. Daily ABG and CXR while intubated Sedate for ventilator synchrony On pressors for hemodynamic support Titrate to keep mean arterial pressure greater than 65 mmHg. Monitor hemoglobin Transfuse if less than 7.0 g/dL. Continue antibiotics Pain control Avoid oversedation On Eliquis Accu-Cheks, ISS. HD per Nephrology Monitor renal function. Monitor electrolytes. Supplement as necessary. Monitor ins and outs. DVT prophylaxis. Prognosis: Poor given patient's multiple co-morbidities. Condition: Critical Rest of plan per hospitalist and other consultants. A total of 35 minutes of critical care time was spent reviewing the patient record, examining the patient, making a diagnostic and therapeutic plan, discussing this plan with the medical personnel, following up on diagnostic studies and following the patient for clinical stability excluding any and all procedures. At least 50% of this time was spent in direct, [id number] contact. Thank you, Sy Oliver NP, for allowing me to participate in this patient's care. Further recommendations will depend on the patient's clinical course. Please do not hesitate to contact me if you have any questions or concerns. This medical document was created using an electronic medical record system with [employer] dictation system. Although these documentations are being carefully reviewed, there may still be some phonetic and typographical changes. The errors are purely typographical, due to imperfection on the software program, and do not reflect any compromise in the patient's medical care. Dietary Evaluation Review Comments: 1) Increase EN nutrition to meet at least 75% of estimated needs (Nepro 1.8 @ 30ml/hr x 24 hrs uninterrupted continuous feed adequately meets pt needs) 2) Advance pt diet when medically feasible to a Renal Standard diet modified per LEGAL FILE CLERK recommendations 3) Continue current plan of care Expected Outcomes/Goals: 1) Pt to receive adequate nutrition support 2) Pt diet to advance 3) F/U in 2-3 days Plan discussed with: Other (ALVARO Moon) Critical Care Time(min): 35 CC Plasma Assessment Blood Product Administration S: [id number] AUSTIN LISA MD Dec 08, 2024 21:34
[2024-12-09] VITALS (117 sets, daily range): BP systolic 90–151; BP diastolic 11–52; PULSE 76–96; RESP 10–24; TEMP 98.2–99.7; O2SAT 98–100
[2024-12-09 03:46] LABS: Lymphocytes # (auto) 0.5 10 ^3/uL (0.4-5.4); Monocytes # (auto) 1.2 10 ^3/uL (0-1.3)
[2024-12-09 03:49] LABS: Basophils # (auto) 0 10 ^3/uL (0-0.2); Basophils % (auto) 0.3 % (0.0-2.0); Eosinophils # (auto) 0.4 10 ^3/uL (0-0.8); Eosinophils % (auto) 3.6 % (0.0-7.0); Hematocrit 24.8 % (41.0-53.0); Hemoglobin 8.3 g/dL (13.5-17.5); Lymphocytes % (auto) 4.2 % (10.0-50.0); Mean Corpuscular Hemoglobin 30.7 pg (28.0-32.0); Mean Corpuscular Hgb Conc. 33.4 g/dL (32.0-36.0); Mean Corpuscular Volume 91.9 fL (80.0-100.0); Monocytes % (auto) 9.8 % (0.0-12.0); Neutrophils # (auto) 9.6 10 ^3/uL (1.6-8.6); Neutrophils % (auto) 82.1 % (37.0-80.0); Platelet Count (auto) 105 10^3/uL (140-450); Red Cell Distribution Width 16.5 % (11.8-14.3); White Blood Cell 11.7 10^3/uL (4.4-10.8)
[2024-12-09 04:02] LABS: INR 1.26 (0.9-1.15); Partial Thromboplastin Time 34.9 SEC (24.5-34.5); Prothrombin Time 13.1 sec (9.3-11.8)
[2024-12-09 04:05] LABS: Potassium 4.4 mmol/L (3.5-5.1)
[2024-12-09 04:06] LABS: Anion Gap 9 (5-15); Calcium 9.3 mg/dL (8.7-10.4); Carbon Dioxide 28 mmol/L (20-31)
[2024-12-09 04:11] LABS: BUN/Creatinine Ratio 6.9 (10.0-20.0); Glucose 79 mg/dL (74-106); Magnesium 2.1 mg/dL (1.6-2.6)
[2024-12-09 04:18] LABS: Blood Urea Nitrogen 41 mg/dL (9-23); Chloride 97 mmol/L (98-107); Sodium 134 mmol/L (136-145)
--- NOTE | 2024-12-09 05:02 | DVH ---
CHEST RADIOGRAPH Indication: Follow up Technique: Single frontal view of the chest was obtained COMPARISON: XY CHEST XRAY 1 VIEW on DOS: 12/08/24, XY CHEST PORTABLE on DOS: 12/07/24, XY CHEST PORTABLE on DOS: 12/06/24, XY CHEST PORTABLE on DOS: 12/05/24, XY CHEST PORTABLE on DOS: 12/04/24 FINDINGS: Lines and Tubes: Endotracheal tube, enteric catheter, right central venous catheter in satisfactory p osition. Median sternotomy. Lungs: Multifocal airspace disease. Pleura: No effusion. No pneumothorax. Cardiomediastinal contours: Cardiomegaly Bones: Unremarkable IMPRESSION: Lines and tubes in satisfactory position. No significant interval change.
[2024-12-09] MEDS: DEXTROSE (50%) 50ML SYRG IV PRN ×2 (06:42→13:47)
--- NOTE | 2024-12-09 06:51 | DVHPNRES ---
Progress Note Date Seen: Dec 09, 2024 Resident Creating Document: TAM ORTIZ RESIDENT Medical Necessity Reason Pt with a Central, PICC or Fol: Yes The following are medically ne: Central Line, Su Catheter Subjective Review of Systems This is a 69-year-old male patient with PMHx of CHF, status post CABG 2018, COPD on home oxygen, diabetes mellitus, ESRD on hemodialysis with [facility] Tue/Th/Sat, dyslipidemia, hypertension, secondary hyperparathyroidism who presented to the ER with a chief complaint of generalized weakness and nausea vomiting and dizziness. Per daughter Hilda, patient has history of recurrent right-sided pleural effusion from the past 5 years for which he initially would get thoracocentesis every month but recently he has been getting thoracocentesis every week. Last thoracocentesis was done on November 19 which was bloody. Patient reported generalized weakness and dizziness but was not altered and he would do daily activities himself. He does not make any urine and is dependent on dialysis. Associated symptoms include sweating. After heart catheterization 08/[address] López - patent ELY to the LAD, patent saphenous vein graft to the OM. patient is visibly stent in the left subclavian vein. On arrival patient was hypotensive, map was 37, and on 12/03 he underwent cardiac arrest for which he experienced 2 rounds of CPR and 1 dose of epinephrine. Consequently he underwent intubation and mechanical ventilation on 12/03. ABG showed non-anion gap metabolic acidosis. Lactic acid was 8 which resolved. He was started on azithromycin and vancomycin in midodrine and require pressor support and sedatives. Echocardiogram was completed which showed EF 40% with mild LVH. Or a and RV dilated. PASP 60. Chest CT completed, shows loculated right-sided pleural effusion. His hemoglobin was 6 on arrival, he received 4 units of packed RBCs. Right femoral CVC was placed 12/03. Patient seen and examined at the bedside. Overnight Temperature 99.7. Chest tube placement 12/09. Objective vital signs Vital Sign Date Time Temp Pulse Resp B/P (MAP) Pulse Ox O2 Delivery O2 Flow Rate FiO2 12/09/24 05:00 99.0 91 21 119/39 (65) 100 210.2 12/09/24 04:07 30 12/09/24 04:00 Mechanical Ventilator+ Total Intake and Output 12/08/24 12/08/24 12/09/24 15:00 23:00 07:00 Intake Total 59.5 ml 544.0 ml 416.0 ml Balance 59.5 ml 544.0 ml 416.0 ml medications Current Medications Medications Dose Ordered Sig/Dioni Route Start Time Stop Time Status Last Admin Dose Admin Sevelamer HCl 800 mg TIDWM PO 12/01/24 08:00 12/08/24 18:27 800 MG Sodium Chloride 10 ml Q8HR IV 12/01/24 14:00 12/09/24 06:00 10 ML Docusate Sodium 100 mg BIDPRN PRN PO 12/01/24 08:00 12/02/24 23:20 100 MG Acetaminophen 650 mg Q6HP PRN PO 12/01/24 08:00 Morphine Sulfate 2 mg Q4HPRN PRN IV 12/01/24 08:00 Hydralazine HCl 10 mg Q6HP PRN IV 12/01/24 08:15 Nitroglycerin 0.4 mg Q5MINP PRN SL 12/01/24 08:45 Morphine Sulfate 2 mg Q30M PRN IV 12/01/24 08:45 Midazolam HCl 50 ml @ 1 mls/hr Q24H IV 12/03/24 18:00 12/08/24 17:10 1 MLS/HR Fentanyl Citrate 250 ml @ 2.5 mls/hr Q24H IV 12/03/24 18:00 12/08/24 17:09 7.5 MLS/HR Vancomycin HCl 0 ml @ 0 mls/hr UD IV 12/04/24 09:45 Cefepime HCl 0.5 gm/Dextrose 50 ml @ 12.5 mls/hr Q24H IV 12/05/24 18:00 12/08/24 18:26 12.5 MLS/HR Norepinephrine Bitartrate 250 ml @ 0.938 mls/ hr Q24H IV 12/04/24 17:15 12/05/24 18:21 2.813 MLS/HR Midodrine 10 mg Q8HR PO 12/04/24 22:00 12/09/24 06:30 10 MG Enteral Nutritional Formula 1,000 ml 30ML/HR GT 12/05/24 12:15 12/08/24 00:09 1,000 ML Dextrose 50 ml UD PRN IV 12/05/24 14:00 12/09/24 06:42 50 ML Pantoprazole Sodium 40 mg DAILY IV 12/07/24 10:00 12/08/24 10:26 40 MG Diagnostic Test (Pha) 1 strip Q6HR 12/06/24 18:00 12/09/24 05:58 1 STRIP Insulin Human Regular Q6HR SC 12/06/24 18:00 Dextrose 50 ml UD PRN IV 12/06/24 15:15 Levalbuterol HCl 0.625 mg Q6HR NEB 12/07/24 00:00 12/09/24 00:16 0.625 MG Ipratropium [place] 0.5 mg Q6HR NEB 12/07/24 00:00 12/09/24 00:16 0.5 MG Albumin Human 100 ml @ 100 mls/hr PRN PRN IV 12/07/24 06:15 12/07/24 07:30 100 MLS/HR Metoclopramide HCl 5 mg Q8HR IV 12/07/24 14:00 12/09/24 06:31 5 MG Examination Patient lying in bed, opening eyes and squeezing fingers with verbal commands. General: Cachectic, afebrile, palor, mucosae are moist Cardiovascular: Regular S1 and S2. No murmurs, gallops or rubs. No JVD elevation. No pedal edema Respiratory: Decreased right-sided breath sounds Abdomen: Soft, nontender, nondistended, hypoactive bowel sounds, no rebound tenderness, no organomegaly, no masses. 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 MSK/skin: Skin is dry and warm Neurological: Pupils are anisocoric and sluggish laboratory and microbiology Laboratory Tests 12/09/24 03:20 Test 12/09/24 03:20 Range/Units Serum Glucose 79 74-106 mg/dL Microbiology Date/Time Source Procedure Growth Status 12/05/24 01:30 Nose MRSA Screen - Final Complete 12/04/24 11:15 Blood Blood Culture - Preliminary NO GROWTH AFTER 72 HOURS OF INCUBATION. Resulted 12/03/24 21:30 Sputum Gram Stain - Final Complete 12/03/24 21:30 Sputum Respiratory Culture - Final Complete Labs and/or images reviewed: Labs reviewed by me, Image(s) reviewed by me Problem List/Assessment/Plan Problem List/Assessment/Plan NEUROLOGY Generalized weakness Dizziness Head CT completed 12/06 unremarkable CARDIOVASCULAR Status post cardiac arrest 12/03 Septic shock secondary to pneumonia Coronary artery disease status post CABG 2018 Hypertension Dyslipidemia Lactic acidosis-resolved Continue midodrine 10 mg Q 8 hour RESPIRATORY Acute hypoxic respiratory failure secondary to pneumonia, Gram-positive and gram negative status post intubation Right loculated hemothorax status post chest tube placement 12/09 Atelectasis COPD on home oxygen Prelim respiratory culture negative Continue IV cefepime and IV vancomycin DC IVC azithromycin on 12/06 GI Transaminitis likely shock liver Monitor Reglan IV 5 mg Q 8 scheduled /KIDNEY End-stage renal disease, on hemodialysis Anemia, symptomatic Rhabdomyolysis Continue hemodialysis and continue sevelamer 800 mg TID Hemodialysis 12/07-2.2 L taken out ENDO Secondary hyperparathyroidism Diabetes mellitus type 2 Hyponatremia On ISS ID 12/04-Prelim blood culture negative 12/03-Prelim respiratory culture negative IV cefepime starting 12/05 and vancomycin starting 12/04 HEM-ONCO Severe anemia likely secondary to blood loss Coagulopathy Thrombocytopenia 4 packed RBCs transfused 1 dose of vitamin K 10 mg subcutaneous administered 1 unit of platelet pheresis 12/08 SKIN Amputation of the toes Monitor LINES Intubated 12/03 Right femoral CVC 12/03 DRIPS Levophed 0.5 Versed 1 Fentanyl 75 NUTRITION: Nepro 30 mL/hour Goals of care/advance care planning; FULL CODE; discussed on for 24 minutes. PUD prophylaxis; pantoprazole 40 mg daily IV DVT prophylaxis: SCDs given the severe anemia Plan discussed with patient's daughter and spouse at the bedside (Hilda and Yamilet) in which all questions have been answered Critical Care time including chart review, discussing with patient's family and nurse: 64 minutes Case discussed with Dr. Pham. Status post right chest tube placement. Plan discussed with: Patient, Daughter (At the bedside) My Orders My Orders Orders - TAM ORTIZ RESIDENT Procedure Category Date Status Time Chest Xray 1 View XY 12/09/24 Resulted 04:00 Abg W/ Co-Ox RT 12/09/24 Logged 04:00 Dietary Evaluation Review Comments: 1) Increase EN nutrition to meet at least 75% of estimated needs (Nepro 1.8 @ 30ml/hr x 24 hrs uninterrupted continuous feed adequately meets pt needs) 2) Advance pt diet when medically feasible to a Renal Standard diet modified per AMMUNITION STOREKEEPER recommendations 3) Continue current plan of care Expected Outcomes/Goals: 1) Pt to receive adequate nutrition support 2) Pt diet to advance 3) F/U in 2-3 days CC Plasma Assessment Blood Product Administration S: [id number] Date of Service: Dec 09, 2024 Billing Provider: PANCHO PHAM MD Common Visit Codes: 45803-[id number] CARE 30-74 MIN TAM ORTIZ RESIDENT Dec 09, 2024 06:51 PANCHO PHAM MD Dec 12, 2024 17:26
[2024-12-09 07:28] LABS: Base Excess -0.8 mmol/L (-2.0-3.0)
[2024-12-09] MEDS: ACETAMINOPHEN 650 mg PER 20.3 mL UD GT ONE (08:30)
[2024-12-09] MEDS: ACCU-CHEK COMFORT CURVE STRIP VI SCH (09:34)
[2024-12-09 09:43] LABS: INR 1.22 (0.9-1.15); Prothrombin Time 12.7 sec (9.3-11.8)
--- NOTE | 2024-12-09 11:54 | DVHPN2 ---
Progress Note - Dictate Date Seen: Dec 09, 2024 Medical Necessity Reason Pt with a Central, PICC or Fol: Yes The following are medically ne: Central Line, Su Catheter Subjective PT WITH RESP FAILURE/ RESP ARREST PNEUMONIA HYPOTENSION SEVERE ANEMIA/ HEMOTHORAX? INTUBATED ESRD-HD COPD DM2 CAD/CABG HTN DYSLIPIDEMIA LHC * Left main shows 50% heavily calcified narrowing with moderate diffuse disease. * Left anterior descending artery, high-grade narrowing proximally and in the mid lesion greater than 90%. * ELY to the LAD was patent. * Circumflex artery, moderate diffuse disease throughout. * Right coronary artery was occluded. * Saphenous vein graft to the OM is patent; however, there is a sluggish flow, in fact obtuse marginal is being supplied by the [place] vessel even though the patient has a high-grade narrowing of the left main. * Right coronary artery was occluded. Saphenous vein graft to the PDA was patent; however. * The patient on fluoroscopy appears to have normal functioning aortic valve with no restriction or calcification noted. * Right heart catheterization showed RA pressure of 8, RV pressure of 52/12, PA pressure of 50/20 and capillary wedge pressure of 18. Thus, the patient with heavily calcified anatomy throughout the aorta, coronaries, carotid, subclavian. Anatomy as described above. At this time, the patient is not a candidate for any revascularization. He has got a patent ELY to the LAD, patent saphenous vein graft to the OM, although it is heavily degenerated with very sluggish flow. The circumflex artery is actually being supplied by the [place] vessel. Right coronary artery was occluded, however, saphenous vein graft to the PDA was patent. At this time, conservative medical management, aggressive risk modification, antiplatelet therapy should be maintained especially with EDP inhibitors, receptor inhibitors such as Plavix or Brilinta and the patient should be maintained on Eliquis as well. The patient is a poor candidate for any revascularization percutaneously or surgical. The patient has a visible stent in the left subclavian vein as well. vital signs Vital Sign Date Time Temp Pulse Resp B/P (MAP) Pulse Ox O2 Delivery O2 Flow Rate FiO2 12/09/24 11:24 82 21 119/36 (63) 100 30 12/09/24 10:15 99.0 210.2 12/09/24 09:32 Mechanical Ventilator+ Total Intake and Output 12/08/24 12/08/24 12/09/24 15:00 23:00 07:00 Intake Total 59.5 ml 544.0 ml 573.0 ml Balance 59.5 ml 544.0 ml 573.0 ml medications Current Medications Medications Dose Ordered Sig/Dioni Route Start Time Stop Time Status Last Admin Dose Admin Sevelamer HCl 800 mg TIDWM PO 12/01/24 08:00 12/08/24 18:27 800 MG Sodium Chloride 10 ml Q8HR IV 12/01/24 14:00 12/09/24 06:00 10 ML Docusate Sodium 100 mg BIDPRN PRN PO 12/01/24 08:00 12/02/24 23:20 100 MG Acetaminophen 650 mg Q6HP PRN PO 12/01/24 08:00 Morphine Sulfate 2 mg Q4HPRN PRN IV 12/01/24 08:00 Hydralazine HCl 10 mg Q6HP PRN IV 12/01/24 08:15 Nitroglycerin 0.4 mg Q5MINP PRN SL 12/01/24 08:45 Morphine Sulfate 2 mg Q30M PRN IV 12/01/24 08:45 Midazolam HCl 50 ml @ 1 mls/hr Q24H IV 12/03/24 18:00 12/08/24 17:10 1 MLS/HR Fentanyl Citrate 250 ml @ 2.5 mls/hr Q24H IV 12/03/24 18:00 12/08/24 17:09 7.5 MLS/HR Vancomycin HCl 0 ml @ 0 mls/hr UD IV 12/04/24 09:45 Cefepime HCl 0.5 gm/Dextrose 50 ml @ 12.5 mls/hr Q24H IV 12/05/24 18:00 12/08/24 18:26 12.5 MLS/HR Norepinephrine Bitartrate 250 ml @ 0.938 mls/ hr Q24H IV 12/04/24 17:15 12/05/24 18:21 2.813 MLS/HR Midodrine 10 mg Q8HR PO 12/04/24 22:00 12/09/24 06:30 10 MG Enteral Nutritional Formula 1,000 ml 30ML/HR GT 12/05/24 12:15 12/08/24 00:09 1,000 ML Pantoprazole Sodium 40 mg DAILY IV 12/07/24 10:00 12/09/24 08:30 40 MG Insulin Human Regular Q6HR SC 12/06/24 18:00 Dextrose 50 ml UD PRN IV 12/06/24 15:15 Levalbuterol HCl 0.625 mg Q6HR NEB 12/07/24 00:00 12/09/24 09:05 0.625 MG Ipratropium Jewett 0.5 mg Q6HR NEB 12/07/24 00:00 12/09/24 09:05 0.5 MG Albumin Human 100 ml @ 100 mls/hr PRN PRN IV 12/07/24 06:15 12/07/24 07:30 100 MLS/HR Metoclopramide HCl 5 mg Q8HR IV 12/07/24 14:00 12/09/24 06:31 5 MG Diagnostic Test (Pha) 1 strip Q2HR 12/09/24 10:00 12/09/24 09:34 1 STRIP laboratory and microbiology Laboratory Tests 12/09/24 03:20 Test 12/09/24 03:20 Range/Units Serum Glucose 79 74-106 mg/dL Problem List RESP FAILURE PNEUMONIA HYPOTENSION SEVERE ANEMIA INTUBATED ESRD-HD COPD DM2 CAD/CABG HTN DYSLIPIDEMIA C * Left main shows 50% heavily calcified narrowing with moderate diffuse disease. * Left anterior descending artery, high-grade narrowing proximally and in the mid lesion greater than 90%. * ELY to the LAD was patent. * Circumflex artery, moderate diffuse disease throughout. * Right coronary artery was occluded. * Saphenous vein graft to the OM is patent; however, there is a sluggish flow, in fact obtuse marginal is being supplied by the [place] vessel even though the patient has a high-grade narrowing of the left main. * Right coronary artery was occluded. Saphenous vein graft to the PDA was patent; however. * The patient on fluoroscopy appears to have normal functioning aortic valve with no restriction or calcification noted. * Right heart catheterization showed RA pressure of 8, RV pressure of 52/12, PA pressure of 50/20 and capillary wedge pressure of 18. Thus, the patient with heavily calcified anatomy throughout the aorta, coronaries, carotid, subclavian. Anatomy as described above. At this time, the patient is not a candidate for any revascularization. He has got a patent ELY to the LAD, patent saphenous vein graft to the OM, although it is heavily degenerated with very sluggish flow. The circumflex artery is actually being supplied by the [place] vessel. Right coronary artery was occluded, however, saphenous vein graft to the PDA was patent. At this time, conservative medical management, aggressive risk modification, antiplatelet therapy should be maintained especially with EDP inhibitors, receptor inhibitors such as Plavix or Brilinta and the patient should be maintained on Eliquis as well. The patient is a poor candidate for any revascularization percutaneously or surgical. The patient has a visible stent in the left subclavian vein as well. Assessment/Plan CARDIAC STATUS STABLE ECHO EF 40% AV PROSTHESIS MAY PROCEED WITH SURGICAL INTERVENTION ASA II/ III ALL CULTURES NEGATIVE NASAL SWAB NEGATIVE PERSISTENT LEUKOCYTOSIS CONSIDER VICKY IF CONTINUED LEUKOCYTOSIS WBC TRENDING UP CONSIDER CHANGING ABX VICKY IN AM stillwith leukocytosis anemia consider epogen/ iron study Dietary Evaluation Review Comments: 1) Increase EN nutrition to meet at least 75% of estimated needs (Nepro 1.8 @ 30ml/hr x 24 hrs uninterrupted continuous feed adequately meets pt needs) 2) Advance pt diet when medically feasible to a Renal Standard diet modified per LABORATORY TESTER recommendations 3) Continue current plan of care Expected Outcomes/Goals: 1) Pt to receive adequate nutrition support 2) Pt diet to advance 3) F/U in 2-3 days Plan discussed with: Patient, Spouse Critical Care Time(min): 35 CC Plasma Assessment Blood Product Administration S: [id number] BALAJI KING MD Dec 09, 2024 11:54
--- NOTE | 2024-12-09 12:30 | DVHCONRES ---
Date Seen: Dec 09, 2024 Resident Creating Document: UMER ROSENBAUM Jr., MD Referring Physician carline Reason for Consultation right sided pleural effusion History of Present Illness The patient is a 69-year-old male with past medical history of COPD, DM, end- stage renal disease on hemodialysis, hyperlipidemia, and hypertension who presented to [facility] ED with complaint of generalized weakness. As reported by family, patient was having a syncope episode at home where patient became pale, sweaty, episodes of vomiting, and dizziness. Patient was seen and evaluated in the ED, laboratory data shows WBC 12.1, hemoglobin 5.8, hematocrit 18.4, platelets 131, sodium 138, potassium 4.2, BUN 37, creatinine 5.62, GFR 10, glucose 169, calcium 8.5, protein 5.4, albumin 2.9 blood pressure 108/28, heart rate 86, temperature 97.6 F, O2 saturation 99% on oxygen. Chest x-ray revealing multifocal right lung airspace disease. Patient was started on IV antibiotic regimen azithromycin, please see medication orders section in the computer. On my assessment, patient denied chest pain, no headache, no dizziness, no diaphoresis, currently on oxygen, no diarrhea, no nausea, no vomiting, no fever, no chills. Patient was admitted for further evaluation and medical management. The patient has a pleural effusion on the right side documented on chest x-ray and CT scan. Prior thoracentesis was a bloody tap performed on November 19, 2024. Patient remains intubated on 30 % oxygen. Past Medical History COPD, DM, end-stage renal disease on hemodialysis, hyperlipidemia, and hypertension Past Surgical History Left AV fistula, CABG, right IJ PermCath Family History: FH: cancer of digestive organ G8 MOTHER FH: pulmonary embolism G8 FATHER Family History Noncontributory Social History Nonsmoker nondrinker Allergies: Coded Allergies: NO KNOWN ALLERGIES (Unverified , 09/14/24) Home Meds Active Scripts Albuterol Sulfate (VENTOLIN BHARATI) 90 Mcg Ih, 90 MCG IN Q4HR, #1 INH Prov:CHI KAM MD 08/25/24 Reported Medications B-Complex W/ C & Folic Acid (Henny-Xavier Rx) Tab, 1 TAB PO DAILY for 90 Days, #90 08/23/24 Apixaban Base (ELIQUIS) 2.5 Mg Tab, 1 TAB PO BID for 30 Days, #60 08/23/24 Mirtazapine (Mirtazapine Oral Disintegrating Tablet) 15 Mg Tab, 7.5 MG PO DAILY for 30 Days, #30 08/23/24 Atorvastatin Calcium (Lipitor) 10 Mg Tab, 1 TAB PO DAILY for 30 Days, #30 08/23/24 Carvedilol (Carvedilol) 12.5 Mg Tab, 1 TAB PO BID for 30 Days, #60 08/23/24 Calcium Acetate (Phosphate Bin (Calcium Acetate) 667 Mg Cap, 1 TAB PO TIDWM for 30 Days, #90 08/23/24 Amlodipine Besylate (Amlodipine Besylate) 10 Mg Tab, 1 TAB PO DAILY for 30 Days, #30 08/23/24 Current Medications Current Medications Medications (Trade) Dose Ordered Sig/Dioni Route PRN Reason Start Time Stop Time Status Last Admin Diagnostic Test (Pha) (Accu-Chek Comfort Curve T) 1 strip Q2HR 12/09/24 10:00 12/09/24 11:52 Review of Systems The patient is intubated chart reviewed all systems negative other what is in HPI. Vital Signs Vital Signs Date Time Temp Pulse Resp B/P (MAP) Pulse Ox O2 Delivery O2 Flow Rate FiO2 12/09/24 12:15 98.4 76 18 124/35 (64) 100 209.1 12/09/24 11:53 Mechanical Ventilator+ 30 30 Physical Exam Head eyes ears nose and throat exam eyes are nonicteric conjunctiva is pink neck was supple no JVD no lymphadenopathy no carotid bruits lungs decreased breath sounds on right side abdomen soft nontender no pulsatile abdominal mass or bruits lower extremities palpable femoral and pedal pulses bilaterally he has a left AV fistula which is positive thrill and bruit. Labs/Diagnostic Data Labs Test 12/09/24 11:38 12/09/24 08:43 12/09/24 07:10 12/09/24 03:20 Range/Units POC Glucose 94 70-106 mg/dl Prothrombin Time 12.7 H 9.3-11.8 sec Prothrombin Time INR 1.22 H 0.9-1.15 Activated Partial Thromboplast Time 35.0 H 24.5-34.5 SEC Blood Gas Specimen Type Arterial Blood Gas Sample Site Arterial line Blood Gas Patient Temperature 37.0 Arterial Blood Date Drawn [id number] Arterial Blood pH 7.399 7.350-7.450 Arterial Blood Partial Pressure CO2 39.5 35.0-48.0 mmHg Arterial Blood Partial Pressure O2 106.4 83.0-108.0 mmHg Arterial Blood HCO3 23.9 21.0-28.0 mmol/L Arterial Blood Oxygen Saturation 97.9 94.0-98.0 % Arterial Blood Base Excess -0.8 -2.0-3.0 mmol/L Arterial Blood Oxyhemoglobin 96.4 94.0-98.0 % Arterial Blood Carboxyhemoglobin 1.3 0.5-1.5 % Arterial Blood Methemoglobin 0.2 0.0-1.5 % Kan Test N/a Blood Gas Total Hemoglobin 8.00 L 13.5-17.5 g/dL Blood Gas Set Respiration Rate 22.0 Blood Gas Modality Vent - ac FiO2 % 30.0 Blood Gas Tidal Volume 500.0 Blood Gas PEEP or CPAP 5.0 White Blood Count 11.7 H 4.4-10.8 10^3/uL Red Blood Count 2.70 L 4.5-5.90 10^6/uL Hemoglobin 8.3 L 13.5-17.5 g/dL Hematocrit 24.8 L 41.0-53.0 % Mean Corpuscular Volume 91.9 80.0-100.0 fL Mean Corpuscular Hemoglobin 30.7 28.0-32.0 pg Mean Corpuscular Hemoglobin Concent 33.4 32.0-36.0 g/dL Red Cell Distribution Width 16.5 H 11.8-14.3 % Platelet Count 105 L 140-450 10^3/uL Mean Platelet Volume 8.9 6.9-10.8 fL Neutrophils (%) (Auto) 82.1 H 37.0-80.0 % Lymphocytes (%) (Auto) 4.2 L 10.0-50.0 % Monocytes (%) (Auto) 9.8 0.0-12.0 % Eosinophils (%) (Auto) 3.6 0.0-7.0 % Basophils (%) (Auto) 0.3 0.0-2.0 % Neutrophils # (Auto) 9.6 H 1.6-8.6 10 ^3/uL Lymphocytes # (Auto) 0.5 0.4-5.4 10 ^3/uL Monocytes # (Auto) 1.2 0-1.3 10 ^3/uL Eosinophils # (Auto) 0.4 0-0.8 10 ^3/uL Basophils # (Auto) 0 0-0.2 10 ^3/uL Nucleated Red Blood Cells 0.0 % Sodium Level 134 L 136-145 mmol/L Potassium Level 4.4 3.5-5.1 mmol/L Chloride Level 97 L 98-107 mmol/L Carbon Dioxide Level 28 20-31 mmol/L Anion Gap 9 5-15 Blood Urea Nitrogen 41 H 9-23 mg/dL Creatinine 5.95 H 0.700-1.30 mg/dL Glomerular Filtration Rate Calc 10 >90 mL/min BUN/Creatinine Ratio 6.9 L 10.0-20.0 Serum Glucose 79 74-106 mg/dL Calcium Level 9.3 8.7-10.4 mg/dL Magnesium Level 2.1 1.6-2.6 mg/dL Random Vancomycin Level 20.3 H 5-10 ug/mL Test 12/08/24 10:00 12/08/24 07:50 12/08/24 03:10 12/06/24 03:30 Range/Units Serum Osmolality 286 278-298 mOsm/kg Blood Gas Spontaneous Rate 18 Blood Gas Inspiratory Pressure 33.0 Bl Gas Inspiratory/Expiratory Ratio 1:3.1 Specimen Drawn By marcelloe rt Total Bilirubin 0.8 0.2-1.0 mg/dL Aspartate Amino Transferase (AST) 50 H 13-40 U/L Alanine Aminotransferase (ALT) 64 H 7-40 U/L Alkaline Phosphatase 66 46-116 U/L Total Protein 6.2 5.7-8.2 g/dL Albumin 3.6 3.2-4.8 g/dL Lactic Acid Level 0.8 0.4-2.0 mmol/L Test 12/05/24 03:20 12/04/24 06:26 12/03/24 16:20 12/03/24 06:05 Range/Units Creatine Kinase 174 H 46-171 U/L Blood Gas Critical Value Read Back yes Blood Gas Notified Whom francie finnegan Blood Gas Notified Time [id number] Blood Gas Notified By noelle garcia Blood Gas Liter Flow 4.00 Hepatitis A IgM Antibody Negative Hepatitis B Surface Antigen Negative Negative Hepatitis B Core IgM Antibody Negative Negative Hepatitis C Antibody Negative Negative Test 12/01/24 04:12 Range/Units Troponin I High Sensitivity 44 </=54 ng/L Microbiology Date/Time Source Procedure Growth Status 12/05/24 01:30 Nose MRSA Screen - Final Complete 12/04/24 11:15 Blood Blood Culture - Final NO GROWTH AFTER 5 DAYS OF INCUBATION. Complete 12/03/24 21:30 Sputum Gram Stain - Final Complete 12/03/24 21:30 Sputum Respiratory Culture - Final Complete Procedure: CT CHEST WITHOUT CONTRAST Reason for study/Clinical History: 69 years old, Male; rule out pneumo. Comparison Study: None available at time of dictation. Exam Date: 12/02/2024 01:09 PM TECHNIQUE: Multidetector CT of the chest was performed from the lung apices to the upper abdomen without the use of intravenous contract. Axial, coronal and sagittal multiplanar reformats were performed. Radiation dose Information: CT Dose: CTDI volume is 4.74 mGy. Dose-length product is 168.27 mGy*cm The dose indicators for CT are the volume computed Tomography (CT) dose Index (CTDIvol) and the dose Length product (DLP), and are measured in units of mGy and mGy-cm, respectively. These indicators are not patient dose, but values generated from the CT scanner acquisition factors. The report includes radiation exposure data for exposures received during this examination. FINDINGS: Lower neck: Right IJ dialysis catheter in place. Lungs: Patchy atelectasis and consolidation in both lungs. Patchy ground-glass opacities in both lungs. Heart/Vascular Structures: Moderate cardiomegaly. No pericardial effusion. Calcified atherosclerotic disease noted. Lymph Nodes: No adenopathy Pleura: Large loculated right hydro hemothorax. Small left pleural effusion. No definite pneumothorax identified. Musculoskeletal: No acute osseous abnormality. Soft tissues: Normal. Upper abdomen: Ascites IMPRESSION: 1. Large right hydro hemothorax. No pneumothorax. Small left pleural effusion. P atchy consolidation and ground-glass opacities in both lungs. Ascites. Clinical correlation and continued follow-up is recommended. Radiation optimization: All CT scans at this facility use at least one of these dose optimization techniques: Automated exposure control mA and/or kV adjustment per patient size (includes targeted exams where dose is matched to clinical indication) or iterative reconstruction. Assessment Right-sided hemato thorax Plan will be to place right-sided chest tube today. Discussed with family as well as primary medical team all agree with the plan. Plan/Recommendation Right-sided hemato thorax Plan will be to place right-sided chest tube today. Discussed with family as well as primary medical team all agree with the plan. Plan discussed with: Daughter UMER ROSENBAUM Lavon Schwarz MD Dec 09, 2024 12:30
[2024-12-09] MEDS ORDERED: EPOETIN ALFA-EPBX 10,000 UNIT/1ML VIAL SC ONE (13:45)
[2024-12-09 14:00] LABS: % Iron Saturation 12.9 % (20-55)
[2024-12-09] MEDS: D5W 5% 1,000 ML IV SCH (15:47)
[2024-12-09] MEDS: LIDOCAINE 1% (LOCAL ANESTH.) PF 5ml SDV ONE (16:42)
[2024-12-09] MEDS: LIDOCAINE 2% (LOCAL ANESTH.) PF 5ml SDV ONE (17:18)
--- NOTE | 2024-12-09 17:56 | DVHOP2 ---
Operative Report - 2 Report Details Date: 12/09/24 Preop Diagnosis: Right hemothorax Postop Diagnosis: Right hemothorax Surgeon: Mykel Martinez MD Anesthesiologist: None Anesthesia: Local Consent: The patient was informed of the risks and benefits of the procedure. These include but are not limited to complications of anesthesia, postoperative infection, incomplete relief of symptoms, recurrence of symptoms, damage to blood vessels, nerves and tendons, deep venous thrombosis, pulmonary embolism and possible need for repeat surgery in the future. Estimated Blood Loss: 50 mL Findings: Bright loculated hemothorax Indications for Surgery: Right hemothorax Name of Procedure Performed Right chest tube insertion Procedure Details Procedure Details: The patient was consented in. By myself he was prepped and draped normal surgical fashion the right chest wall between the mid axillary line at the level of the nipple was anesthetized 11 blade was used to make an incision a [place] was then used to create a tunnel above the rib which allowed us to puncture into the pleural cavity there was some organized clot that was released with a finger sweep there was definitely a loculated area there with organized clot 32 Bhutanese chest tube was inserted to 16 cm there was blood as well as organized fibrinous clot that drained approximately initially of 50 mL on drapes and then other 50 mL in the lower back. 0 silk suture was used to secure the tube in place. Xeroform followed by gauze and silk tape was applied for the dressing the floor VAC was set up for wall suction at -30. Patient tolerated procedure well postop chest x-ray demonstrated insertion of the chest tube within the pleural cavity with stay curling in the loculated inferior portion of the thoracic cavity. Specimen: None Condition Critical Disposition ICU MYKEL MARTINEZ Jr., MD Dec 09, 2024 17:56
--- NOTE | 2024-12-09 17:56 | DVH ---
CHEST RADIOGRAPH Indication: right side chest tube placement Technique: Single frontal view of the chest was obtained Comparison: XY CHEST XRAY 1 VIEW on DOS: 12/09/24, XY CHEST XRAY 1 VIEW on DOS: 12/08/24, XY CHEST PORTAB LE on DOS: 12/07/24 FINDINGS: Lines and Tubes: Right IJ approach hemodialysis catheter terminating within the right atrium. Endotra cheal tube terminates about 5.2 cm above the christa. Interval placement of a right-sided chest tube w ith the tip projected over the right upper abdominal quadrant. Lungs: Relatively unchanged interstitial prominence with right mid to lower lung zone opacification o bscuration of the right hemidiaphragm. No pneumothorax. Cardiomediastinal contours: Mediastinum unchanged. Midline sternotomy wires surgical clips are noted consistent prior history of CABG. Vascular stent is noted over the left subclavian region. Bones: No acute osseous abnormality. Mild subcutaneous emphysema of the right mid chest wall. Otherwi se, the soft tissues unremarkable. IMPRESSION: Interval placement of a right sided chest tube with the tip projected over the right upper abdominal quadrant. Endotracheal tube, enteric tube and right IJ approach hemodialysis catheter in satisfactory position. No significant interval change in the lung findings
[2024-12-09] MEDS: EPOETIN ALFA-EPBX 10,000 UNIT/1ML VIAL SC ONE (21:00)
--- NOTE | 2024-12-09 23:35 | DVHPN2 ---
Progress Note - Dictate Date Seen: Dec 09, 2024 Medical Necessity Reason Pt with a Central, PICC or Fol: Yes The following are medically ne: Central Line Subjective Patient seen and examined at bedside. Sedated, intubated on mechanical ventilator. Overnight events reviewed. vital signs Vital Sign Date Time Temp Pulse Resp B/P (MAP) Pulse Ox O2 Delivery O2 Flow Rate FiO2 12/09/24 22:50 117/33 12/09/24 22:45 99.0 85 18 100 210.2 12/09/24 22:15 30 12/09/24 22:00 Mechanical Ventilator+ Total Intake and Output 12/08/24 12/08/24 12/09/24 15:00 23:00 07:00 Intake Total 59.5 ml 544.0 ml 573.0 ml Balance 59.5 ml 544.0 ml 573.0 ml medications Current Medications Medications Dose Ordered Sig/Dioni Route Start Time Stop Time Status Last Admin Dose Admin Sevelamer HCl 800 mg TIDWM PO 12/01/24 08:00 12/08/24 18:27 800 MG Sodium Chloride 10 ml Q8HR IV 12/01/24 14:00 12/09/24 21:51 10 ML Docusate Sodium 100 mg BIDPRN PRN PO 12/01/24 08:00 12/02/24 23:20 100 MG Acetaminophen 650 mg Q6HP PRN PO 12/01/24 08:00 Morphine Sulfate 2 mg Q4HPRN PRN IV 12/01/24 08:00 Hydralazine HCl 10 mg Q6HP PRN IV 12/01/24 08:15 Nitroglycerin 0.4 mg Q5MINP PRN SL 12/01/24 08:45 Morphine Sulfate 2 mg Q30M PRN IV 12/01/24 08:45 Midazolam HCl 50 ml @ 1 mls/hr Q24H IV 12/03/24 18:00 12/08/24 17:10 1 MLS/HR Fentanyl Citrate 250 ml @ 2.5 mls/hr Q24H IV 12/03/24 18:00 12/08/24 17:09 7.5 MLS/HR Vancomycin HCl 0 ml @ 0 mls/hr UD IV 12/04/24 09:45 Cefepime HCl 0.5 gm/Dextrose 50 ml @ 12.5 mls/hr Q24H IV 12/05/24 18:00 12/09/24 18:00 12.5 MLS/HR Norepinephrine Bitartrate 250 ml @ 0.938 mls/ hr Q24H IV 12/04/24 17:15 12/09/24 14:39 0.938 MLS/HR Midodrine 10 mg Q8HR PO 12/04/24 22:00 12/09/24 21:51 10 MG Enteral Nutritional Formula 1,000 ml 30ML/HR GT 12/05/24 12:15 12/08/24 00:09 1,000 ML Pantoprazole Sodium 40 mg DAILY IV 12/07/24 10:00 12/09/24 08:30 40 MG Insulin Human Regular Q6HR SC 12/06/24 18:00 Dextrose 50 ml UD PRN IV 12/06/24 15:15 12/09/24 13:47 50 ML Levalbuterol HCl 0.625 mg Q6HR NEB 12/07/24 00:00 12/09/24 18:59 0.625 MG Ipratropium [place] 0.5 mg Q6HR NEB 12/07/24 00:00 12/09/24 18:59 0.5 MG Albumin Human 100 ml @ 100 mls/hr PRN PRN IV 12/07/24 06:15 12/07/24 07:30 100 MLS/HR Metoclopramide HCl 5 mg Q8HR IV 12/07/24 14:00 12/09/24 21:51 5 MG Diagnostic Test (Pha) 1 strip Q2HR 12/09/24 10:00 12/09/24 22:00 1 STRIP Dextrose 1,000 ml @ 50 mls/hr Q20H IV 12/09/24 15:45 12/09/24 15:47 50 MLS/HR objective Gen.: Patient lying in bed in medical ICU. Sedated, intubated on mechanical ventilator. Head: Normocephalic, atraumatic. Eyes: PERRLA. Ears: Normal external anatomy. Throat: Endotracheal tube and orogastric tube in place. Neck: Supple, trachea midline. Chest: Transmitted breath sounds bilaterally. Decreased air entry bilaterally. No wheezing. Bibasilar crackles. Cardiovascular: Positive S1, positive S2. Regular rate and rhythm. Abdomen: Positive bowel sounds in all 4 quadrants. Soft, nontender, nondistended. : Su in place. Normal external genitalia. Rectal: Deferred. Skin: Warm, dry. Intact. Extremities: 2+ radial pulses bilaterally. No lower extremity edema. Neuro: Sedated. laboratory and microbiology Laboratory Tests 12/09/24 03:20 Test 12/09/24 03:20 Range/Units Serum Glucose 79 74-106 mg/dL Assessment/Plan Impression: Acute hypoxic respiratory failure On mechanical ventilator Recurrent pleural effusion Atelectasis End-stage renal disease, on hemodialysis Anemia, symptomatic Lactic acidosis Events: Remains on mechanical ventilator. On AC mode with RR 18, VT 450, PEEP 5, FiO2 30% Sedated on Fentanyl Off Versed On pressors for hemodynamic support Levophed 0,5 mcg/min Titrate to keep mean arterial pressure greater than 65 mmHg. ABG reviewed, compensated S/p right chest tube placement by Dr. Martinez. Chest tube output 40 mL, clotted Send pleural fluid for cultures Continue antibiotics Tube feeds for nutritional support Monitor hemoglobin Transfuse if less than 7.0 g/dL. HD per Nephrology Monitor renal function CT chest without contrast demonstrates Large right hydro hemothorax. No pneumothorax. Small left pleural effusion. Patchy consolidation and ground-glass opacities in both lungs. Ascites. Surgery recs appreciated. Limited chest ultrasound demonstrated loculated viscous fluid by ultrasound appearance Labs and imaging reviewed. Rest of plan as noted below. Plan: s/p intubation on mechanical ventilator. On AC mode with RR 18, VT 450, PEEP 5, FiO2 30% Improved FiO2 requirements Titrate FIO2 to keep O2 saturation above 90%. VAP bundle. Daily ABG and CXR while intubated Sedate for ventilator synchrony On pressors for hemodynamic support Titrate to keep mean arterial pressure greater than 65 mmHg. Monitor hemoglobin Transfuse if less than 7.0 g/dL. Continue antibiotics Pain control Avoid oversedation On Eliquis Accu-Cheks, ISS. HD per Nephrology Monitor renal function. Monitor electrolytes. Supplement as necessary. Monitor ins and outs. DVT prophylaxis. Prognosis: Poor given patient's multiple co-morbidities. Condition: Critical Rest of plan per hospitalist and other consultants. A total of 35 minutes of critical care time was spent reviewing the patient record, examining the patient, making a diagnostic and therapeutic plan, discussing this plan with the medical personnel, following up on diagnostic studies and following the patient for clinical stability excluding any and all procedures. At least 50% of this time was spent in direct, [id number] contact. Thank you, Sy Oliver NP, for allowing me to participate in this patient's care. Further recommendations will depend on the patient's clinical course. Please do not hesitate to contact me if you have any questions or concerns. This medical document was created using an electronic medical record system with [employer] dictation system. Although these documentations are being carefully reviewed, there may still be some phonetic and typographical changes. The errors are purely typographical, due to imperfection on the software program, and do not reflect any compromise in the patient's medical care. Dietary Evaluation Review Comments: 1) Increase EN nutrition to meet at least 75% of estimated needs (Nepro 1.8 @ 30ml/hr x 24 hrs uninterrupted continuous feed adequately meets pt needs) 2) Advance pt diet when medically feasible to a Renal Standard diet modified per TRACK GRINDER OPERATOR recommendations 3) Continue current plan of care Expected Outcomes/Goals: 1) Pt to receive adequate nutrition support 2) Pt diet to advance 3) F/U in 2-3 days Plan discussed with: Other (ALVARO Santos) Critical Care Time(min): 35 CC Plasma Assessment Blood Product Administration S: [id number] AUSTIN LISA MD Dec 09, 2024 23:35
[2024-12-10] VITALS (112 sets, daily range): BP systolic 84–156; BP diastolic 12–108; PULSE 78–97; RESP 10–27; TEMP 98.1–100; O2SAT 100
[2024-12-10 04:42] LABS: Basophils # (auto) 0.1 10 ^3/uL (0-0.2); Basophils % (auto) 0.5 % (0.0-2.0); Eosinophils # (auto) 0.5 10 ^3/uL (0-0.8); Eosinophils % (auto) 4.5 % (0.0-7.0); Lymphocytes # (auto) 0.5 10 ^3/uL (0.4-5.4); Lymphocytes % (auto) 4.1 % (10.0-50.0); Mean Corpuscular Hemoglobin 30.6 pg (28.0-32.0); Mean Corpuscular Hgb Conc. 33.2 g/dL (32.0-36.0); Mean Corpuscular Volume 92.3 fL (80.0-100.0); Monocytes # (auto) 1.3 10 ^3/uL (0-1.3); Neutrophils # (auto) 9.4 10 ^3/uL (1.6-8.6); Neutrophils % (auto) 79.9 % (37.0-80.0); Platelet Count (auto) 101 10^3/uL (140-450); Red Blood Cells 2.93 10^6/uL (4.5-5.90); Red Cell Distribution Width 16.3 % (11.8-14.3); White Blood Cell 11.8 10^3/uL (4.4-10.8)
[2024-12-10 04:57] LABS: Anion Gap 6 (5-15); BUN/Creatinine Ratio 7.1 (10.0-20.0); Calcium 9.2 mg/dL (8.7-10.4); Carbon Dioxide 27 mmol/L (20-31); Glucose 103 mg/dL (74-106); Magnesium 2.3 mg/dL (1.6-2.6); Potassium 4.7 mmol/L (3.5-5.1)
[2024-12-10 04:58] LABS: Albumin 3.3 g/dL (3.2-4.8); Aspartate Aminotransferase 32 U/L (13-40)
[2024-12-10 04:59] LABS: Bilirubin, Total 0.7 mg/dL (0.2-1.0); Total Protein 6.2 g/dL (5.7-8.2)
[2024-12-10 05:02] LABS: Alanine Aminotransferase 40 U/L (7-40); Alkaline Phosphatase 70 U/L (46-116); Blood Urea Nitrogen 47 mg/dL (9-23); Chloride 96 mmol/L (98-107); Sodium 129 mmol/L (136-145)
--- NOTE | 2024-12-10 05:37 | DVH ---
CHEST RADIOGRAPH Indication: intubated Technique: Single frontal view of the chest was obtained COMPARISON: XY CHEST PORTABLE on DOS: 12/09/24, XY CHEST XRAY 1 VIEW on DOS: 12/09/24, XY CHEST XRAY 1 EW on DOS: 12/08/24, XY CHEST PORTABLE on DOS: 12/07/24, XY CHEST PORTABLE on DOS: 12/06/24 FINDINGS: Lines and Tubes: Endotracheal tube, enteric catheter and right tunneled central venous catheter in sa tisfactory position. Median sternotomy. Lungs: Diffuse congestion. Pleura: No effusion. No pneumothorax. Cardiomediastinal contours: Unremarkable Bones: Unremarkable IMPRESSION: Lines and tubes in satisfactory position. No significant interval change.
--- NOTE | 2024-12-10 07:26 | DVHPN2 ---
Progress Note - Dictate Date Seen: Dec 10, 2024 Medical Necessity Reason Pt with a Central, PICC or Fol: Yes The following are medically ne: Central Line Subjective Intubated and on 30 % Fio2 S/P CHEST TUBE PLACEMENT vital signs Vital Sign Date Time Temp Pulse Resp B/P (MAP) Pulse Ox O2 Delivery O2 Flow Rate FiO2 12/10/24 06:16 92 18 145/42 (76) 100 30 12/10/24 04:45 98.6 209.5 12/10/24 04:00 Mechanical Ventilator+ Total Intake and Output 12/09/24 12/09/24 12/10/24 15:00 23:00 07:00 Intake Total 264.438 ml 539.378 ml 356.250 ml Output Total 47 ml Balance 264.438 ml 492.378 ml 356.250 ml medications Current Medications Medications Dose Ordered Sig/Dioni Route Start Time Stop Time Status Last Admin Dose Admin Sevelamer HCl 800 mg TIDWM PO 12/01/24 08:00 12/08/24 18:27 800 MG Sodium Chloride 10 ml Q8HR IV 12/01/24 14:00 12/10/24 06:38 10 ML Docusate Sodium 100 mg BIDPRN PRN PO 12/01/24 08:00 12/02/24 23:20 100 MG Acetaminophen 650 mg Q6HP PRN PO 12/01/24 08:00 Morphine Sulfate 2 mg Q4HPRN PRN IV 12/01/24 08:00 Hydralazine HCl 10 mg Q6HP PRN IV 12/01/24 08:15 Nitroglycerin 0.4 mg Q5MINP PRN SL 12/01/24 08:45 Morphine Sulfate 2 mg Q30M PRN IV 12/01/24 08:45 Midazolam HCl 50 ml @ 1 mls/hr Q24H IV 12/03/24 18:00 12/08/24 17:10 1 MLS/HR Fentanyl Citrate 250 ml @ 2.5 mls/hr Q24H IV 12/03/24 18:00 12/10/24 01:40 7.5 MLS/HR Vancomycin HCl 0 ml @ 0 mls/hr UD IV 12/04/24 09:45 Cefepime HCl 0.5 gm/Dextrose 50 ml @ 12.5 mls/hr Q24H IV 12/05/24 18:00 12/09/24 18:00 12.5 MLS/HR Norepinephrine Bitartrate 250 ml @ 0.938 mls/ hr Q24H IV 12/04/24 17:15 12/09/24 14:39 0.938 MLS/HR Midodrine 10 mg Q8HR PO 12/04/24 22:00 12/10/24 06:38 10 MG Enteral Nutritional Formula 1,000 ml 30ML/HR GT 12/05/24 12:15 12/08/24 00:09 1,000 ML Pantoprazole Sodium 40 mg DAILY IV 12/07/24 10:00 12/09/24 08:30 40 MG Insulin Human Regular Q6HR SC 12/06/24 18:00 Dextrose 50 ml UD PRN IV 12/06/24 15:15 12/09/24 13:47 50 ML Levalbuterol HCl 0.625 mg Q6HR NEB 12/07/24 00:00 12/10/24 06:16 0.625 MG Ipratropium [place] 0.5 mg Q6HR NEB 12/07/24 00:00 12/10/24 06:16 0.5 MG Albumin Human 100 ml @ 100 mls/hr PRN PRN IV 12/07/24 06:15 12/07/24 07:30 100 MLS/HR Metoclopramide HCl 5 mg Q8HR IV 12/07/24 14:00 12/10/24 06:38 5 MG Diagnostic Test (Pha) 1 strip Q2HR 12/09/24 10:00 12/10/24 06:18 1 STRIP Dextrose 1,000 ml @ 50 mls/hr Q20H IV 12/09/24 15:45 12/09/24 15:47 50 MLS/HR objective gen: on vent HEENT: NC,AT Lungs: no breath sounds Rt lung Cardiac: RRR, no murmur Abd: soft, no tenderness Ext: no edema. Neuro: sedated laboratory and microbiology Laboratory Tests 12/10/24 04:01 Test 12/10/24 04:01 Range/Units Serum Glucose 103 74-106 mg/dL Problem List ESRD on HD s/p cardiac arrest Hemorrhagic shock Large Rt hydrothorax, hemothorax Acute hypoxic respiratory failure s/p intubation on mechanical ventilator Pneumonia Hyperphosphatemia Secondary hyperparathyroidism Metabolic acidosis Assessment/Plan S/P chest tube placement HD today CATE post HD Dietary Evaluation Review Comments: 1) Increase EN nutrition to meet at least 75% of estimated needs ([place]ro 1.8 @ 30ml/hr x 24 hrs uninterrupted continuous feed adequately meets pt needs) 2) Advance pt diet when medically feasible to a Renal Standard diet modified per ASSOCIATE PROFESSOR OF KINESIOLOGY recommendations 3) Continue current plan of care Expected Outcomes/Goals: 1) Pt to receive adequate nutrition support 2) Pt diet to advance 3) F/U in 2-3 days Plan discussed with: Other CC Plasma Assessment Blood Product Administration S: [id number] NIKKI CHRISTIANSON MD Dec 10, 2024 07:26
[2024-12-10] MEDS: SODIUM CHL 0.9% 1000 ML BAG XX ONE (07:30)
[2024-12-10 08:59] LABS: Base Excess -1.4 mmol/L (-2.0-3.0)
--- NOTE | 2024-12-10 10:53 | DVH ---
Bilateral Upper Extremity Venous Duplex Clinical History: LUE PITTING EDEMA Comparison: US BILAT LOWER DVT on DOS: 08/21/24 Findings: Duplex Doppler evaluation of the venous systems of the right and left lower neck and upper extremitie s including color Doppler and spectral/pulsed waveform analysis was performed. RIGHT SIDE: The internal jugular vein demonstrates appropriate compressibility and waveform variability. The subclavian vein is patent on color Doppler evaluation without intraluminal thrombus and demonstra luz marina waveform variability. The visualized portion of the brachiocephalic vein is patent on color Doppler evaluation without intr aluminal thrombus and demonstrates waveform variability. The axillary vein demonstrates appropriate compressibility and waveform variability. The brachial veins demonstrate appropriate compressibility and patency on Doppler evaluation. The basilic vein demonstrates appropriate compressibility and patency on Doppler evaluation. Cephalic vein thrombus is noted. LEFT SIDE: The internal jugular vein demonstrates appropriate compressibility and waveform variability. The subclavian vein is patent on color Doppler evaluation without intraluminal thrombus and demonstra luz marina waveform variability. The visualized portion of the brachiocephalic vein is patent on color Doppler evaluation without intr aluminal thrombus and demonstrates waveform variability. The axillary vein demonstrates appropriate compressibility and waveform variability. The brachial veins demonstrate appropriate compressibility and patency on Doppler evaluation. The basilic vein demonstrates appropriate compressibility and patency on Doppler evaluation. The cephalic vein demonstrates appropriate compressibility and patency on Doppler evaluation. Impression: Right Cephalic vein thrombus. No thrombus seen in the left upper extremity. If clinical concern/symptoms persist or worsen, short-interval follow-up study is suggested.
[2024-12-10] MEDS: ACCU-CHEK COMFORT CURVE STRIP VI SCH (11:50)
--- NOTE | 2024-12-10 14:56 | DVHPN2 ---
Progress Note - Dictate Date Seen: Dec 10, 2024 Medical Necessity Reason Pt with a Central, PICC or Fol: Yes The following are medically ne: Central Line Subjective PT WITH RESP FAILURE/ RESP ARREST PNEUMONIA HYPOTENSION SEVERE ANEMIA/ HEMOTHORAX? INTUBATED ESRD-HD COPD DM2 CAD/CABG HTN DYSLIPIDEMIA C * Left main shows 50% heavily calcified narrowing with moderate diffuse disease. * Left anterior descending artery, high-grade narrowing proximally and in the mid lesion greater than 90%. * ELY to the LAD was patent. * Circumflex artery, moderate diffuse disease throughout. * Right coronary artery was occluded. * Saphenous vein graft to the OM is patent; however, there is a sluggish flow, in fact obtuse marginal is being supplied by the [place] vessel even though the patient has a high-grade narrowing of the left main. * Right coronary artery was occluded. Saphenous vein graft to the PDA was patent; however. * The patient on fluoroscopy appears to have normal functioning aortic valve with no restriction or calcification noted. * Right heart catheterization showed RA pressure of 8, RV pressure of 52/12, PA pressure of 50/20 and capillary wedge pressure of 18. Thus, the patient with heavily calcified anatomy throughout the aorta, coronaries, carotid, subclavian. Anatomy as described above. At this time, the patient is not a candidate for any revascularization. He has got a patent ELY to the LAD, patent saphenous vein graft to the OM, although it is heavily degenerated with very sluggish flow. The circumflex artery is actually being supplied by the [place] vessel. Right coronary artery was occluded, however, saphenous vein graft to the PDA was patent. At this time, conservative medical management, aggressive risk modification, antiplatelet therapy should be maintained especially with EDP inhibitors, receptor inhibitors such as Plavix or Brilinta and the patient should be maintained on Eliquis as well. The patient is a poor candidate for any revascularization percutaneously or surgical. The patient has a visible stent in the left subclavian vein as well. vital signs Vital Sign Date Time Temp Pulse Resp B/P (MAP) Pulse Ox O2 Delivery O2 Flow Rate FiO2 12/10/24 14:30 98.2 81 19 121/33 (62) 100 208.8 12/10/24 13:47 30 12/10/24 13:40 Mechanical Ventilator+ Total Intake and Output 12/09/24 12/09/2425 15:00 23:00 07:00 Intake Total 264.438 ml 539.378 ml 600.000 ml Output Total 47 ml 89 ml Balance 264.438 ml 492.378 ml 511.000 ml medications Current Medications Medications Dose Ordered Sig/Dioni Route Start Time Stop Time Status Last Admin Dose Admin Sevelamer HCl 800 mg TIDWM PO 12/01/24 08:00 12/08/24 18:27 800 MG Sodium Chloride 10 ml Q8HR IV 12/01/24 14:00 12/10/24 14:09 10 ML Docusate Sodium 100 mg BIDPRN PRN PO 12/01/24 08:00 12/02/24 23:20 100 MG Acetaminophen 650 mg Q6HP PRN PO 12/01/24 08:00 Hydralazine HCl 10 mg Q6HP PRN IV 12/01/24 08:15 Nitroglycerin 0.4 mg Q5MINP PRN SL 12/01/24 08:45 Midazolam HCl 50 ml @ 1 mls/hr Q24H IV 12/03/24 18:00 12/08/24 17:10 1 MLS/HR Fentanyl Citrate 250 ml @ 2.5 mls/hr Q24H IV 12/03/24 18:00 12/10/24 01:40 7.5 MLS/HR Vancomycin HCl 0 ml @ 0 mls/hr UD IV 12/04/24 09:45 Cefepime HCl 0.5 gm/Dextrose 50 ml @ 12.5 mls/hr Q24H IV 12/05/24 18:00 12/09/24 18:00 12.5 MLS/HR Norepinephrine Bitartrate 250 ml @ 0.938 mls/ hr Q24H IV 12/04/24 17:15 12/09/24 14:39 0.938 MLS/HR Midodrine 10 mg Q8HR PO 12/04/24 22:00 12/10/24 14:09 10 MG Enteral Nutritional Formula 1,000 ml 30ML/HR GT 12/05/24 12:15 12/08/24 00:09 1,000 ML Pantoprazole Sodium 40 mg DAILY IV 12/07/24 10:00 12/10/24 08:32 40 MG Insulin Human Regular Q6HR SC 12/06/24 18:00 Dextrose 50 ml UD PRN IV 12/06/24 15:15 12/09/24 13:47 50 ML Levalbuterol HCl 0.625 mg Q6HR NEB 12/07/24 00:00 12/10/24 11:56 0.625 MG Ipratropium [place] 0.5 mg Q6HR NEB 12/07/24 00:00 12/10/24 11:56 0.5 MG Albumin Human 100 ml @ 100 mls/hr PRN PRN IV 12/07/24 06:15 12/07/24 07:30 100 MLS/HR Metoclopramide HCl 5 mg Q8HR IV 12/07/24 14:00 12/10/24 14:09 5 MG Diagnostic Test (Pha) 1 strip Q6HR 12/10/24 12:00 12/10/24 11:50 1 STRIP laboratory and microbiology Laboratory Tests 12/10/24 04:01 Test 12/10/24 04:01 Range/Units Serum Glucose 103 74-106 mg/dL Problem List RESP FAILURE PNEUMONIA HYPOTENSION SEVERE ANEMIA INTUBATED ESRD-HD COPD DM2 CAD/CABG [facility]N [facility] * Left main shows 50% heavily calcified narrowing with moderate diffuse disease. * Left anterior descending artery, high-grade narrowing proximally and in the mid lesion greater than 90%. * LEY to the LAD was patent. * Circumflex artery, moderate diffuse disease throughout. * Right coronary artery was occluded. * Saphenous vein graft to the OM is patent; however, there is a sluggish flow, in fact obtuse marginal is being supplied by the [place] vessel even though the patient has a high-grade narrowing of the left main. * Right coronary artery was occluded. Saphenous vein graft to the PDA was patent; however. * The patient on fluoroscopy appears to have normal functioning aortic valve with no restriction or calcification noted. * Right heart catheterization showed RA pressure of 8, RV pressure of 52/12, PA pressure of 50/20 and capillary wedge pressure of 18. Thus, the patient with heavily calcified anatomy throughout the aorta, coronaries, carotid, subclavian. Anatomy as described above. At this time, the patient is not a candidate for any revascularization. He has got a patent ELY to the LAD, patent saphenous vein graft to the OM, although it is heavily degenerated with very sluggish flow. The circumflex artery is actually being supplied by the [place] vessel. Right coronary artery was occluded, however, saphenous vein graft to the PDA was patent. At this time, conservative medical management, aggressive risk modification, antiplatelet therapy should be maintained especially with EDP inhibitors, receptor inhibitors such as Plavix or Brilinta and the patient should be maintained on Eliquis as well. The patient is a poor candidate for any revascularization percutaneously or surgical. The patient has a visible stent in the left subclavian vein as well. Assessment/Plan CARDIAC STATUS STABLE ECHO EF 40% AV PROSTHESIS MAY PROCEED WITH SURGICAL INTERVENTION ASA II/ III ALL CULTURES NEGATIVE NASAL SWAB NEGATIVE PERSISTENT LEUKOCYTOSIS CONSIDER VICKY IF CONTINUED LEUKOCYTOSIS WBC TRENDING UP CONSIDER CHANGING ABX VICKY IN AM stillwith leukocytosis anemia consider epogen/ iron study Dietary Evaluation Review Comments: 1) Increase EN nutrition to meet at least 75% of estimated needs ([place] 1.8 @ 30ml/hr x 24 hrs uninterrupted continuous feed adequately meets pt needs) 2) Advance pt diet when medically feasible to a Renal Standard diet modified per BLOCKER AND POLISHER GOLD WHEEL recommendations 3) Continue current plan of care Expected Outcomes/Goals: 1) Pt to receive adequate nutrition support 2) Pt diet to advance 3) F/U in 2-3 days Plan discussed with: Patient Critical Care Time(min): 35 CC Plasma Assessment Blood Product Administration S: [id number] BALAJI KING MD Dec 10, 2024 14:56
--- NOTE | 2024-12-10 16:19 | DVHPNRES ---
Progress Note Date Seen: Dec 10, 2024 Resident Creating Document: TAM ORTIZ RESIDENT Medical Necessity Reason Pt with a Central, PICC or Fol: Yes The following are medically ne: Central Line Subjective Review of Systems This is a 69-year-old male patient with PMHx of CHF, status post CABG 2018, COPD on home oxygen, diabetes mellitus, ESRD on hemodialysis with [facility] Tue/Th/Sat, dyslipidemia, hypertension, secondary hyperparathyroidism who presented to the ER with a chief complaint of generalized weakness and nausea vomiting and dizziness. Per daughter Hilda, patient has history of recurrent right-sided pleural effusion from the past 5 years for which he initially would get thoracocentesis every month but recently he has been getting thoracocentesis every week. Last thoracocentesis was done on November 19 which was bloody. Patient reported generalized weakness and dizziness but was not altered and he would do daily activities himself. He does not make any urine and is dependent on dialysis. Associated symptoms include sweating. After heart catheterization 08/[address] López - patent ELY to the LAD, patent saphenous vein graft to the OM. patient is visibly stent in the left subclavian vein. On arrival patient was hypotensive, map was 37, and on 12/03 he underwent cardiac arrest for which he experienced 2 rounds of CPR and 1 dose of epinephrine. Consequently he underwent intubation and mechanical ventilation on 12/03. ABG showed non-anion gap metabolic acidosis. Lactic acid was 8 which resolved. He was started on azithromycin and vancomycin in midodrine and require pressor support and sedatives. Echocardiogram was completed which showed EF 40% with mild LVH. Or a and RV dilated. PASP 60. Chest CT completed, shows loculated right-sided pleural effusion. His hemoglobin was 6 on arrival, he received 4 units of packed RBCs. Right femoral CVC was placed 1/3. Patient seen and examined at the bedside. Chest tube draining 130 cc in 24 hours. Send fluid for cytology. Patient is currently on Levophed 0.5 and fentanyl 75. DC D5 given the hyponatremia. Objective vital signs Vital Sign Date Time Temp Pulse Resp B/P (MAP) Pulse Ox O2 Delivery O2 Flow Rate FiO2 12/10/24 15:53 79 19 122/35 (64) 100 30 12/10/24 15:15 98.2 208.8 12/10/24 13:40 Mechanical Ventilator+ Total Intake and Output 12/09/24 12/09/24 12/10/24 15:00 23:00 07:00 Intake Total 264.438 ml 539.378 ml 600.000 ml Output Total 47 ml 89 ml Balance 264.438 ml 492.378 ml 511.000 ml medications Current Medications Medications Dose Ordered Sig/Dioni Route Start Time Stop Time Status Last Admin Dose Admin Sevelamer HCl 800 mg TIDWM PO 12/01/24 08:00 12/08/24 18:27 800 MG Sodium Chloride 10 ml Q8HR IV 12/01/24 14:00 12/10/24 14:09 10 ML Docusate Sodium 100 mg BIDPRN PRN PO 12/01/24 08:00 12/02/24 23:20 100 MG Acetaminophen 650 mg Q6HP PRN PO 12/01/24 08:00 Hydralazine HCl 10 mg Q6HP PRN IV 12/01/24 08:15 Nitroglycerin 0.4 mg Q5MINP PRN SL 12/01/24 08:45 Midazolam HCl 50 ml @ 1 mls/hr Q24H IV 12/03/24 18:00 12/08/24 17:10 1 MLS/HR Fentanyl Citrate 250 ml @ 2.5 mls/hr Q24H IV 12/03/24 18:00 12/10/24 01:40 7.5 MLS/HR Vancomycin HCl 0 ml @ 0 mls/hr UD IV 12/04/24 09:45 Cefepime HCl 0.5 gm/Dextrose 50 ml @ 12.5 mls/hr Q24H IV 12/05/24 18:00 12/09/24 18:00 12.5 MLS/HR Norepinephrine Bitartrate 250 ml @ 0.938 mls/ hr Q24H IV 12/04/24 17:15 12/09/24 14:39 0.938 MLS/HR Midodrine 10 mg Q8HR PO 12/04/24 22:00 12/10/24 14:09 10 MG Enteral Nutritional Formula 1,000 ml 30ML/HR GT 12/05/24 12:15 12/08/24 00:09 1,000 ML Pantoprazole Sodium 40 mg DAILY IV 12/07/24 10:00 12/10/24 08:32 40 MG Insulin Human Regular Q6HR SC 12/06/24 18:00 Dextrose 50 ml UD PRN IV 12/06/24 15:15 12/09/24 13:47 50 ML Levalbuterol HCl 0.625 mg Q6HR NEB 12/07/24 00:00 12/10/24 11:56 0.625 MG Ipratropium [place] 0.5 mg Q6HR NEB 12/07/24 00:00 12/10/24 11:56 0.5 MG Albumin Human 100 ml @ 100 mls/hr PRN PRN IV 12/07/24 06:15 12/07/24 07:30 100 MLS/HR Metoclopramide HCl 5 mg Q8HR IV 12/07/24 14:00 12/10/24 14:09 5 MG Diagnostic Test (Pha) 1 strip Q6HR 12/10/24 12:00 12/10/24 11:50 1 STRIP Examination Patient lying in bed, opening eyes and squeezing fingers with verbal commands. RASS -5 General: Cachectic, afebrile, palor, mucosae are moist Cardiovascular: Regular S1 and S2. No murmurs, gallops or rubs. No JVD elevation. No pedal edema Respiratory: Decreased right-sided breath sounds Abdomen: Soft, nontender, nondistended, hypoactive bowel sounds, no rebound tenderness, no organomegaly, no masses. 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 MSK/skin: Skin is dry and warm Neurological: Pupils are anisocoric and sluggish laboratory and microbiology Laboratory Tests 12/10/24 04:01 Test 12/10/24 04:01 Range/Units Serum Glucose 103 74-106 mg/dL Microbiology Date/Time Source Procedure Growth Status 12/09/24 20:15 Pleural Fluid Gram Stain - Final Resulted 12/09/24 20:15 Pleural Fluid Body Fluid Culture - Preliminary Resulted 12/05/24 01:30 Nose MRSA Screen - Final Complete 12/04/24 11:15 Blood Blood Culture - Final NO GROWTH AFTER 5 DAYS OF INCUBATION. Complete 12/03/24 21:30 Sputum Gram Stain - Final Complete 12/03/24 21:30 Sputum Respiratory Culture - Final Complete Labs and/or images reviewed: Labs reviewed by me, Image(s) reviewed by me Problem List/Assessment/Plan Problem List/Assessment/Plan NEUROLOGY Generalized weakness Dizziness Head CT completed 12/06 unremarkable CARDIOVASCULAR Status post cardiac arrest 12/03 Septic shock secondary to pneumonia Coronary artery disease status post CABG 2018 Hypertension Dyslipidemia Lactic acidosis-resolved Continue midodrine 10 mg Q 8 hour RESPIRATORY Acute hypoxic respiratory failure secondary to pneumonia, Gram-positive and gram negative status post intubation Right loculated hemothorax status post chest tube placement 12/09 Atelectasis COPD on home oxygen Pleural fluid- Prelim respiratory culture and Gram stain 12/09 negative Continue IV cefepime and IV vancomycin DC IVC azithromycin on 12/06 GI Transaminitis likely shock liver Monitor Reglan IV 5 mg Q 8 scheduled /KIDNEY End-stage renal disease, on hemodialysis Anemia, symptomatic Rhabdomyolysis Continue hemodialysis and continue sevelamer 800 mg TID Hemodialysis 12/07-2.2 L taken out ENDO Secondary hyperparathyroidism Diabetes mellitus type 2 Hyponatremia On ISS ID 12/04-Prelim blood culture negative 12/03-Prelim respiratory culture negative IV cefepime starting 12/05 and vancomycin starting 12/04 HEM-ONCO Severe anemia likely secondary to blood loss Coagulopathy Thrombocytopenia Right cephalic vein thrombosis 4 packed RBCs transfused 1 dose of vitamin K 10 mg subcutaneous administered 1 unit of platelet pheresis 12/08 Continue warm compresses SKIN Amputation of the toes Monitor LINES Intubated 12/03 Right femoral CVC 12/03 DRIPS Levophed 0.5 Versed 0 Fentanyl 75 NUTRITION: Nepro 30 mL/hour Goals of care/advance care planning; FULL CODE; discussed on for 24 minutes. PUD prophylaxis; pantoprazole 40 mg daily IV DVT prophylaxis: SCDs given the severe anemia Plan discussed with patient's daughter and spouse at the bedside (Hilda and Yamilet) in which all questions have been answered Critical Care time including chart review, discussing with patient's family and nurse: 55 minutes Case discussed with Dr. Gan. Chest tube draining 130 cc of bloody fluid. Plan discussed with: Patient, Daughter (At the bedside) My Orders My Orders Orders - TAM ORTIZ RESIDENT Procedure Category Date Status Time Abg W/ Co-Ox RT 12/10/24 Logged 06:00 Glucose Blood PHA 12/10/24 In Process (Accu-Chek Comfort 12:00 Dietary Evaluation Review Comments: 1) Increase EN nutrition to meet at least 75% of estimated needs (Nepro 1.8 @ 30ml/hr x 24 hrs uninterrupted continuous feed adequately meets pt needs) 2) Advance pt diet when medically feasible to a Renal Standard diet modified per DIESEL LOCOMOTIVE FIRER recommendations 3) Continue current plan of care Expected Outcomes/Goals: 1) Pt to receive adequate nutrition support 2) Pt diet to advance 3) F/U in 2-3 days CC Plasma Assessment Blood Product Administration S: [id number] TAM ORTIZ RESIDENT Dec 10, 2024 16:19
[2024-12-10] MEDS: EPOETIN ALFA-EPBX 4,000 UNIT/ML VIAL SC ONE (21:48)
[2024-12-10] MEDS: LACTULOSE 20Gm/30ML SOLN PO SCH (21:48)
[2024-12-10] MEDS: VANCOMYCIN 500mg/100mL 100 ML IV ONE (21:49)
--- NOTE | 2024-12-10 23:46 | DVHPN2 ---
Progress Note - Dictate Date Seen: Dec 10, 2024 Medical Necessity Reason Pt with a Central, PICC or Fol: Yes The following are medically ne: Central Line Subjective Patient seen and examined at bedside. Sedated, intubated on mechanical ventilator. Overnight events reviewed. vital signs Vital Sign Date Time Temp Pulse Resp B/P (MAP) Pulse Ox O2 Delivery O2 Flow Rate FiO2 12/10/24 22:09 90 20 84/69 (74) 100 30 12/10/24 18:45 98.4 209.1 12/10/24 18:31 Mechanical Ventilator+ Total Intake and Output 12/09/24 12/09/24 12/10/24 15:00 23:00 07:00 Intake Total 264.438 ml 539.378 ml 600.000 ml Output Total 47 ml 89 ml Balance 264.438 ml 492.378 ml 511.000 ml medications Current Medications Medications Dose Ordered Sig/Dioni Route Start Time Stop Time Status Last Admin Dose Admin Sevelamer HCl 800 mg TIDWM PO 12/01/24 08:00 12/08/24 18:27 800 MG Sodium Chloride 10 ml Q8HR IV 12/01/24 14:00 12/10/24 21:50 10 ML Docusate Sodium 100 mg BIDPRN PRN PO 12/01/24 08:00 12/02/24 23:20 100 MG Acetaminophen 650 mg Q6HP PRN PO 12/01/24 08:00 Hydralazine HCl 10 mg Q6HP PRN IV 12/01/24 08:15 Nitroglycerin 0.4 mg Q5MINP PRN SL 12/01/24 08:45 Midazolam HCl 50 ml @ 1 mls/hr Q24H IV 12/03/24 18:00 12/08/24 17:10 1 MLS/HR Fentanyl Citrate 250 ml @ 2.5 mls/hr Q24H IV 12/03/24 18:00 12/10/24 01:40 7.5 MLS/HR Vancomycin HCl 0 ml @ 0 mls/hr UD IV 12/04/24 09:45 Cefepime HCl 0.5 gm/Dextrose 50 ml @ 12.5 mls/hr Q24H IV 12/05/24 18:00 12/10/24 21:50 12.5 MLS/HR Norepinephrine Bitartrate 250 ml @ 0.938 mls/ hr Q24H IV 12/04/24 17:15 12/09/24 14:39 0.938 MLS/HR Midodrine 10 mg Q8HR PO 12/04/24 22:00 12/10/24 21:48 10 MG Enteral Nutritional Formula 1,000 ml 30ML/HR GT 12/05/24 12:15 12/08/24 00:09 1,000 ML Pantoprazole Sodium 40 mg DAILY IV 12/07/24 10:00 12/10/24 08:32 40 MG Insulin Human Regular Q6HR SC 12/06/24 18:00 Dextrose 50 ml UD PRN IV 12/06/24 15:15 12/09/24 13:47 50 ML Levalbuterol HCl 0.625 mg Q6HR NEB 12/07/24 00:00 12/10/24 19:06 0.625 MG Ipratropium [place] 0.5 mg Q6HR NEB 12/07/24 00:00 12/10/24 19:06 0.5 MG Albumin Human 100 ml @ 100 mls/hr PRN PRN IV 12/07/24 06:15 12/07/24 07:30 100 MLS/HR Metoclopramide HCl 5 mg Q8HR IV 12/07/24 14:00 12/10/24 21:47 5 MG Diagnostic Test (Pha) 1 strip Q6HR 12/10/24 12:00 12/10/24 18:00 1 STRIP Lactulose 30 ml DAILY@2200 PO 12/10/24 22:00 12/10/24 21:48 30 ML objective Gen.: Patient lying in bed in medical ICU. Sedated, intubated on mechanical ventilator. Head: Normocephalic, atraumatic. Eyes: PERRLA. Ears: Normal external anatomy. Throat: Endotracheal tube and orogastric tube in place. Neck: Supple, trachea midline. Chest: Transmitted breath sounds bilaterally. Decreased air entry bilaterally. No wheezing. Bibasilar crackles. Cardiovascular: Positive S1, positive S2. Regular rate and rhythm. Abdomen: Positive bowel sounds in all 4 quadrants. Soft, nontender, nondistended. : Su in place. Normal external genitalia. Rectal: Deferred. Skin: Warm, dry. Intact. Extremities: 2+ radial pulses bilaterally. No lower extremity edema. Neuro: Sedated. laboratory and microbiology Laboratory Tests 12/10/24 04:01 Test 12/10/24 04:01 Range/Units Serum Glucose 103 74-106 mg/dL Assessment/Plan Impression: Acute hypoxic respiratory failure On mechanical ventilator Recurrent pleural effusion Atelectasis End-stage renal disease, on hemodialysis Anemia, symptomatic Lactic acidosis Events: Remains on mechanical ventilator. On AC mode with RR 18, VT 450, PEEP 5, FiO2 30% HD today - removing 2.5 liters Sedated on Fentanyl On pressors for hemodynamic support Levophed 0,5 mcg/min Titrate to keep mean arterial pressure greater than 65 mmHg. ABG reviewed, acidemia Monitor chest tube output - 120 ml sanguineous fluid No air leak Continue antibiotics Tube feeds for nutritional support Monitor hemoglobin Transfuse if less than 7.0 g/dL. HD per Nephrology Monitor renal function Monitor sodium level CT chest without contrast demonstrates Large right hydro hemothorax. No pneumothorax. Small left pleural effusion. Patchy consolidation and ground-glass opacities in both lungs. Ascites. Surgery recs appreciated. Limited chest ultrasound demonstrated loculated viscous fluid by ultrasound appearance Labs and imaging reviewed. Rest of plan as noted below. Plan: s/p intubation on mechanical ventilator. On AC mode with RR 18, VT 450, PEEP 5, FiO2 30% Improved FiO2 requirements Titrate FIO2 to keep O2 saturation above 90%. VAP bundle. Daily ABG and CXR while intubated Sedate for ventilator synchrony On pressors for hemodynamic support Titrate to keep mean arterial pressure greater than 65 mmHg. Monitor hemoglobin Transfuse if less than 7.0 g/dL. Continue antibiotics Pain control Avoid oversedation On Eliquis Accu-Cheks, ISS. HD per Nephrology Monitor renal function. Monitor electrolytes. Supplement as necessary. Monitor ins and outs. DVT prophylaxis. Prognosis: Poor given patient's multiple co-morbidities. Condition: Critical Rest of plan per hospitalist and other consultants. A total of 35 minutes of critical care time was spent reviewing the patient record, examining the patient, making a diagnostic and therapeutic plan, discussing this plan with the medical personnel, following up on diagnostic studies and following the patient for clinical stability excluding any and all procedures. At least 50% of this time was spent in direct, [id number] contact. Thank you, yS Oliver NP, for allowing me to participate in this patient's care. Further recommendations will depend on the patient's clinical course. Please do not hesitate to contact me if you have any questions or concerns. This medical document was created using an electronic medical record system with [employer] dictation system. Although these documentations are being carefully reviewed, there may still be some phonetic and typographical changes. The errors are purely typographical, due to imperfection on the software program, and do not reflect any compromise in the patient's medical care. Dietary Evaluation Review Comments: 1) Increase EN nutrition to meet at least 75% of estimated needs (Nepro 1.8 @ 30ml/hr x 24 hrs uninterrupted continuous feed adequately meets pt needs) 2) Advance pt diet when medically feasible to a Renal Standard diet modified per DENITRATOR OPERATOR recommendations 3) Continue current plan of care Expected Outcomes/Goals: 1) Pt to receive adequate nutrition support 2) Pt diet to advance 3) F/U in 2-3 days Plan discussed with: Other (ALVARO Santos) Critical Care Time(min): 35 CC Plasma Assessment Blood Product Administration S: [id number] AUSTIN LISA MD Dec 10, 2024 23:45
[2024-12-11] VITALS (116 sets, daily range): BP systolic 67–172; BP diastolic 10–87; PULSE 78–108; RESP 10–33; TEMP 99–99.9; O2SAT 100
[2024-12-11 04:40] LABS: Basophils # (auto) 0.1 10 ^3/uL (0-0.2); Basophils % (auto) 0.5 % (0.0-2.0); Eosinophils # (auto) 0.1 10 ^3/uL (0-0.8); Eosinophils % (auto) 1.3 % (0.0-7.0); Hematocrit 25.7 % (41.0-53.0); Hemoglobin 8.5 g/dL (13.5-17.5); Lymphocytes # (auto) 0.3 10 ^3/uL (0.4-5.4); Lymphocytes % (auto) 2.6 % (10.0-50.0); Mean Corpuscular Hemoglobin 30.5 pg (28.0-32.0); Mean Corpuscular Hgb Conc. 33.1 g/dL (32.0-36.0); Mean Corpuscular Volume 92.2 fL (80.0-100.0); Monocytes # (auto) 1.2 10 ^3/uL (0-1.3); Neutrophils # (auto) 9.9 10 ^3/uL (1.6-8.6); Neutrophils % (auto) 85.6 % (37.0-80.0); Platelet Count (auto) 98 10^3/uL (140-450); Red Blood Cells 2.78 10^6/uL (4.5-5.90); Red Cell Distribution Width 16.9 % (11.8-14.3); White Blood Cell 11.6 10^3/uL (4.4-10.8)
[2024-12-11 04:46] LABS: Anion Gap 8 (5-15); Carbon Dioxide 27 mmol/L (20-31); Chloride 100 mmol/L (98-107)
[2024-12-11 04:47] LABS: Calcium 9.5 mg/dL (8.7-10.4)
[2024-12-11 04:48] LABS: Sodium 135 mmol/L (136-145)
[2024-12-11 04:52] LABS: BUN/Creatinine Ratio 6.7 (10.0-20.0); Glucose 100 mg/dL (74-106); Magnesium 2.1 mg/dL (1.6-2.6)
[2024-12-11 05:08] LABS: Blood Urea Nitrogen 26 mg/dL (9-23)
--- NOTE | 2024-12-11 05:14 | DVH ---
CHEST RADIOGRAPH Indication: Follow up Technique: Single frontal view of the chest was obtained Comparison: XY CHEST PORTABLE on DOS: 12/10/24, XY CHEST PORTABLE on DOS: 12/09/24, XY CHEST XRAY 1 VIEW on DOS: 12/09/24 IMPRESSION: The heart is enlarged with median sternotomy wires. Support lines and tubes appear unchanged in posi tion. Small right pleural effusion with associated atelectasis and moderate pulmonary vascular conges tion appear similar. No pneumothorax. Left arterial stent redemonstrated. No significant interval nely nge.
[2024-12-11 08:17] LABS: Base Excess -2.7 mmol/L (-2.0-3.0)
[2024-12-11] MEDS: METHYLNALTREXONE BROMIDE 12 MG/0.6 ML VIAL SC ONE (10:41)
[2024-12-11] MEDS ORDERED: CLINIMIX PER PHARMACY 0 ML IV SCH (13:00)
--- NOTE | 2024-12-11 14:35 | DVHPN2 ---
Assessment/Plan Assessment/Plan ICU progress note Subjective 69-year-old male with recurrent right-sided pleural effusion for the past 5 years with recent increase in frequency, found to have bloody effusion, presented with hypotension, had a cardiac arrest. Intubated and placed on mechanical ventilation, placed chest tube which drained bloody pleural effusion. Patient is seen by me during rounds today Chest tube draining 20 cc, no bowel movements, upper extremity DVT with right cephalic thrombus. Plan for surgicaldecortication from Friday. Chest tube to low intermittent suction. started on methylnaltrexone Objective Physical exam intubated mechanical ventilated Sedated PERRLA Mechanical breath sounds S1-S2 regular rate and rhythm Abdomen soft nontender Upper and lower extremity trace edema lab EKG and imaging reviewed Assessment and plan acute hypoxic respiratory failure requiring mechanical ventilation Pneumonia GP versus GI Right loculated hemothorax status post chest tube placement COPD group E on home oxygen Status post cardiac arrest with rocks ESRD on hemodialysis Anemia chronic disease versus hemorrhage from hemothorax Transaminitis secondary to shock liver Diabetes type 2 Hyponatremia Upper extremity DVT Opioid induced versus slow trans constipation Continue with mechanical ventilation Continue with sedation maintain RASS -2 Plan for surgical decortication on Friday Chest 2 continue to intermittent suction Hemodialysis per nephrology Continue with antibiotic coverage hold anticoagulation for bleeding Insulin sliding scale Tube feeding on hold methyl naltrexone, Reglan Lines right IJ tunneled catheter Right large bore chest tube Su ETT Maintain potassium of 4, phosphate of 3 and magnesium of 2 Diet on hold for retention GI prophylaxis Protonix DVT prophylaxis on hold Condition critical Prognosis poor 45 minutes critical care time spent on this patient including evaluation, chart review, formulating plan and communication with team, excluding any procedures or point of care imaging Plan discussed with: Other Date of Service: Dec 11, 2024 Billing Provider: MARIELENA SCHMIDT MD Common Visit Codes: [id number] CARE 30-74 MIN MARIELENA SCHMIDT MD Dec 11, 2024 14:35
[2024-12-11] MEDS: AMINO ACID INFUSION IN D5W 1,000 ML IV SCH (21:28)
--- NOTE | 2024-12-11 22:37 | DVHPN2 ---
Progress Note - Dictate Date Seen: Dec 11, 2024 Medical Necessity Reason Pt with a Central, PICC or Fol: Yes The following are medically ne: Central Line Subjective Patient seen and examined at bedside. Sedated, intubated on mechanical ventilator. Overnight events reviewed. vital signs Vital Sign Date Time Temp Pulse Resp B/P (MAP) Pulse Ox O2 Delivery O2 Flow Rate FiO2 12/11/24 22:08 95 20 111/37 (61) 100 30 12/11/24 21:45 99.1 210.4 12/11/24 20:00 Mechanical Ventilator+ Total Intake and Output 12/10/24 12/10/24 12/11/24 15:00 23:00 07:00 Intake Total 242.503 ml 287.504 ml 312.066 ml Output Total 22 ml 22 ml Balance 242.503 ml 265.504 ml 290.066 ml medications Current Medications Medications Dose Ordered Sig/Dioni Route Start Time Stop Time Status Last Admin Dose Admin Sevelamer HCl 800 mg TIDWM PO 12/01/24 08:00 12/11/24 17:49 800 MG Sodium Chloride 10 ml Q8HR IV 12/01/24 14:00 12/11/24 21:28 10 ML Docusate Sodium 100 mg BIDPRN PRN PO 12/01/24 08:00 12/02/24 23:20 100 MG Acetaminophen 650 mg Q6HP PRN PO 12/01/24 08:00 Hydralazine HCl 10 mg Q6HP PRN IV 12/01/24 08:15 Nitroglycerin 0.4 mg Q5MINP PRN SL 12/01/24 08:45 Midazolam HCl 50 ml @ 1 mls/hr Q24H IV 12/03/24 18:00 12/08/24 17:10 1 MLS/HR Fentanyl Citrate 250 ml @ 2.5 mls/hr Q24H IV 12/03/24 18:00 12/11/24 17:50 15 MLS/HR Vancomycin HCl 0 ml @ 0 mls/hr UD IV 12/04/24 09:45 Cefepime HCl 0.5 gm/Dextrose 50 ml @ 12.5 mls/hr Q24H IV 12/05/24 18:00 12/11/24 17:48 12.5 MLS/HR Norepinephrine Bitartrate 250 ml @ 0.938 mls/ hr Q24H IV 12/04/24 17:15 12/09/24 14:39 0.938 MLS/HR Midodrine 10 mg Q8HR PO 12/04/24 22:00 12/11/24 21:27 10 MG Enteral Nutritional Formula 1,000 ml 30ML/HR GT 12/05/24 12:15 12/08/24 00:09 1,000 ML Pantoprazole Sodium 40 mg DAILY IV 12/07/24 10:00 12/11/24 08:35 40 MG Insulin Human Regular Q6HR SC 12/06/24 18:00 Dextrose 50 ml UD PRN IV 12/06/24 15:15 12/09/24 13:47 50 ML Levalbuterol HCl 0.625 mg Q6HR NEB 12/07/24 00:00 12/11/24 18:11 0.625 MG Ipratropium [place] 0.5 mg Q6HR NEB 12/07/24 00:00 12/11/24 18:11 0.5 MG Albumin Human 100 ml @ 100 mls/hr PRN PRN IV 12/07/24 06:15 12/07/24 07:30 100 MLS/HR Metoclopramide HCl 5 mg Q8HR IV 12/07/24 14:00 12/11/24 21:27 5 MG Diagnostic Test (Pha) 1 strip Q6HR 12/10/24 12:00 12/11/24 16:57 1 STRIP Lactulose 30 ml DAILY@2200 PO 12/10/24 22:00 12/11/24 21:27 30 ML Amino Acids 0 ml @ 0 mls/hr PER PHARMACY IV 12/11/24 13:00 Amino Acids 1,000 ml @ 41 mls/hr DAILY@2200 IV 12/11/24 22:00 12/11/24 21:28 41 MLS/HR objective Gen.: Patient lying in bed in medical ICU. Sedated, intubated on mechanical ventilator. Head: Normocephalic, atraumatic. Eyes: PERRLA. Ears: Normal external anatomy. Throat: Endotracheal tube and orogastric tube in place. Neck: Supple, trachea midline. Chest: Transmitted breath sounds bilaterally. Decreased air entry bilaterally. No wheezing. Bibasilar crackles. Cardiovascular: Positive S1, positive S2. Regular rate and rhythm. Abdomen: Positive bowel sounds in all 4 quadrants. Soft, nontender, nondistended. : Su in place. Normal external genitalia. Rectal: Deferred. Skin: Warm, dry. Intact. Extremities: 2+ radial pulses bilaterally. No lower extremity edema. Neuro: Sedated. laboratory and microbiology Laboratory Tests 12/11/24 04:03 Test 12/11/24 04:03 Range/Units Serum Glucose 100 74-106 mg/dL Assessment/Plan Impression: Acute hypoxic respiratory failure On mechanical ventilator Recurrent pleural effusion Atelectasis End-stage renal disease, on hemodialysis Anemia, symptomatic Lactic acidosis Events: Remains on mechanical ventilator. On AC mode with RR 18, VT 450, PEEP 5, FiO2 30% High residuals via NGT. Start Clinimix for IV nutrition Sedated on Fentanyl drip. On pressors for hemodynamic support Levophed 1 mcg/min Titrate to keep mean arterial pressure greater than 65 mmHg. ABG reviewed, acidemia Monitor chest tube output - 22 ml, sanguineous No air leak Continue antibiotics Tube feeds for nutritional support Monitor hemoglobin Transfuse if less than 7.0 g/dL. HD per Nephrology- S/p hemodialysis yesterday Monitor renal function Monitor sodium level - 135 Plan for decortication on Friday by Surgery. CT chest without contrast demonstrates Large right hydro hemothorax. No pneumothorax. Small left pleural effusion. Patchy consolidation and ground-glass opacities in both lungs. Ascites. Surgery recs appreciated. Limited chest ultrasound demonstrated loculated viscous fluid by ultrasound appearance Labs and imaging reviewed. Rest of plan as noted below. Plan: s/p intubation on mechanical ventilator. On AC mode with RR 18, VT 450, PEEP 5, FiO2 30% Titrate FIO2 to keep O2 saturation above 90%. VAP bundle. Daily ABG and CXR while intubated Sedate for ventilator synchrony On pressors for hemodynamic support Titrate to keep mean arterial pressure greater than 65 mmHg. Monitor hemoglobin Transfuse if less than 7.0 g/dL. Continue antibiotics Pain control Avoid oversedation On Eliquis Accu-Cheks, ISS. HD per Nephrology Monitor renal function. Monitor electrolytes. Supplement as necessary. Monitor ins and outs. DVT prophylaxis. Prognosis: Poor given patient's multiple co-morbidities. Condition: Critical Rest of plan per hospitalist and other consultants. A total of 35 minutes of critical care time was spent reviewing the patient record, examining the patient, making a diagnostic and therapeutic plan, discussing this plan with the medical personnel, following up on diagnostic studies and following the patient for clinical stability excluding any and all procedures. At least 50% of this time was spent in direct, [id number] contact. Thank you, Sy Oliver NP, for allowing me to participate in this patient's care. Further recommendations will depend on the patient's clinical course. Please do not hesitate to contact me if you have any questions or concerns. This medical document was created using an electronic medical record system with kaleo dictation system. Although these documentations are being carefully reviewed, there may still be some phonetic and typographical changes. The errors are purely typographical, due to imperfection on the software program, and do not reflect any compromise in the patient's medical care. Dietary Evaluation Review Comments: 1) Increase EN nutrition to meet at least 75% of estimated needs (Nepro 1.8 @ 30ml/hr x 24 hrs uninterrupted continuous feed adequately meets pt needs) 2) Advance pt diet when medically feasible to a Renal Standard diet modified per INSIDE SALES ENGINEER recommendations 3) Continue current plan of care Expected Outcomes/Goals: 1) Pt to receive adequate nutrition support 2) Pt diet to advance 3) F/U in 2-3 days Plan discussed with: Other (ALVARO Santos/Deanne) Critical Care Time(min): 35 CC Plasma Assessment Blood Product Administration S: [id number] AUSTIN LISA MD Dec 11, 2024 22:37
[2024-12-12] VITALS (112 sets, daily range): BP systolic 65–138; BP diastolic 0–50; PULSE 76–102; RESP 13–24; TEMP 99–99.7; O2SAT 99–100
[2024-12-12 03:57] LABS: Basophils # (auto) 0.1 10 ^3/uL (0-0.2); Basophils % (auto) 0.7 % (0.0-2.0); Eosinophils # (auto) 0.3 10 ^3/uL (0-0.8); Eosinophils % (auto) 2.8 % (0.0-7.0); Hematocrit 26.7 % (41.0-53.0); Hemoglobin 8.7 g/dL (13.5-17.5); Lymphocytes # (auto) 0.5 10 ^3/uL (0.4-5.4); Lymphocytes % (auto) 4.9 % (10.0-50.0); Mean Corpuscular Hemoglobin 30.2 pg (28.0-32.0); Mean Corpuscular Hgb Conc. 32.7 g/dL (32.0-36.0); Mean Corpuscular Volume 92.1 fL (80.0-100.0); Monocytes # (auto) 1.4 10 ^3/uL (0-1.3); Monocytes % (auto) 12.4 % (0.0-12.0); Neutrophils # (auto) 8.7 10 ^3/uL (1.6-8.6); Neutrophils % (auto) 79.2 % (37.0-80.0); Nucleated Red Blood Cells % 0.2 %; Platelet Count (auto) 139 10^3/uL (140-450); Red Cell Distribution Width 16.5 % (11.8-14.3)
[2024-12-12 04:21] LABS: Alanine Aminotransferase 34 U/L (7-40); Albumin 3.2 g/dL (3.2-4.8); Alkaline Phosphatase 68 U/L (46-116); Anion Gap 13 (5-15); BUN/Creatinine Ratio 7.4 (10.0-20.0); Bilirubin, Total 0.6 mg/dL (0.2-1.0); Calcium 9.8 mg/dL (8.7-10.4); Carbon Dioxide 23 mmol/L (20-31); Chloride 98 mmol/L (98-107); Magnesium 2.2 mg/dL (1.6-2.6); Potassium 4.1 mmol/L (3.5-5.1); Total Protein 6.3 g/dL (5.7-8.2)
[2024-12-12 04:23] LABS: Blood Urea Nitrogen 37 mg/dL (9-23); Glucose 132 mg/dL (74-106); Sodium 134 mmol/L (136-145)
[2024-12-12 04:24] LABS: Aspartate Aminotransferase 52 U/L (13-40); Phosphorus 6.1 mg/dL (2.4-5.1)
[2024-12-12 08:50] LABS: Base Excess -0.7 mmol/L (-2.0-3.0)
--- NOTE | 2024-12-12 09:22 | DVHPN2 ---
Progress Note Date Seen: Dec 12, 2024 Medical Necessity Reason Pt with a Central, PICC or Fol: Yes The following are medically ne: Central Line Subjective Review of Systems: HEENT:Normal, CVS:Normal, RESPIRATORY:Normal, GI:Normal, :Normal, MSK:Normal, NEURO:Normal Objective vital signs Vital Sign Date Time Temp Pulse Resp B/P (MAP) Pulse Ox O2 Delivery O2 Flow Rate FiO2 12/12/24 09:00 99.0 77 20 102/35 (57) 100 210.2 86/12 (36) 12/12/24 07:51 Mechanical Ventilator+ 30 30 Total Intake and Output 12/11/24 12/11/24 12/12/24 15:00 23:00 07:00 Intake Total 124.750 ml 362.000 ml 555.125 ml Output Total 5 ml 0 ml Balance 124.750 ml 357.000 ml 555.125 ml medications Current Medications Medications Dose Ordered Sig/Dioni Route Start Time Stop Time Status Last Admin Dose Admin Sevelamer HCl 800 mg TIDWM PO 12/01/24 08:00 12/11/24 17:49 800 MG Sodium Chloride 10 ml Q8HR IV 12/01/24 14:00 12/12/24 05:44 10 ML Docusate Sodium 100 mg BIDPRN PRN PO 12/01/24 08:00 12/02/24 23:20 100 MG Acetaminophen 650 mg Q6HP PRN PO 12/01/24 08:00 Hydralazine HCl 10 mg Q6HP PRN IV 12/01/24 08:15 Nitroglycerin 0.4 mg Q5MINP PRN SL 12/01/24 08:45 Midazolam HCl 50 ml @ 1 mls/hr Q24H IV 12/03/24 18:00 12/08/24 17:10 1 MLS/HR Fentanyl Citrate 250 ml @ 2.5 mls/hr Q24H IV 12/03/24 18:00 12/11/24 17:50 15 MLS/HR Vancomycin HCl 0 ml @ 0 mls/hr UD IV 12/04/24 09:45 Cefepime HCl 0.5 gm/Dextrose 50 ml @ 12.5 mls/hr Q24H IV 12/05/24 18:00 12/11/24 17:48 12.5 MLS/HR Norepinephrine Bitartrate 250 ml @ 0.938 mls/ hr Q24H IV 12/04/24 17:15 12/09/24 14:39 0.938 MLS/HR Midodrine 10 mg Q8HR PO 12/04/24 22:00 12/12/24 05:54 10 MG Enteral Nutritional Formula 1,000 ml 30ML/HR GT 12/05/24 12:15 12/08/24 00:09 1,000 ML Pantoprazole Sodium 40 mg DAILY IV 12/07/24 10:00 12/12/24 07:38 40 MG Insulin Human Regular Q6HR SC 12/06/24 18:00 12/12/24 05:49 2 UNITS Dextrose 50 ml UD PRN IV 12/06/24 15:15 12/09/24 13:47 50 ML Levalbuterol HCl 0.625 mg Q6HR NEB 12/07/24 00:00 12/12/24 06:45 0.625 MG Ipratropium [place] 0.5 mg Q6HR NEB 12/07/24 00:00 12/12/24 06:45 0.5 MG Albumin Human 100 ml @ 100 mls/hr PRN PRN IV 12/07/24 06:15 12/07/24 07:30 100 MLS/HR Metoclopramide HCl 5 mg Q8HR IV 12/07/24 14:00 12/12/24 05:44 5 MG Diagnostic Test (Pha) 1 strip Q6HR 12/10/24 12:00 12/12/24 05:45 1 STRIP Lactulose 30 ml DAILY@2200 PO 12/10/24 22:00 12/11/24 21:27 30 ML Amino Acids 0 ml @ 0 mls/hr PER PHARMACY IV 12/11/24 13:00 Amino Acids 1,000 ml @ 41 mls/hr DAILY@2200 IV 12/11/24 22:00 12/11/24 21:28 41 MLS/HR Examination: GENERAL:Normal, HEENT:Normal, NECK:Normal, LUNGS:Normal, CVS:Normal, ABDOMEN:Normal, MSK:Normal, SKIN:Normal, NEURO:Normal, :Normal laboratory and microbiology Laboratory Tests 12/12/24 03:27 Test 12/12/24 03:27 Range/Units Serum Glucose 132 H 74-106 mg/dL Microbiology Date/Time Source Procedure Growth Status 12/09/24 20:15 Pleural Fluid Gram Stain - Final Resulted 12/09/24 20:15 Pleural Fluid Body Fluid Culture - Preliminary Resulted 12/05/24 01:30 Nose MRSA Screen - Final Complete 12/04/24 11:15 Blood Blood Culture - Final NO GROWTH AFTER 5 DAYS OF INCUBATION. Complete 12/03/24 21:30 Sputum Gram Stain - Final Complete 12/03/24 21:30 Sputum Respiratory Culture - Final Complete Problem List/Assessment/Plan Problem List/Assessment/Plan Patient continues to drain small amount from the right chest tube proximally 300 mL completely drain so far of sanguinous fluid. Patient should continue on wall suction Patient should be NPO after midnight for possible decortication tomorrow Plan discussed with: Other (nurse) Dietary Evaluation Review Comments: 1) Increase EN nutrition to meet at least 75% of estimated needs (Nepro 1.8 @ 30ml/hr x 24 hrs uninterrupted continuous feed adequately meets pt needs) 2) Advance pt diet when medically feasible to a Renal Standard diet modified per [employer]LE [employer]PERATOR [employer]ACK recommendations 3) Continue current plan of care Expected Outcomes/Goals: 1) Pt to receive adequate nutrition support 2) Pt diet to advance 3) F/U in 2-3 days CC Plasma Assessment Blood Product Administration S: [id number] UMER ROSENBAUM Jr., MD Dec 12, 2024 09:22
--- NOTE | 2024-12-12 16:44 | DVHPN2 ---
Progress Note - Dictate Date Seen: Dec 12, 2024 Medical Necessity Reason Pt with a Central, PICC or Fol: Yes The following are medically ne: Central Line Subjective Intubated and on 30 % Fio2 S/P right chest tube placement . For probable decortication in AM . vital signs Vital Sign Date Time Temp Pulse Resp B/P (MAP) Pulse Ox O2 Delivery O2 Flow Rate FiO2 12/12/24 16:22 90 19 110/40 (63) 100 30 12/12/24 15:55 Mechanical Ventilator+ 12/12/24 15:45 99.5 211.1 Total Intake and Output 12/11/24 12/11/24 12/12/24 15:00 23:00 07:00 Intake Total 124.750 ml 362.000 ml 613.000 ml Output Total 5 ml 0 ml Balance 124.750 ml 357.000 ml 613.000 ml medications Current Medications Medications Dose Ordered Sig/Dioni Route Start Time Stop Time Status Last Admin Dose Admin Sevelamer HCl 800 mg TIDWM PO 12/01/24 08:00 12/11/24 17:49 800 MG Sodium Chloride 10 ml Q8HR IV 12/01/24 14:00 12/12/24 11:27 10 ML Docusate Sodium 100 mg BIDPRN PRN PO 12/01/24 08:00 12/02/24 23:20 100 MG Acetaminophen 650 mg Q6HP PRN PO 12/01/24 08:00 Hydralazine HCl 10 mg Q6HP PRN IV 12/01/24 08:15 Nitroglycerin 0.4 mg Q5MINP PRN SL 12/01/24 08:45 Midazolam HCl 50 ml @ 1 mls/hr Q24H IV 12/03/24 18:00 12/08/24 17:10 1 MLS/HR Fentanyl Citrate 250 ml @ 2.5 mls/hr Q24H IV 12/03/24 18:00 12/12/24 09:47 15 MLS/HR Vancomycin HCl 0 ml @ 0 mls/hr UD IV 12/04/24 09:45 Cefepime HCl 0.5 gm/Dextrose 50 ml @ 12.5 mls/hr Q24H IV 12/05/24 18:00 12/11/24 17:48 12.5 MLS/HR Norepinephrine Bitartrate 250 ml @ 0.938 mls/ hr Q24H IV 12/04/24 17:15 12/09/24 14:39 0.938 MLS/HR Midodrine 10 mg Q8HR PO 12/04/24 22:00 12/12/24 05:54 10 MG Enteral Nutritional Formula 1,000 ml 30ML/HR GT 12/05/24 12:15 12/08/24 00:09 1,000 ML Pantoprazole Sodium 40 mg DAILY IV 12/07/24 10:00 12/12/24 07:38 40 MG Insulin Human Regular Q6HR SC 12/06/24 18:00 12/12/24 05:49 2 UNITS Dextrose 50 ml UD PRN IV 12/06/24 15:15 12/09/24 13:47 50 ML Levalbuterol HCl 0.625 mg Q6HR NEB 12/07/24 00:00 12/12/24 12:21 0.625 MG Ipratropium [place] 0.5 mg Q6HR NEB 12/07/24 00:00 12/12/24 12:20 0.5 MG Albumin Human 100 ml @ 100 mls/hr PRN PRN IV 12/07/24 06:15 12/07/24 07:30 100 MLS/HR Metoclopramide HCl 5 mg Q8HR IV 12/07/24 14:00 12/12/24 14:27 5 MG Diagnostic Test (Pha) 1 strip Q6HR 12/10/24 12:00 12/12/24 16:31 1 STRIP Lactulose 30 ml DAILY@2200 PO 12/10/24 22:00 12/11/24 21:27 30 ML Amino Acids 0 ml @ 0 mls/hr PER PHARMACY IV 12/11/24 13:00 Amino Acids 1,000 ml @ 41 mls/hr DAILY@2200 IV 12/11/24 22:00 12/11/24 21:28 41 MLS/HR objective gen: on vent HEENT: NC,AT Lungs: no breath sounds Rt lung Cardiac: RRR, no murmur Abd: soft, no tenderness Ext: no edema. Neuro: sedated laboratory and microbiology Laboratory Tests 12/12/24 03:27 Test 12/12/24 03:27 Range/Units Serum Glucose 132 H 74-106 mg/dL Problem List ESRD on HD s/p cardiac arrest Hemorrhagic shock Large Rt hydrothorax, hemothorax Acute hypoxic respiratory failure s/p intubation on mechanical ventilator Pneumonia Hyperphosphatemia Secondary hyperparathyroidism Metabolic acidosis Assessment/Plan S/P chest tube placement for probable decortication in AM HD tomorrow CATE post HD Dietary Evaluation Review Comments: 1) Increase EN nutrition to meet at least 75% of estimated needs (Nepro 1.8 @ 30ml/hr x 24 hrs uninterrupted continuous feed adequately meets pt needs) 2) Advance pt diet when medically feasible to a Renal Standard diet modified per EDUCATIONAL PSYCHOLOGY PROFESSOR recommendations 3) Continue current plan of care Expected Outcomes/Goals: 1) Pt to receive adequate nutrition support 2) Pt diet to advance 3) F/U in 2-3 days Plan discussed with: Other CC Plasma Assessment Blood Product Administration S: [id number] NIKKI CHRISTIANSON MD Dec 12, 2024 16:44
--- NOTE | 2024-12-12 19:16 | DVHPN2 ---
Assessment/Plan Assessment/Plan ICU progress note Subjective 69-year-old male with recurrent right-sided pleural effusion for the past 5 years with recent increase in frequency, found to have bloody effusion, presented with hypotension, had a cardiac arrest. Intubated and placed on mechanical ventilation, placed chest tube which drained bloody pleural effusion. Patient is seen by me during rounds today Chest tube no further draining, plan for thoracotomy tomorrow, coags labs AM. on clinimix to residual. TF held Objective Physical exam intubated mechanical ventilated Sedated PERRLA Mechanical breath sounds S1-S2 regular rate and rhythm Abdomen soft nontender Upper and lower extremity trace edema lab EKG and imaging reviewed Assessment and plan acute hypoxic respiratory failure requiring mechanical ventilation Pneumonia GP versus GI Right loculated hemothorax status post chest tube placement COPD group E on home oxygen Status post cardiac arrest with rocks ESRD on hemodialysis Anemia chronic disease versus hemorrhage from hemothorax Transaminitis secondary to shock liver Diabetes type 2 Hyponatremia Upper extremity DVT Opioid induced versus slow trans constipation Continue with mechanical ventilation Continue with sedation maintain RASS -2 Plan for surgical decortication on Friday Chest 2 continue to intermittent suction Hemodialysis per nephrology Continue with antibiotic coverage hold anticoagulation for bleeding Insulin sliding scale Tube feeding on hold methyl naltrexone, Reglan clinimix Lines right IJ tunneled catheter Right large bore chest tube Su ETT Maintain potassium of 4, phosphate of 3 and magnesium of 2 Diet on hold for retention GI prophylaxis Protonix DVT prophylaxis on hold Condition critical Prognosis poor 40 minutes critical care time spent on this patient including evaluation, chart review, formulating plan and communication with team, excluding any procedures or point of care imaging Plan discussed with: Other Date of Service: Dec 12, 2024 Billing Provider: MARIELENA SCHMIDT MD Common Visit Codes: 94095-[id number] CARE 30-74 MIN MARIELENA SCHMIDT MD Dec 12, 2024 19:16
--- NOTE | 2024-12-12 19:43 | DVH ---
LEFT Upper Extremity Venous Duplex Clinical History: R/O DVT Comparison: US LEFT UPPER DVT on DOS: 12/10/24 Technique: Duplex Doppler evaluation of the venous system of the LEFT lower neck and upper extremity including c olor Doppler and spectral/pulsed waveform analysis was performed. Findings: The internal jugular vein demonstrates appropriate compressibility and waveform variability . The subclavian vein is patent on color Doppler evaluation without intraluminal thrombus and demonstra luz [place]ina waveform variability . The visualized portion of the brachiocephalic vein is patent on color Doppler evaluation without intr aluminal thrombus and demonstrates waveform variability . The axillary vein demonstrates appropriate compressibility and waveform variability . The brachial veins demonstrate appropriate compressibility and patency on Doppler evaluation. The basilic vein demonstrates appropriate compressibility and patency on Doppler evaluation. The cephalic vein demonstrates appropriate compressibility and patency on Doppler evaluation. Impression: 1. No venous thrombus identified in the LEFT upper extremity vessels evaluated above. 2. ROULEAUX FLOW NOTED IN THE CEPHALIC VEIN ON THE LEFT. 3. POSSIBLE FISTULA ON THE LEFT APPEARS TO BE PATENT. "A THRILL WAS PALPATED." If clinical concern/symptoms persist or worsen, short-interval follow-up study is suggested.
[2024-12-12] MEDS: fentaNYL Drip 2500mCg/250mlNS 250 ML IV SCH (21:45)
--- NOTE | 2024-12-12 21:51 | DVHPN2 ---
Progress Note - Dictate Date Seen: Dec 12, 2024 Medical Necessity Reason Pt with a Central, PICC or Fol: Yes The following are medically ne: Central Line Subjective Patient seen and examined at bedside. Sedated, intubated on mechanical ventilator. Overnight events reviewed. vital signs Vital Sign Date Time Temp Pulse Resp B/P (MAP) Pulse Ox O2 Delivery O2 Flow Rate FiO2 12/12/24 21:15 99.3 90 19 111/41 (64) 100 99.3 12/12/24 20:09 30 12/12/24 20:00 Mechanical Ventilator+ Total Intake and Output 12/11/24 12/11/24 12/12/24 15:00 23:00 07:00 Intake Total 124.750 ml 362.000 ml 613.000 ml Output Total 5 ml 0 ml Balance 124.750 ml 357.000 ml 613.000 ml medications Current Medications Medications Dose Ordered Sig/Dioni Route Start Time Stop Time Status Last Admin Dose Admin Sodium Chloride 10 ml Q8HR IV 12/01/24 14:00 12/12/24 11:27 10 ML Docusate Sodium 100 mg BIDPRN PRN PO 12/01/24 08:00 12/02/24 23:20 100 MG Acetaminophen 650 mg Q6HP PRN PO 12/01/24 08:00 Hydralazine HCl 10 mg Q6HP PRN IV 12/01/24 08:15 Nitroglycerin 0.4 mg Q5MINP PRN SL 12/01/24 08:45 Midazolam HCl 50 ml @ 1 mls/hr Q24H IV 12/03/24 18:00 12/08/24 17:10 1 MLS/HR Vancomycin HCl 0 ml @ 0 mls/hr UD IV 12/04/24 09:45 Cefepime HCl 0.5 gm/Dextrose 50 ml @ 12.5 mls/hr Q24H IV 12/05/24 18:00 12/12/24 18:00 12.5 MLS/HR Norepinephrine Bitartrate 250 ml @ 0.938 mls/ hr Q24H IV 12/04/24 17:15 12/09/24 14:39 0.938 MLS/HR Midodrine 10 mg Q8HR PO 12/04/24 22:00 12/12/24 05:54 10 MG Enteral Nutritional Formula 1,000 ml 30ML/HR GT 12/05/24 12:15 12/08/24 00:09 1,000 ML Pantoprazole Sodium 40 mg DAILY IV 12/07/24 10:00 12/12/24 07:38 40 MG Insulin Human Regular Q6HR SC 12/06/24 18:00 12/12/24 05:49 2 UNITS Dextrose 50 ml UD PRN IV 12/06/24 15:15 12/09/24 13:47 50 ML Levalbuterol HCl 0.625 mg Q6HR NEB 12/07/24 00:00 12/12/24 19:00 0.625 MG Ipratropium [place] 0.5 mg Q6HR NEB 12/07/24 00:00 12/12/24 19:00 0.5 MG Albumin Human 100 ml @ 100 mls/hr PRN PRN IV 12/07/24 06:15 12/07/24 07:30 100 MLS/HR Metoclopramide HCl 5 mg Q8HR IV 12/07/24 14:00 12/12/24 14:27 5 MG Diagnostic Test (Pha) 1 strip Q6HR 12/10/24 12:00 12/12/24 16:31 1 STRIP Lactulose 30 ml DAILY@2200 PO 12/10/24 22:00 12/11/24 21:27 30 ML Amino Acids 0 ml @ 0 mls/hr PER PHARMACY IV 12/11/24 13:00 Amino Acids 1,000 ml @ 41 mls/hr DAILY@2200 IV 12/11/24 22:00 12/11/24 21:28 41 MLS/HR Fentanyl Citrate 250 ml @ 2.5 mls/hr Q24H IV 12/12/24 21:45 objective Gen.: Patient lying in bed in medical ICU. Sedated, intubated on mechanical ventilator. Head: Normocephalic, atraumatic. Eyes: PERRLA. Ears: Normal external anatomy. Throat: Endotracheal tube and orogastric tube in place. Neck: Supple, trachea midline. Chest: Transmitted breath sounds bilaterally. Decreased air entry bilaterally. No wheezing. Bibasilar crackles. Cardiovascular: Positive S1, positive S2. Regular rate and rhythm. Abdomen: Positive bowel sounds in all 4 quadrants. Soft, nontender, nondistended. : Su in place. Normal external genitalia. Rectal: Deferred. Skin: Warm, dry. Intact. Extremities: 2+ radial pulses bilaterally. No lower extremity edema. Neuro: Sedated. laboratory and microbiology Laboratory Tests 12/12/24 03:27 Test 12/12/24 03:27 Range/Units Serum Glucose 132 H 74-106 mg/dL Assessment/Plan Impression: Acute hypoxic respiratory failure On mechanical ventilator Recurrent pleural effusion Atelectasis End-stage renal disease, on hemodialysis Anemia, symptomatic Lactic acidosis Events: Remains on mechanical ventilator. On AC mode with RR 18, VT 450, PEEP 5, FiO2 30% ABG reviewed, acidemia Sedated on Fentanyl drip. On pressors for hemodynamic support Levophed 1.5 mcg/min Titrate to keep mean arterial pressure greater than 65 mmHg. Clinimix for IV nutritional support Monitor chest tube output No air leak Continue antibiotics Tube feeds for nutritional support Monitor hemoglobin Transfuse if less than 7.0 g/dL. HD per Nephrology Monitor renal function Monitor sodium level - 134 Plan for decortication on Friday by Surgery. CT chest without contrast demonstrates Large right hydro hemothorax. No pneumothorax. Small left pleural effusion. Patchy consolidation and ground-glass opacities in both lungs. Ascites. Surgery recs appreciated. Limited chest ultrasound demonstrated loculated viscous fluid by ultrasound appearance Labs and imaging reviewed. Rest of plan as noted below. Plan: s/p intubation on mechanical ventilator. On AC mode with RR 18, VT 450, PEEP 5, FiO2 30% Titrate FIO2 to keep O2 saturation above 90%. VAP bundle. Daily ABG and CXR while intubated Sedate for ventilator synchrony On pressors for hemodynamic support Titrate to keep mean arterial pressure greater than 65 mmHg. Monitor hemoglobin Transfuse if less than 7.0 g/dL. Continue antibiotics Pain control Avoid oversedation On Eliquis Accu-Cheks, ISS. HD per Nephrology Monitor renal function. Monitor electrolytes. Supplement as necessary. Monitor ins and outs. DVT prophylaxis. Prognosis: Poor given patient's multiple co-morbidities. Condition: Critical Rest of plan per hospitalist and other consultants. A total of 35 minutes of critical care time was spent reviewing the patient record, examining the patient, making a diagnostic and therapeutic plan, discussing this plan with the medical personnel, following up on diagnostic studies and following the patient for clinical stability excluding any and all procedures. At least 50% of this time was spent in direct, [id number] contact. Thank you, Sy Oliver NP, for allowing me to participate in this patient's care. Further recommendations will depend on the patient's clinical course. Please do not hesitate to contact me if you have any questions or concerns. This medical document was created using an electronic medical record system with [employer] dictation system. Although these documentations are being carefully reviewed, there may still be some phonetic and typographical changes. The errors are purely typographical, due to imperfection on the software program, and do not reflect any compromise in the patient's medical care. Dietary Evaluation Review Comments: 1) Increase EN nutrition to meet at least 75% of estimated needs (Nepro 1.8 @ 30ml/hr x 24 hrs uninterrupted continuous feed adequately meets pt needs) 2) Advance pt diet when medically feasible to a Renal Standard diet modified per QUANTITATIVE ASSOCIATE recommendations 3) Continue current plan of care Expected Outcomes/Goals: 1) Pt to receive adequate nutrition support 2) Pt diet to advance 3) F/U in 2-3 days Plan discussed with: Other (ALVARO Santos) Critical Care Time(min): 35 CC Plasma Assessment Blood Product Administration S: [id number] AUSTIN LISA MD Dec 12, 2024 21:51
[2024-12-13] VITALS (106 sets, daily range): BP systolic 55–135; BP diastolic 10–77; PULSE 68–105; RESP 12–23; TEMP 97.2–100.6; O2SAT 97–100
[2024-12-13 04:34] LABS: Potassium 4.3 mmol/L (3.5-5.1)
[2024-12-13 04:35] LABS: Calcium 9.6 mg/dL (8.7-10.4); Potassium 4.3 mmol/L (3.5-5.1)
[2024-12-13 04:36] LABS: Anion Gap 9 (5-15); Carbon Dioxide 25 mmol/L (20-31)
[2024-12-13 04:40] LABS: BUN/Creatinine Ratio 9.3 (10.0-20.0); Basophils # (auto) 0.1 10 ^3/uL (0-0.2); Basophils % (auto) 0.7 % (0.0-2.0); Eosinophils # (auto) 0.4 10 ^3/uL (0-0.8); Eosinophils % (auto) 3.4 % (0.0-7.0); Hematocrit 27.1 % (41.0-53.0); Hemoglobin 8.8 g/dL (13.5-17.5); Lymphocytes # (auto) 0.6 10 ^3/uL (0.4-5.4); Lymphocytes % (auto) 4.7 % (10.0-50.0); Mean Corpuscular Hemoglobin 30.1 pg (28.0-32.0); Mean Corpuscular Hgb Conc. 32.3 g/dL (32.0-36.0); Mean Corpuscular Volume 93.1 fL (80.0-100.0); Monocytes # (auto) 1.3 10 ^3/uL (0-1.3); Monocytes % (auto) 10.5 % (0.0-12.0); Neutrophils % (auto) 80.7 % (37.0-80.0); Nucleated Red Blood Cells % 0.2 %; Platelet Count (auto) 132 10^3/uL (140-450); Red Blood Cells 2.91 10^6/uL (4.5-5.90); Red Cell Distribution Width 16.7 % (11.8-14.3); White Blood Cell 12.4 10^3/uL (4.4-10.8)
[2024-12-13 04:41] LABS: Albumin 3.2 g/dL (3.2-4.8); Glucose 92 mg/dL (74-106); Magnesium 2.3 mg/dL (1.6-2.6)
[2024-12-13 04:42] LABS: BUN/Creatinine Ratio 8.9 (10.0-20.0); INR 1.26 (0.9-1.15); Partial Thromboplastin Time 32.3 SEC (24.5-34.5); Prothrombin Time 13.1 sec (9.3-11.8)
[2024-12-13 04:52] LABS: Phosphorus 5.5 mg/dL (2.4-5.1)
[2024-12-13 04:53] LABS: Blood Urea Nitrogen 48 mg/dL (9-23); Chloride 97 mmol/L (98-107); Sodium 131 mmol/L (136-145)
[2024-12-13 08:14] LABS: Base Excess -3.9 mmol/L (-2.0-3.0)
--- NOTE | 2024-12-13 09:24 | DVH ---
XY CHEST PORTABLE, HISTORY: mech vent COMPARISON: XY CHEST PORTABLE on DOS: 12/11/24, XY CHEST PORTABLE on DOS: 12/10/24, XY CHEST PORTABLE o n DOS: 12/09/24 XY CHEST PORTABLE on DOS: 12/11/24, XY CHEST PORTABLE on DOS: 12/10/24, XY CHEST PORTABLE on DOS: 5 TECHNICAL DATA: 1 view of the chest was obtained. FINDINGS: Lines and tubes: ET in the mid thoracic trachea, NG in the stomach, TD catheter with tip in the RA. Cardiomediastinal silhouette: Prominent with a prosthetic heart valve. Pulmonary vasculature: Prominent Lung expansion: low Lung airspace: Patchy right airspace opacities. Lung interstitium: normal Pleura: Small right pleural effusion. Pneumothorax: no Bones: Unremarkable Other: Left axillary stent is seen. IMPRESSION: Stable lines and tubes, as above. Similar lung aeration bilaterally with a small right pleural effusion.
[2024-12-13] MEDS: SODIUM CHL 0.9% 1000 ML BAG XX ONE (09:30)
[2024-12-13] MEDS: ALBUMIN 25% 100 ML IV ONE ×2 (09:55→10:55)
[2024-12-13] MEDS: ALBUMIN 25% 50 ML IV PRN (10:00)
--- NOTE | 2024-12-13 12:17 | DVHPN2 ---
Progress Note Date Seen: Dec 13, 2024 Medical Necessity Reason Pt with a Central, PICC or Fol: Yes The following are medically ne: Central Line Objective vital signs Vital Sign Date Time Temp Pulse Resp B/P (MAP) Pulse Ox O2 Delivery O2 Flow Rate FiO2 12/13/24 11:49 77 20 100/11 (40) 97 30 12/13/24 06:15 99.1 210.4 12/13/24 06:00 Mechanical Ventilator+ Total Intake and Output 12/12/24 12/12/24 12/13/24 15:00 23:00 07:00 Intake Total 464.876 ml 525.439 ml 444.5 ml Output Total 0 ml 0 ml Balance 464.876 ml 525.439 ml 444.5 ml medications Current Medications Medications Dose Ordered Sig/Dioni Route Start Time Stop Time Status Last Admin Dose Admin Sodium Chloride 10 ml Q8HR IV 12/01/24 14:00 12/13/24 05:36 10 ML Docusate Sodium 100 mg BIDPRN PRN PO 12/01/24 08:00 12/02/24 23:20 100 MG Acetaminophen 650 mg Q6HP PRN PO 12/01/24 08:00 Hydralazine HCl 10 mg Q6HP PRN IV 12/01/24 08:15 Midazolam HCl 50 ml @ 1 mls/hr Q24H IV 12/03/24 18:00 12/13/24 10:35 1 MLS/HR Vancomycin HCl 0 ml @ 0 mls/hr UD IV 12/04/24 09:45 Cefepime HCl 0.5 gm/Dextrose 50 ml @ 12.5 mls/hr Q24H IV 12/05/24 18:00 12/12/24 18:00 12.5 MLS/HR Norepinephrine Bitartrate 250 ml @ 0.938 mls/ hr Q24H IV 12/04/24 17:15 12/09/24 14:39 0.938 MLS/HR Midodrine 10 mg Q8HR PO 12/04/24 22:00 12/13/24 05:36 10 MG Enteral Nutritional Formula 1,000 ml 30ML/HR GT 12/05/24 12:15 12/08/24 00:09 1,000 ML Pantoprazole Sodium 40 mg DAILY IV 12/07/24 10:00 12/12/24 07:38 40 MG Insulin Human Regular Q6HR SC 12/06/24 18:00 12/12/24 23:24 2 UNITS Dextrose 50 ml UD PRN IV 12/06/24 15:15 12/09/24 13:47 50 ML Levalbuterol HCl 0.625 mg Q6HR NEB 12/07/24 00:00 12/13/24 05:52 0.625 MG Ipratropium [place] 0.5 mg Q6HR NEB 12/07/24 00:00 12/13/24 05:52 0.5 MG Metoclopramide HCl 5 mg Q8HR IV 12/07/24 14:00 12/13/24 05:36 5 MG Diagnostic Test (Pha) 1 strip Q6HR 12/10/24 12:00 12/13/24 05:39 1 STRIP Lactulose 30 ml DAILY@2200 PO 12/10/24 22:00 12/12/24 21:55 30 ML Amino Acids 0 ml @ 0 mls/hr PER PHARMACY IV 12/11/24 13:00 Amino Acids 1,000 ml @ 41 mls/hr DAILY@2200 IV 12/11/24 22:00 12/12/24 21:56 41 MLS/HR Fentanyl Citrate 250 ml @ 2.5 mls/hr Q24H IV 12/12/24 21:45 Albumin Human 50 ml @ 100 mls/hr PRN PRN IV 12/13/24 09:00 laboratory and microbiology Laboratory Tests 12/13/24 03:15 Test 12/13/24 03:15 Range/Units Serum Glucose 92 74-106 mg/dL Problem List/Assessment/Plan Problem List/Assessment/Plan 12/13/24 when OR crew went to pick patient up for, his planned thoracotomy they were told that patient is undergoing dialysis, i will post pone procedure to tomorrow 7;15 AM and will check coags prior to operation, nurse notified. Plan discussed with: Other Dietary Evaluation Review Comments: 1) Increase EN nutrition to meet at least 75% of estimated needs (Nepro 1.8 @ 30ml/hr x 24 hrs uninterrupted continuous feed adequately meets pt needs) 2) Advance pt diet when medically feasible to a Renal Standard diet modified per GENERAL ACTIVITIES THERAPIST recommendations 3) Continue current plan of care Expected Outcomes/Goals: 1) Pt to receive adequate nutrition support 2) Pt diet to advance 3) F/U in 2-3 days STANISLAW VALLE MD Dec 13, 2024 12:16
--- NOTE | 2024-12-13 13:28 | DVHPN2 ---
Progress Note - Dictate Date Seen: Dec 13, 2024 Medical Necessity Reason Pt with a Central, PICC or Fol: Yes The following are medically ne: Central Line Subjective Patient is intubated and sedated. During hemodialysis today issues with low diastolic blood pressure. vital signs Vital Sign Date Time Temp Pulse Resp B/P (MAP) Pulse Ox O2 Delivery O2 Flow Rate FiO2 12/13/24 12:44 94/15 12/13/24 11:49 77 20 97 30 12/13/24 06:15 99.1 210.4 12/13/24 06:00 Mechanical Ventilator+ Total Intake and Output 12/12/24 12/12/24 12/13/24 15:00 23:00 07:00 Intake Total 464.876 ml 525.439 ml 444.5 ml Output Total 0 ml 0 ml Balance 464.876 ml 525.439 ml 444.5 ml medications Current Medications Medications Dose Ordered Sig/Dioni Route Start Time Stop Time Status Last Admin Dose Admin Sodium Chloride 10 ml Q8HR IV 12/01/24 14:00 12/13/24 05:36 10 ML Docusate Sodium 100 mg BIDPRN PRN PO 12/01/24 08:00 12/02/24 23:20 100 MG Acetaminophen 650 mg Q6HP PRN PO 12/01/24 08:00 Hydralazine HCl 10 mg Q6HP PRN IV 12/01/24 08:15 Midazolam HCl 50 ml @ 1 mls/hr Q24H IV 12/03/24 18:00 12/13/24 10:35 1 MLS/HR Vancomycin HCl 0 ml @ 0 mls/hr UD IV 12/04/24 09:45 Cefepime HCl 0.5 gm/Dextrose 50 ml @ 12.5 mls/hr Q24H IV 12/05/24 18:00 12/12/24 18:00 12.5 MLS/HR Norepinephrine Bitartrate 250 ml @ 0.938 mls/ hr Q24H IV 12/04/24 17:15 12/13/24 12:44 18.75 MLS/HR Midodrine 10 mg Q8HR PO 12/04/24 22:00 12/13/24 05:36 10 MG Enteral Nutritional Formula 1,000 ml 30ML/HR GT 12/05/24 12:15 12/08/24 00:09 1,000 ML Pantoprazole Sodium 40 mg DAILY IV 12/07/24 10:00 12/12/24 07:38 40 MG Insulin Human Regular Q6HR SC 12/06/24 18:00 12/12/24 23:24 2 UNITS Dextrose 50 ml UD PRN IV 12/06/24 15:15 12/09/24 13:47 50 ML Levalbuterol HCl 0.625 mg Q6HR NEB 12/07/24 00:00 12/13/24 12:19 0.625 MG Ipratropium [place] 0.5 mg Q6HR NEB 12/07/24 00:00 12/13/24 12:19 0.5 MG Metoclopramide HCl 5 mg Q8HR IV 12/07/24 14:00 12/13/24 05:36 5 MG Diagnostic Test (Pha) 1 strip Q6HR 12/10/24 12:00 12/13/24 12:17 1 STRIP Lactulose 30 ml DAILY@2200 PO 12/10/24 22:00 12/12/24 21:55 30 ML Amino Acids 0 ml @ 0 mls/hr PER PHARMACY IV 12/11/24 13:00 Amino Acids 1,000 ml @ 41 mls/hr DAILY@2200 IV 12/11/24 22:00 12/12/24 21:56 41 MLS/HR Fentanyl Citrate 250 ml @ 2.5 mls/hr Q24H IV 12/12/24 21:45 Albumin Human 50 ml @ 100 mls/hr PRN PRN IV 12/13/24 09:00 12/13/24 10:55 100 MLS/HR objective HEENT: ET tube in position. Pulmonary: Diminished lung sounds right lung. Cardiovascular S1-S2, no S3 or S4 Abdomen: Bowel sounds positive, soft no rebound tenderness Skin: No rash Neurological: Sedated and intubated. Hemodialysis access right upper chest tunneled line no issues laboratory and microbiology Laboratory Tests 12/13/24 03:15 Test 12/13/24 03:15 Range/Units Serum Glucose 92 74-106 mg/dL Assessment/Plan Assessment: 1. ESRD on HD 2. S/p cardiac arrest 3. Septic and Hemorrhagic shock 4. Large Rt hydrothorax, hemothorax 5. Acute hypoxic respiratory failure s/p intubation on mechanical ventilator 6. Pneumonia 7. Hyperphosphatemia 8. Secondary hyperparathyroidism 9. Metabolic acidosis Plan and recommendations: Hemodialysis Friday Pressor support for map of 60 or systolic blood pressure more than 100 whichever comes 1st S/P chest tube placement For probable decortication. Monitor H&H transfuse as needed. IV antibiotics renally dose. Thank you very much for allowing us to participate in the care of this patient Dietary Evaluation Review Comments: 1) Increase EN nutrition to meet at least 75% of estimated needs (Nepro 1.8 @ 30ml/hr x 24 hrs uninterrupted continuous feed adequately meets pt needs) 2) Advance pt diet when medically feasible to a Renal Standard diet modified per PHONE SCREENER recommendations 3) Continue current plan of care Expected Outcomes/Goals: 1) Pt to receive adequate nutrition support 2) Pt diet to advance 3) F/U in 2-3 days Plan discussed with: Patient CC Plasma Assessment Blood Product Administration S: [id number] ZAHRA JACKSON MD Dec 13, 2024 13:28
--- NOTE | 2024-12-13 13:42 | DVHPN2 ---
Progress Note - Dictate Date Seen: Dec 11, 2024 Medical Necessity Reason Pt with a Central, PICC or Fol: Yes The following are medically ne: Central Line Subjective PT WITH RESP FAILURE/ RESP ARREST PNEUMONIA HYPOTENSION SEVERE ANEMIA/ HEMOTHORAX? INTUBATED ESRD-HD COPD DM2 CAD/CABG HTN DYSLIPIDEMIA C * Left main shows 50% heavily calcified narrowing with moderate diffuse disease. * Left anterior descending artery, high-grade narrowing proximally and in the mid lesion greater than 90%. * ELY to the LAD was patent. * Circumflex artery, moderate diffuse disease throughout. * Right coronary artery was occluded. * Saphenous vein graft to the OM is patent; however, there is a sluggish flow, in fact obtuse marginal is being supplied by the [employer] [place] vessel even though the patient has a high-grade narrowing of the left main. * Right coronary artery was occluded. Saphenous vein graft to the PDA was patent; however. * The patient on fluoroscopy appears to have normal functioning aortic valve with no restriction or calcification noted. * Right heart catheterization showed RA pressure of 8, RV pressure of 52/12, PA pressure of 50/20 and capillary wedge pressure of 18. Thus, the patient with heavily calcified anatomy throughout the aorta, coronaries, carotid, subclavian. Anatomy as described above. At this time, the patient is not a candidate for any revascularization. He has got a patent ELY to the LAD, patent saphenous vein graft to the OM, although it is heavily degenerated with very sluggish flow. The circumflex artery is actually being supplied by the [employer] [place] [place] vessel. Right coronary artery was occluded, however, saphenous vein graft to the PDA was patent. At this time, conservative medical management, aggressive risk modification, antiplatelet therapy should be maintained especially with EDP inhibitors, receptor inhibitors such as Plavix or Brilinta and the patient should be maintained on Eliquis as well. The patient is a poor candidate for any revascularization percutaneously or surgical. The patient has a visible stent in the left subclavian vein as well. vital signs Vital Sign Date Time Temp Pulse Resp B/P (MAP) Pulse Ox O2 Delivery O2 Flow Rate FiO2 12/13/24 12:44 94/15 12/13/24 11:49 77 20 97 30 12/13/24 06:15 99.1 210.4 12/13/24 06:00 Mechanical Ventilator+ Total Intake and Output 12/12/24 12/12/24 12/13/24 15:00 23:00 07:00 Intake Total 464.876 ml 525.439 ml 444.5 ml Output Total 0 ml 0 ml Balance 464.876 ml 525.439 ml 444.5 ml medications Current Medications Medications Dose Ordered Sig/Dioni Route Start Time Stop Time Status Last Admin Dose Admin Sodium Chloride 10 ml Q8HR IV 12/01/24 14:00 12/13/24 13:29 10 ML Docusate Sodium 100 mg BIDPRN PRN PO 12/01/24 08:00 12/02/24 23:20 100 MG Acetaminophen 650 mg Q6HP PRN PO 12/01/24 08:00 Hydralazine HCl 10 mg Q6HP PRN IV 12/01/24 08:15 Midazolam HCl 50 ml @ 1 mls/hr Q24H IV 12/03/24 18:00 12/13/24 10:35 1 MLS/HR Vancomycin HCl 0 ml @ 0 mls/hr UD IV 12/04/24 09:45 Cefepime HCl 0.5 gm/Dextrose 50 ml @ 12.5 mls/hr Q24H IV 12/05/24 18:00 12/12/24 18:00 12.5 MLS/HR Norepinephrine Bitartrate 250 ml @ 0.938 mls/ hr Q24H IV 12/04/24 17:15 12/13/24 12:44 18.75 MLS/HR Midodrine 10 mg Q8HR PO 12/04/24 22:00 12/13/24 13:29 10 MG Enteral Nutritional Formula 1,000 ml 30ML/HR GT 12/05/24 12:15 12/08/24 00:09 1,000 ML Pantoprazole Sodium 40 mg DAILY IV 12/07/24 10:00 12/13/24 13:29 40 MG Insulin Human Regular Q6HR SC 12/06/24 18:00 12/12/24 23:24 2 UNITS Dextrose 50 ml UD PRN IV 12/06/24 15:15 12/09/24 13:47 50 ML Levalbuterol HCl 0.625 mg Q6HR NEB 12/07/24 00:00 12/13/24 12:19 0.625 MG Ipratropium [place] 0.5 mg Q6HR NEB 12/07/24 00:00 12/13/24 12:19 0.5 MG Metoclopramide HCl 5 mg Q8HR IV 12/07/24 14:00 12/13/24 13:29 5 MG Diagnostic Test (Pha) 1 strip Q6HR 12/10/24 12:00 12/13/24 12:17 1 STRIP Lactulose 30 ml DAILY@2200 PO 12/10/24 22:00 12/12/24 21:55 30 ML Amino Acids 0 ml @ 0 mls/hr PER PHARMACY IV 12/11/24 13:00 Amino Acids 1,000 ml @ 41 mls/hr DAILY@2200 IV 12/11/24 22:00 12/12/24 21:56 41 MLS/HR Fentanyl Citrate 250 ml @ 2.5 mls/hr Q24H IV 12/12/24 21:45 Albumin Human 50 ml @ 100 mls/hr PRN PRN IV 12/13/24 09:00 12/13/24 10:55 100 MLS/HR laboratory and microbiology Laboratory Tests 12/13/24 03:15 Test 12/13/24 03:15 Range/Units Serum Glucose 92 74-106 mg/dL Problem List RESP FAILURE PNEUMONIA HYPOTENSION SEVERE ANEMIA INTUBATED ESRD-HD COPD DM2 CAD/CABG HTN DYSLIPIDEMIA [facility] * Left main shows 50% heavily calcified narrowing with moderate diffuse disease. * Left anterior descending artery, high-grade narrowing proximally and in the mid lesion greater than 90%. * ELY to the LAD was patent. * Circumflex artery, moderate diffuse disease throughout. * Right coronary artery was occluded. * Saphenous vein graft to the OM is patent; however, there is a sluggish flow, in fact obtuse marginal is being supplied by the [employer] [place] vessel even though the patient has a high-grade narrowing of the left main. * Right coronary artery was occluded. Saphenous vein graft to the PDA was patent; however. * The patient on fluoroscopy appears to have normal functioning aortic valve with no restriction or calcification noted. * Right heart catheterization showed RA pressure of 8, RV pressure of 52/12, PA pressure of 50/20 and capillary wedge pressure of 18. Thus, the patient with heavily calcified anatomy throughout the aorta, coronaries, carotid, subclavian. Anatomy as described above. At this time, the patient is not a candidate for any revascularization. He has got a patent ELY to the LAD, patent saphenous vein graft to the OM, although it is heavily degenerated with very sluggish flow. The circumflex artery is actually being supplied by the [employer] [place] [place] vessel. Right coronary artery was occluded, however, saphenous vein graft to the PDA was patent. At this time, conservative medical management, aggressive risk modification, antiplatelet therapy should be maintained especially with EDP inhibitors, receptor inhibitors such as Plavix or Brilinta and the patient should be maintained on Eliquis as well. The patient is a poor candidate for any revascularization percutaneously or surgical. The patient has a visible stent in the left subclavian vein as well. Assessment/Plan CARDIAC STATUS STABLE ECHO EF 40% AV PROSTHESIS MAY PROCEED WITH SURGICAL INTERVENTION ASA II/ III ALL CULTURES NEGATIVE NASAL SWAB NEGATIVE PERSISTENT LEUKOCYTOSIS CONSIDER VICKY IF CONTINUED LEUKOCYTOSIS WBC TRENDING UP CONSIDER CHANGING ABX VICKY IN AM stillwith leukocytosis anemia consider epogen/ iron study S/P CHEST TUBE PLACEMENT FOR HEMOTHORAX Dietary Evaluation Review Comments: 1) Increase EN nutrition to meet at least 75% of estimated needs (Nepro 1.8 @ 30ml/hr x 24 hrs uninterrupted continuous feed adequately meets pt needs) 2) Advance pt diet when medically feasible to a Renal Standard diet modified per TAKE OFF WORKER recommendations 3) Continue current plan of care Expected Outcomes/Goals: 1) Pt to receive adequate nutrition support 2) Pt diet to advance 3) F/U in 2-3 days Plan discussed with: Patient Critical Care Time(min): 35 CC Plasma Assessment Blood Product Administration S: [id number] BALAJI KING MD Dec 13, 2024 13:42
--- NOTE | 2024-12-13 13:55 | DVHPNRES ---
Progress Note Date Seen: Dec 13, 2024 Resident Creating Document: ROXANA WALDROP RESIDENT Medical Necessity Reason Pt with a Central, PICC or Fol: Yes The following are medically ne: Central Line Subjective Review of Systems Patient seen and examined at bedside. He is currently sedated and intubated, on mechanical ventilator with respiratory rate of 18, tidal volume 450, 30% FiO2 and PEEP of five. Review of system could not be done as patient is sedated Patient received dialysis today Was supposed to have thoracotomy on the right side today but surgeon mentioned they will do tomorrow morning and wants coagulation profile done before the procedure Chest tube drainage 0 cc Feedings were held last night Objective vital signs Vital Sign Date Time Temp Pulse Resp B/P (MAP) Pulse Ox O2 Delivery O2 Flow Rate FiO2 12/13/24 12:44 94/15 12/13/24 11:49 77 20 97 30 12/13/24 06:15 99.1 210.4 12/13/24 06:00 Mechanical Ventilator+ Total Intake and Output 12/12/24 12/12/24 12/13/24 15:00 23:00 07:00 Intake Total 464.876 ml 525.439 ml 444.5 ml Output Total 0 ml 0 ml Balance 464.876 ml 525.439 ml 444.5 ml medications Current Medications Medications Dose Ordered Sig/Dioni Route Start Time Stop Time Status Last Admin Dose Admin Sodium Chloride 10 ml Q8HR IV 12/01/24 14:00 12/13/24 13:29 10 ML Docusate Sodium 100 mg BIDPRN PRN PO 12/01/24 08:00 12/02/24 23:20 100 MG Acetaminophen 650 mg Q6HP PRN PO 12/01/24 08:00 Hydralazine HCl 10 mg Q6HP PRN IV 12/01/24 08:15 Midazolam HCl 50 ml @ 1 mls/hr Q24H IV 12/03/24 18:00 12/13/24 10:35 1 MLS/HR Vancomycin HCl 0 ml @ 0 mls/hr UD IV 12/04/24 09:45 Cefepime HCl 0.5 gm/Dextrose 50 ml @ 12.5 mls/hr Q24H IV 12/05/24 18:00 12/12/24 18:00 12.5 MLS/HR Norepinephrine Bitartrate 250 ml @ 0.938 mls/ hr Q24H IV 12/04/24 17:15 12/13/24 12:44 18.75 MLS/HR Midodrine 10 mg Q8HR PO 12/04/24 22:00 12/13/24 13:29 10 MG Enteral Nutritional Formula 1,000 ml 30ML/HR GT 12/05/24 12:15 12/08/24 00:09 1,000 ML Pantoprazole Sodium 40 mg DAILY IV 12/07/24 10:00 12/13/24 13:29 40 MG Insulin Human Regular Q6HR SC 12/06/24 18:00 12/12/24 23:24 2 UNITS Dextrose 50 ml UD PRN IV 12/06/24 15:15 12/09/24 13:47 50 ML Levalbuterol HCl 0.625 mg Q6HR NEB 12/07/24 00:00 12/13/24 12:19 0.625 MG Ipratropium [place] 0.5 mg Q6HR NEB 12/07/24 00:00 12/13/24 12:19 0.5 MG Metoclopramide HCl 5 mg Q8HR IV 12/07/24 14:00 12/13/24 13:29 5 MG Diagnostic Test (Pha) 1 strip Q6HR 12/10/24 12:00 12/13/24 12:17 1 STRIP Lactulose 30 ml DAILY@2200 PO 12/10/24 22:00 12/12/24 21:55 30 ML Amino Acids 0 ml @ 0 mls/hr PER PHARMACY IV 12/11/24 13:00 Amino Acids 1,000 ml @ 41 mls/hr DAILY@2200 IV 12/11/24 22:00 12/12/24 21:56 41 MLS/HR Fentanyl Citrate 250 ml @ 2.5 mls/hr Q24H IV 12/12/24 21:45 Albumin Human 50 ml @ 100 mls/hr PRN PRN IV 12/13/24 09:00 12/13/24 10:55 100 MLS/HR Examination Examination General Appearance: sedated and intubated HEENT: EOMI Respiratory: Clear to auscultation, Normal air movement Cardiovascular: Regular rate, Normal S1, Normal S2 Abdominal: Normal bowel sounds Extremities:left sided toe amputation,present on admission, right sided 5th digit amputation Skin: No rashes, No breakdown Neuro: sedated and intubated laboratory and microbiology Laboratory Tests 12/13/24 03:15 Test 12/13/24 03:15 Range/Units Serum Glucose 92 74-106 mg/dL Microbiology Date/Time Source Procedure Growth Status 12/09/24 20:15 Pleural Fluid Gram Stain - Final Resulted 12/09/24 20:15 Pleural Fluid Body Fluid Culture - Preliminary Resulted 12/05/24 01:30 Nose MRSA Screen - Final Complete 12/04/24 11:15 Blood Blood Culture - Final NO GROWTH AFTER 5 DAYS OF INCUBATION. Complete 12/03/24 21:30 Sputum Gram Stain - Final Complete 12/03/24 21:30 Sputum Respiratory Culture - Final Complete Labs and/or images reviewed: Labs reviewed by me, Image(s) reviewed by me Problem List/Assessment/Plan Problem List/Assessment/Plan Assessment/plan Neurology # sedation -on fentanyl # presyncope -head CT completed 12/06 unremarkable for acute Cardiovascular #Shock likely septic/cardiogenic -currently on norepinephrine -continue midodrine #s/p cardiac arrest 12/03 -head CT -echo #acute HFrEF -echo -on pressors #history of hypertension -currently in shock #Dyslipidemia -resume meds on discharge #Right cephalic vein thrombosis, superficial venous thrombosis -warm compresses Respiratory #Acute hypoxic respiratory failure status post intubation 12/03 -on mech vent #Community acquired pneumonia, Gram-positive and gram negative/Aspiration pneumonia -IV vanc and IV zosy #Right loculated hemothorax status post chest tube placement 12/09 -no drainage from chest tube -planned for Sx tomorrow #COPD, stable -on home o2 GI #Transaminitis likely shock liver Monitor Nephrology #End-stage renal disease, on hemodialysis -received HD today #?Rhabdomyolysis -on HD #hyponatremia -monitor Hematology #Anemia due to acute hemorrhage, chronic disease, CKD s/p transfusion -4 units PRBC transfused -monitor #thrombocytopenia -s/p 1 unit of platelet transfusion #Coagulopathy -1 unit of vitamin k administered Endocrine #DM2 -insulin sliding scale Musculoskeletal/derm #S/p left sided toe amputation, -present on admission #s/p right sided 5th digit amputation -present on admission Lines Right femoral CVC 12/03 Drips norepinephrine fentanyl Nutrition dc Clinimix resume NG tube feeding and hold after midnight Goals of care/advance care planning; FULL CODE; discussed on for 22 minutes. Plan discussed with family at bedside Critical Care time excluding procedures: 53 minutes Case discussion with dr pham. Plan discussed with: Other My Orders My Orders Orders - ROXANA WALDROP RESIDENT Procedure Category Date Status Time Chest Portable XY 12/13/24 Resulted 08:33 Dietary Evaluation Review Comments: 1) Increase EN nutrition to meet at least 75% of estimated needs (Nepro 1.8 @ 30ml/hr x 24 hrs uninterrupted continuous feed adequately meets pt needs) 2) Advance pt diet when medically feasible to a Renal Standard diet modified per MANAGER BOOKS recommendations 3) Continue current plan of care Expected Outcomes/Goals: 1) Pt to receive adequate nutrition support 2) Pt diet to advance 3) F/U in 2-3 days CC Plasma Assessment Blood Product Administration S: [id number] Date of Service: Dec 13, 2024 Billing Provider: PANCHO PHAM MD Common Visit Codes: [id number] CARE 30-74 MIN ROXANA WALDROP RESIDENT Dec 13, 2024 13:55 PANCHO PHAM MD Dec 14, 2024 13:05
[2024-12-13] MEDS: LACTULOSE 20Gm/30ML SOLN PO SCH (18:23)
--- NOTE | 2024-12-13 18:32 | DVHPNRES ---
Progress Note Medical Necessity Reason Pt with a Central, PICC or Fol: Yes The following are medically ne: Central Line Objective vital signs Vital Sign Date Time Temp Pulse Resp B/P (MAP) Pulse Ox O2 Delivery O2 Flow Rate FiO2 12/13/24 16:45 100.4 93 19 101/32 (55) 100 212.7 12/13/24 16:12 30 12/13/24 16:00 Mechanical Ventilator+ Total Intake and Output 12/12/24 12/12/24 12/13/24 14:59 22:59 06:59 Intake Total 463.938 ml 525.452 ml 503.3 ml Output Total 0 ml 0 ml Balance 463.938 ml 525.452 ml 503.3 ml medications Current Medications Medications Dose Ordered Sig/Dioni Route Start Time Stop Time Status Last Admin Dose Admin Sodium Chloride 10 ml Q8HR IV 12/01/24 14:00 12/13/24 13:29 10 ML Docusate Sodium 100 mg BIDPRN PRN PO 12/01/24 08:00 12/02/24 23:20 100 MG Acetaminophen 650 mg Q6HP PRN PO 12/01/24 08:00 Hydralazine HCl 10 mg Q6HP PRN IV 12/01/24 08:15 Midazolam HCl 50 ml @ 1 mls/hr Q24H IV 12/03/24 18:00 12/13/24 10:35 1 MLS/HR Vancomycin HCl 0 ml @ 0 mls/hr UD IV 12/04/24 09:45 Cefepime HCl 0.5 gm/Dextrose 50 ml @ 12.5 mls/hr Q24H IV 12/05/24 18:00 12/12/24 18:00 12.5 MLS/HR Norepinephrine Bitartrate 250 ml @ 0.938 mls/ hr Q24H IV 12/04/24 17:15 12/13/24 12:44 18.75 MLS/HR Midodrine 10 mg Q8HR PO 12/04/24 22:00 12/13/24 13:29 10 MG Enteral Nutritional Formula 1,000 ml 30ML/HR GT 12/05/24 12:15 12/08/24 00:09 1,000 ML Pantoprazole Sodium 40 mg DAILY IV 12/07/24 10:00 12/13/24 13:29 40 MG Insulin Human Regular Q6HR SC 12/06/24 18:00 12/12/24 23:24 2 UNITS Dextrose 50 ml UD PRN IV 12/06/24 15:15 12/09/24 13:47 50 ML Levalbuterol HCl 0.625 mg Q6HR NEB 12/07/24 00:00 12/13/24 12:19 0.625 MG Ipratropium [place] 0.5 mg Q6HR NEB 12/07/24 00:00 12/13/24 12:19 0.5 MG Metoclopramide HCl 5 mg Q8HR IV 12/07/24 14:00 12/13/24 13:29 5 MG Diagnostic Test (Pha) 1 strip Q6HR 12/10/24 12:00 12/13/24 18:22 1 STRIP Amino Acids 0 ml @ 0 mls/hr PER PHARMACY IV 12/11/24 13:00 Amino Acids 1,000 ml @ 41 mls/hr DAILY@2200 IV 12/11/24 22:00 12/12/24 21:56 41 MLS/HR Fentanyl Citrate 250 ml @ 2.5 mls/hr Q24H IV 12/12/24 21:45 12/13/24 18:23 17.5 MLS/HR Albumin Human 50 ml @ 100 mls/hr PRN PRN IV 12/13/24 09:00 12/13/24 10:55 100 MLS/HR Lactulose 30 ml Q4HR PO 12/13/24 18:00 12/13/24 18:23 30 ML laboratory and microbiology Laboratory Tests 12/13/24 03:15 Test 12/13/24 03:15 Range/Units Serum Glucose 92 74-106 mg/dL Microbiology Date/Time Source Procedure Growth Status 12/09/24 20:15 Pleural Fluid Gram Stain - Final Resulted 12/09/24 20:15 Pleural Fluid Body Fluid Culture - Preliminary Resulted 12/05/24 01:30 Nose MRSA Screen - Final Complete 12/04/24 11:15 Blood Blood Culture - Final NO GROWTH AFTER 5 DAYS OF INCUBATION. Complete 12/03/24 21:30 Sputum Gram Stain - Final Complete 12/03/24 21:30 Sputum Respiratory Culture - Final Complete Problem List/Assessment/Plan Problem List/Assessment/Plan Assessment/plan # My Orders My Orders Orders - ROXANA WALDROP RESIDENT Procedure Category Date Status Time Chest Portable XY 12/13/24 Resulted 08:33 Basic Metabolic Panel LAB 12/14/24 Verified 04:00 Complete Blood Count LAB 12/14/24 Verified 04:00 Chest Portable XY 12/14/24 Transmitted 04:00 Abg W/ Co-Ox RT 12/14/24 Transmitted 04:00 Zosyn Extended PHA 12/13/24 Transmitted Infusion 22:00 Dietary Evaluation Review Comments: 1) Increase EN nutrition to meet at least 75% of estimated needs (Nepro 1.8 @ 30ml/hr x 24 hrs uninterrupted continuous feed adequately meets pt needs) 2) Advance pt diet when medically feasible to a Renal Standard diet modified per GENERAL SCRAP WORKER recommendations 3) Continue current plan of care Expected Outcomes/Goals: 1) Pt to receive adequate nutrition support 2) Pt diet to advance 3) F/U in 2-3 days CC Plasma Assessment Blood Product Administration S: [id number] ROXANA WALDROP RESIDENT Dec 13, 2024 18:32
[2024-12-13] MEDS: VANCOMYCIN 500mg/100mL 100 ML IV ONE (20:01)
[2024-12-13] MEDS: EPOETIN ALFA-EPBX 4,000 UNIT/ML VIAL SC ONE (21:03)
--- NOTE | 2024-12-13 21:09 | DVHTSRES ---
Transfer Summary Transfer Summary Resident Creating Document: TAM ORTIZ RESIDENT Date of Admission Dec 01, 2024 at 08:35 Date of Transfer: Dec 13, 2024 Brief Hx & Hospital Course: This is a 69-year-old male patient with PMHx of CHF, status post CABG 2018, COPD on home oxygen, diabetes mellitus, ESRD on hemodialysis with [facility] Fri//Fri, dyslipidemia, hypertension, secondary hyperparathyroidism who presented to the ER with a chief complaint of generalized weakness and nausea vomiting and dizziness. Per daughter Hilda, patient has history of recurrent right-sided pleural effusion from the past 5 years for which he initially would get thoracocentesis every month but recently he has been getting thoracocentesis every week. Last thoracocentesis was done on November 19 which was bloody. Patient reported generalized weakness and dizziness but was not altered and he would do daily activities himself. He does not make any urine and is dependent on dialysis. Associated symptoms include sweating. Left heart catheterization 08/[address] López - patent ELY to the LAD, patent saphenous vein graft to the OM. patient is visibly stent in the left subclavian vein. On arrival patient was hypotensive, map was 37, and on 12/03 he underwent cardiac arrest for which he experienced 2 rounds of CPR and 1 dose of epinephrine. Consequently he underwent intubation and mechanical ventilation on 12/03. ABG showed non-anion gap metabolic acidosis. Lactic acid was 8 which resolved. He was started on azithromycin and vancomycin in midodrine and require pressor support and sedatives. Echocardiogram was completed which showed EF 40% with mild LVH. Or a and RV dilated. PASP 60. Chest CT completed, shows loculated right-sided pleural effusion. His hemoglobin was 6 on arrival, he received 4 units of packed RBCs. Right femoral CVC was placed 12/03. Patient underwent left-sided chest tube placement on 12/09, chest tube drain 130 cc of bloody fluid within 24 hours. Was started on IV vancomycin and cefepime but prelim cultures have been negative so far. Patient is receiving dialysis inpatient. With the time of transition of care patient was on 30% FiO2 and PEEP of 5. Patient's care has been transition to the new ICU resident as of 12/13. Transfer to: Acute hypoxic respiratory failure secondary to pneumonia, Gram-positive and gram negative status post intubation Right loculated hemothorax status post chest tube placement 12/09 Status post cardiac arrest 12/03 TAM ORTIZ RESIDENT Dec 13, 2024 21:09
[2024-12-13] MEDS: PIPERACILLIN-TAZOB 2.25GM 50 ML IV SCH (21:40)
[2024-12-13] MEDS ORDERED: PIPERACILLIN-TAZOB 3.375GM 100 ML IV SCH (22:00)
--- NOTE | 2024-12-13 23:47 | DVHPN2 ---
Progress Note - Dictate Date Seen: Dec 13, 2024 Medical Necessity Reason Pt with a Central, PICC or Fol: Yes The following are medically ne: Central Line Subjective Patient seen and examined at bedside. Sedated, intubated on mechanical ventilator. Overnight events reviewed. vital signs Vital Sign Date Time Temp Pulse Resp B/P (MAP) Pulse Ox O2 Delivery O2 Flow Rate FiO2 12/13/24 22:20 88 20 115/34 (61) 100 30 12/13/24 22:15 99.1 210.4 12/13/24 22:00 Mechanical Ventilator+ Total Intake and Output 12/12/24 12/12/24 12/13/24 15:00 23:00 07:00 Intake Total 464.876 ml 525.439 ml 508.625 ml Output Total 0 ml 0 ml Balance 464.876 ml 525.439 ml 508.625 ml medications Current Medications Medications Dose Ordered Sig/Dioni Route Start Time Stop Time Status Last Admin Dose Admin Sodium Chloride 10 ml Q8HR IV 12/01/24 14:00 12/13/24 21:35 10 ML Docusate Sodium 100 mg BIDPRN PRN PO 12/01/24 08:00 12/02/24 23:20 100 MG Acetaminophen 650 mg Q6HP PRN PO 12/01/24 08:00 Hydralazine HCl 10 mg Q6HP PRN IV 12/01/24 08:15 Midazolam HCl 50 ml @ 1 mls/hr Q24H IV 12/03/24 18:00 12/13/24 10:35 1 MLS/HR Vancomycin HCl 0 ml @ 0 mls/hr UD IV 12/04/24 09:45 Norepinephrine Bitartrate 250 ml @ 0.938 mls/ hr Q24H IV 12/04/24 17:15 12/13/24 12:44 18.75 MLS/HR Midodrine 10 mg Q8HR PO 12/04/24 22:00 12/13/24 21:35 10 MG Enteral Nutritional Formula 1,000 ml 30ML/HR GT 12/05/24 12:15 12/08/24 00:09 1,000 ML Pantoprazole Sodium 40 mg DAILY IV 12/07/24 10:00 12/13/24 13:29 40 MG Insulin Human Regular Q6HR SC 12/06/24 18:00 12/12/24 23:24 2 UNITS Dextrose 50 ml UD PRN IV 12/06/24 15:15 12/09/24 13:47 50 ML Levalbuterol HCl 0.625 mg Q6HR NEB 12/07/24 00:00 12/13/24 18:37 0.625 MG Ipratropium [place] 0.5 mg Q6HR NEB 12/07/24 00:00 12/13/24 18:37 0.5 MG Metoclopramide HCl 5 mg Q8HR IV 12/07/24 14:00 12/13/24 21:35 5 MG Diagnostic Test (Pha) 1 strip Q6HR 12/10/24 12:00 12/13/24 18:22 1 STRIP Amino Acids 0 ml @ 0 mls/hr PER PHARMACY IV 12/11/24 13:00 Amino Acids 1,000 ml @ 41 mls/hr DAILY@2200 IV 12/11/24 22:00 12/13/24 21:34 41 MLS/HR Fentanyl Citrate 250 ml @ 2.5 mls/hr Q24H IV 12/12/24 21:45 12/13/24 18:23 17.5 MLS/HR Albumin Human 50 ml @ 100 mls/hr PRN PRN IV 12/13/24 09:00 12/13/24 10:55 100 MLS/HR Lactulose 30 ml Q4HR PO 12/13/24 18:00 12/13/24 21:35 30 ML Piperacillin Sod/ Tazobactam Sod 50 ml @ 12.5 mls/hr Q12HR IV 12/13/24 22:00 12/13/24 21:40 12.5 MLS/HR objective Gen.: Patient lying in bed in medical ICU. Sedated, intubated on mechanical ventilator. Head: Normocephalic, atraumatic. Eyes: PERRLA. Ears: Normal external anatomy. Throat: Endotracheal tube and orogastric tube in place. Neck: Supple, trachea midline. Chest: Transmitted breath sounds bilaterally. Decreased air entry bilaterally. No wheezing. Bibasilar crackles. Cardiovascular: Positive S1, positive S2. Regular rate and rhythm. Abdomen: Positive bowel sounds in all 4 quadrants. Soft, nontender, nondistended. : Su in place. Normal external genitalia. Rectal: Deferred. Skin: Warm, dry. Intact. Extremities: 2+ radial pulses bilaterally. No lower extremity edema. Neuro: Sedated. laboratory and microbiology Laboratory Tests 12/13/24 03:15 Test 12/13/24 03:15 Range/Units Serum Glucose 92 74-106 mg/dL Assessment/Plan Impression: Acute hypoxic respiratory failure On mechanical ventilator Recurrent pleural effusion Atelectasis End-stage renal disease, on hemodialysis Anemia, symptomatic Lactic acidosis Events: Remains on mechanical ventilator. On AC mode with RR 18, VT 450, PEEP 5, FiO2 30% ABG reviewed, acidemia Sedated on Versed, Fentanyl drips. On pressors for hemodynamic support Levophed 10 mcg/min Titrate to keep mean arterial pressure greater than 65 mmHg. Clinimix for IV nutritional support No output via chest tube Continue antibiotics Tube feeds for nutritional support Monitor hemoglobin Transfuse if less than 7.0 g/dL. HD per Nephrology Monitor renal function Monitor electrolytes. Supplement as necessary. Hyponatremia - sodium of 131 Plan for decortication by Surgery in AM. CT chest without contrast demonstrates Large right hydro hemothorax. No pneumothorax. Small left pleural effusion. Patchy consolidation and ground-glass opacities in both lungs. Ascites. Surgery recs appreciated. Limited chest ultrasound demonstrated loculated viscous fluid by ultrasound appearance Labs and imaging reviewed. Rest of plan as noted below. Plan: s/p intubation on mechanical ventilator. On AC mode with RR 18, VT 450, PEEP 5, FiO2 30% Titrate FIO2 to keep O2 saturation above 90%. VAP bundle. Daily ABG and CXR while intubated Sedate for ventilator synchrony On pressors for hemodynamic support Titrate to keep mean arterial pressure greater than 65 mmHg. Monitor hemoglobin Transfuse if less than 7.0 g/dL. Continue antibiotics Pain control Avoid oversedation On Eliquis Accu-Cheks, ISS. HD per Nephrology Monitor renal function. Monitor electrolytes. Supplement as necessary. Monitor ins and outs. DVT prophylaxis. Prognosis: Poor given patient's multiple co-morbidities. Condition: Critical Rest of plan per hospitalist and other consultants. A total of 35 minutes of critical care time was spent reviewing the patient record, examining the patient, making a diagnostic and therapeutic plan, discussing this plan with the medical personnel, following up on diagnostic studies and following the patient for clinical stability excluding any and all procedures. At least 50% of this time was spent in direct, [id number] contact. Thank you, Sy Oliver NP, for allowing me to participate in this patient's care. Further recommendations will depend on the patient's clinical course. Please do not hesitate to contact me if you have any questions or concerns. This medical document was created using an electronic medical record system with Rowl dictation system. Although these documentations are being carefully reviewed, there may still be some phonetic and typographical changes. The errors are purely typographical, due to imperfection on the software program, and do not reflect any compromise in the patient's medical care. Dietary Evaluation Review Comments: 1) Increase EN nutrition to meet at least 75% of estimated needs (Nepro 1.8 @ 30ml/hr x 24 hrs uninterrupted continuous feed adequately meets pt needs) 2) Advance pt diet when medically feasible to a Renal Standard diet modified per NIGHT FILLER recommendations 3) Continue current plan of care Expected Outcomes/Goals: 1) Pt to receive adequate nutrition support 2) Pt diet to advance 3) F/U in 2-3 days Plan discussed with: Other (ALVARO Cassidy) Critical Care Time(min): 35 CC Plasma Assessment Blood Product Administration S: [id number] AUSTIN LISA MD Dec 13, 2024 23:47
[2024-12-14] VITALS (107 sets, daily range): BP systolic 97–141; BP diastolic 15–61; PULSE 88–106; RESP 10–25; TEMP 98.6–99.3; O2SAT 97–100
[2024-12-14 04:15] LABS: Basophils # (auto) 0.1 10 ^3/uL (0-0.2); Basophils % (auto) 0.7 % (0.0-2.0); Eosinophils # (auto) 0.2 10 ^3/uL (0-0.8); Eosinophils % (auto) 1.2 % (0.0-7.0); Hematocrit 27.5 % (41.0-53.0); Lymphocytes # (auto) 0.8 10 ^3/uL (0.4-5.4); Lymphocytes % (auto) 3.8 % (10.0-50.0); Mean Corpuscular Hemoglobin 30.7 pg (28.0-32.0); Mean Corpuscular Hgb Conc. 32.8 g/dL (32.0-36.0); Mean Corpuscular Volume 93.5 fL (80.0-100.0); Monocytes # (auto) 1.3 10 ^3/uL (0-1.3); Monocytes % (auto) 6.6 % (0.0-12.0); Neutrophils # (auto) 17.4 10 ^3/uL (1.6-8.6); Neutrophils % (auto) 87.7 % (37.0-80.0); Nucleated Red Blood Cells % 0.2 %; Platelet Count (auto) 102 10^3/uL (140-450); Red Blood Cells 2.95 10^6/uL (4.5-5.90); Red Cell Distribution Width 16.6 % (11.8-14.3); White Blood Cell 19.8 10^3/uL (4.4-10.8)
[2024-12-14 04:27] LABS: Albumin 3.5 g/dL (3.2-4.8); Alkaline Phosphatase 77 U/L (46-116); Anion Gap 10 (5-15); Calcium 9.7 mg/dL (8.7-10.4); Carbon Dioxide 26 mmol/L (20-31); Magnesium 2.1 mg/dL (1.6-2.6); Potassium 3.7 mmol/L (3.5-5.1)
[2024-12-14 04:28] LABS: Phosphorus 4.1 mg/dL (2.4-5.1); Total Protein 6.4 g/dL (5.7-8.2)
[2024-12-14 04:30] LABS: INR 1.74 (0.9-1.15); Partial Thromboplastin Time 34.7 SEC (24.5-34.5); Prothrombin Time 17.5 sec (9.3-11.8)
[2024-12-14 04:43] LABS: Alanine Aminotransferase 207 U/L (7-40); Aspartate Aminotransferase 731 U/L (13-40); Bilirubin, Total 1.3 mg/dL (0.2-1.0); Blood Urea Nitrogen 40 mg/dL (9-23); Chloride 97 mmol/L (98-107); Glucose 135 mg/dL (74-106); Sodium 133 mmol/L (136-145)
--- NOTE | 2024-12-14 04:50 | DVH ---
CHEST RADIOGRAPH Indication: mech vent Technique: Single frontal view of the chest was obtained COMPARISON: XY CHEST PORTABLE on DOS: 12/13/24, XY CHEST PORTABLE on DOS: 12/11/24, XY CHEST PORTABLE o n DOS: 12/10/24, XY CHEST PORTABLE on DOS: 12/09/24, XY CHEST XRAY 1 VIEW on DOS: 12/09/24, XY CHEST URSULA BLE on DOS: 12/13/24 FINDINGS: Lines and tubes: ET in the mid thoracic trachea, NG in the stomach, TD catheter with tip in the RA. Cardiomediastinal silhouette: Prominent with a prosthetic heart valve. Pulmonary vasculature: Prominent Lung expansion: low Lung airspace: Patchy right airspace opacities. Lung interstitium: normal Pleura: Small right pleural effusion. Pneumothorax: no Bones: Unremarkable Other: Left axillary stent is seen. IMPRESSION: Stable lines and tubes, as above. Similar lung aeration bilaterally with a small right pleural effusion.
[2024-12-14 07:36] LABS: Base Excess -2.9 mmol/L (-2.0-3.0)
--- NOTE | 2024-12-14 07:43 | DVHPN2 ---
Progress Note Date Seen: Dec 14, 2024 Medical Necessity Reason Pt with a Central, PICC or Fol: Yes The following are medically ne: Central Line Objective vital signs Vital Sign Date Time Temp Pulse Resp B/P (MAP) Pulse Ox O2 Delivery O2 Flow Rate FiO2 12/14/24 06:30 99.1 95 24 134/46 (75) 100 210.4 12/14/24 06:19 30 12/14/24 06:00 Mechanical Ventilator+ Total Intake and Output 12/13/24 12/13/24 12/14/24 15:00 23:00 07:00 Intake Total 749.566 ml 738.85 ml 683.5 ml Output Total 0 ml 0 ml Balance 749.566 ml 738.85 ml 683.5 ml medications Current Medications Medications Dose Ordered Sig/Dioni Route Start Time Stop Time Status Last Admin Dose Admin Sodium Chloride 10 ml Q8HR IV 12/01/24 14:00 12/14/24 05:30 10 ML Docusate Sodium 100 mg BIDPRN PRN PO 12/01/24 08:00 12/02/24 23:20 100 MG Acetaminophen 650 mg Q6HP PRN PO 12/01/24 08:00 Hydralazine HCl 10 mg Q6HP PRN IV 12/01/24 08:15 Midazolam HCl 50 ml @ 1 mls/hr Q24H IV 12/03/24 18:00 12/13/24 10:35 1 MLS/HR Vancomycin HCl 0 ml @ 0 mls/hr UD IV 12/04/24 09:45 Norepinephrine Bitartrate 250 ml @ 0.938 mls/ hr Q24H IV 12/04/24 17:15 12/13/24 12:44 18.75 MLS/HR Midodrine 10 mg Q8HR PO 12/04/24 22:00 12/14/24 05:31 10 MG Enteral Nutritional Formula 1,000 ml 30ML/HR GT 12/05/24 12:15 12/08/24 00:09 1,000 ML Pantoprazole Sodium 40 mg DAILY IV 12/07/24 10:00 12/13/24 13:29 40 MG Insulin Human Regular Q6HR SC 12/06/24 18:00 12/12/24 23:24 2 UNITS Dextrose 50 ml UD PRN IV 12/06/24 15:15 12/09/24 13:47 50 ML Levalbuterol HCl 0.625 mg Q6HR NEB 12/07/24 00:00 12/14/24 06:19 0.625 MG Ipratropium [place] 0.5 mg Q6HR NEB 12/07/24 00:00 12/14/24 06:19 0.5 MG Metoclopramide HCl 5 mg Q8HR IV 12/07/24 14:00 12/14/24 05:30 5 MG Diagnostic Test (Pha) 1 strip Q6HR 12/10/24 12:00 12/14/24 05:31 1 STRIP Amino Acids 0 ml @ 0 mls/hr PER PHARMACY IV 12/11/24 13:00 Amino Acids 1,000 ml @ 41 mls/hr DAILY@2200 IV 12/11/24 22:00 12/13/24 21:34 41 MLS/HR Fentanyl Citrate 250 ml @ 2.5 mls/hr Q24H IV 12/12/24 21:45 12/13/24 18:23 17.5 MLS/HR Albumin Human 50 ml @ 100 mls/hr PRN PRN IV 12/13/24 09:00 12/13/24 10:55 100 MLS/HR Lactulose 30 ml Q4HR PO 12/13/24 18:00 12/13/24 21:35 30 ML Piperacillin Sod/ Tazobactam Sod 50 ml @ 12.5 mls/hr Q12HR IV 12/13/24 22:00 12/13/24 21:40 12.5 MLS/HR laboratory and microbiology Laboratory Tests 12/14/24 03:48 Test 12/14/24 03:48 Range/Units Serum Glucose 135 H 74-106 mg/dL Problem List/Assessment/Plan Problem List/Assessment/Plan 12/13/24 when OR crew went to pick patient up for, his planned thoracotomy they were told that patient is undergoing dialysis, i will post pone procedure to tomorrow 7;15 AM and will check coags prior to operation, nurse notified. 12/14/24 this morning patient's PT and INR are elevated to unacceptably high level for proposed operation, Decortication can be a very "bloody" operation under the best of circumstances, coags need to be corrected to a PT of 12 and INR at the most 1.3 in order to proceed with the operation safely. I have rescheduled the procedure for tomorrow. Plan discussed with: Other Dietary Evaluation Review Comments: 1) Increase EN nutrition to meet at least 75% of estimated needs (Nepro 1.8 @ 30ml/hr x 24 hrs uninterrupted continuous feed adequately meets pt needs) 2) Advance pt diet when medically feasible to a Renal Standard diet modified per MEDIA RELATIONS SPECIALIST recommendations 3) Continue current plan of care Expected Outcomes/Goals: 1) Pt to receive adequate nutrition support 2) Pt diet to advance 3) F/U in 2-3 days STANISLAW VALLE MD Dec 14, 2024 07:43
[2024-12-14] MEDS ORDERED: Nepro With Carb Steady 1 Liter Bottle GT SCH (09:30)
--- NOTE | 2024-12-14 10:37 | DVHPN2 ---
Progress Note - Dictate Date Seen: Dec 14, 2024 Medical Necessity Reason Pt with a Central, PICC or Fol: Yes The following are medically ne: Central Line Subjective PT WITH RESP FAILURE/ RESP ARREST PNEUMONIA HYPOTENSION SEVERE ANEMIA/ HEMOTHORAX? INTUBATED ESRD-HD COPD DM2 CAD/CABG HTN DYSLIPIDEMIA C * Left main shows 50% heavily calcified narrowing with moderate diffuse disease. * Left anterior descending artery, high-grade narrowing proximally and in the mid lesion greater than 90%. * ELY to the LAD was patent. * Circumflex artery, moderate diffuse disease throughout. * Right coronary artery was occluded. * Saphenous vein graft to the OM is patent; however, there is a sluggish flow, in fact obtuse marginal is being supplied by the little river vessel even though the patient has a high-grade narrowing of the left main. * Right coronary artery was occluded. Saphenous vein graft to the PDA was patent; however. * The patient on fluoroscopy appears to have normal functioning aortic valve with no restriction or calcification noted. * Right heart catheterization showed RA pressure of 8, RV pressure of 52/12, PA pressure of 50/20 and capillary wedge pressure of 18. Thus, the patient with heavily calcified anatomy throughout the aorta, coronaries, carotid, subclavian. Anatomy as described above. At this time, the patient is not a candidate for any revascularization. He has got a patent ELY to the LAD, patent saphenous vein graft to the OM, although it is heavily degenerated with very sluggish flow. The circumflex artery is actually being supplied by the little river vessel. Right coronary artery was occluded, however, saphenous vein graft to the PDA was patent. At this time, conservative medical management, aggressive risk modification, antiplatelet therapy should be maintained especially with EDP inhibitors, receptor inhibitors such as Plavix or Brilinta and the patient should be maintained on Eliquis as well. The patient is a poor candidate for any revascularization percutaneously or surgical. The patient has a visible stent in the left subclavian vein as well. vital signs Vital Sign Date Time Temp Pulse Resp B/P (MAP) Pulse Ox O2 Delivery O2 Flow Rate FiO2 12/14/24 10:09 90 19 111/36 (61) 100 30 12/14/24 06:30 99.1 210.4 12/14/24 06:00 Mechanical Ventilator+ Total Intake and Output 12/13/24 12/13/2425 15:00 23:00 07:00 Intake Total 749.566 ml 738.85 ml 683.5 ml Output Total 0 ml 0 ml Balance 749.566 ml 738.85 ml 683.5 ml medications Current Medications Medications Dose Ordered Sig/Dioni Route Start Time Stop Time Status Last Admin Dose Admin Sodium Chloride 10 ml Q8HR IV 12/01/24 14:00 12/14/24 05:30 10 ML Docusate Sodium 100 mg BIDPRN PRN PO 12/01/24 08:00 12/02/24 23:20 100 MG Acetaminophen 650 mg Q6HP PRN PO 12/01/24 08:00 Hydralazine HCl 10 mg Q6HP PRN IV 12/01/24 08:15 Midazolam HCl 50 ml @ 1 mls/hr Q24H IV 12/03/24 18:00 12/14/24 07:29 1 MLS/HR Vancomycin HCl 0 ml @ 0 mls/hr UD IV 12/04/24 09:45 Norepinephrine Bitartrate 250 ml @ 0.938 mls/ hr Q24H IV 12/04/24 17:15 12/13/24 12:44 18.75 MLS/HR Midodrine 10 mg Q8HR PO 12/04/24 22:00 12/14/24 05:31 10 MG Enteral Nutritional Formula 1,000 ml 30ML/HR GT 12/05/24 12:15 12/08/24 00:09 1,000 ML Pantoprazole Sodium 40 mg DAILY IV 12/07/24 10:00 12/14/24 09:44 40 MG Insulin Human Regular Q6HR SC 12/06/24 18:00 12/12/24 23:24 2 UNITS Dextrose 50 ml UD PRN IV 12/06/24 15:15 12/09/24 13:47 50 ML Levalbuterol HCl 0.625 mg Q6HR NEB 12/07/24 00:00 12/14/24 06:19 0.625 MG Ipratropium Chancellor 0.5 mg Q6HR NEB 12/07/24 00:00 12/14/24 06:19 0.5 MG Metoclopramide HCl 5 mg Q8HR IV 12/07/24 14:00 12/14/24 05:30 5 MG Diagnostic Test (Pha) 1 strip Q6HR 12/10/24 12:00 12/14/24 05:31 1 STRIP Amino Acids 0 ml @ 0 mls/hr PER PHARMACY IV 12/11/24 13:00 Amino Acids 1,000 ml @ 41 mls/hr DAILY@2200 IV 12/11/24 22:00 12/13/24 21:34 41 MLS/HR Fentanyl Citrate 250 ml @ 2.5 mls/hr Q24H IV 12/12/24 21:45 12/14/24 08:27 15 MLS/HR Albumin Human 50 ml @ 100 mls/hr PRN PRN IV 12/13/24 09:00 12/13/24 10:55 100 MLS/HR Lactulose 30 ml Q4HR PO 12/13/24 18:00 12/14/24 09:44 30 ML Piperacillin Sod/ Tazobactam Sod 50 ml @ 12.5 mls/hr Q12HR IV 12/13/24 22:00 12/14/24 09:44 12.5 MLS/HR Enteral Nutritional Formula 1,000 ml 30ML/HR GT 12/14/24 09:30 laboratory and microbiology Laboratory Tests 12/14/24 03:48 Test 12/14/24 03:48 Range/Units Serum Glucose 135 H 74-106 mg/dL Problem List RESP FAILURE PNEUMONIA HYPOTENSION SEVERE ANEMIA INTUBATED ESRD-HD COPD DM2 CAD/CABG HTN DYSLIPIDEMIA [facility] * Left main shows 50% heavily calcified narrowing with moderate diffuse disease. * Left anterior descending artery, high-grade narrowing proximally and in the mid lesion greater than 90%. * ELY to the LAD was patent. * Circumflex artery, moderate diffuse disease throughout. * Right coronary artery was occluded. * Saphenous vein graft to the OM is patent; however, there is a sluggish flow, in fact obtuse marginal is being supplied by the little river vessel even though the patient has a high-grade narrowing of the left main. * Right coronary artery was occluded. Saphenous vein graft to the PDA was patent; however. * The patient on fluoroscopy appears to have normal functioning aortic valve with no restriction or calcification noted. * Right heart catheterization showed RA pressure of 8, RV pressure of 52/12, PA pressure of 50/20 and capillary wedge pressure of 18. Thus, the patient with heavily calcified anatomy throughout the aorta, coronaries, carotid, subclavian. Anatomy as described above. At this time, the patient is not a candidate for any revascularization. He has got a patent ELY to the LAD, patent saphenous vein graft to the OM, although it is heavily degenerated with very sluggish flow. The circumflex artery is actually being supplied by the little river vessel. Right coronary artery was occluded, however, saphenous vein graft to the PDA was patent. At this time, conservative medical management, aggressive risk modification, antiplatelet therapy should be maintained especially with EDP inhibitors, receptor inhibitors such as Plavix or Brilinta and the patient should be maintained on Eliquis as well. The patient is a poor candidate for any revascularization percutaneously or surgical. The patient has a visible stent in the left subclavian vein as well. Assessment/Plan CARDIAC STATUS STABLE ECHO EF 40% AV PROSTHESIS MAY PROCEED WITH SURGICAL INTERVENTION ASA II/ III ALL CULTURES NEGATIVE NASAL SWAB NEGATIVE PERSISTENT LEUKOCYTOSIS CONSIDER VICKY IF CONTINUED LEUKOCYTOSIS WBC TRENDING UP CONSIDER CHANGING ABX VICKY IN AM stillwith leukocytosis anemia consider epogen/ iron study S/P CHEST TUBE PLACEMENT FOR HEMOTHORAX LEUKOCYTOSIS PERSISTS Dietary Evaluation Review Comments: 1) Increase EN nutrition to meet at least 75% of estimated needs (Nepro 1.8 @ 30ml/hr x 24 hrs uninterrupted continuous feed adequately meets pt needs) 2) Advance pt diet when medically feasible to a Renal Standard diet modified per PIPER INSTALLER recommendations 3) Continue current plan of care Expected Outcomes/Goals: 1) Pt to receive adequate nutrition support 2) Pt diet to advance 3) F/U in 2-3 days Plan discussed with: Patient Critical Care Time(min): 35 CC Plasma Assessment Blood Product Administration S: [id number] BALAJI KING MD Dec 14, 2024 10:36
--- NOTE | 2024-12-14 15:05 | DVHPN2 ---
Progress Note - Dictate Date Seen: Dec 14, 2024 Medical Necessity Reason Pt with a Central, PICC or Fol: Yes The following are medically ne: Central Line Subjective Patient is intubated and sedated. Daughter is at bedside. Pleurodesis was postponed due to coagulopathy. vital signs Vital Sign Date Time Temp Pulse Resp B/P (MAP) Pulse Ox O2 Delivery O2 Flow Rate FiO2 12/14/24 14:08 96 18 109/36 (60) 100 30 12/14/24 08:00 Mechanical Ventilator+ 12/14/24 06:30 99.1 210.4 Total Intake and Output 12/13/24 12/13/24 12/14/24 15:00 23:00 07:00 Intake Total 749.566 ml 738.85 ml 763.563 ml Output Total 0 ml 0 ml Balance 749.566 ml 738.85 ml 763.563 ml medications Current Medications Medications Dose Ordered Sig/Dioni Route Start Time Stop Time Status Last Admin Dose Admin Sodium Chloride 10 ml Q8HR IV 12/01/24 14:00 12/14/24 14:13 10 ML Docusate Sodium 100 mg BIDPRN PRN PO 12/01/24 08:00 12/02/24 23:20 100 MG Acetaminophen 650 mg Q6HP PRN PO 12/01/24 08:00 Hydralazine HCl 10 mg Q6HP PRN IV 12/01/24 08:15 Midazolam HCl 50 ml @ 1 mls/hr Q24H IV 12/03/24 18:00 12/14/24 07:29 1 MLS/HR Vancomycin HCl 0 ml @ 0 mls/hr UD IV 12/04/24 09:45 Norepinephrine Bitartrate 250 ml @ 0.938 mls/ hr Q24H IV 12/04/24 17:15 12/14/24 11:33 20.625 MLS/HR Midodrine 10 mg Q8HR PO 12/04/24 22:00 12/14/24 14:11 10 MG Pantoprazole Sodium 40 mg DAILY IV 12/07/24 10:00 12/14/24 09:44 40 MG Insulin Human Regular Q6HR SC 12/06/24 18:00 12/12/24 23:24 2 UNITS Dextrose 50 ml UD PRN IV 12/06/24 15:15 12/09/24 13:47 50 ML Levalbuterol HCl 0.625 mg Q6HR NEB 12/07/24 00:00 12/14/24 12:14 0.625 MG Ipratropium [place] 0.5 mg Q6HR NEB 12/07/24 00:00 12/14/24 12:14 0.5 MG Metoclopramide HCl 5 mg Q8HR IV 12/07/24 14:00 12/14/24 14:12 5 MG Diagnostic Test (Pha) 1 strip Q6HR 12/10/24 12:00 12/14/24 12:08 1 STRIP Fentanyl Citrate 250 ml @ 2.5 mls/hr Q24H IV 12/12/24 21:45 12/14/24 08:27 15 MLS/HR Albumin Human 50 ml @ 100 mls/hr PRN PRN IV 12/13/24 09:00 12/13/24 10:55 100 MLS/HR Lactulose 30 ml Q4HR PO 12/13/24 18:00 12/14/24 14:11 30 ML Enteral Nutritional Formula 1,000 ml 30ML/HR GT 12/14/24 09:30 Piperacillin Sod/ Tazobactam Sod 100 ml @ 25 mls/hr Q12HR IV 12/14/24 22:00 objective HEENT: ET tube in position. Pulmonary: Diminished lung sounds right lung. Cardiovascular S1-S2, no S3 or S4 Abdomen: Bowel sounds positive, soft no rebound tenderness Skin: No rash, easy bruising reported with a bruise in the left hand, right forearm, right and left lower extremity Neurological: Sedated and intubated. Hemodialysis access right upper chest tunneled line no issues laboratory and microbiology Laboratory Tests 12/14/24 03:48 Test 12/14/24 03:48 Range/Units Serum Glucose 135 H 74-106 mg/dL Assessment/Plan Assessment: 1. ESRD on HD 2. S/p cardiac arrest 3. Septic and Hemorrhagic shock 4. Large Rt hydrothorax, hemothorax 5. Acute hypoxic respiratory failure s/p intubation on mechanical ventilator 6. Pneumonia 7. Hyperphosphatemia 8. Secondary hyperparathyroidism 9. Metabolic acidosis 10. Coagulopathy. Plan and recommendations: Hemodialysis Friday May give blood product with dialysis in a.m. in anticipation to the pleurodesis Pressor support S/P chest tube placement Monitor H&H transfuse as needed. IV antibiotics renally dose. Thank you very much for allowing us to participate in the care of this patient Dietary Evaluation Review Comments: 1) Increase EN nutrition to meet at least 75% of estimated needs (Nepro 1.8 @ 30ml/hr x 24 hrs uninterrupted continuous feed adequately meets pt needs) 2) Advance pt diet when medically feasible to a Renal Standard diet modified per ORACLE SOFTWARE ENGINEER recommendations 3) Continue current plan of care Expected Outcomes/Goals: 1) Pt to receive adequate nutrition support 2) Pt diet to advance 3) F/U in 2-3 days Plan discussed with: Patient CC Plasma Assessment Blood Product Administration S: [id number] ZAHRA JACKSON MD Dec 14, 2024 15:05
--- NOTE | 2024-12-14 19:05 | DVHPNRES ---
Progress Note Date Seen: Dec 14, 2024 Resident Creating Document: ROXANA WALDROP RESIDENT Medical Necessity Reason Pt with a Central, PICC or Fol: Yes The following are medically ne: Central Line Subjective Review of Systems pt seen and examined at bedside Patient seen and examined at bedside. He is currently sedated and intubated, on mechanical ventilator with respiratory rate of 18, tidal volume 450, 30% FiO2 and PEEP of 5. Review of system could not be done as patient is sedated Patient received dialysis yesterday Was supposed to have thoracotomy on the right side today but surgeon postponed it because of elevated INR Chest tube drainage 0 cc Objective vital signs Vital Sign Date Time Temp Pulse Resp B/P (MAP) Pulse Ox O2 Delivery O2 Flow Rate FiO2 12/14/24 16:30 98.8 98 18 113/37 (62) 100 209.8 12/14/24 16:06 30 12/14/24 16:00 Mechanical Ventilator+ Total Intake and Output 12/13/24 12/13/24 12/14/24 15:00 23:00 07:00 Intake Total 749.566 ml 738.85 ml 763.563 ml Output Total 0 ml 0 ml Balance 749.566 ml 738.85 ml 763.563 ml medications Current Medications Medications Dose Ordered Sig/Dioni Route Start Time Stop Time Status Last Admin Dose Admin Sodium Chloride 10 ml Q8HR IV 12/01/24 14:00 12/14/24 14:13 10 ML Docusate Sodium 100 mg BIDPRN PRN PO 12/01/24 08:00 12/02/24 23:20 100 MG Acetaminophen 650 mg Q6HP PRN PO 12/01/24 08:00 Hydralazine HCl 10 mg Q6HP PRN IV 12/01/24 08:15 Midazolam HCl 50 ml @ 1 mls/hr Q24H IV 12/03/24 18:00 12/14/24 07:29 1 MLS/HR Vancomycin HCl 0 ml @ 0 mls/hr UD IV 12/04/24 09:45 Norepinephrine Bitartrate 250 ml @ 0.938 mls/ hr Q24H IV 12/04/24 17:15 12/14/24 11:33 20.625 MLS/HR Midodrine 10 mg Q8HR PO 12/04/24 22:00 12/14/24 14:11 10 MG Pantoprazole Sodium 40 mg DAILY IV 12/07/24 10:00 12/14/24 09:44 40 MG Insulin Human Regular Q6HR SC 12/06/24 18:00 12/12/24 23:24 2 UNITS Dextrose 50 ml UD PRN IV 12/06/24 15:15 12/09/24 13:47 50 ML Levalbuterol HCl 0.625 mg Q6HR NEB 12/07/24 00:00 12/14/24 12:14 0.625 MG Ipratropium [place] 0.5 mg Q6HR NEB 12/07/24 00:00 12/14/24 12:14 0.5 MG Metoclopramide HCl 5 mg Q8HR IV 12/07/24 14:00 12/14/24 14:12 5 MG Diagnostic Test (Pha) 1 strip Q6HR 12/10/24 12:00 12/14/24 17:36 1 STRIP Fentanyl Citrate 250 ml @ 2.5 mls/hr Q24H IV 12/12/24 21:45 12/14/24 08:27 15 MLS/HR Albumin Human 50 ml @ 100 mls/hr PRN PRN IV 12/13/24 09:00 12/13/24 10:55 100 MLS/HR Lactulose 30 ml Q4HR PO 12/13/24 18:00 12/14/24 17:34 30 ML Enteral Nutritional Formula 1,000 ml 30ML/HR GT 12/14/24 09:30 Piperacillin Sod/ Tazobactam Sod 100 ml @ 25 mls/hr Q12HR IV 12/14/24 22:00 Examination Examination General Appearance: sedated and intubated Respiratory: Clear to auscultation, Normal air movement Cardiovascular: Regular rate, Normal S1, Normal S2 Abdominal: Normal bowel sounds Extremities: left sided toe amputation,present on admission, right sided 5th digit amputation POA, left arm blister Skin: No rashes, No breakdown Neuro: sedated and intubated laboratory and microbiology Laboratory Tests 12/14/24 03:48 Test 12/14/24 03:48 Range/Units Serum Glucose 135 H 74-106 mg/dL Microbiology Date/Time Source Procedure Growth Status 12/09/24 20:15 Pleural Fluid Gram Stain - Final Resulted 12/09/24 20:15 Pleural Fluid Body Fluid Culture - Preliminary Resulted 12/05/24 01:30 Nose MRSA Screen - Final Complete 12/04/24 11:15 Blood Blood Culture - Final NO GROWTH AFTER 5 DAYS OF INCUBATION. Complete 12/03/24 21:30 Sputum Gram Stain - Final Complete 12/03/24 21:30 Sputum Respiratory Culture - Final Complete Labs and/or images reviewed: Labs reviewed by me, Image(s) reviewed by me Problem List/Assessment/Plan Problem List/Assessment/Plan Assessment/plan Neurology # sedation -on fentanyl # presyncope -head CT completed 12/06 unremarkable for acute Cardiovascular #Shock likely septic/cardiogenic -currently on norepinephrine -continue midodrine #s/p cardiac arrest 12/03 -head CT -echo #acute HFrEF -echo -on pressors #history of hypertension -currently in shock #Dyslipidemia -resume meds on discharge #Right cephalic vein thrombosis, superficial venous thrombosis -warm compresses Respiratory #Acute hypoxic respiratory failure status post intubation 12/03 -on mech vent #Community acquired pneumonia, Gram-positive and gram negative/Aspiration pneumonia -IV vanc and IV zosy #Right loculated hemothorax status post chest tube placement 12/09 -no drainage from chest tube -planned for Sx tomorrow #COPD, stable -on home o2 GI #Transaminitis likely shock liver Monitor Nephrology #End-stage renal disease, on hemodialysis -received HD today #?Rhabdomyolysis -on HD #hyponatremia -monitor Hematology #Anemia due to acute hemorrhage, chronic disease, CKD s/p transfusion -4 units PRBC transfused -monitor #thrombocytopenia -s/p 1 unit of platelet transfusion #Coagulopathy -1 unit of vitamin k administered 1 unit of FFP alongside dialysis planned for tomorrow Endocrine #DM2 -insulin sliding scale Musculoskeletal/derm #S/p left sided toe amputation, -present on admission #s/p right sided 5th digit amputation -present on admission ID #Sepsis with septic shock -repeat panculture -DC femoral line -tip culture Lines Right femoral CVC 12/03 discontinued 12/15/23 left IJ CVC placed 12/15/23 Drips norepinephrine fentanyl Nutrition dc Clinimix resume NG tube feeding and hold after midnight Goals of care/advance care planning; FULL CODE; discussed on for 22 minutes. Plan discussed with family at bedside Critical Care time excluding procedures: 55 minutes Case discussion with dr carline. Plan discussed with: Other My Orders My Orders Orders - ROXANA WALDROP RESIDENT Procedure Category Date Status Time Respiratory Culture JJ 12/14/24 Uncollected W/ Gs 09:29 Blood Culture JJ 12/14/24 Uncollected 09:29 Nutritional PHA 12/14/24 In Process Supplements (Nepro 09:30 Piperacillin-Tazob PHA 12/14/24 In Process 3.375gm (Zosyn 3.375g 22:00 Chest Portable XY 12/14/24 Logged 18:31 Chest Portable XY 12/14/24 Logged 18:40 Dietary Evaluation Review Comments: 1) Increase EN nutrition to meet at least 75% of estimated needs (Nepro 1.8 @ 30ml/hr x 24 hrs uninterrupted continuous feed adequately meets pt needs) 2) Advance pt diet when medically feasible to a Renal Standard diet modified per ACADEMIC AFFAIRS COORDINATOR recommendations 3) Continue current plan of care Expected Outcomes/Goals: 1) Pt to receive adequate nutrition support 2) Pt diet to advance 3) F/U in 2-3 days CC Plasma Assessment Blood Product Administration S: [id number] Date of Service: Dec 14, 2024 Billing Provider: PANCHO PHAM MD Common Visit Codes: [id number] CARE 30-74 MIN ROXANA WALDROP RESIDENT Dec 14, 2024 19:05 PANCHO PHAM MD Dec 15, 2024 15:39
[2024-12-14] MEDS ORDERED: PHYTONADIONE (VIT K)10 MG/ML 1ML VIAL SUBCUT ONE (19:15)
--- NOTE | 2024-12-14 19:23 | DVH ---
CHEST RADIOGRAPH Indication: CENTRAL LINE PLACEMENT Technique: Single frontal view of the chest was obtained Comparison: XY CHEST PORTABLE on DOS: 12/14/24, XY CHEST PORTABLE on DOS: 12/13/24, XY CHEST PORTABLE o n DOS: 12/11/24 FINDINGS: Lines and Tubes: Endotracheal tube 4 cm above the christa. Right internal jugular catheter in place wi th the tip at the cavoatrial junction. Enteric tube below the left diaphragm in the stomach. Left int ernal jugular catheter in place superior vena cava of the right atrium. Lungs: Right lower lobe infiltrate and pleural effusion unimproved. Pleura: Small right pleural effusion No pneumothorax. Cardiomediastinal contours: Unremarkable Bones: No acute osseous abnormality. IMPRESSION: 1. Endotracheal tube in place 4 cm above the christa. 2. Left internal jugular catheter in place in superior vena cava above the right atrium. 3. Internal catheter from the right internal jugular vein in place unchanged. 4. Enteric tube stomach. HS:Y
[2024-12-14] MEDS: PHYTONADIONE (VIT K)10 MG/ML 1ML VIAL SUBCUT ONE (20:16)
--- NOTE | 2024-12-14 21:25 | DVHNC2 ---
Central Line Recorder of insertion practice: Chemistry Faculty Member (Resident Physician) Indication: Hypotension Room prepared for procedure: Yes Chemistry Faculty Member performed hand hygien: Yes Maximal sterile barrier precau: Mask/Eye shield, Sterile gown, Cap, Sterlie gloves, Large sterlie drape Skin Preparation: Chlorhexidine gluconate Skin preparation completely dr: Yes Insertion site: Left, Internal jugular Central line catheter type: [id number] dialysis Number of lumens: 3 Post Assessment: Chest X-Ray Notes The patient was lying in the Trendelenburg position with head turned 30 degrees away from the insertion site. The skin was thoroughly sponged with chlorhexidine and allowed to dry. All persons involved were shielded with hair nets, face masks and sterile gowns. With sterile-gloved hands the left neck area was draped with the large disposable sterile field provided in the pre-manufactured kit. The skin and subcutaneous tissues superficial to the Left internal jugular vein were anesthetized with 2 mL of 1% lidocaine. The left internal jugular vein was identified on ultrasound from the angle of the mandible down into the supraclavicular fossa using the linear ultrasound probe in the transverse orientation. The carotid artery was identified and avoid ed utilizing color-flow. The internal jugular vein was then placed in the center of the ultrasound field and compressed for patency. A movement artifact was identified as the needle was advanced through the skin and advanced toward the vessel. A real time hyperechoic signal revealed visualization of vascular needle entry into the lumen as blood was noted to flashback in the syringe. The needle was then held in place while the guide wire was advanced. The needle was then removed. Direct visualization of guide wire location within the vein was noted on ultrasound indicating proper placement and was document in the electronic medical record chart. A skin dilator was advanced over the guidewire and removed, and the triple-lumen catheter was then advanced over the guide wire into proper position. The guide wire was removed and discarded. The ports were aspirated which showed good blood return and then carefully flushed with normal saline. The catheter was stabilized and sutured to the skin with 2-0 silk at 2 anchor points. A sterile bio-patch and dressing was placed over the catheter, including the insertion site. The patient tolerated the procedure well. A chest x-ray was ordered for position confirmation. Post-procedure chest x-ray was ordered. Elmo Guerra Luis J MD Date of Service: Dec 14, 2024 Billing Provider: PACNHO PHAM MD Common Visit Codes: PROCEDURE ONLY Procedure Codes: [id number] NON-TUNNEL CV CATH ELMO GUERRA Dec 14, 2024 21:25 PANCHO PHAM MD Dec 15, 2024 15:52
--- NOTE | 2024-12-14 21:40 | DVHPN2 ---
Progress Note - Dictate Date Seen: Dec 14, 2024 Medical Necessity Reason Pt with a Central, PICC or Fol: Yes The following are medically ne: Central Line Subjective Patient seen and examined at bedside. Sedated, intubated on mechanical ventilator. Overnight events reviewed. vital signs Vital Sign Date Time Temp Pulse Resp B/P (MAP) Pulse Ox O2 Delivery O2 Flow Rate FiO2 12/14/24 21:10 93 18 108/35 100 30 12/14/24 20:00 Mechanical Ventilator+ 12/14/24 19:00 99.0 210.2 Total Intake and Output 12/13/24 12/13/24 12/14/24 15:00 23:00 07:00 Intake Total 749.566 ml 738.85 ml 763.563 ml Output Total 0 ml 0 ml Balance 749.566 ml 738.85 ml 763.563 ml medications Current Medications Medications Dose Ordered Sig/Dioni Route Start Time Stop Time Status Last Admin Dose Admin Sodium Chloride 10 ml Q8HR IV 12/01/24 14:00 12/14/24 14:13 10 ML Docusate Sodium 100 mg BIDPRN PRN PO 12/01/24 08:00 12/02/24 23:20 100 MG Acetaminophen 650 mg Q6HP PRN PO 12/01/24 08:00 Hydralazine HCl 10 mg Q6HP PRN IV 12/01/24 08:15 Midazolam HCl 50 ml @ 1 mls/hr Q24H IV 12/03/24 18:00 12/14/24 07:29 1 MLS/HR Vancomycin HCl 0 ml @ 0 mls/hr UD IV 12/04/24 09:45 Norepinephrine Bitartrate 250 ml @ 0.938 mls/ hr Q24H IV 12/04/24 17:15 12/14/24 11:33 20.625 MLS/HR Midodrine 10 mg Q8HR PO 12/04/24 22:00 12/14/24 14:11 10 MG Pantoprazole Sodium 40 mg DAILY IV 12/07/24 10:00 12/14/24 09:44 40 MG Insulin Human Regular Q6HR SC 12/06/24 18:00 12/12/24 23:24 2 UNITS Dextrose 50 ml UD PRN IV 12/06/24 15:15 12/09/24 13:47 50 ML Levalbuterol HCl 0.625 mg Q6HR NEB 12/07/24 00:00 12/14/24 18:45 0.625 MG Ipratropium [place] 0.5 mg Q6HR NEB 12/07/24 00:00 12/14/24 18:45 0.5 MG Metoclopramide HCl 5 mg Q8HR IV 12/07/24 14:00 12/14/24 14:12 5 MG Diagnostic Test (Pha) 1 strip Q6HR 12/10/24 12:00 12/14/24 17:36 1 STRIP Fentanyl Citrate 250 ml @ 2.5 mls/hr Q24H IV 12/12/24 21:45 12/14/24 08:27 15 MLS/HR Albumin Human 50 ml @ 100 mls/hr PRN PRN IV 12/13/24 09:00 12/13/24 10:55 100 MLS/HR Lactulose 30 ml Q4HR PO 12/13/24 18:00 12/14/24 17:34 30 ML Enteral Nutritional Formula 1,000 ml 30ML/HR GT 12/14/24 09:30 Piperacillin Sod/ Tazobactam Sod 100 ml @ 25 mls/hr Q12HR IV 12/14/24 22:00 objective Gen.: Patient lying in bed in medical ICU. Sedated, intubated on mechanical ventilator. Head: Normocephalic, atraumatic. Eyes: PERRLA. Ears: Normal external anatomy. Throat: Endotracheal tube and orogastric tube in place. Neck: Supple, trachea midline. Chest: Transmitted breath sounds bilaterally. Decreased air entry bilaterally. No wheezing. Bibasilar crackles. Cardiovascular: Positive S1, positive S2. Regular rate and rhythm. Abdomen: Positive bowel sounds in all 4 quadrants. Soft, nontender, nondistended. : Su in place. Normal external genitalia. Rectal: Deferred. Skin: Warm, dry. Intact. Extremities: 2+ radial pulses bilaterally. No lower extremity edema. Neuro: Sedated. laboratory and microbiology Laboratory Tests 12/14/24 03:48 Test 12/14/24 03:48 Range/Units Serum Glucose 135 H 74-106 mg/dL Assessment/Plan Impression: Acute hypoxic respiratory failure On mechanical ventilator Recurrent pleural effusion Atelectasis End-stage renal disease, on hemodialysis Anemia, symptomatic Lactic acidosis Events: Remains on mechanical ventilator. On AC mode with RR 18, VT 450, PEEP 5, FiO2 30% ABG reviewed, compensated Sedated on Versed, Fentanyl drips. On Levophed for hemodynamic support Titrate to keep mean arterial pressure greater than 65 mmHg. Plan for hemodialysis. Decortication surgery postponed due to coagulation abnormality. Left IJ placed Plan to remove femoral central line. Clinimix for IV nutritional support Continue antibiotics Tube feeds for nutritional support Monitor WBC - trending up from 12 -->19 K Monitor hemoglobin Transfuse if less than 7.0 g/dL. HD per Nephrology Monitor renal function Monitor electrolytes. Supplement as necessary. Hyponatremia - sodium of 133 Surgery postponed d/t coagulation abnormality CT chest without contrast demonstrates Large right hydro hemothorax. No pneumothorax. Small left pleural effusion. Patchy consolidation and ground-glass opacities in both lungs. Ascites. Limited chest ultrasound demonstrated loculated viscous fluid by ultrasound appearance Labs and imaging reviewed. Rest of plan as noted below. Plan: s/p intubation on mechanical ventilator. On AC mode with RR 18, VT 450, PEEP 5, FiO2 30% Titrate FIO2 to keep O2 saturation above 90%. VAP bundle. Daily ABG and CXR while intubated Sedate for ventilator synchrony On pressors for hemodynamic support Titrate to keep mean arterial pressure greater than 65 mmHg. Monitor hemoglobin Transfuse if less than 7.0 g/dL. Continue antibiotics Pain control Avoid oversedation On Eliquis Accu-Cheks, ISS. HD per Nephrology Monitor renal function. Monitor electrolytes. Supplement as necessary. Monitor ins and outs. DVT prophylaxis. Prognosis: Poor given patient's multiple co-morbidities. Condition: Critical Rest of plan per hospitalist and other consultants. A total of 35 minutes of critical care time was spent reviewing the patient record, examining the patient, making a diagnostic and therapeutic plan, discussing this plan with the medical personnel, following up on diagnostic studies and following the patient for clinical stability excluding any and all procedures. At least 50% of this time was spent in direct, [id number] contact. Thank you, Sy Oliver NP, for allowing me to participate in this patient's care. Further recommendations will depend on the patient's clinical course. Please do not hesitate to contact me if you have any questions or concerns. This medical document was created using an electronic medical record system with Dragon computerized dictation system. Although these documentations are being carefully reviewed, there may still be some phonetic and typographical changes. The errors are purely typographical, due to imperfection on the software program, and do not reflect any compromise in the patient's medical care. Dietary Evaluation Review Comments: 1) Increase EN nutrition to meet at least 75% of estimated needs (Nepro 1.8 @ 30ml/hr x 24 hrs uninterrupted continuous feed adequately meets pt needs) 2) Advance pt diet when medically feasible to a Renal Standard diet modified per [employer] recommendations 3) Continue current plan of care Expected Outcomes/Goals: 1) Pt to receive adequate nutrition support 2) Pt diet to advance 3) F/U in 2-3 days Plan discussed with: Other (ALVARO Cassidy) Critical Care Time(min): 35 CC Plasma Assessment Blood Product Administration S: [id number] AUSTIN LISA MD Dec 14, 2024 21:40
[2024-12-14] MEDS: PIPERACILLIN-TAZOB 3.375GM 100 ML IV SCH (21:42)
[2024-12-15] VITALS (115 sets, daily range): BP systolic 72–137; BP diastolic 10–87; PULSE 80–113; RESP 12–26; TEMP 97.7–99.3; O2SAT 94–100
[2024-12-15 03:32] LABS: Basophils # (auto) 0.1 10 ^3/uL (0-0.2); Basophils % (auto) 0.9 % (0.0-2.0); Eosinophils # (auto) 0.7 10 ^3/uL (0-0.8); Eosinophils % (auto) 4.2 % (0.0-7.0); Hematocrit 30.3 % (41.0-53.0); Hemoglobin 9.9 g/dL (13.5-17.5); Lymphocytes # (auto) 0.5 10 ^3/uL (0.4-5.4); Lymphocytes % (auto) 3.1 % (10.0-50.0); Mean Corpuscular Hemoglobin 30.5 pg (28.0-32.0); Mean Corpuscular Hgb Conc. 32.7 g/dL (32.0-36.0); Mean Corpuscular Volume 93.2 fL (80.0-100.0); Monocytes # (auto) 1.1 10 ^3/uL (0-1.3); Monocytes % (auto) 6.5 % (0.0-12.0); Neutrophils # (auto) 14.5 10 ^3/uL (1.6-8.6); Neutrophils % (auto) 85.3 % (37.0-80.0); Nucleated Red Blood Cells % 0.8 %; Platelet Count (auto) 119 10^3/uL (140-450); Red Blood Cells 3.25 10^6/uL (4.5-5.90); Red Cell Distribution Width 16.8 % (11.8-14.3)
[2024-12-15 03:49] LABS: Alkaline Phosphatase 72 U/L (46-116); Anion Gap 9 (5-15); BUN/Creatinine Ratio 11.8 (10.0-20.0); Calcium 9.9 mg/dL (8.7-10.4); Carbon Dioxide 25 mmol/L (20-31); Chloride 99 mmol/L (98-107)
[2024-12-15 03:50] LABS: Total Protein 5.9 g/dL (5.7-8.2)
[2024-12-15 03:52] LABS: INR 1.66 (0.9-1.15); Partial Thromboplastin Time 37.3 SEC (24.5-34.5); Prothrombin Time 16.7 sec (9.3-11.8)
[2024-12-15 04:08] LABS: Alanine Aminotransferase 155 U/L (7-40); Aspartate Aminotransferase 270 U/L (13-40); Blood Urea Nitrogen 55 mg/dL (9-23); Glucose 107 mg/dL (74-106); Potassium 3.4 mmol/L (3.5-5.1); Sodium 133 mmol/L (136-145)
--- NOTE | 2024-12-15 05:25 | DVH ---
CHEST RADIOGRAPH Indication: mech vent Technique: Single frontal view of the chest was obtained Comparison: XY CHEST PORTABLE on DOS: 12/14/24, XY CHEST PORTABLE on DOS: 12/14/24, XY CHEST PORTABLE o n DOS: 12/13/24, XY CHEST PORTABLE on DOS: 12/11/24, XY CHEST PORTABLE on DOS: 12/10/24, XY CHEST PORTAB LE on DOS: 12/14/24 FINDINGS: Lines and Tubes: Endotracheal tube 4 cm above the christa. Right internal jugular catheter in place wi th the tip at the cavoatrial junction. Enteric tube below the left diaphragm in the stomach. Left int ernal jugular catheter in place superior vena cava of the right atrium. Lungs: Right lower lobe infiltrate and pleural effusion unimproved. Pleura: Small right pleural effusion No pneumothorax. Cardiomediastinal contours: Unremarkable Bones: No acute osseous abnormality. IMPRESSION: 1. Endotracheal tube in place 4 cm above the christa. 2. Left internal jugular catheter in place in superior vena cava above the right atrium. 3. Internal catheter from the right internal jugular vein in place unchanged. 4. Enteric tube stomach.
[2024-12-15] MEDS: PHYTONADIONE (VIT K)10 MG/ML 1ML VIAL SUBCUT ONE ×2 (08:00→23:03)
[2024-12-15 08:10] LABS: Base Excess -4.6 mmol/L (-2.0-3.0)
--- NOTE | 2024-12-15 08:43 | DVHPNRES ---
Progress Note Date Seen: Dec 15, 2024 Resident Creating Document: ROXANA WALDROP RESIDENT Medical Necessity Reason Pt with a Central, PICC or Fol: Yes The following are medically ne: Central Line Subjective Review of Systems pt seen and examined at bedside Patient seen and examined at bedside. He is currently sedated and intubated, on mechanical ventilator with respiratory rate of 20, tidal volume 450, 30% FiO2 and PEEP of 5. Review of system could not be done as patient is sedated Was supposed to have thoracotomy on the right side today but surgeon postponed it because of elevated INR scheduled for dialysis tonight Chest tube drainage 0 cc Objective vital signs Vital Sign Date Time Temp Pulse Resp B/P (MAP) Pulse Ox O2 Delivery O2 Flow Rate FiO2 12/15/24 08:23 100 21 122/28 (59) 100 30 12/15/24 06:45 98.4 209.1 12/15/24 06:00 Mechanical Ventilator+ Total Intake and Output 12/14/24 12/14/24 12/15/24 14:59 22:59 06:59 Intake Total 627.190 ml 332.950 ml 513.4 ml Output Total 0 ml 3 ml Balance 627.190 ml 332.950 ml 510.4 ml medications Current Medications Medications Dose Ordered Sig/Dioni Route Start Time Stop Time Status Last Admin Dose Admin Sodium Chloride 10 ml Q8HR IV 12/01/24 14:00 12/15/24 06:00 10 ML Docusate Sodium 100 mg BIDPRN PRN PO 12/01/24 08:00 12/02/24 23:20 100 MG Acetaminophen 650 mg Q6HP PRN PO 12/01/24 08:00 Hydralazine HCl 10 mg Q6HP PRN IV 12/01/24 08:15 Midazolam HCl 50 ml @ 1 mls/hr Q24H IV 12/03/24 18:00 12/15/24 08:20 1 MLS/HR Vancomycin HCl 0 ml @ 0 mls/hr UD IV 12/04/24 09:45 Norepinephrine Bitartrate 250 ml @ 0.938 mls/ hr Q24H IV 12/04/24 17:15 12/15/24 08:06 23.438 MLS/HR Midodrine 10 mg Q8HR PO 12/04/24 22:00 12/15/24 06:28 10 MG Pantoprazole Sodium 40 mg DAILY IV 12/07/24 10:00 12/14/24 09:44 40 MG Insulin Human Regular Q6HR SC 12/06/24 18:00 12/15/24 00:00 2 UNITS Dextrose 50 ml UD PRN IV 12/06/24 15:15 12/09/24 13:47 50 ML Levalbuterol HCl 0.625 mg Q6HR NEB 12/07/24 00:00 12/15/24 00:16 0.625 MG Ipratropium [place] 0.5 mg Q6HR NEB 12/07/24 00:00 12/15/24 00:16 0.5 MG Metoclopramide HCl 5 mg Q8HR IV 12/07/24 14:00 12/14/24 21:41 5 MG Diagnostic Test (Pha) 1 strip Q6HR 12/10/24 12:00 12/15/24 06:00 1 STRIP Fentanyl Citrate 250 ml @ 2.5 mls/hr Q24H IV 12/12/24 21:45 12/14/24 22:20 15 MLS/HR Albumin Human 50 ml @ 100 mls/hr PRN PRN IV 12/13/24 09:00 12/13/24 10:55 100 MLS/HR Lactulose 30 ml Q4HR PO 12/13/24 18:00 12/14/24 21:42 30 ML Enteral Nutritional Formula 1,000 ml 30ML/HR GT 12/14/24 09:30 Piperacillin Sod/ Tazobactam Sod 100 ml @ 25 mls/hr Q12HR IV 12/14/24 22:00 12/14/24 21:42 25 MLS/HR Examination Examination General Appearance: sedated and intubated Respiratory: Clear to auscultation, Normal air movement Cardiovascular: Regular rate, Normal S1, Normal S2 Abdominal: Normal bowel sounds Extremities: left sided toe amputation,present on admission, right sided 5th digit amputation POA, left arm blister Skin: No rashes, No breakdown Neuro: sedated and intubated laboratory and microbiology Laboratory Tests 12/15/24 03:00 Test 12/15/24 03:00 Range/Units Serum Glucose 107 H 74-106 mg/dL Microbiology Date/Time Source Procedure Growth Status 12/09/24 20:15 Pleural Fluid Gram Stain - Final Complete 12/09/24 20:15 Pleural Fluid Body Fluid Culture - Final Complete 12/05/24 01:30 Nose MRSA Screen - Final Complete 12/04/24 11:15 Blood Blood Culture - Final NO GROWTH AFTER 5 DAYS OF INCUBATION. Complete 12/03/24 21:30 Sputum Gram Stain - Final Complete 12/03/24 21:30 Sputum Respiratory Culture - Final Complete Labs and/or images reviewed: Labs reviewed by me, Image(s) reviewed by me Problem List/Assessment/Plan Problem List/Assessment/Plan Assessment/plan Neurology # sedation -on fentanyl # presyncope -head CT completed 12/06 unremarkable for acute Cardiovascular #Shock likely septic/cardiogenic -currently on norepinephrine -continue midodrine #s/p cardiac arrest 12/03 -head CT -echo #acute HFrEF -echo -on pressors #history of hypertension -currently in shock #Dyslipidemia -resume meds on discharge #Right cephalic vein thrombosis, superficial venous thrombosis -warm compresses Respiratory #Acute hypoxic respiratory failure status post intubation 12/03 -on mech vent #Community acquired pneumonia, Gram-positive and gram negative/Aspiration pneumonia -IV vanc and IV zosy #Right loculated hemothorax status post chest tube placement 12/09 -no drainage from chest tube -planned for Sx tomorrow #COPD, stable -on home o2 GI #Transaminitis likely shock liver Monitor Nephrology #End-stage renal disease, on hemodialysis -scheduled for HD today #?Rhabdomyolysis -on HD #hyponatremia -monitor Hematology #Anemia due to acute hemorrhage, chronic disease, CKD s/p transfusion -4 units PRBC transfused -monitor #thrombocytopenia -s/p 1 unit of platelet transfusion #Coagulopathy -1 unit of vitamin k administered 1 unit of FFP alongside dialysis planned for tomorrow Endocrine #DM2 -insulin sliding scale Musculoskeletal/derm #S/p left sided toe amputation, -present on admission #s/p right sided 5th digit amputation -present on admission ID #Sepsis with septic shock -repeat panculture -DC femoral line -tip culture Lines Right femoral CVC 12/03 discontinued 12/15/23 left IJ CVC placed 12/15/23 Drips norepinephrine fentanyl Nutrition dc Clinimix resume NG tube feeding and hold after midnight Goals of care/advance care planning; FULL CODE; discussed on for 22 minutes. Plan discussed with family at bedside Critical Care time excluding procedures and long dw family and surgeon: 81 minutes Case discussion with dr pham. Plan discussed with: Other My Orders My Orders Orders - ROXANA WALDROP RESIDENT Procedure Category Date Status Time Respiratory Culture JJ 12/14/24 Logged W/ Gs 21:10 Nutritional PHA 12/14/24 In Process Supplements (Nepro 09:30 Piperacillin-Tazob PHA 12/14/24 In Process 3.375gm (Zosyn 3.375g 22:00 Chest Portable XY 12/14/24 Resulted 18:40 Blood Culture JJ 12/14/24 In Process 19:30 Respiratory Culture JJ 12/14/24 In Process W/ Gs 21:10 Communication Order ORDERS 12/14/24 Transmitted 18:50 Chest Portable XY 12/15/24 Resulted 04:00 Abg W/ Co-Ox RT 12/15/24 Logged 04:00 Potassium Chl PHA 12/15/24 Logged 20meq/100ml 08:45 Dietary Evaluation Review Comments: 1) Increase EN nutrition to meet at least 75% of estimated needs (Nepro 1.8 @ 30ml/hr x 24 hrs uninterrupted continuous feed adequately meets pt needs) 2) Advance pt diet when medically feasible to a Renal Standard diet modified per [employer] recommendations 3) Continue current plan of care Expected Outcomes/Goals: 1) Pt to receive adequate nutrition support 2) Pt diet to advance 3) F/U in 2-3 days CC Plasma Assessment Blood Product Administration S: [id number] Date of Service: Dec 15, 2024 Billing Provider: PANCHO PHAM MD Common Visit Codes: 02393-[id number] CARE 30-74 MIN, 43326-[id number] CARE-EACH +30MIN ROXANA WALDROP Dec 15, 2024 08:43 PANCHO PHAM MD Dec 16, 2024 12:03
[2024-12-15] MEDS: POTASSIUM CHL 20MEQ/100ML 100 ML IV ONE (09:47)
--- NOTE | 2024-12-15 12:59 | DVHPN2 ---
Progress Note - Dictate Date Seen: Dec 15, 2024 Medical Necessity Reason Pt with a Central, PICC or Fol: Yes The following are medically ne: Central Line Subjective PT WITH RESP FAILURE/ RESP ARREST PNEUMONIA HYPOTENSION SEVERE ANEMIA/ HEMOTHORAX? INTUBATED ESRD-HD COPD DM2 CAD/CABG HTN DYSLIPIDEMIA C * Left main shows 50% heavily calcified narrowing with moderate diffuse disease. * Left anterior descending artery, high-grade narrowing proximally and in the mid lesion greater than 90%. * ELY to the LAD was patent. * Circumflex artery, moderate diffuse disease throughout. * Right coronary artery was occluded. * Saphenous vein graft to the OM is patent; however, there is a sluggish flow, in fact obtuse marginal is being supplied by the [place] vessel even though the patient has a high-grade narrowing of the left main. * Right coronary artery was occluded. Saphenous vein graft to the PDA was patent; however. * The patient on fluoroscopy appears to have normal functioning aortic valve with no restriction or calcification noted. * Right heart catheterization showed RA pressure of 8, RV pressure of 52/12, PA pressure of 50/20 and capillary wedge pressure of 18. Thus, the patient with heavily calcified anatomy throughout the aorta, coronaries, carotid, subclavian. Anatomy as described above. At this time, the patient is not a candidate for any revascularization. He has got a patent ELY to the LAD, patent saphenous vein graft to the OM, although it is heavily degenerated with very sluggish flow. The circumflex artery is actually being supplied by the [place] vessel. Right coronary artery was occluded, however, saphenous vein graft to the PDA was patent. At this time, conservative medical management, aggressive risk modification, antiplatelet therapy should be maintained especially with EDP inhibitors, receptor inhibitors such as Plavix or Brilinta and the patient should be maintained on Eliquis as well. The patient is a poor candidate for any revascularization percutaneously or surgical. The patient has a visible stent in the left subclavian vein as well. vital signs Vital Sign Date Time Temp Pulse Resp B/P (MAP) Pulse Ox O2 Delivery O2 Flow Rate FiO2 12/15/24 11:54 103 22 99/10 (39) 100 30 12/15/24 10:10 Mechanical Ventilator+ 12/15/24 10:00 98.4 98.4 Total Intake and Output 12/14/24 12/14/2425 15:00 23:00 07:00 Intake Total 583.752 ml 332.925 ml 516.2 ml Output Total 0 ml 3 ml Balance 583.752 ml 332.925 ml 513.2 ml medications Current Medications Medications Dose Ordered Sig/Dioni Route Start Time Stop Time Status Last Admin Dose Admin Sodium Chloride 10 ml Q8HR IV 12/01/24 14:00 12/15/24 06:00 10 ML Docusate Sodium 100 mg BIDPRN PRN PO 12/01/24 08:00 12/02/24 23:20 100 MG Acetaminophen 650 mg Q6HP PRN PO 12/01/24 08:00 Hydralazine HCl 10 mg Q6HP PRN IV 12/01/24 08:15 Midazolam HCl 50 ml @ 1 mls/hr Q24H IV 12/03/24 18:00 12/15/24 08:20 1 MLS/HR Vancomycin HCl 0 ml @ 0 mls/hr UD IV 12/04/24 09:45 Norepinephrine Bitartrate 250 ml @ 0.938 mls/ hr Q24H IV 12/04/24 17:15 12/15/24 08:06 23.438 MLS/HR Midodrine 10 mg Q8HR PO 12/04/24 22:00 12/15/24 06:28 10 MG Pantoprazole Sodium 40 mg DAILY IV 12/07/24 10:00 12/15/24 09:40 40 MG Insulin Human Regular Q6HR SC 12/06/24 18:00 12/15/24 00:00 2 UNITS Dextrose 50 ml UD PRN IV 12/06/24 15:15 12/09/24 13:47 50 ML Levalbuterol HCl 0.625 mg Q6HR NEB 12/07/24 00:00 12/15/24 09:51 0.625 MG Ipratropium [place] 0.5 mg Q6HR NEB 12/07/24 00:00 12/15/24 09:51 0.5 MG Metoclopramide HCl 5 mg Q8HR IV 12/07/24 14:00 12/14/24 21:41 5 MG Diagnostic Test (Pha) 1 strip Q6HR 12/10/24 12:00 12/15/24 12:26 1 STRIP Fentanyl Citrate 250 ml @ 2.5 mls/hr Q24H IV 12/12/24 21:45 12/14/24 22:20 15 MLS/HR Albumin Human 50 ml @ 100 mls/hr PRN PRN IV 12/13/24 09:00 12/13/24 10:55 100 MLS/HR Lactulose 30 ml Q4HR PO 12/13/24 18:00 12/14/24 21:42 30 ML Enteral Nutritional Formula 1,000 ml 30ML/HR GT 12/14/24 09:30 Piperacillin Sod/ Tazobactam Sod 100 ml @ 25 mls/hr Q12HR IV 12/14/24 22:00 12/15/24 09:40 25 MLS/HR laboratory and microbiology Laboratory Tests 12/15/24 11:15 12/15/24 03:00 Test 12/15/24 03:00 Range/Units Serum Glucose 107 H 74-106 mg/dL Problem List RESP FAILURE PNEUMONIA HYPOTENSION SEVERE ANEMIA INTUBATED ESRD-HD COPD DM2 CAD/CABG HTN DYSLIPIDEMIA [facility] * Left main shows 50% heavily calcified narrowing with moderate diffuse disease. * Left anterior descending artery, high-grade narrowing proximally and in the mid lesion greater than 90%. * ELY to the LAD was patent. * Circumflex artery, moderate diffuse disease throughout. * Right coronary artery was occluded. * Saphenous vein graft to the OM is patent; however, there is a sluggish flow, in fact obtuse marginal is being supplied by the [place] vessel even though the patient has a high-grade narrowing of the left main. * Right coronary artery was occluded. Saphenous vein graft to the PDA was patent; however. * The patient on fluoroscopy appears to have normal functioning aortic valve with no restriction or calcification noted. * Right heart catheterization showed RA pressure of 8, RV pressure of 52/12, PA pressure of 50/20 and capillary wedge pressure of 18. Thus, the patient with heavily calcified anatomy throughout the aorta, coronaries, carotid, subclavian. Anatomy as described above. At this time, the patient is not a candidate for any revascularization. He has got a patent ELY to the LAD, patent saphenous vein graft to the OM, although it is heavily degenerated with very sluggish flow. The circumflex artery is actually being supplied by the [place] vessel. Right coronary artery was occluded, however, saphenous vein graft to the PDA was patent. At this time, conservative medical management, aggressive risk modification, antiplatelet therapy should be maintained especially with EDP inhibitors, receptor inhibitors such as Plavix or Brilinta and the patient should be maintained on Eliquis as well. The patient is a poor candidate for any revascularization percutaneously or surgical. The patient has a visible stent in the left subclavian vein as well. Assessment/Plan CARDIAC STATUS STABLE ECHO EF 40% AV PROSTHESIS MAY PROCEED WITH SURGICAL INTERVENTION ASA II/ III ALL CULTURES NEGATIVE NASAL SWAB NEGATIVE PERSISTENT LEUKOCYTOSIS CONSIDER VICKY IF CONTINUED LEUKOCYTOSIS WBC TRENDING UP CONSIDER CHANGING ABX VICKY IN AM stillwith leukocytosis anemia consider epogen/ iron study S/P CHEST TUBE PLACEMENT FOR HEMOTHORAX LEUKOCYTOSIS PERSISTS ANEMIA HYPOKALEMIA CORRECT HYPOKALEMIA CONSIDER WEANING OFF VENT ADJUST VANCO DOSING ELEVATED LFTs Dietary Evaluation Review Comments: 1) Increase EN nutrition to meet at least 75% of estimated needs (Nepro 1.8 @ 30ml/hr x 24 hrs uninterrupted continuous feed adequately meets pt needs) 2) Advance pt diet when medically feasible to a Renal Standard diet modified per [employer] recommendations 3) Continue current plan of care Expected Outcomes/Goals: 1) Pt to receive adequate nutrition support 2) Pt diet to advance 3) F/U in 2-3 days Plan discussed with: Patient, Spouse, Daughter Critical Care Time(min): 35 CC Plasma Assessment Blood Product Administration S: [id number] BALAJI KING MD Dec 15, 2024 12:59
[2024-12-15 13:07] LABS: INR 1.54 (0.9-1.15); Partial Thromboplastin Time 34.7 SEC (24.5-34.5); Prothrombin Time 15.6 sec (9.3-11.8)
[2024-12-15] MEDS: NOREPINEPHRINE BITARTRATE 32 MG in SODIUM CHL 0.9% 218 ML IV SCH ×2 (15:49→18:45)
--- NOTE | 2024-12-15 15:59 | DVHPN2 ---
Progress Note - Dictate Date Seen: Dec 15, 2024 Medical Necessity Reason Pt with a Central, PICC or Fol: Yes The following are medically ne: Central Line Subjective Patient intubated and sedated. Decortication could not be done today due to coagulopathy. vital signs Vital Sign Date Time Temp Pulse Resp B/P (MAP) Pulse Ox O2 Delivery O2 Flow Rate FiO2 12/15/24 15:30 98.1 98 20 100/32 (54) 100 208.6 12/15/24 14:38 40 12/15/24 14:00 Mechanical Ventilator+ Total Intake and Output 12/14/24 12/14/24 12/15/24 15:00 23:00 07:00 Intake Total 583.752 ml 332.925 ml 516.2 ml Output Total 0 ml 3 ml Balance 583.752 ml 332.925 ml 513.2 ml medications Current Medications Medications Dose Ordered Sig/Dioni Route Start Time Stop Time Status Last Admin Dose Admin Sodium Chloride 10 ml Q8HR IV 12/01/24 14:00 12/15/24 14:20 10 ML Docusate Sodium 100 mg BIDPRN PRN PO 12/01/24 08:00 12/02/24 23:20 100 MG Acetaminophen 650 mg Q6HP PRN PO 12/01/24 08:00 Hydralazine HCl 10 mg Q6HP PRN IV 12/01/24 08:15 Midazolam HCl 50 ml @ 1 mls/hr Q24H IV 12/03/24 18:00 12/15/24 08:20 1 MLS/HR Vancomycin HCl 0 ml @ 0 mls/hr UD IV 12/04/24 09:45 Midodrine 10 mg Q8HR PO 12/04/24 22:00 12/15/24 14:20 10 MG Pantoprazole Sodium 40 mg DAILY IV 12/07/24 10:00 12/15/24 09:40 40 MG Insulin Human Regular Q6HR SC 12/06/24 18:00 12/15/24 00:00 2 UNITS Dextrose 50 ml UD PRN IV 12/06/24 15:15 12/09/24 13:47 50 ML Levalbuterol HCl 0.625 mg Q6HR NEB 12/07/24 00:00 12/15/24 15:04 0.625 MG Ipratropium [place] 0.5 mg Q6HR NEB 12/07/24 00:00 12/15/24 15:04 0.5 MG Metoclopramide HCl 5 mg Q8HR IV 12/07/24 14:00 12/15/24 14:20 5 MG Diagnostic Test (Pha) 1 strip Q6HR 12/10/24 12:00 12/15/24 12:26 1 STRIP Fentanyl Citrate 250 ml @ 2.5 mls/hr Q24H IV 12/12/24 21:45 12/15/24 13:13 15 MLS/HR Albumin Human 50 ml @ 100 mls/hr PRN PRN IV 12/13/24 09:00 12/13/24 10:55 100 MLS/HR Enteral Nutritional Formula 1,000 ml 30ML/HR GT 12/14/24 09:30 Piperacillin Sod/ Tazobactam Sod 100 ml @ 25 mls/hr Q12HR IV 12/14/24 22:00 12/15/24 09:40 25 MLS/HR Lactulose 30 ml BID PO 12/15/24 22:00 Norepinephrine Bitartrate 32 mg/ Sodium Chloride 250 ml @ 0.938 mls/ hr Q24H IV 12/15/24 14:00 12/15/24 15:49 7.5 MLS/HR objective HEENT: ET tube in position. Pulmonary: Diminished lung sounds right lung. Cardiovascular S1-S2, no S3 or S4 Abdomen: Bowel sounds positive, soft no rebound tenderness Skin: No rash, easy bruising reported with a bruise in the left hand, right forearm, right and left lower extremity Neurological: Sedated and intubated. Hemodialysis access right upper chest tunneled line no issues laboratory and microbiology Laboratory Tests 12/15/24 11:15 12/15/24 03:00 Test 12/15/24 03:00 Range/Units Serum Glucose 107 H 74-106 mg/dL Assessment/Plan Assessment: 1. ESRD on HD 2. S/p cardiac arrest 3. Septic and Hemorrhagic shock 4. Large Rt hydrothorax, hemothorax 5. Acute hypoxic respiratory failure s/p intubation on mechanical ventilator 6. Pneumonia 7. Hyperphosphatemia 8. Secondary hyperparathyroidism 9. Metabolic acidosis 10. Coagulopathy. Plan and recommendations: Hemodialysis Friday with albumin given hypotension and the spacing FFP was given Pressor support S/P chest tube placement Monitor H&H transfuse as needed. IV antibiotics renally dose. Guarded prognosis. Plan of care discussed with family at bedside. Thank you very much for allowing us to participate in the care of this patient Dietary Evaluation Review Comments: 1) Increase EN nutrition to meet at least 75% of estimated needs (Nepro 1.8 @ 30ml/hr x 24 hrs uninterrupted continuous feed adequately meets pt needs) 2) Advance pt diet when medically feasible to a Renal Standard diet modified per [employer] recommendations 3) Continue current plan of care Expected Outcomes/Goals: 1) Pt to receive adequate nutrition support 2) Pt diet to advance 3) F/U in 2-3 days Plan discussed with: Patient, Daughter CC Plasma Assessment Blood Product Administration S: [id number] ZAHRA JACKSON MD Dec 15, 2024 15:59
--- NOTE | 2024-12-15 22:06 | DVHPN2 ---
Progress Note - Dictate Date Seen: Dec 15, 2024 Medical Necessity Reason Pt with a Central, PICC or Fol: Yes The following are medically ne: Central Line Subjective Patient seen and examined at bedside. Sedated, intubated on mechanical ventilator. Overnight events reviewed. vital signs Vital Sign Date Time Temp Pulse Resp B/P (MAP) Pulse Ox O2 Delivery O2 Flow Rate FiO2 12/15/24 20:20 107 20 103/32 (55) 96 30 12/15/24 18:45 98.8 209.8 12/15/24 18:00 Mechanical Ventilator+ Total Intake and Output 12/14/24 12/14/24 12/15/24 15:00 23:00 07:00 Intake Total 583.752 ml 332.925 ml 516.2 ml Output Total 0 ml 3 ml Balance 583.752 ml 332.925 ml 513.2 ml medications Current Medications Medications Dose Ordered Sig/Dioni Route Start Time Stop Time Status Last Admin Dose Admin Sodium Chloride 10 ml Q8HR IV 12/01/24 14:00 12/15/24 14:20 10 ML Docusate Sodium 100 mg BIDPRN PRN PO 12/01/24 08:00 12/02/24 23:20 100 MG Acetaminophen 650 mg Q6HP PRN PO 12/01/24 08:00 Hydralazine HCl 10 mg Q6HP PRN IV 12/01/24 08:15 Midazolam HCl 50 ml @ 1 mls/hr Q24H IV 12/03/24 18:00 12/15/24 08:20 1 MLS/HR Vancomycin HCl 0 ml @ 0 mls/hr UD IV 12/04/24 09:45 Midodrine 10 mg Q8HR PO 12/04/24 22:00 12/15/24 14:20 10 MG Pantoprazole Sodium 40 mg DAILY IV 12/07/24 10:00 12/15/24 09:40 40 MG Insulin Human Regular Q6HR SC 12/06/24 18:00 12/15/24 00:00 2 UNITS Dextrose 50 ml UD PRN IV 12/06/24 15:15 12/09/24 13:47 50 ML Levalbuterol HCl 0.625 mg Q6HR NEB 12/07/24 00:00 12/15/24 18:14 0.625 MG Ipratropium [place] 0.5 mg Q6HR NEB 12/07/24 00:00 12/15/24 18:14 0.5 MG Metoclopramide HCl 5 mg Q8HR IV 12/07/24 14:00 12/15/24 14:20 5 MG Diagnostic Test (Pha) 1 strip Q6HR 12/10/24 12:00 12/15/24 18:05 1 STRIP Fentanyl Citrate 250 ml @ 2.5 mls/hr Q24H IV 12/12/24 21:45 12/15/24 13:13 15 MLS/HR Albumin Human 50 ml @ 100 mls/hr PRN PRN IV 12/13/24 09:00 12/13/24 10:55 100 MLS/HR Enteral Nutritional Formula 1,000 ml 30ML/HR GT 12/14/24 09:30 Piperacillin Sod/ Tazobactam Sod 100 ml @ 25 mls/hr Q12HR IV 12/14/24 22:00 12/15/24 09:40 25 MLS/HR Lactulose 30 ml BID PO 12/15/24 22:00 Norepinephrine Bitartrate 32 mg/ Sodium Chloride 250 ml @ 0.234 mls/ hr Q24H IV 12/15/24 18:45 objective Gen.: Patient lying in bed in medical ICU. Sedated, intubated on mechanical ventilator. Head: Normocephalic, atraumatic. Eyes: PERRLA. Ears: Normal external anatomy. Throat: Endotracheal tube and orogastric tube in place. Neck: Supple, trachea midline. Chest: Transmitted breath sounds bilaterally. Decreased air entry bilaterally. No wheezing. Bibasilar crackles. Cardiovascular: Positive S1, positive S2. Regular rate and rhythm. Abdomen: Positive bowel sounds in all 4 quadrants. Soft, nontender, nondistended. : Su in place. Normal external genitalia. Rectal: Deferred. Skin: Warm, dry. Intact. Extremities: 2+ radial pulses bilaterally. No lower extremity edema. Neuro: Sedated. laboratory and microbiology Laboratory Tests 12/15/24 11:15 12/15/24 03:00 Test 12/15/24 03:00 Range/Units Serum Glucose 107 H 74-106 mg/dL Assessment/Plan Impression: Acute hypoxic respiratory failure On mechanical ventilator Recurrent pleural effusion Atelectasis End-stage renal disease, on hemodialysis Anemia, symptomatic Lactic acidosis Events: Remains on mechanical ventilator. On AC mode with RR 18 -->20, VT 450, PEEP 5, FiO2 30% ABG reviewed, notable for acidemia CXR reviewed; right lower lobe infiltrate and small right pleural effusion. No pneumothorax. Devices in place. Sedated on Versed, Fentanyl drips. On pressors for hemodynamic support Levophed 20 mcg/min Titrate to keep mean arterial pressure greater than 65 mmHg. Increased pressor requirements. Chest tube in place. Monitor output Plan for hemodialysis today Nephrology recs appreciated Clinimix for IV nutritional support Continue antibiotics WBC trending down. Tube feeds for nutritional support S/p 1 unit FFP Monitor hemoglobin Transfuse if less than 7.0 g/dL. IV fluids with NS HD per Nephrology Monitor renal function Monitor electrolytes. Supplement as necessary. Potassium supplementation Decortication surgery postponed d/t coagulation abnormality CT chest without contrast demonstrates Large right hydro hemothorax. No pneumothorax. Small left pleural effusion. Patchy consolidation and ground-glass opacities in both lungs. Ascites. Limited chest ultrasound demonstrated loculated viscous fluid by ultrasound appearance Labs and imaging reviewed. Rest of plan as noted below. Plan: s/p intubation on mechanical ventilator. On AC mode with RR 20, VT 450, PEEP 5, FiO2 30% Titrate FIO2 to keep O2 saturation above 90%. VAP bundle. Daily ABG and CXR while intubated Sedate for ventilator synchrony On pressors for hemodynamic support Titrate to keep mean arterial pressure greater than 65 mmHg. Monitor hemoglobin Transfuse if less than 7.0 g/dL. Continue antibiotics Accu-Cheks, ISS. HD per Nephrology Monitor renal function. Monitor electrolytes. Supplement as necessary. Monitor ins and outs. DVT prophylaxis. Prognosis: Poor given patient's multiple co-morbidities. Condition: Critical Rest of plan per hospitalist and other consultants. A total of 35 minutes of critical care time was spent reviewing the patient record, examining the patient, making a diagnostic and therapeutic plan, discussing this plan with the medical personnel, following up on diagnostic studies and following the patient for clinical stability excluding any and all procedures. At least 50% of this time was spent in direct, [id number] contact. Thank you, Sy Oliver NP, for allowing me to participate in this patient's care. Further recommendations will depend on the patient's clinical course. Please do not hesitate to contact me if you have any questions or concerns. This medical document was created using an electronic medical record system with [employer] computerized dictation system. Although these documentations are being carefully reviewed, there may still be some phonetic and typographical changes. The errors are purely typographical, due to imperfection on the software program, and do not reflect any compromise in the patient's medical care. Dietary Evaluation Review Comments: 1) Increase EN nutrition to meet at least 75% of estimated needs (Nepro 1.8 @ 30ml/hr x 24 hrs uninterrupted continuous feed adequately meets pt needs) 2) Advance pt diet when medically feasible to a Renal Standard diet modified per [employer] recommendations 3) Continue current plan of care Expected Outcomes/Goals: 1) Pt to receive adequate nutrition support 2) Pt diet to advance 3) F/U in 2-3 days Plan discussed with: Other (ALVARO Connolly) Critical Care Time(min): 35 CC Plasma Assessment Blood Product Administration S: [id number] AUSTIN LISA MD Dec 15, 2024 22:06
[2024-12-15] MEDS: VANCOMYCIN 500mg/100mL 100 ML IV ONE (23:01)
[2024-12-15] MEDS: LACTULOSE 20Gm/30ML SOLN PO SCH (23:18)
[2024-12-16] VITALS (110 sets, daily range): BP systolic 37–136; BP diastolic 10–48; PULSE 70–118; RESP 9–26; TEMP 97.7–99.5; O2SAT 51–100
[2024-12-16] MEDS: VASOPRESSIN 20 UNIT/ML ONE (02:30)
[2024-12-16] MEDS: VASOPRESSIN 20 UNITS in SODIUM CHL 0.9% 99 ML IV SCH (02:30)
[2024-12-16] MEDS: PHENYLEPHRINE INJ 80 MG in SODIUM CHL 0.9% 242 ML IV SCH (03:22)
[2024-12-16] MEDS: PHENYLEPHRINE IV 250 ML IV ONE (03:23)
[2024-12-16] MEDS: PHENYLEPHRINE HCL 10 MG/ML VL ONE (03:23)
--- NOTE | 2024-12-16 05:38 | DVH ---
CHEST RADIOGRAPH Indication: [facility] vent Technique: Single frontal view of the chest was obtained Comparison: XY CHEST PORTABLE on DOS: 12/15/24 FINDINGS: Lines and Tubes: There is a right central venous catheter with its tip terminating in the superior ve na cava. The endotracheal tube terminatesr 3.0 cm above the christa. Status post median sternotomy. En teric tube terminates in the stomach. Left subclavian stent noted. There is a left central venous cat heter with the tip terminating in the superior vena cava. Lungs: Bilateral airspace disease, right greater than left is similar to the prior study. Pleura: Right pleural effusion is stable. No pneumothorax. Cardiomediastinal contours: Stable. Cardiac valve prosthesis. Bones: No acute osseous abnormality. IMPRESSION: 1. Appropriate position of the support lines and tubes. 2. Bilateral opacities and right pleural effusion similar to prior study.
--- NOTE | 2024-12-16 06:22 | DVH ---
Exam: US US GUIDED VASCULAR ACCESS Date: 12/14/2024 06:22 PM Clinical History: CENTRAL LINE PLACEMENT Comparison: None Findings: Targeted sonographic evaluation of the right IJ was obtained utilizing grayscale and color Doppler i concepcion. IMPRESSION: Sonographic assistance for central line placement. Please refer to procedural report for detailed fin dings.
[2024-12-16 06:54] LABS: Basophils # (auto) 0.1 10 ^3/uL (0-0.2); Basophils % (auto) 0.6 % (0.0-2.0); Eosinophils # (auto) 0.5 10 ^3/uL (0-0.8); Eosinophils % (auto) 2.4 % (0.0-7.0); Hematocrit 27.5 % (41.0-53.0); Hemoglobin 8.9 g/dL (13.5-17.5); Lymphocytes # (auto) 0.6 10 ^3/uL (0.4-5.4); Lymphocytes % (auto) 2.9 % (10.0-50.0); Mean Corpuscular Hemoglobin 30.3 pg (28.0-32.0); Mean Corpuscular Hgb Conc. 32.4 g/dL (32.0-36.0); Mean Corpuscular Volume 93.7 fL (80.0-100.0); Monocytes # (auto) 1.4 10 ^3/uL (0-1.3); Monocytes % (auto) 7.1 % (0.0-12.0); Neutrophils # (auto) 16.7 10 ^3/uL (1.6-8.6); Nucleated Red Blood Cells % 1.2 %; Platelet Count (auto) 92 10^3/uL (140-450); Red Blood Cells 2.93 10^6/uL (4.5-5.90); Red Cell Distribution Width 16.8 % (11.8-14.3); White Blood Cell 19.2 10^3/uL (4.4-10.8)
[2024-12-16 07:06] LABS: Chloride 99 mmol/L (98-107); Potassium 3.7 mmol/L (3.5-5.1); Sodium 136 mmol/L (136-145)
[2024-12-16 07:07] LABS: Anion Gap 13 (5-15); Calcium 10.1 mg/dL (8.7-10.4); Carbon Dioxide 24 mmol/L (20-31)
[2024-12-16 07:12] LABS: BUN/Creatinine Ratio 9.7 (10.0-20.0); Glucose 77 mg/dL (74-106)
[2024-12-16 07:15] LABS: Blood Urea Nitrogen 33 mg/dL (9-23)
[2024-12-16 07:30] LABS: INR 1.73 (0.9-1.15); Partial Thromboplastin Time 35.7 SEC (24.5-34.5); Prothrombin Time 17.4 sec (9.3-11.8)
[2024-12-16 08:51] LABS: Polychromasia Slight
[2024-12-16 08:52] LABS: Platelet Estimate Decreased
--- NOTE | 2024-12-16 09:05 | DVH ---
Date: 12/16/2024 08:39 AM Examination: XY KUB ABDOMEN SINGLE VIEW History: firm abdomen and large amount of gastric residuals. Comparison: None TECHNIQUE: Frontal views of the abdomen was obtained. FINDINGS/IMPRESSION: Bowel gas pattern is unremarkable. Surgical drain projects over the right upper quadrant. Enteric tub e catheter projects over the expected region of the stomach. Large calcific density measuring 4 cm pr ojects over the expected region of the right kidney. Severe atherosclerotic vascular calcifications a re visualized. The lung bases are collimated from field of view. No acute osseous abnormality identified.
[2024-12-16] MEDS: MEROPENEM 500MG IVPB 50 ML IV ONE (09:36)
[2024-12-16] MEDS: MICAFUNGIN SODIUM 100 MG in SODIUM CHL 0.9% 100 ML IV SCH (10:53)
--- NOTE | 2024-12-16 10:55 | DVHPN2 ---
Progress Note Date Seen: Dec 16, 2024 Medical Necessity Reason Pt with a Central, PICC or Fol: Yes The following are medically ne: Central Line Objective vital signs Vital Sign Date Time Temp Pulse Resp B/P (MAP) Pulse Ox O2 Delivery O2 Flow Rate FiO2 12/16/24 09:46 109 22 92/18 (42) 100 30 12/16/24 07:15 98.8 209.8 12/16/24 06:00 Mechanical Ventilator+ Total Intake and Output 12/15/24 12/15/24 12/16/24 15:00 23:00 07:00 Intake Total 873.7 ml 577.626 ml 1074.551 ml Output Total 20 ml Balance 873.7 ml 577.626 ml 1054.551 ml medications Current Medications Medications Dose Ordered Sig/Dioni Route Start Time Stop Time Status Last Admin Dose Admin Sodium Chloride 10 ml Q8HR IV 12/01/24 14:00 12/16/24 06:19 10 ML Docusate Sodium 100 mg BIDPRN PRN PO 12/01/24 08:00 12/02/24 23:20 100 MG Acetaminophen 650 mg Q6HP PRN PO 12/01/24 08:00 Hydralazine HCl 10 mg Q6HP PRN IV 12/01/24 08:15 Midazolam HCl 50 ml @ 1 mls/hr Q24H IV 12/03/24 18:00 12/15/24 08:20 1 MLS/HR Vancomycin HCl 0 ml @ 0 mls/hr UD IV 12/04/24 09:45 Midodrine 10 mg Q8HR PO 12/04/24 22:00 12/16/24 06:19 10 MG Pantoprazole Sodium 40 mg DAILY IV 12/07/24 10:00 12/16/24 09:58 40 MG Insulin Human Regular Q6HR SC 12/06/24 18:00 12/16/24 01:13 2 UNITS Dextrose 50 ml UD PRN IV 12/06/24 15:15 12/09/24 13:47 50 ML Levalbuterol HCl 0.625 mg Q6HR NEB 12/07/24 00:00 12/16/24 07:22 0.625 MG Ipratropium [place] 0.5 mg Q6HR NEB 12/07/24 00:00 12/16/24 07:22 0.5 MG Metoclopramide HCl 5 mg Q8HR IV 12/07/24 14:00 12/16/24 06:19 5 MG Diagnostic Test (Pha) 1 strip Q6HR 12/10/24 12:00 12/16/24 06:20 1 STRIP Fentanyl Citrate 250 ml @ 2.5 mls/hr Q24H IV 12/12/24 21:45 12/16/24 05:55 15 MLS/HR Albumin Human 50 ml @ 100 mls/hr PRN PRN IV 12/13/24 09:00 12/16/24 02:02 100 MLS/HR Enteral Nutritional Formula 1,000 ml 30ML/HR GT 12/14/24 09:30 Lactulose 30 ml BID PO 12/15/24 22:00 12/15/24 23:18 30 ML Norepinephrine Bitartrate 32 mg/ Sodium Chloride 250 ml @ 0.234 mls/ hr Q24H IV 12/15/24 18:45 12/16/24 09:18 14.063 MLS/HR Vasopressin 20 units/Sodium Chloride 100 ml @ 9 mls/hr Q11H7M IV 12/16/24 02:15 12/16/24 09:30 9 MLS/HR Phenylephrine HCl 80 mg/Sodium Chloride 250 ml @ 7.5 mls/hr Q24H IV 12/16/24 03:15 12/16/24 03:22 7.5 MLS/HR Micafungin Sodium 100 mg/Sodium Chloride 100 ml @ 100 mls/hr DAILY IV 12/16/24 10:00 Meropenem 50 ml @ 17 mls/hr Q12HR IV 12/16/24 22:00 laboratory and microbiology Laboratory Tests 12/16/24 05:45 Test 12/16/24 05:45 Range/Units Serum Glucose 77 74-106 mg/dL Problem List/Assessment/Plan Problem List/Assessment/Plan 12/13/24 when OR crew went to pick patient up for, his planned thoracotomy they were told that patient is undergoing dialysis, i will post pone procedure to tomorrow 7;15 AM and will check coags prior to operation, nurse notified. 12/14/24 this morning patient's PT and INR are elevated to unacceptably high level for proposed operation, Decortication can be a very "bloody" operation under the best of circumstances, coags need to be corrected to a PT of 12 and INR at the most 1.3 in order to proceed with the operation safely. I have rescheduled the procedure for tomorrow. 12/16/24 PT,PTT again too high, patient now on max BP support, he did not tolerate dialysis I do not believe he would tolerate general anesthesia and operation, have so informed primary MD. Plan discussed with: Other Dietary Evaluation Review Comments: 1) Increase EN nutrition to meet at least 75% of estimated needs (Nepro 1.8 @ 30ml/hr x 24 hrs uninterrupted continuous feed adequately meets pt needs) 2) Advance pt diet when medically feasible to a Renal Standard diet modified per [employer] recommendations 3) Continue current plan of care Expected Outcomes/Goals: 1) Pt to receive adequate nutrition support 2) Pt diet to advance 3) F/U in 2-3 days STANISLAW VALLE MD Dec 16, 2024 10:55
[2024-12-16] MEDS ORDERED: EPINEPHrine HCL 250 ML IV SCH (12:15)
[2024-12-16] MEDS: DEXTROSE 10% 1,000 ML IV SCH (12:44)
[2024-12-16] MEDS: EPINEPHrine HCL INJECTION 16 MG in D5W 5% 234 ML IV SCH (15:00)
--- NOTE | 2024-12-16 19:46 | DVHPNRES ---
Progress Note Date Seen: Dec 16, 2024 Resident Creating Document: ROXANA WALDROP RESIDENT Medical Necessity Reason Pt with a Central, PICC or Fol: Yes The following are medically ne: Central Line Subjective Review of Systems pt seen and examined at bedside Patient seen and examined at bedside. He is currently sedated and intubated, on mechanical ventilator with respiratory rate of 20, tidal volume 450, 30% FiO2 and PEEP of 5. Review of system could not be done as patient is sedated had HD last night, pt's BP dropped last night and was started on multiple pressors. Was supposed to have thoracotomy on the right side today but surgeon postponed it because of pt being unstable because of being on multiple pressors. Currently on norepi, epi, vasopressin and phenylephrine ] Objective vital signs Vital Sign Date Time Temp Pulse Resp B/P (MAP) Pulse Ox O2 Delivery O2 Flow Rate FiO2 12/16/24 18:58 112/35 12/16/24 16:00 20 100 Mechanical Ventilator+ 30 30 12/16/24 16:00 98.4 91 209.1 Total Intake and Output 12/15/24 12/15/24 12/16/24 14:59 22:59 06:59 Intake Total 897.1 ml 567.079 ml 1039.472 ml Output Total 20 ml Balance 897.1 ml 567.079 ml 1019.472 ml medications Current Medications Medications Dose Ordered Sig/Dioni Route Start Time Stop Time Status Last Admin Dose Admin Sodium Chloride 10 ml Q8HR IV 12/01/24 14:00 12/16/24 15:00 10 ML Docusate Sodium 100 mg BIDPRN PRN PO 12/01/24 08:00 12/02/24 23:20 100 MG Acetaminophen 650 mg Q6HP PRN PO 12/01/24 08:00 Midazolam HCl 50 ml @ 1 mls/hr Q24H IV 12/03/24 18:00 12/15/24 08:20 1 MLS/HR Vancomycin HCl 0 ml @ 0 mls/hr UD IV 12/04/24 09:45 Pantoprazole Sodium 40 mg DAILY IV 12/07/24 10:00 12/16/24 09:58 40 MG Insulin Human Regular Q6HR SC 12/06/24 18:00 12/16/24 01:13 2 UNITS Dextrose 50 ml UD PRN IV 12/06/24 15:15 12/16/24 12:42 50 ML Levalbuterol HCl 0.625 mg Q6HR NEB 12/07/24 00:00 12/16/24 18:42 0.625 MG Ipratropium [place] 0.5 mg Q6HR NEB 12/07/24 00:00 12/16/24 18:42 0.5 MG Metoclopramide HCl 5 mg Q8HR IV 12/07/24 14:00 12/16/24 14:21 5 MG Diagnostic Test (Pha) 1 strip Q6HR 12/10/24 12:00 12/16/24 19:06 1 STRIP Fentanyl Citrate 250 ml @ 2.5 mls/hr Q24H IV 12/12/24 21:45 12/16/24 05:55 15 MLS/HR Albumin Human 50 ml @ 100 mls/hr PRN PRN IV 12/13/24 09:00 12/16/24 02:02 100 MLS/HR Enteral Nutritional Formula 1,000 ml 30ML/HR GT 12/14/24 09:30 Lactulose 30 ml BID PO 12/15/24 22:00 12/15/24 23:18 30 ML Norepinephrine Bitartrate 32 mg/ Sodium Chloride 250 ml @ 0.234 mls/ hr Q24H IV 12/15/24 18:45 12/16/24 09:18 14.063 MLS/HR Vasopressin 20 units/Sodium Chloride 100 ml @ 9 mls/hr Q11H7M IV 12/16/24 02:15 12/16/24 18:58 9 MLS/HR Phenylephrine HCl 80 mg/Sodium Chloride 250 ml @ 7.5 mls/hr Q24H IV 12/16/24 03:15 12/16/24 18:59 33.75 MLS/HR Micafungin Sodium 100 mg/Sodium Chloride 100 ml @ 100 mls/hr DAILY IV 12/16/24 10:00 12/16/24 10:53 100 MLS/HR Meropenem 50 ml @ 17 mls/hr Q12HR IV 12/16/24 22:00 Epinephrine HCl 250 ml @ 7.5 mls/hr Q24H IV 12/16/24 12:15 UNV Epinephrine HCl 16 mg/Dextrose 250 ml @ 1.875 mls/ hr Q24H IV 12/16/24 12:15 12/16/24 15:00 1.875 MLS/HR Dextrose 1,000 ml @ 60 mls/hr [id number] IV 12/16/24 12:45 12/16/24 12:44 60 MLS/HR Examination Examination General Appearance: sedated and intubated Respiratory: Clear to auscultation, Normal air movement Cardiovascular: Regular rate, Normal S1, Normal S2 Abdominal: Normal bowel sounds Extremities: left sided toe amputation,present on admission, right sided 5th digit amputation POA, left arm blister Skin: No rashes, No breakdown Neuro: sedated and intubated laboratory and microbiology Laboratory Tests 12/16/24 05:45 Test 12/16/24 05:45 Range/Units Serum Glucose 77 74-106 mg/dL Microbiology Date/Time Source Procedure Growth Status 12/14/24 21:02 Sputum Gram Stain - Final Resulted 12/14/24 21:02 Sputum Respiratory Culture - Preliminary Resulted 12/14/24 19:40 Blood Blood Culture - Preliminary NO GROWTH AFTER 24 HOURS OF INCUBATION. Resulted 12/09/24 20:15 Pleural Fluid Gram Stain - Final Complete 12/09/24 20:15 Pleural Fluid Body Fluid Culture - Final Complete 12/05/24 01:30 Nose MRSA Screen - Final Complete Labs and/or images reviewed: Labs reviewed by me, Image(s) reviewed by me Problem List/Assessment/Plan Problem List/Assessment/Plan Assessment/plan Neurology # sedation -on fentanyl, midazolam # presyncope -head CT completed 12/06 unremarkable for acute Cardiovascular #Shock likely septic/cardiogenic -currently on norepinephrine, epi, vasopressin and phenylephrine -IV steroids #s/p cardiac arrest 12/03 -head CT -echo #acute HFrEF -echo -on pressors #history of hypertension -currently in shock #Dyslipidemia -resume meds on discharge #Right cephalic vein thrombosis, superficial venous thrombosis -warm compresses Respiratory #Acute hypoxic respiratory failure status post intubation 12/03 -on mech vent #Community acquired pneumonia, Gram-positive and gram negative/Aspiration pneumonia -IV vanc and IV meropenem, IV micafungin #Right loculated hemothorax status post chest tube placement 12/09 -no drainage from chest tube -planned for Sx tomorrow #COPD, stable -on home o2 GI #Transaminitis likely shock liver Monitor Nephrology #End-stage renal disease, on hemodialysis -scheduled for HD today #?Rhabdomyolysis -on HD #hyponatremia -monitor Hematology #Anemia due to acute hemorrhage, chronic disease, CKD s/p transfusion -4 units PRBC transfused -monitor #thrombocytopenia -s/p 1 unit of platelet transfusion #Coagulopathy -1 unit of vitamin k administered 1 unit of FFP alongside dialysis planned for tomorrow Endocrine #DM2 -insulin sliding scale Musculoskeletal/derm #S/p left sided toe amputation, -present on admission #s/p right sided 5th digit amputation -present on admission ID #Sepsis with septic shock -repeat panculture -DC femoral line -tip culture Endocrine #Hypoglycemia due to sepsis -D10W Lines Right femoral CVC 12/03 discontinued 12/15/23 left IJ CVC placed 12/15/23 Drips norepinephrine fentanyl vasopressin epi midazolam phenylephrine d10W Nutrition resume NG feedings Goals of care/advance care planning; FULL CODE; discussed on for 22 minutes. Plan discussed with family at bedside, family wants the patient to be on chemical code and will decide for terminal weaning on friday Critical Care time excluding procedures including long dw family was 81 minutes Case discussion with dr pham. Plan discussed with: Other My Orders My Orders Orders - ROXANA WALDROP RESIDENT Procedure Category Date Status Time Chest Portable XY 12/16/24 Resulted 04:00 Abg W/ Co-Ox RT 12/16/24 Logged 04:00 Sodium Chl 0.9% PHA 12/16/24 In Process (So... W/Vasopressin 02:15 Micafungin Sodium PHA 12/16/24 In Process (Mycamine) 10:00 Kub Abdomen Single XY 12/16/24 Resulted View 08:21 Meropenem 500mg Ivpb PHA 12/16/24 In Process (Merrem 500mg/Ns) 22:00 Complete Blood Count LAB 12/17/24 Verified 04:00 Comprehensive LAB 12/17/24 Verified Metabolic Panel 04:00 Chest Xray 1 View XY 12/17/24 Logged 04:00 Dietary Evaluation Review Comments: 1) Increase EN nutrition to meet at least 75% of estimated needs (Nepro 1.8 @ 30ml/hr x 24 hrs uninterrupted continuous feed adequately meets pt needs) 2) Advance pt diet when medically feasible to a Renal Standard diet modified per SPLITTER MACHINE recommendations 3) Continue current plan of care Expected Outcomes/Goals: 1) Pt to receive adequate nutrition support 2) Pt diet to advance 3) F/U in 2-3 days CC Plasma Assessment Blood Product Administration S: [id number] Date of Service: Dec 16, 2024 Billing Provider: PANCHO PHAM MD Common Visit Codes: 42466-[id number] CARE 30-74 MIN, 69386-[id number] CARE-EACH +30MIN ROXANA WALDROP Dec 16, 2024 19:45 PANCHO PHAM MD Dec 19, 2024 16:50
--- NOTE | 2024-12-16 21:00 | DVHPN2 ---
Progress Note - Dictate Date Seen: Dec 16, 2024 Medical Necessity Reason Pt with a Central, PICC or Fol: Yes The following are medically ne: Central Line Subjective Patient seen and examined at bedside. Sedated, intubated on mechanical ventilator. Overnight events reviewed. vital signs Vital Sign Date Time Temp Pulse Resp B/P (MAP) Pulse Ox O2 Delivery O2 Flow Rate FiO2 12/16/24 20:30 20 100 Mechanical Ventilator+ 30 30 12/16/24 20:30 82 12/16/24 20:19 110/33 12/16/24 19:30 97.7 207.9 Total Intake and Output 12/15/24 12/15/24 12/16/24 15:00 23:00 07:00 Intake Total 873.7 ml 577.626 ml 1074.551 ml Output Total 20 ml Balance 873.7 ml 577.626 ml 1054.551 ml medications Current Medications Medications Dose Ordered Sig/Dioni Route Start Time Stop Time Status Last Admin Dose Admin Sodium Chloride 10 ml Q8HR IV 12/01/24 14:00 12/16/24 15:00 10 ML Docusate Sodium 100 mg BIDPRN PRN PO 12/01/24 08:00 12/02/24 23:20 100 MG Acetaminophen 650 mg Q6HP PRN PO 12/01/24 08:00 Midazolam HCl 50 ml @ 1 mls/hr Q24H IV 12/03/24 18:00 12/15/24 08:20 1 MLS/HR Vancomycin HCl 0 ml @ 0 mls/hr UD IV 12/04/24 09:45 Pantoprazole Sodium 40 mg DAILY IV 12/07/24 10:00 12/16/24 09:58 40 MG Insulin Human Regular Q6HR SC 12/06/24 18:00 12/16/24 01:13 2 UNITS Dextrose 50 ml UD PRN IV 12/06/24 15:15 12/16/24 12:42 50 ML Levalbuterol HCl 0.625 mg Q6HR NEB 12/07/24 00:00 12/16/24 18:42 0.625 MG Ipratropium [place] 0.5 mg Q6HR NEB 12/07/24 00:00 12/16/24 18:42 0.5 MG Metoclopramide HCl 5 mg Q8HR IV 12/07/24 14:00 12/16/24 14:21 5 MG Diagnostic Test (Pha) 1 strip Q6HR 12/10/24 12:00 12/16/24 19:06 1 STRIP Fentanyl Citrate 250 ml @ 2.5 mls/hr Q24H IV 12/12/24 21:45 12/16/24 20:19 15 MLS/HR Albumin Human 50 ml @ 100 mls/hr PRN PRN IV 12/13/24 09:00 12/16/24 02:02 100 MLS/HR Enteral Nutritional Formula 1,000 ml 30ML/HR GT 12/14/24 09:30 Lactulose 30 ml BID PO 12/15/24 22:00 12/15/24 23:18 30 ML Norepinephrine Bitartrate 32 mg/ Sodium Chloride 250 ml @ 0.234 mls/ hr Q24H IV 12/15/24 18:45 12/16/24 09:18 14.063 MLS/HR Vasopressin 20 units/Sodium Chloride 100 ml @ 9 mls/hr Q11H7M IV 12/16/24 02:15 12/16/24 18:58 9 MLS/HR Phenylephrine HCl 80 mg/Sodium Chloride 250 ml @ 7.5 mls/hr Q24H IV 12/16/24 03:15 12/16/24 18:59 33.75 MLS/HR Micafungin Sodium 100 mg/Sodium Chloride 100 ml @ 100 mls/hr DAILY IV 12/16/24 10:00 12/16/24 10:53 100 MLS/HR Meropenem 50 ml @ 17 mls/hr Q12HR IV 12/16/24 22:00 Epinephrine HCl 250 ml @ 7.5 mls/hr Q24H IV 12/16/24 12:15 UNV Epinephrine HCl 16 mg/Dextrose 250 ml @ 1.875 mls/ hr Q24H IV 12/16/24 12:15 12/16/24 15:00 1.875 MLS/HR Dextrose 1,000 ml @ 60 mls/hr [id number] IV 12/16/24 12:45 12/16/24 12:44 60 MLS/HR Hydrocortisone Sodium Succinate 100 mg Q12HR IV 12/16/24 22:00 objective Gen.: Patient lying in bed in medical ICU. Sedated, intubated on mechanical ventilator. Head: Normocephalic, atraumatic. Eyes: PERRLA. Ears: Normal external anatomy. Throat: Endotracheal tube and orogastric tube in place. Neck: Supple, trachea midline. Chest: Transmitted breath sounds bilaterally. Decreased air entry bilaterally. No wheezing. Bibasilar crackles. Cardiovascular: Positive S1, positive S2. Regular rate and rhythm. Abdomen: Positive bowel sounds in all 4 quadrants. Soft, nontender, nondistended. : Su in place. Normal external genitalia. Rectal: Deferred. Skin: Warm, dry. Intact. Extremities: 2+ radial pulses bilaterally. No lower extremity edema. Neuro: Sedated. laboratory and microbiology Laboratory Tests 12/16/24 05:45 Test 12/16/24 05:45 Range/Units Serum Glucose 77 74-106 mg/dL Assessment/Plan Impression: Acute hypoxic respiratory failure On mechanical ventilator Recurrent pleural effusion Atelectasis End-stage renal disease, on hemodialysis Anemia, symptomatic Lactic acidosis Events: Remains on mechanical ventilator. On AC mode with RR 20, VT 450, PEEP 5, FiO2 30% ABG reviewed, compensated. CXR reviewed; bilateral opacities and right pleural effusion similar to prior. No pneumothorax. Devices in place. Sedated on Fentanyl drip. On multiple pressors for hemodynamic support Levophed 30 mcg/min, vasopressin 0.03 units/min, Meño-Synephrine 180 mcg/min, epinephrine 2 mcg/min Titrate to keep mean arterial pressure greater than 65 mmHg. Increased pressor requirements. Hemodialysis yesterday and today - patient did not tolerate HD Nephrology recs appreciated Chest tube in place. Monitor output Continue antibiotics Monitor WBC - 19.2 K Tube feeds, Clinimix for nutritional support S/p 1 unit FFP yesterday Monitor hemoglobin Transfuse if less than 7.0 g/dL. IV fluids with NS HD per Nephrology Monitor renal function Monitor electrolytes. Supplement as necessary. Decortication surgery postponed d/t coagulation abnormality CT chest without contrast demonstrates Large right hydro hemothorax. No pneumothorax. Small left pleural effusion. Patchy consolidation and ground-glass opacities in both lungs. Ascites. Limited chest ultrasound demonstrated loculated viscous fluid by ultrasound appearance Poor prognosis Family plans for compassionate extubation. Discussed goals of care with family. Labs and imaging reviewed. Rest of plan as noted below. Plan: s/p intubation on mechanical ventilator. On AC mode with RR 20, VT 450, PEEP 5, FiO2 30% Titrate FIO2 to keep O2 saturation above 90%. VAP bundle. Daily ABG and CXR while intubated Sedate for ventilator synchrony On pressors for hemodynamic support Titrate to keep mean arterial pressure greater than 65 mmHg. Monitor hemoglobin Transfuse if less than 7.0 g/dL. Continue antibiotics Accu-Cheks, ISS. HD per Nephrology Monitor renal function. Monitor electrolytes. Supplement as necessary. Monitor ins and outs. DVT prophylaxis. Prognosis: Poor given patient's multiple co-morbidities. Condition: Critical Rest of plan per hospitalist and other consultants. A total of 35 minutes of critical care time was spent reviewing the patient record, examining the patient, making a diagnostic and therapeutic plan, discussing this plan with the medical personnel, following up on diagnostic studies and following the patient for clinical stability excluding any and all procedures. At least 50% of this time was spent in direct, [id number] contact. Thank you, Sy Oliver NP, for allowing me to participate in this patient's care. Further recommendations will depend on the patient's clinical course. Please do not hesitate to contact me if you have any questions or concerns. This medical document was created using an electronic medical record system with [employer] computerized dictation system. Although these documentations are being carefully reviewed, there may still be some phonetic and typographical changes. The errors are purely typographical, due to imperfection on the software program, and do not reflect any compromise in the patient's medical care. Dietary Evaluation Review Comments: 1) Increase EN nutrition to meet at least 75% of estimated needs (Nepro 1.8 @ 30ml/hr x 24 hrs uninterrupted continuous feed adequately meets pt needs) 2) Advance pt diet when medically feasible to a Renal Standard diet modified per SHIPPER recommendations 3) Continue current plan of care Expected Outcomes/Goals: 1) Pt to receive adequate nutrition support 2) Pt diet to advance 3) F/U in 2-3 days Plan discussed with: Other (ALVARO Faye) Critical Care Time(min): 35 CC Plasma Assessment Blood Product Administration S: [id number] AUSTIN LISA MD Dec 16, 2024 21:00
[2024-12-16] MEDS: HYDROCORTISONE SOD SUCC 100 MG/2ML INJ VIAL IV SCH (22:07)
[2024-12-16] MEDS: MEROPENEM 500MG IVPB 50 ML IV SCH (22:07)
[2024-12-17] VITALS (112 sets, daily range): BP systolic 11–128; BP diastolic 10–47; PULSE 44–99; RESP 9–30; TEMP 97.7–98.6; O2SAT 93–100
[2024-12-17 03:50] LABS: Hemoglobin 8.7 g/dL (13.5-17.5)
[2024-12-17 03:53] LABS: Hematocrit 27.8 % (41.0-53.0); Mean Corpuscular Hemoglobin 30.8 pg (28.0-32.0); Mean Corpuscular Hgb Conc. 31.2 g/dL (32.0-36.0); Mean Corpuscular Volume 98.7 fL (80.0-100.0); Platelet Count (auto) 71 10^3/uL (140-450); Red Blood Cells 2.82 10^6/uL (4.5-5.90); Red Cell Distribution Width 17.8 % (11.8-14.3)
[2024-12-17 04:09] LABS: Alkaline Phosphatase 80 U/L (46-116); Anion Gap 23 (5-15); BUN/Creatinine Ratio 10.5 (10.0-20.0); Calcium 10.3 mg/dL (8.7-10.4); Chloride 98 mmol/L (98-107); Magnesium 2.3 mg/dL (1.6-2.6); Potassium 4.6 mmol/L (3.5-5.1)
[2024-12-17 04:10] LABS: Total Protein 5.9 g/dL (5.7-8.2)
[2024-12-17 04:21] LABS: Carbon Dioxide 12 mmol/L (20-31); Glucose 215 mg/dL (74-106); Sodium 133 mmol/L (136-145)
[2024-12-17 04:22] LABS: Alanine Aminotransferase 677 U/L (7-40); Albumin 3.1 g/dL (3.2-4.8); Aspartate Aminotransferase 3104 U/L (13-40); Bilirubin, Total 2.6 mg/dL (0.2-1.0); Blood Urea Nitrogen 43 mg/dL (9-23); Phosphorus 7.5 mg/dL (2.4-5.1)
[2024-12-17 04:41] LABS: White Blood Cell 30.6 10^3/uL (4.4-10.8)
[2024-12-17 04:42] LABS: Basophils % (manual) 0 (0.0-2.0); Blast Cells 0; Eosinophils % (manual) 0 (0-7); Metamyelocytes % 0; Myelocytes % 0; Promyelocytes % 0; Reactive Lymphocytes 0
[2024-12-17 05:06] LABS: Band Neutrophils % (manual) 2; Lymphocytes % (manual) 4 (10.0-50.0); Monocytes % (manual) 3 (0-12); Platelet Estimate Decreased; Smudge Cells 2 /100 WBC
--- NOTE | 2024-12-17 06:14 | DVH ---
CHEST RADIOGR[facility]: Single frontal view of the chest was obtained Comparison: XY CHEST PORTABLE on DOS: 12/16/24 FINDINGS: Lines and Tubes: The support lines and tubes are unchanged in position. Status post median sternotomy . Lungs: Stable bilateral airspace disease. Pleura: Stable right pleural effusion. No pneumothorax. Cardiomediastinal contours: Unremarkable Bones: No acute osseous abnormality. IMPRESSION: 1. Stable position of the support lines and tubes and appearance of the chest over 1 day.
[2024-12-17 06:52] LABS: Base Excess -19.1 mmol/L (-2.0-3.0)
[2024-12-17] MEDS: SODIUM BICARB 8.4% 50Meq/50ml SYR Vial IV ONE (07:16)
[2024-12-17] MEDS ORDERED: MEROPENEM 500MG IVPB 50 ML IV SCH (10:00)
[2024-12-17 10:23] LABS: Lactic Acid w/Reflex 13.5 mmol/L (0.4-2.0)
[2024-12-17 10:46] LABS: Base Excess -16.7 mmol/L (-2.0-3.0)
--- NOTE | 2024-12-17 10:54 | DVHPN2 ---
Progress Note Date Seen: Dec 17, 2024 Medical Necessity Reason Pt with a Central, PICC or Fol: Yes The following are medically ne: Central Line Objective vital signs Vital Sign Date Time Temp Pulse Resp B/P (MAP) Pulse Ox O2 Delivery O2 Flow Rate FiO2 12/17/24 09:48 91 24 114/10 (44) 100 30 12/17/24 08:00 Mechanical Ventilator+ 12/17/24 06:45 97.9 208.2 Total Intake and Output 12/16/24 12/16/24 12/17/24 15:00 23:00 07:00 Intake Total 820.195 ml 1089.504 ml 1103.504 ml Output Total 560 ml 10 ml Balance 820.195 ml 529.504 ml 1093.504 ml medications Current Medications Medications Dose Ordered Sig/Dioni Route Start Time Stop Time Status Last Admin Dose Admin Sodium Chloride 10 ml Q8HR IV 12/01/24 14:00 12/17/24 05:32 10 ML Docusate Sodium 100 mg BIDPRN PRN PO 12/01/24 08:00 12/02/24 23:20 100 MG Acetaminophen 650 mg Q6HP PRN PO 12/01/24 08:00 Midazolam HCl 50 ml @ 1 mls/hr Q24H IV 12/03/24 18:00 12/15/24 08:20 1 MLS/HR Vancomycin HCl 0 ml @ 0 mls/hr UD IV 12/04/24 09:45 Pantoprazole Sodium 40 mg DAILY IV 12/07/24 10:00 12/17/24 10:28 40 MG Insulin Human Regular Q6HR SC 12/06/24 18:00 12/17/24 05:31 3 UNITS Dextrose 50 ml UD PRN IV 12/06/24 15:15 12/16/24 12:42 50 ML Levalbuterol HCl 0.625 mg Q6HR NEB 12/07/24 00:00 12/17/24 06:17 0.625 MG Ipratropium [place] 0.5 mg Q6HR NEB 12/07/24 00:00 12/17/24 06:17 0.5 MG Metoclopramide HCl 5 mg Q8HR IV 12/07/24 14:00 12/17/24 05:29 5 MG Diagnostic Test (Pha) 1 strip Q6HR 12/10/24 12:00 12/17/24 05:30 1 STRIP Fentanyl Citrate 250 ml @ 2.5 mls/hr Q24H IV 12/12/24 21:45 12/16/24 20:19 15 MLS/HR Albumin Human 50 ml @ 100 mls/hr PRN PRN IV 12/13/24 09:00 12/16/24 02:02 100 MLS/HR Enteral Nutritional Formula 1,000 ml 30ML/HR GT 12/14/24 09:30 Lactulose 30 ml BID PO 12/15/24 22:00 12/15/24 23:18 30 ML Norepinephrine Bitartrate 32 mg/ Sodium Chloride 250 ml @ 0.234 mls/ hr Q24H IV 12/15/24 18:45 12/17/24 00:06 14.063 MLS/HR Vasopressin 20 units/Sodium Chloride 100 ml @ 9 mls/hr Q11H7M IV 12/16/24 02:15 12/17/24 05:27 9 MLS/HR Phenylephrine HCl 80 mg/Sodium Chloride 250 ml @ 7.5 mls/hr Q24H IV 12/16/24 03:15 12/17/24 10:05 33.75 MLS/HR Micafungin Sodium 100 mg/Sodium Chloride 100 ml @ 100 mls/hr DAILY IV 12/16/24 10:00 12/17/24 10:26 100 MLS/HR Meropenem 50 ml @ 17 mls/hr Q12HR IV 12/16/24 22:00 12/16/24 22:07 17 MLS/HR Epinephrine HCl 250 ml @ 7.5 mls/hr Q24H IV 12/16/24 12:15 UNV Epinephrine HCl 16 mg/Dextrose 250 ml @ 1.875 mls/ hr Q24H IV 12/16/24 12:15 12/16/24 15:00 1.875 MLS/HR Dextrose 1,000 ml @ 60 mls/hr [id number] IV 12/16/24 12:45 12/17/24 02:05 60 MLS/HR Hydrocortisone Sodium Succinate 100 mg Q12HR IV 12/16/24 22:00 12/17/24 05:29 100 MG laboratory and microbiology Laboratory Tests 12/17/24 03:06 Test 12/17/24 03:06 Range/Units Serum Glucose 215 #H 74-106 mg/dL Problem List/Assessment/Plan Problem List/Assessment/Plan 12/13/24 when OR crew went to pick patient up for, his planned thoracotomy they were told that patient is undergoing dialysis, i will post pone procedure to tomorrow 7;15 AM and will check coags prior to operation, nurse notified. 12/14/24 this morning patient's PT and INR are elevated to unacceptably high level for proposed operation, Decortication can be a very "bloody" operation under the best of circumstances, coags need to be corrected to a PT of 12 and INR at the most 1.3 in order to proceed with the operation safely. I have rescheduled the procedure for tomorrow. 12/16/24 PT,PTT again too high, patient now on max BP support, he did not tolerate dialysis I do not believe he would tolerate general anesthesia and operation, have so informed primary MD. 12/17/24 / ANKIT NOTIFIED ME THAT PT'S FAMILT WISHES TO TERMINALLY WEAN PATIENT ON FRIDAY, I WILL SIGN OFF HE IS NO LONGER A CANDIDATE FOR AN OPERATION Plan discussed with: Other Dietary Evaluation Review Comments: 1) Increase EN nutrition to meet at least 75% of estimated needs (Nepro 1.8 @ 30ml/hr x 24 hrs uninterrupted continuous feed adequately meets pt needs) 2) Advance pt diet when medically feasible to a Renal Standard diet modified per WEIGHT CALLER recommendations 3) Continue current plan of care Expected Outcomes/Goals: 1) Pt to receive adequate nutrition support 2) Pt diet to advance 3) F/U in 2-3 days STANISLAW VALLE MD Dec 17, 2024 10:54
[2024-12-17] MEDS: SODIUM BICARB 8.4% 50Meq/50ml SYR Vial IV SCH (11:25)
--- NOTE | 2024-12-17 14:09 | DVHPN2 ---
Progress Note - Dictate Date Seen: Dec 17, 2024 Medical Necessity Reason Pt with a Central, PICC or Fol: Yes The following are medically ne: Central Line Subjective PT WITH RESP FAILURE/ RESP ARREST PNEUMONIA HYPOTENSION SEVERE ANEMIA/ HEMOTHORAX? INTUBATED ESRD-HD COPD DM2 CAD/CABG HTN DYSLIPIDEMIA C * Left main shows 50% heavily calcified narrowing with moderate diffuse disease. * Left anterior descending artery, high-grade narrowing proximally and in the mid lesion greater than 90%. * ELY to the LAD was patent. * Circumflex artery, moderate diffuse disease throughout. * Right coronary artery was occluded. * Saphenous vein graft to the OM is patent; however, there is a sluggish flow, in fact obtuse marginal is being supplied by the ekuk vessel even though the patient has a high-grade narrowing of the left main. * Right coronary artery was occluded. Saphenous vein graft to the PDA was patent; however. * The patient on fluoroscopy appears to have normal functioning aortic valve with no restriction or calcification noted. * Right heart catheterization showed RA pressure of 8, RV pressure of 52/12, PA pressure of 50/20 and capillary wedge pressure of 18. Thus, the patient with heavily calcified anatomy throughout the aorta, coronaries, carotid, subclavian. Anatomy as described above. At this time, the patient is not a candidate for any revascularization. He has got a patent ELY to the LAD, patent saphenous vein graft to the OM, although it is heavily degenerated with very sluggish flow. The circumflex artery is actually being supplied by the ek[place] vessel. Right coronary artery was occluded, however, saphenous vein graft to the PDA was patent. At this time, conservative medical management, aggressive risk modification, antiplatelet therapy should be maintained especially with EDP inhibitors, receptor inhibitors such as Plavix or Brilinta and the patient should be maintained on Eliquis as well. The patient is a poor candidate for any revascularization percutaneously or surgical. The patient has a visible stent in the left subclavian vein as well. vital signs Vital Sign Date Time Temp Pulse Resp B/P (MAP) Pulse Ox O2 Delivery O2 Flow Rate FiO2 12/17/24 13:20 93 28 110/12 (44) 100 30 12/17/24 12:45 98.4 209.1 12/17/24 08:00 Mechanical Ventilator+ Total Intake and Output 12/16/24 12/16/2425 15:00 23:00 07:00 Intake Total 820.195 ml 1089.504 ml 1103.504 ml Output Total 560 ml 10 ml Balance 820.195 ml 529.504 ml 1093.504 ml medications Current Medications Medications Dose Ordered Sig/Dioni Route Start Time Stop Time Status Last Admin Dose Admin Sodium Chloride 10 ml Q8HR IV 12/01/24 14:00 12/17/24 05:32 10 ML Docusate Sodium 100 mg BIDPRN PRN PO 12/01/24 08:00 12/02/24 23:20 100 MG Acetaminophen 650 mg Q6HP PRN PO 12/01/24 08:00 Midazolam HCl 50 ml @ 1 mls/hr Q24H IV 12/03/24 18:00 12/15/24 08:20 1 MLS/HR Vancomycin HCl 0 ml @ 0 mls/hr UD IV 12/04/24 09:45 Pantoprazole Sodium 40 mg DAILY IV 12/07/24 10:00 12/17/24 10:28 40 MG Insulin Human Regular Q6HR SC 12/06/24 18:00 12/17/24 05:31 3 UNITS Dextrose 50 ml UD PRN IV 12/06/24 15:15 12/16/24 12:42 50 ML Levalbuterol HCl 0.625 mg Q6HR NEB 12/07/24 00:00 12/17/24 12:15 0.625 MG Ipratropium [place] 0.5 mg Q6HR NEB 12/07/24 00:00 12/17/24 12:15 0.5 MG Metoclopramide HCl 5 mg Q8HR IV 12/07/24 14:00 12/17/24 05:29 5 MG Diagnostic Test (Pha) 1 strip Q6HR 12/10/24 12:00 12/17/24 12:25 1 STRIP Fentanyl Citrate 250 ml @ 2.5 mls/hr Q24H IV 12/12/24 21:45 12/17/24 12:25 12.5 MLS/HR Albumin Human 50 ml @ 100 mls/hr PRN PRN IV 12/13/24 09:00 12/16/24 02:02 100 MLS/HR Enteral Nutritional Formula 1,000 ml 30ML/HR GT 12/14/24 09:30 Lactulose 30 ml BID PO 12/15/24 22:00 12/15/24 23:18 30 ML Norepinephrine Bitartrate 32 mg/ Sodium Chloride 250 ml @ 0.234 mls/ hr Q24H IV 12/15/24 18:45 12/17/24 00:06 14.063 MLS/HR Vasopressin 20 units/Sodium Chloride 100 ml @ 9 mls/hr Q11H7M IV 12/16/24 02:15 12/17/24 05:27 9 MLS/HR Phenylephrine HCl 80 mg/Sodium Chloride 250 ml @ 7.5 mls/hr Q24H IV 12/16/24 03:15 12/17/24 10:05 33.75 MLS/HR Micafungin Sodium 100 mg/Sodium Chloride 100 ml @ 100 mls/hr DAILY IV 12/16/24 10:00 12/17/24 10:26 100 MLS/HR Meropenem 50 ml @ 17 mls/hr Q12HR IV 12/16/24 22:00 12/17/24 12:04 17 MLS/HR Epinephrine HCl 250 ml @ 7.5 mls/hr Q24H IV 12/16/24 12:15 UNV Epinephrine HCl 16 mg/Dextrose 250 ml @ 1.875 mls/ hr Q24H IV 12/16/24 12:15 12/16/24 15:00 1.875 MLS/HR Dextrose 1,000 ml @ 60 mls/hr [id number] IV 12/16/24 12:45 12/17/24 02:05 60 MLS/HR Hydrocortisone Sodium Succinate 100 mg Q12HR IV 12/16/24 22:00 12/17/24 05:29 100 MG Sodium Bicarbonate 100 ml Q3HR IV 12/17/24 11:00 12/17/24 11:25 100 ML laboratory and microbiology Laboratory Tests 12/17/24 03:06 Test 12/17/24 03:06 Range/Units Serum Glucose 215 #H 74-106 mg/dL Problem List RESP FAILURE PNEUMONIA HYPOTENSION SEVERE ANEMIA INTUBATED ESRD-HD COPD DM2 CAD/CABG HTN DYSLIPIDEMIA [facility] * Left main shows 50% heavily calcified narrowing with moderate diffuse disease. * Left anterior descending artery, high-grade narrowing proximally and in the mid lesion greater than 90%. * ELY to the LAD was patent. * Circumflex artery, moderate diffuse disease throughout. * Right coronary artery was occluded. * Saphenous vein graft to the OM is patent; however, there is a sluggish flow, in fact obtuse marginal is being supplied by the ek[place] vessel even though the patient has a high-grade narrowing of the left main. * Right coronary artery was occluded. Saphenous vein graft to the PDA was patent; however. * The patient on fluoroscopy appears to have normal functioning aortic valve with no restriction or calcification noted. * Right heart catheterization showed RA pressure of 8, RV pressure of 52/12, PA pressure of 50/20 and capillary wedge pressure of 18. Thus, the patient with heavily calcified anatomy throughout the aorta, coronaries, carotid, subclavian. Anatomy as described above. At this time, the patient is not a candidate for any revascularization. He has got a patent ELY to the LAD, patent saphenous vein graft to the OM, although it is heavily degenerated with very sluggish flow. The circumflex artery is actually being supplied by the [place] vessel. Right coronary artery was occluded, however, saphenous vein graft to the PDA was patent. At this time, conservative medical management, aggressive risk modification, antiplatelet therapy should be maintained especially with EDP inhibitors, receptor inhibitors such as Plavix or Brilinta and the patient should be maintained on Eliquis as well. The patient is a poor candidate for any revascularization percutaneously or surgical. The patient has a visible stent in the left subclavian vein as well. Assessment/Plan CARDIAC STATUS STABLE ECHO EF 40% AV PROSTHESIS MAY PROCEED WITH SURGICAL INTERVENTION ASA II/ III ALL CULTURES NEGATIVE NASAL SWAB NEGATIVE PERSISTENT LEUKOCYTOSIS CONSIDER VICKY IF CONTINUED LEUKOCYTOSIS WBC TRENDING UP CONSIDER CHANGING ABX VICKY IN AM stillwith leukocytosis anemia consider epogen/ iron study S/P CHEST TUBE PLACEMENT FOR HEMOTHORAX LEUKOCYTOSIS PERSISTS ANEMIA HYPOKALEMIA CORRECT HYPOKALEMIA CONSIDER WEANING OFF VENT ADJUST VANCO DOSING ELEVATED LFTs Dietary Evaluation Review Comments: 1) Increase EN nutrition to meet at least 75% of estimated needs (Nepro 1.8 @ 30ml/hr x 24 hrs uninterrupted continuous feed adequately meets pt needs) 2) Advance pt diet when medically feasible to a Renal Standard diet modified per SURVEY RESEARCH TEACHER recommendations 3) Continue current plan of care Expected Outcomes/Goals: 1) Pt to receive adequate nutrition support 2) Pt diet to advance 3) F/U in 2-3 days Plan discussed with: Patient, Other Critical Care Time(min): 35 CC Plasma Assessment Blood Product Administration S: [id number] BALAJI KING MD Dec 17, 2024 14:09
--- NOTE | 2024-12-17 14:22 | DVHPN2 ---
Progress Note - Dictate Date Seen: Dec 16, 2024 Medical Necessity Reason Pt with a Central, PICC or Fol: Yes The following are medically ne: Central Line Subjective Patient intubated and sedated. Decortication could not be done today due to coagulopathy. vital signs Vital Sign Date Time Temp Pulse Resp B/P (MAP) Pulse Ox O2 Delivery O2 Flow Rate FiO2 12/17/24 13:20 93 28 110/12 (44) 100 30 12/17/24 12:45 98.4 209.1 12/17/24 08:00 Mechanical Ventilator+ Total Intake and Output 12/16/24 12/16/24 12/17/24 15:00 23:00 07:00 Intake Total 820.195 ml 1089.504 ml 1103.504 ml Output Total 560 ml 10 ml Balance 820.195 ml 529.504 ml 1093.504 ml medications Current Medications Medications Dose Ordered Sig/Dioni Route Start Time Stop Time Status Last Admin Dose Admin Sodium Chloride 10 ml Q8HR IV 12/01/24 14:00 12/17/24 05:32 10 ML Docusate Sodium 100 mg BIDPRN PRN PO 12/01/24 08:00 12/02/24 23:20 100 MG Acetaminophen 650 mg Q6HP PRN PO 12/01/24 08:00 Midazolam HCl 50 ml @ 1 mls/hr Q24H IV 12/03/24 18:00 12/15/24 08:20 1 MLS/HR Vancomycin HCl 0 ml @ 0 mls/hr UD IV 12/04/24 09:45 Pantoprazole Sodium 40 mg DAILY IV 12/07/24 10:00 12/17/24 10:28 40 MG Insulin Human Regular Q6HR SC 12/06/24 18:00 12/17/24 05:31 3 UNITS Dextrose 50 ml UD PRN IV 12/06/24 15:15 12/16/24 12:42 50 ML Levalbuterol HCl 0.625 mg Q6HR NEB 12/07/24 00:00 12/17/24 12:15 0.625 MG Ipratropium [place] 0.5 mg Q6HR NEB 12/07/24 00:00 12/17/24 12:15 0.5 MG Metoclopramide HCl 5 mg Q8HR IV 12/07/24 14:00 12/17/24 05:29 5 MG Diagnostic Test (Pha) 1 strip Q6HR 12/10/24 12:00 12/17/24 12:25 1 STRIP Fentanyl Citrate 250 ml @ 2.5 mls/hr Q24H IV 12/12/24 21:45 12/17/24 12:25 12.5 MLS/HR Albumin Human 50 ml @ 100 mls/hr PRN PRN IV 12/13/24 09:00 12/16/24 02:02 100 MLS/HR Enteral Nutritional Formula 1,000 ml 30ML/HR GT 12/14/24 09:30 Lactulose 30 ml BID PO 12/15/24 22:00 12/15/24 23:18 30 ML Norepinephrine Bitartrate 32 mg/ Sodium Chloride 250 ml @ 0.234 mls/ hr Q24H IV 12/15/24 18:45 12/17/24 00:06 14.063 MLS/HR Vasopressin 20 units/Sodium Chloride 100 ml @ 9 mls/hr Q11H7M IV 12/16/24 02:15 12/17/24 05:27 9 MLS/HR Phenylephrine HCl 80 mg/Sodium Chloride 250 ml @ 7.5 mls/hr Q24H IV 12/16/24 03:15 12/17/24 10:05 33.75 MLS/HR Micafungin Sodium 100 mg/Sodium Chloride 100 ml @ 100 mls/hr DAILY IV 12/16/24 10:00 12/17/24 10:26 100 MLS/HR Meropenem 50 ml @ 17 mls/hr Q12HR IV 12/16/24 22:00 12/17/24 12:04 17 MLS/HR Epinephrine HCl 250 ml @ 7.5 mls/hr Q24H IV 12/16/24 12:15 UNV Epinephrine HCl 16 mg/Dextrose 250 ml @ 1.875 mls/ hr Q24H IV 12/16/24 12:15 12/16/24 15:00 1.875 MLS/HR Dextrose 1,000 ml @ 60 mls/hr [id number] IV 12/16/24 12:45 12/17/24 02:05 60 MLS/HR Hydrocortisone Sodium Succinate 100 mg Q12HR IV 12/16/24 22:00 12/17/24 05:29 100 MG Sodium Bicarbonate 100 ml Q3HR IV 12/17/24 11:00 12/17/24 11:25 100 ML objective HEENT: ET tube in position. Pulmonary: Diminished lung sounds right lung. Cardiovascular S1-S2, no S3 or S4 Abdomen: Bowel sounds positive, soft no rebound tenderness Skin: No rash, easy bruising reported with a bruise in the left hand, right forearm, right and left lower extremity Neurological: Sedated and intubated. Hemodialysis access right upper chest tunneled line no issues laboratory and microbiology Laboratory Tests 12/17/24 03:06 Test 12/17/24 03:06 Range/Units Serum Glucose 215 #H 74-106 mg/dL Assessment/Plan Late entry for visit on December 16 Assessment: 1. ESRD on HD 2. S/p cardiac arrest 3. Septic and Hemorrhagic shock 4. Large Rt hydrothorax, hemothorax 5. Acute hypoxic respiratory failure s/p intubation on mechanical ventilator 6. Pneumonia 7. Hyperphosphatemia 8. Secondary hyperparathyroidism 9. Metabolic acidosis 10. Coagulopathy. Plan and recommendations: Hemodialysis Friday Patient hypotension is worsening. FFP was given Pressor support S/P chest tube placement Monitor H&H transfuse as needed. IV antibiotics renally dose. Guarded prognosis. Plan of care discussed with family at bedside. Thank you very much for allowing us to participate in the care of this patient Dietary Evaluation Review Comments: 1) Increase EN nutrition to meet at least 75% of estimated needs (Nepro 1.8 @ 30ml/hr x 24 hrs uninterrupted continuous feed adequately meets pt needs) 2) Advance pt diet when medically feasible to a Renal Standard diet modified per DIRECTOR DATA recommendations 3) Continue current plan of care Expected Outcomes/Goals: 1) Pt to receive adequate nutrition support 2) Pt diet to advance 3) F/U in 2-3 days Plan discussed with: Patient, Daughter CC Plasma Assessment Blood Product Administration S: [id number] ZAHRA JACKSON MD Dec 17, 2024 14:22
--- NOTE | 2024-12-17 14:24 | DVHPN2 ---
Progress Note - Dictate Date Seen: Dec 17, 2024 Medical Necessity Reason Pt with a Central, PICC or Fol: Yes The following are medically ne: Central Line Subjective Patient's condition has deteriorated he is on four pressors.' and daughter at bedside vital signs Vital Sign Date Time Temp Pulse Resp B/P (MAP) Pulse Ox O2 Delivery O2 Flow Rate FiO2 12/17/24 13:20 93 28 110/12 (44) 100 30 12/17/24 12:45 98.4 209.1 12/17/24 08:00 Mechanical Ventilator+ Total Intake and Output 12/16/24 12/16/24 12/17/24 15:00 23:00 07:00 Intake Total 820.195 ml 1089.504 ml 1103.504 ml Output Total 560 ml 10 ml Balance 820.195 ml 529.504 ml 1093.504 ml medications Current Medications Medications Dose Ordered Sig/Dioni Route Start Time Stop Time Status Last Admin Dose Admin Sodium Chloride 10 ml Q8HR IV 12/01/24 14:00 12/17/24 05:32 10 ML Docusate Sodium 100 mg BIDPRN PRN PO 12/01/24 08:00 12/02/24 23:20 100 MG Acetaminophen 650 mg Q6HP PRN PO 12/01/24 08:00 Midazolam HCl 50 ml @ 1 mls/hr Q24H IV 12/03/24 18:00 12/15/24 08:20 1 MLS/HR Vancomycin HCl 0 ml @ 0 mls/hr UD IV 12/04/24 09:45 Pantoprazole Sodium 40 mg DAILY IV 12/07/24 10:00 12/17/24 10:28 40 MG Insulin Human Regular Q6HR SC 12/06/24 18:00 12/17/24 05:31 3 UNITS Dextrose 50 ml UD PRN IV 12/06/24 15:15 12/16/24 12:42 50 ML Levalbuterol HCl 0.625 mg Q6HR NEB 12/07/24 00:00 12/17/24 12:15 0.625 MG Ipratropium [place] 0.5 mg Q6HR NEB 12/07/24 00:00 12/17/24 12:15 0.5 MG Metoclopramide HCl 5 mg Q8HR IV 12/07/24 14:00 12/17/24 05:29 5 MG Diagnostic Test (Pha) 1 strip Q6HR 12/10/24 12:00 12/17/24 12:25 1 STRIP Fentanyl Citrate 250 ml @ 2.5 mls/hr Q24H IV 12/12/24 21:45 12/17/24 12:25 12.5 MLS/HR Albumin Human 50 ml @ 100 mls/hr PRN PRN IV 12/13/24 09:00 12/16/24 02:02 100 MLS/HR Enteral Nutritional Formula 1,000 ml 30ML/HR GT 12/14/24 09:30 Lactulose 30 ml BID PO 12/15/24 22:00 12/15/24 23:18 30 ML Norepinephrine Bitartrate 32 mg/ Sodium Chloride 250 ml @ 0.234 mls/ hr Q24H IV 12/15/24 18:45 12/17/24 00:06 14.063 MLS/HR Vasopressin 20 units/Sodium Chloride 100 ml @ 9 mls/hr Q11H7M IV 12/16/24 02:15 12/17/24 05:27 9 MLS/HR Phenylephrine HCl 80 mg/Sodium Chloride 250 ml @ 7.5 mls/hr Q24H IV 12/16/24 03:15 12/17/24 10:05 33.75 MLS/HR Micafungin Sodium 100 mg/Sodium Chloride 100 ml @ 100 mls/hr DAILY IV 12/16/24 10:00 12/17/24 10:26 100 MLS/HR Meropenem 50 ml @ 17 mls/hr Q12HR IV 12/16/24 22:00 12/17/24 12:04 17 MLS/HR Epinephrine HCl 250 ml @ 7.5 mls/hr Q24H IV 12/16/24 12:15 UNV Epinephrine HCl 16 mg/Dextrose 250 ml @ 1.875 mls/ hr Q24H IV 12/16/24 12:15 12/16/24 15:00 1.875 MLS/HR Dextrose 1,000 ml @ 60 mls/hr [id number] IV 12/16/24 12:45 12/17/24 02:05 60 MLS/HR Hydrocortisone Sodium Succinate 100 mg Q12HR IV 12/16/24 22:00 12/17/24 05:29 100 MG Sodium Bicarbonate 100 ml Q3HR IV 12/17/24 11:00 12/17/24 11:25 100 ML objective HEENT: ET tube in position. Pulmonary: Diminished lung sounds right lung. Cardiovascular S1-S2, no S3 or S4 Abdomen: Bowel sounds positive, soft no rebound tenderness Skin: No rash, easy bruising reported with a bruise in the left hand, right forearm, right and left lower extremity Neurological: Sedated and intubated. Hemodialysis access right upper chest tunneled line no issues Evidence of 3rd spacing laboratory and microbiology Laboratory Tests 12/17/24 03:06 Test 12/17/24 03:06 Range/Units Serum Glucose 215 #H 74-106 mg/dL Assessment/Plan Late entry for visit on December 16 Assessment: 1. ESRD on HD 2. S/p cardiac arrest 3. Septic and Hemorrhagic shock 4. Large Rt hydrothorax, hemothorax 5. Acute hypoxic respiratory failure s/p intubation on mechanical ventilator 6. Pneumonia 7. Hyperphosphatemia 8. Secondary hyperparathyroidism 9. Metabolic acidosis 10. Coagulopathy. Plan and recommendations: Patient is too unstable to undergo hemodialysis Agree with bicarb pushes every 2 hours as needed Family has decided to terminally extubate tomorrow We will have to hold off on hemodialysis at this time FFP was given Pressor support S/P chest tube placement Monitor H&H transfuse as needed. IV antibiotics renally dose. Poor prognosis Plan of care discussed with and daughter at bedside who agree. Thank you very much for allowing us to participate in the care of this patient Dietary Evaluation Review Comments: 1) Increase EN nutrition to meet at least 75% of estimated needs (Nepro 1.8 @ 30ml/hr x 24 hrs uninterrupted continuous feed adequately meets pt needs) 2) Advance pt diet when medically feasible to a Renal Standard diet modified per FACT CHECKER recommendations 3) Continue current plan of care Expected Outcomes/Goals: 1) Pt to receive adequate nutrition support 2) Pt diet to advance 3) F/U in 2-3 days Plan discussed with: Patient, Spouse, Daughter CC Plasma Assessment Blood Product Administration S: [id number] ZAHRA JACKSON MD Dec 17, 2024 14:24
[2024-12-17] MEDS: EPOETIN ALFA-EPBX 4,000 UNIT/ML VIAL SC ONE (16:00)
[2024-12-17] MEDS: SODIUM CHL 0.9% 1000 ML BAG XX ONE (16:00)
--- NOTE | 2024-12-17 18:20 | DVHPNRES ---
Progress Note Date Seen: Dec 17, 2024 Resident Creating Document: ROXANA WALDROP RESIDENT Medical Necessity Reason Pt with a Central, PICC or Fol: Yes The following are medically ne: Central Line Subjective Review of Systems Patient seen and examined at bedside. He is currently sedated and intubated, on mechanical ventilator with respiratory rate of 28, tidal volume 450, 30% FiO2 and PEEP of 5. Review of system could not be done as patient is sedated Objective vital signs Vital Sign Date Time Temp Pulse Resp B/P (MAP) Pulse Ox O2 Delivery O2 Flow Rate FiO2 12/17/24 16:45 98.4 83 28 108/38 (61) 96 209.1 12/17/24 16:00 30 12/17/24 16:00 Mechanical Ventilator+ Total Intake and Output 12/16/24 12/16/24 12/17/24 15:00 23:00 07:00 Intake Total 820.195 ml 1089.504 ml 1103.504 ml Output Total 560 ml 10 ml Balance 820.195 ml 529.504 ml 1093.504 ml medications Current Medications Medications Dose Ordered Sig/Dioni Route Start Time Stop Time Status Last Admin Dose Admin Sodium Chloride 10 ml Q8HR IV 12/01/24 14:00 12/17/24 15:50 10 ML Docusate Sodium 100 mg BIDPRN PRN PO 12/01/24 08:00 12/02/24 23:20 100 MG Acetaminophen 650 mg Q6HP PRN PO 12/01/24 08:00 Midazolam HCl 50 ml @ 1 mls/hr Q24H IV 12/03/24 18:00 12/15/24 08:20 1 MLS/HR Vancomycin HCl 0 ml @ 0 mls/hr UD IV 12/04/24 09:45 Pantoprazole Sodium 40 mg DAILY IV 12/07/24 10:00 12/17/24 10:28 40 MG Insulin Human Regular Q6HR SC 12/06/24 18:00 12/17/24 05:31 3 UNITS Dextrose 50 ml UD PRN IV 12/06/24 15:15 12/16/24 12:42 50 ML Levalbuterol HCl 0.625 mg Q6HR NEB 12/07/24 00:00 12/17/24 12:15 0.625 MG Ipratropium [place] 0.5 mg Q6HR NEB 12/07/24 00:00 12/17/24 12:15 0.5 MG Metoclopramide HCl 5 mg Q8HR IV 12/07/24 14:00 12/17/24 05:29 5 MG Diagnostic Test (Pha) 1 strip Q6HR 12/10/24 12:00 12/17/24 12:25 1 STRIP Fentanyl Citrate 250 ml @ 2.5 mls/hr Q24H IV 12/12/24 21:45 12/17/24 12:25 12.5 MLS/HR Albumin Human 50 ml @ 100 mls/hr PRN PRN IV 12/13/24 09:00 12/16/24 02:02 100 MLS/HR Enteral Nutritional Formula 1,000 ml 30ML/HR GT 12/14/24 09:30 Lactulose 30 ml BID PO 12/15/24 22:00 12/15/24 23:18 30 ML Norepinephrine Bitartrate 32 mg/ Sodium Chloride 250 ml @ 0.234 mls/ hr Q24H IV 12/15/24 18:45 12/17/24 16:42 14.063 MLS/HR Vasopressin 20 units/Sodium Chloride 100 ml @ 9 mls/hr Q11H7M IV 12/16/24 02:15 12/17/24 16:15 9 MLS/HR Phenylephrine HCl 80 mg/Sodium Chloride 250 ml @ 7.5 mls/hr Q24H IV 12/16/24 03:15 12/17/24 16:40 33.75 MLS/HR Micafungin Sodium 100 mg/Sodium Chloride 100 ml @ 100 mls/hr DAILY IV 12/16/24 10:00 12/17/24 10:26 100 MLS/HR Meropenem 50 ml @ 17 mls/hr Q12HR IV 12/16/24 22:00 12/17/24 12:04 17 MLS/HR Epinephrine HCl 250 ml @ 7.5 mls/hr Q24H IV 12/16/24 12:15 UNV Epinephrine HCl 16 mg/Dextrose 250 ml @ 1.875 mls/ hr Q24H IV 12/16/24 12:15 12/16/24 15:00 1.875 MLS/HR Dextrose 1,000 ml @ 60 mls/hr [id number] IV 12/16/24 12:45 12/17/24 02:05 60 MLS/HR Hydrocortisone Sodium Succinate 100 mg Q12HR IV 12/16/24 22:00 12/17/24 05:29 100 MG Sodium Bicarbonate 100 ml Q3HR IV 12/17/24 11:00 12/17/24 15:50 100 ML Examination Examination General Appearance: sedated and intubated Respiratory: Clear to auscultation, Normal air movement Cardiovascular: Regular rate, Normal S1, Normal S2 Abdominal: Normal bowel sounds Extremities: left sided toe amputation,present on admission, right sided 5th digit amputation POA, left arm blister Skin: No rashes, No breakdown Neuro: sedated and intubated laboratory and microbiology Laboratory Tests 12/17/24 03:06 Test 12/17/24 03:06 Range/Units Serum Glucose 215 #H 74-106 mg/dL Microbiology Date/Time Source Procedure Growth Status 12/14/24 21:02 Sputum Gram Stain - Final Resulted 12/14/24 21:02 Respiratory Culture - Preliminary Presumptive Katja albicans Resulted 12/14/24 19:40 Blood Blood Culture - Preliminary NO GROWTH AFTER 48 HOURS OF INCUBATION. Resulted 12/09/24 20:15 Pleural Fluid Gram Stain - Final Complete 12/09/24 20:15 Pleural Fluid Body Fluid Culture - Final Complete 12/05/24 01:30 Nose MRSA Screen - Final Complete Labs and/or images reviewed: Labs reviewed by me, Image(s) reviewed by me Problem List/Assessment/Plan Problem List/Assessment/Plan Assessment/plan Neurology # sedation -on fentanyl # presyncope -head CT completed 12/06 unremarkable for acute Cardiovascular #Shock likely septic/cardiogenic -currently on norepinephrine, epi, vasopressin and phenylephrine -IV steroids #s/p cardiac arrest 12/03 -head CT -echo #acute HFrEF -echo -on pressors #history of hypertension -currently in shock #Dyslipidemia -resume meds on discharge #Right cephalic vein thrombosis, superficial venous thrombosis -warm compresses Respiratory #Acute hypoxic respiratory failure status post intubation 12/03 -on [facility] vent respiratory rate of 28, tidal volume 450, 30% FiO2 and PEEP of 5. #Community acquired pneumonia, Gram-positive and gram negative/Aspiration pneumonia -IV vanc and IV meropenem, IV micafungin #Right loculated hemothorax status post chest tube placement 12/09 -no drainage from chest tube -was planned for Sx previously, unstable for Sx #COPD, stable -on home o2 GI #Transaminitis likely shock liver Monitor Nephrology #End-stage renal disease, on hemodialysis -scheduled for HD today but as mathematician, unstable for HD #?Rhabdomyolysis -on HD #hyponatremia -monitor #metabolic acidosis with partially compensated resp alkalosis -Increased RR to 28, -bicarb push as per brush holder assembler Hematology #Anemia due to acute hemorrhage, chronic disease, CKD s/p transfusion -4 units PRBC transfused -monitor #thrombocytopenia -s/p 1 unit of platelet transfusion #Coagulopathy -1 unit of vitamin k administered 2 unit of FFP was administered Endocrine #DM2 -insulin sliding scale Musculoskeletal/derm #S/p left sided toe amputation, -present on admission #s/p right sided 5th digit amputation -present on admission ID #Sepsis with septic shock -repeat panculture -DC femoral line -tip culture -iv hydrocortisone Endocrine #Hypoglycemia due to sepsis -D10W Lines Right femoral CVC / discontinued 12/15/23 left IJ CVC placed 12/15/23 Drips norepinephrine fentanyl vasopressin epi midazolam phenylephrine d10W Nutrition resume NG feedings Input/output 2941/570ml Goals of care/advance care planning; No compressions/no shock Plan discussed with family at bedside, family wants the patient to be on chemical code and will decide for terminal weaning on friday Critical Care time excluding procedures : 57 minutes Case discussion with dr Gan Plan discussed with: Other My Orders My Orders Orders - ROXANA WALDROP RESIDENT Procedure Category Date Status Time Hydrocortisone PHA 12/16/24 In Process Succinate Inj 22:00 Chest Portable XY 12/17/24 Resulted 04:00 Abg W/ Co-Ox RT 12/17/24 Logged 04:00 Ventilator Orders RT 12/17/24 Transmitted 08:21 Dietary Evaluation Review Comments: 1) Increase EN nutrition to meet at least 75% of estimated needs (Nepro 1.8 @ 30ml/hr x 24 hrs uninterrupted continuous feed adequately meets pt needs) 2) Advance pt diet when medically feasible to a Renal Standard diet modified per CREDIT VERIFICATION CLERK recommendations 3) Continue current plan of care Expected Outcomes/Goals: 1) Pt to receive adequate nutrition support 2) Pt diet to advance 3) F/U in 2-3 days CC Plasma Assessment Blood Product Administration S: [id number] ROXANA WALDROP RESIDENT Dec 17, 2024 18:20
[2024-12-17 19:50] LABS: Base Excess -13.4 mmol/L (-2.0-3.0)
[2024-12-17] MEDS: DEXTROSE 10% 1,000 ML IV SCH (20:00)
--- NOTE | 2024-12-17 23:32 | DVHPN2 ---
Progress Note - Dictate Date Seen: Dec 17, 2024 Medical Necessity Reason Pt with a Central, PICC or Fol: Yes The following are medically ne: Central Line Subjective Patient seen and examined at bedside. Sedated, intubated on mechanical ventilator. Overnight events reviewed. vital signs Vital Sign Date Time Temp Pulse Resp B/P (MAP) Pulse Ox O2 Delivery O2 Flow Rate FiO2 12/17/24 23:00 98.4 75 28 103/33 (56) 94 209.1 12/17/24 22:03 40 12/17/24 21:47 Mechanical Ventilator+ Total Intake and Output 12/16/24 12/16/24 12/17/24 15:00 23:00 07:00 Intake Total 820.195 ml 1089.504 ml 1103.504 ml Output Total 560 ml 10 ml Balance 820.195 ml 529.504 ml 1093.504 ml medications Current Medications Medications Dose Ordered Sig/Dioni Route Start Time Stop Time Status Last Admin Dose Admin Sodium Chloride 10 ml Q8HR IV 12/01/24 14:00 12/17/24 21:23 10 ML Docusate Sodium 100 mg BIDPRN PRN PO 12/01/24 08:00 12/02/24 23:20 100 MG Acetaminophen 650 mg Q6HP PRN PO 12/01/24 08:00 Midazolam HCl 50 ml @ 1 mls/hr Q24H IV 12/03/24 18:00 12/15/24 08:20 1 MLS/HR Vancomycin HCl 0 ml @ 0 mls/hr UD IV 12/04/24 09:45 Pantoprazole Sodium 40 mg DAILY IV 12/07/24 10:00 12/17/24 10:28 40 MG Insulin Human Regular Q6HR SC 12/06/24 18:00 12/17/24 05:31 3 UNITS Dextrose 50 ml UD PRN IV 12/06/24 15:15 12/16/24 12:42 50 ML Levalbuterol HCl 0.625 mg Q6HR NEB 12/07/24 00:00 12/17/24 20:39 0.625 MG Ipratropium [place] 0.5 mg Q6HR NEB 12/07/24 00:00 12/17/24 20:39 0.5 MG Metoclopramide HCl 5 mg Q8HR IV 12/07/24 14:00 12/17/24 21:23 5 MG Diagnostic Test (Pha) 1 strip Q6HR 12/10/24 12:00 12/17/24 19:51 1 STRIP Fentanyl Citrate 250 ml @ 2.5 mls/hr Q24H IV 12/12/24 21:45 12/17/24 12:25 12.5 MLS/HR Albumin Human 50 ml @ 100 mls/hr PRN PRN IV 12/13/24 09:00 12/16/24 02:02 100 MLS/HR Enteral Nutritional Formula 1,000 ml 30ML/HR GT 12/14/24 09:30 Lactulose 30 ml BID PO 12/15/24 22:00 12/15/24 23:18 30 ML Norepinephrine Bitartrate 32 mg/ Sodium Chloride 250 ml @ 0.234 mls/ hr Q24H IV 12/15/24 18:45 12/17/24 16:42 14.063 MLS/HR Vasopressin 20 units/Sodium Chloride 100 ml @ 9 mls/hr Q11H7M IV 12/16/24 02:15 12/17/24 16:15 9 MLS/HR Phenylephrine HCl 80 mg/Sodium Chloride 250 ml @ 7.5 mls/hr Q24H IV 12/16/24 03:15 12/17/24 22:39 33.75 MLS/HR Micafungin Sodium 100 mg/Sodium Chloride 100 ml @ 100 mls/hr DAILY IV 12/16/24 10:00 12/17/24 10:26 100 MLS/HR Meropenem 50 ml @ 17 mls/hr Q12HR IV 12/16/24 22:00 12/17/24 21:24 17 MLS/HR Epinephrine HCl 250 ml @ 7.5 mls/hr Q24H IV 12/16/24 12:15 UNV Epinephrine HCl 16 mg/Dextrose 250 ml @ 1.875 mls/ hr Q24H IV 12/16/24 12:15 12/16/24 15:00 1.875 MLS/HR Hydrocortisone Sodium Succinate 100 mg Q12HR IV 12/16/24 22:00 12/17/24 21:23 100 MG Sodium Bicarbonate 100 ml Q3HR IV 12/17/24 11:00 12/17/24 18:20 100 ML Dopamine HCl/ Dextrose 250 ml @ 11.625 mls/ hr [id number] IV 12/17/24 19:30 Dextrose 1,000 ml @ 30 mls/hr Q24H IV 12/17/24 20:00 objective Gen.: Patient lying in bed in medical ICU. Sedated, intubated on mechanical ventilator. Head: Normocephalic, atraumatic. Eyes: PERRLA. Ears: Normal external anatomy. Throat: Endotracheal tube and orogastric tube in place. Neck: Supple, trachea midline. Chest: Transmitted breath sounds bilaterally. Decreased air entry bilaterally. No wheezing. Bibasilar crackles. Cardiovascular: Positive S1, positive S2. Regular rate and rhythm. Abdomen: Positive bowel sounds in all 4 quadrants. Soft, nontender, nondistended. : Su in place. Normal external genitalia. Rectal: Deferred. Skin: Warm, dry. Intact. Extremities: 2+ radial pulses bilaterally. No lower extremity edema. Neuro: Sedated. laboratory and microbiology Laboratory Tests 12/17/24 03:06 Test 12/17/24 03:06 Range/Units Serum Glucose 215 #H 74-106 mg/dL Assessment/Plan Impression: Acute hypoxic respiratory failure On mechanical ventilator Recurrent pleural effusion Atelectasis End-stage renal disease, on hemodialysis Anemia, symptomatic Lactic acidosis Events: Remains on mechanical ventilator. On AC mode with RR 20 -->28, VT 450, PEEP 5, FiO2 30% Chest tube showing no output. ABG reviewed, notable for acidemia d/t metabolic acidosis. 2 amps of bicarb given. Increased RR to 28 Repeat ABG in 1 hour CXR reviewed; bilateral airspace disease and right pleural effusion, stable. No pneumothorax. Devices in place. Sedated on Fentanyl drip. On multiple pressors for hemodynamic support Levophed 30 mcg/min, vasopressin 0.03 units/min, Meño-Synephrine 180 mcg/min, epinephrine 2 mcg/min Titrate to keep mean arterial pressure greater than 65 mmHg. Increased pressor requirements. Patient did not tolerate HD on 12/15/24 and 12/16/24 Nephrology recs appreciated Continue antibiotics Monitor WBC Tube feeds, Clinimix for nutritional support Monitor hemoglobin Transfuse if less than 7.0 g/dL. IV fluids with NS HD per Nephrology Monitor renal function Monitor electrolytes. Supplement as necessary. Decortication surgery postponed d/t coagulation abnormality CT chest without contrast demonstrates Large right hydro hemothorax. No pneumothorax. Small left pleural effusion. Patchy consolidation and ground-glass opacities in both lungs. Ascites. Limited chest ultrasound demonstrated loculated viscous fluid by ultrasound appearance Poor prognosis Family plans for compassionate extubation. Discussed goals of care with family. Labs and imaging reviewed. Rest of plan as noted below. Plan: s/p intubation on mechanical ventilator. On AC mode with RR 28, VT 450, PEEP 5, FiO2 30% Titrate FIO2 to keep O2 saturation above 90%. VAP bundle. Daily ABG and CXR while intubated Sedate for ventilator synchrony On pressors for hemodynamic support Titrate to keep mean arterial pressure greater than 65 mmHg. Monitor hemoglobin Transfuse if less than 7.0 g/dL. Continue antibiotics Accu-Cheks, ISS. HD per Nephrology Monitor renal function. Monitor electrolytes. Supplement as necessary. Monitor ins and outs. DVT prophylaxis. Prognosis: Poor given patient's multiple co-morbidities. Condition: Critical Rest of plan per hospitalist and other consultants. A total of 35 minutes of critical care time was spent reviewing the patient record, examining the patient, making a diagnostic and therapeutic plan, discussing this plan with the medical personnel, following up on diagnostic studies and following the patient for clinical stability excluding any and all procedures. At least 50% of this time was spent in direct, [id number] contact. Thank you, Sy Oliver NP, for allowing me to participate in this patient's care. Further recommendations will depend on the patient's clinical course. Please do not hesitate to contact me if you have any questions or concerns. This medical document was created using an electronic medical record system with [employer] dictation system. Although these documentations are being carefully reviewed, there may still be some phonetic and typographical changes. The errors are purely typographical, due to imperfection on the software program, and do not reflect any compromise in the patient's medical care. Dietary Evaluation Review Comments: 1) Increase EN nutrition to meet at least 75% of estimated needs (Nepro 1.8 @ 30ml/hr x 24 hrs uninterrupted continuous feed adequately meets pt needs) 2) Advance pt diet when medically feasible to a Renal Standard diet modified per CASTER OPERATOR recommendations 3) Continue current plan of care Expected Outcomes/Goals: 1) Pt to receive adequate nutrition support 2) Pt diet to advance 3) F/U in 2-3 days Plan discussed with: Other (ALVARO Faye) Critical Care Time(min): 35 CC Plasma Assessment Blood Product Administration S: [id number] AUSTIN LISA MD Dec 17, 2024 23:32
[2024-12-17] MEDS: DOPamine 1600MCG/ML D5W 250 ML IV SCH (23:45)
[2024-12-18] VITALS (40 sets, daily range): BP systolic 63–94; BP diastolic 10–30; PULSE 36–83; RESP 0–31; TEMP 96.8–99.3; O2SAT 62–87
[2024-12-18 04:31] LABS: Anion Gap 36 (5-15); Carbon Dioxide 19 mmol/L (20-31); Chloride 96 mmol/L (98-107); Potassium 4.8 mmol/L (3.5-5.1); Sodium 151 mmol/L (136-145)
[2024-12-18 04:32] LABS: Calcium 10.2 mg/dL (8.7-10.4); Hemoglobin 7.2 g/dL (13.5-17.5); Red Blood Cells 2.35 10^6/uL (4.5-5.90)
[2024-12-18 04:36] LABS: Glucose 100 mg/dL (74-106); Hematocrit 23.1 % (41.0-53.0); Mean Corpuscular Hemoglobin 30.7 pg (28.0-32.0); Mean Corpuscular Hgb Conc. 31.2 g/dL (32.0-36.0); Mean Corpuscular Volume 98.2 fL (80.0-100.0); Red Cell Distribution Width 18.1 % (11.8-14.3); White Blood Cell 18.5 10^3/uL (4.4-10.8)
[2024-12-18 04:37] LABS: Blood Urea Nitrogen 50 mg/dL (9-23); Magnesium 2.3 mg/dL (1.6-2.6)
--- NOTE | 2024-12-18 05:26 | DVH ---
CHEST RADIOGRAPH Indication: mech vent Technique: Single frontal view of the chest was obtained COMPARISON: XY CHEST PORTABLE on DOS: 12/17/24, XY CHEST PORTABLE on DOS: 12/16/24, XY CHEST PORTABLE o n DOS: 12/15/24, XY CHEST PORTABLE on DOS: 12/14/24, XY CHEST PORTABLE on DOS: 12/14/24, XY CHEST PORTAB LE on DOS: 12/17/24 FINDINGS: Lines and Tubes: The support lines and tubes are unchanged in position. Status post median sternotomy . Lungs: Stable bilateral airspace disease. Pleura: Stable right pleural effusion. No pneumothorax. Cardiomediastinal contours: Unremarkable Bones: No acute osseous abnormality. IMPRESSION: 1. Stable position of the support lines and tubes and appearance of the chest.
[2024-12-18 06:14] LABS: Platelet Count (auto) 30 10^3/uL (140-450)
[2024-12-18 06:16] LABS: Basophils % (manual) 0 (0.0-2.0); Blast Cells 0; Eosinophils % (manual) 0 (0-7); Metamyelocytes % 0; Myelocytes % 0; Promyelocytes % 0; Reactive Lymphocytes 0
[2024-12-18 06:24] LABS: Band Neutrophils % (manual) 2; Lymphocytes % (manual) 5 (10.0-50.0); Monocytes % (manual) 3 (0-12); Platelet Estimate Decreased
[2024-12-18] MEDS ORDERED: LORazepam 2MG/ML-1ML VIAL IV PRN (07:30)
[2024-12-18] MEDS: LORazepam 2MG/ML-1ML VIAL ONE (07:55)
[2024-12-18] MEDS ORDERED: ATROPINE SULF 1 MG/10ml SYR IV ONE (15:38)
--- NOTE | 2024-12-18 23:04 | DVHPN2 ---
Progress Note - Dictate Date Seen: Dec 18, 2024 Medical Necessity Reason Pt with a Central, PICC or Fol: Yes The following are medically ne: Central Line Subjective Patient seen and examined at bedside. Intubated on mechanical ventilator. Overnight events reviewed. vital signs Vital Sign Date Time Temp Pulse Resp B/P (MAP) Pulse Ox O2 Delivery O2 Flow Rate FiO2 12/18/24 08:15 99.3 36 0 210.7 12/18/24 08:00 87 Mechanical Ventilator+ 100 100 Total Intake and Output 12/17/24 12/17/24 12/18/24 14:59 22:59 06:59 Intake Total 1038.504 ml 823.504 ml 1095.254 ml Output Total 20 ml 35 ml Balance 1038.504 ml 803.504 ml 1060.254 ml medications Current Medications Medications Dose Ordered Sig/Dioni Route Start Time Stop Time Status Last Admin Dose Admin Epinephrine HCl 250 ml @ 7.5 mls/hr Q24H IV 12/16/24 12:15 UNV objective Gen.: Patient lying in bed in medical ICU. Intubated on mechanical ventilator. Head: Normocephalic, atraumatic. Eyes: PERRLA. Ears: Normal external anatomy. Throat: Endotracheal tube and orogastric tube in place. Neck: Supple, trachea midline. Chest: Transmitted breath sounds bilaterally. Decreased air entry bilaterally. No wheezing. Bibasilar crackles. Cardiovascular: Positive S1, positive S2. Regular rate and rhythm. Abdomen: Positive bowel sounds in all 4 quadrants. Soft, nontender, nondistended. : Su in place. Normal external genitalia. Rectal: Deferred. Skin: Warm, dry. Intact. Extremities: 2+ radial pulses bilaterally. No lower extremity edema. Neuro: Off sedation laboratory and microbiology Laboratory Tests 12/18/24 03:45 Test 12/18/24 03:45 Range/Units Serum Glucose 100 # 74-106 mg/dL Assessment/Plan Impression: Acute hypoxic respiratory failure On mechanical ventilator Recurrent pleural effusion Atelectasis End-stage renal disease, on hemodialysis Anemia, symptomatic Lactic acidosis Events: Family agreed for compassionate extubation. Plan for compassionate extubation. Remains on vent support On AC mode with RR 28, VT 450, PEEP 5, FiO2 100% CXR reviewed; stable bilateral airspace disease. Stable right pleural effusion. No pneumothorax. Devices in place. Off sedation On multiple pressors for hemodynamic support Levophed 30 mcg/min, vasopressin 0.03 units/min, Meño-Synephrine 180 mcg/min, epinephrine 2 mcg/min Titrate to keep mean arterial pressure greater than 65 mmHg. Increased pressor requirements. Patient did not tolerate HD on 12/15/24 and 12/16/24 Nephrology recs appreciated Continue antibiotics Monitor WBC Tube feeds, Clinimix for nutritional support Monitor hemoglobin Transfuse if less than 7.0 g/dL. IV fluids with NS HD per Nephrology Monitor renal function Monitor electrolytes. Supplement as necessary. Decortication surgery postponed d/t coagulation abnormality CT chest without contrast demonstrates Large right hydro hemothorax. No pneumothorax. Small left pleural effusion. Patchy consolidation and ground-glass opacities in both lungs. Ascites. Limited chest ultrasound demonstrated loculated viscous fluid by ultrasound appearance Plan for compassionate extubation Poor prognosis - high likelihood of demise. Labs and imaging reviewed. Rest of plan as noted below. Plan: s/p intubation on mechanical ventilator. On AC mode with RR 28, VT 450, PEEP 5, FiO2 100% Titrate FIO2 to keep O2 saturation above 90%. VAP bundle. Daily ABG and CXR while intubated Off sedation On pressors for hemodynamic support Titrate to keep mean arterial pressure greater than 65 mmHg. Monitor hemoglobin Transfuse if less than 7.0 g/dL. Continue antibiotics Accu-Cheks, ISS. HD per Nephrology Monitor renal function. Monitor electrolytes. Supplement as necessary. Monitor ins and outs. DVT prophylaxis. Prognosis: Poor given patient's multiple co-morbidities. Condition: Critical Rest of plan per hospitalist and other consultants. A total of 35 minutes of critical care time was spent reviewing the patient record, examining the patient, making a diagnostic and therapeutic plan, discussing this plan with the medical personnel, following up on diagnostic studies and following the patient for clinical stability excluding any and all procedures. At least 50% of this time was spent in direct, [id number] contact. Thank you, Sy Oliver NP, for allowing me to participate in this patient's care. Further recommendations will depend on the patient's clinical course. Please do not hesitate to contact me if you have any questions or concerns. This medical document was created using an electronic medical record system with [employer] dictation system. Although these documentations are being carefully reviewed, there may still be some phonetic and typographical changes. The errors are purely typographical, due to imperfection on the software program, and do not reflect any compromise in the patient's medical care. Dietary Evaluation Review Comments: 1) Increase EN nutrition to meet at least 75% of estimated needs (Nepro 1.8 @ 30ml/hr x 24 hrs uninterrupted continuous feed adequately meets pt needs) 2) Advance pt diet when medically feasible to a Renal Standard diet modified per BARKEEP recommendations 3) Continue current plan of care Expected Outcomes/Goals: 1) Pt to receive adequate nutrition support 2) Pt diet to advance 3) F/U in 2-3 days Plan discussed with: Other (ALVARO Santos) Critical Care Time(min): 35 CC Plasma Assessment Blood Product Administration S: [id number] AUSTIN LISA MD Dec 18, 2024 23:04
--- NOTE | 2024-12-20 22:36 | DVHDS2 ---
Summary Date of Admission Dec 01, 2024 at 08:35 Date and Time of Expiration: Dec 18, 2024 08:30 Labs/Diagnostic Data: Laboratory Results Test 12/18/24 05:30 12/18/24 03:45 12/17/24 19:40 12/17/24 12:28 POC Glucose 86 mg/dl (70-106) White Blood Count 18.5 10^3/uL (4.4-10.8) Red Blood Count 2.35 10^6/uL (4.5-5.90) Hemoglobin 7.2 g/dL (13.5-17.5) Hematocrit 23.1 % (41.0-53.0) Mean Corpuscular Volume 98.2 fL (80.0-100.0) Mean Corpuscular Hemoglobin 30.7 pg (28.0-32.0) Mean Corpuscular Hemoglobin Concent 31.2 g/dL (32.0-36.0) Red Cell Distribution Width 18.1 % (11.8-14.3) Platelet Count 30 10^3/uL (140-450) Mean Platelet Volume 8.7 fL (6.9-10.8) Neutrophils (%) (Auto) % (37.0-80.0) Lymphocytes (%) (Auto) % (10.0-50.0) Monocytes (%) (Auto) % (0.0-12.0) Basophils (%) (Auto) % (0.0-2.0) Neutrophils # (Auto) 10 ^3/uL (1.6-8.6) Lymphocytes # (Auto) 10 ^3/uL (0.4-5.4) Monocytes # (Auto) 10 ^3/uL (0-1.3) Differential Total Cells Counted 100.0 (100) Neutrophils % (Manual) 90 (37.0-80.0) Band Neutrophils % (Manual) 2 Lymphocytes % (Manual) 5 (10.0-50.0) Monocytes % (Manual) 3 (0-12) Eosinophils % (Manual) 0 (0-7) Basophils % (Manual) 0 (0.0-2.0) Metamyelocytes % (manual) 0 Myelocytes % (Manual) 0 Promyelocytes % (Manual) 0 Blast Cells % (Manual) 0 Nucleated Red Blood Cells % Reactive Lymphocytes 0 Platelet Estimate Decreased [place] Cells Moderate Sodium Level 151 mmol/L (136-145) Potassium Level 4.8 mmol/L (3.5-5.1) Chloride Level 96 mmol/L (98-107) Carbon Dioxide Level 19 mmol/L (20-31) Anion Gap 36 (5-15) Blood Urea Nitrogen 50 mg/dL (9-23) Creatinine 4.17 mg/dL (0.700-1.30) Glomerular Filtration Rate Calc 15 mL/min (>90) BUN/Creatinine Ratio 12.0 (10.0-20.0) Serum Glucose 100 mg/dL (74-106) Calcium Level 10.2 mg/dL (8.7-10.4) Magnesium Level 2.3 mg/dL (1.6-2.6) Random Vancomycin Level 13.4 ug/mL (5-10) Blood Gas Specimen Type Arterial Blood Gas Sample Site Arterial line Blood Gas Patient Temperature 37.0 Arterial Blood Date Drawn [id number] Arterial Blood pH 7.236 (7.350-7.450) Arterial Blood Partial Pressure CO2 30.8 mmHg (35.0-48.0) Arterial Blood Partial Pressure O2 469.6 mmHg (83.0-108.0) Arterial Blood HCO3 12.8 mmol/L (21.0-28.0) Arterial Blood Oxygen Saturation 99.7 % (94.0-98.0) Arterial Blood Base Excess -13.4 mmol/L (-2.0-3.0) Arterial Blood Oxyhemoglobin 98.4 % (94.0-98.0) Arterial Blood Carboxyhemoglobin 0.3 % (0.5-1.5) Arterial Blood Methemoglobin 1.0 % (0.0-1.5) Kan Test N/a Blood Gas Total Hemoglobin 9.40 g/dL (13.5-17.5) Blood Gas Set Respiration Rate 28.0 Blood Gas Modality Vent - ac FiO2 % 100.0 Blood Gas Tidal Volume 450.0 Blood Gas PEEP or CPAP 5.0 Blood Gas Critical Value Read Back Yes Blood Gas Notified Whom aislinn Guerra md Blood Gas Notified Time [id number] Blood Gas Notified By Annemarie ventura rrt Lactic Acid Level 15.5 mmol/L (0.4-2.0) Test 12/17/24 03:06 12/16/24 06:57 12/16/24 05:45 12/13/24 03:15 Smudge Cells 2 /100 WBC Phosphorus Level 7.5 mg/dL (2.4-5.1) Total Bilirubin 2.6 mg/dL (0.2-1.0) Aspartate Amino Transferase (AST) 3104 U/L (13-40) Alanine Aminotransferase (ALT) 677 U/L (7-40) Alkaline Phosphatase 80 U/L (46-116) Total Protein 5.9 g/dL (5.7-8.2) Albumin 3.1 g/dL (3.2-4.8) Blood Gas Spontaneous Rate 20 Blood Gas Inspiratory Pressure 40.0 Bl Gas Inspiratory/Expiratory Ratio 1:2.7 Specimen Drawn By noelle rt Eosinophils (%) (Auto) 2.4 % (0.0-7.0) Eosinophils # (Auto) 0.5 10 ^3/uL (0-0.8) Basophils # (Auto) 0.1 10 ^3/uL (0-0.2) Red Blood Cell Morphology Polychromasia Slight Prothrombin Time 17.4 sec (9.3-11.8) Prothrombin Time INR 1.73 (0.9-1.15) Activated Partial Thromboplast Time 35.7 SEC (24.5-34.5) Estimated GFR () 14 mL/min Estimated GFR (Non- 11 mL/min Test 12/10/24 20:01 12/09/24 13:28 12/08/24 10:00 12/05/24 03:20 Lactate Dehydrogenase 297 U/L (120-246) Reticulocyte Count (auto) 1.82 % (0.5-1.5) Iron Level 20 ug/dL (65-175) Total Iron Binding Capacity 155 ug/dL (250-425) Percent Iron Saturation 12.9 % (20-55) Serum Osmolality 286 mOsm/kg (278-298) Creatine Kinase 174 U/L (46-171) Test 12/03/24 16:20 12/03/24 06:05 12/01/24 04:12 Blood Gas Liter Flow 4.00 Hepatitis A IgM Antibody Negative Hepatitis B Surface Antigen Negative (Negative) Hepatitis B Core IgM Antibody Negative (Negative) Hepatitis C Antibody Negative (Negative) Troponin I High Sensitivity 44 ng/L (</=54) Other Laboratory Tests 12/18/24 03:45 Brief Hx & Hospital Course: 69-year-old male patient with PMHx of CHF, status post CABG 2018, COPD on home oxygen, diabetes mellitus, ESRD on hemodialysis with [facility] Tue//Fri, dyslipidemia, hypertension, secondary hyperparathyroidism who presented to the ER with a chief complaint of generalized weakness and nausea vomiting and dizziness. Per daughter Hilda, patient has history of recurrent right-sided pleural effusion from the past 5 years for which he initially would get thoracocentesis every month but recently he has been getting thoracocentesis every week. Last thoracocentesis was done on November 19 which was bloody. Patient reported generalized weakness and dizziness but was not altered and he would do daily activities himself. He did not make any urine and was dependent on dialysis. Associated symptoms included sweating. On arrival patient was hypotensive, map was 37, and on 12/03 he underwent cardiac arrest for which he experienced 2 rounds of CPR and 1 dose of epinephrine. Consequently he underwent intubation and mechanical ventilation on 12/03. ABG showed non-anion gap metabolic acidosis. Lactic acid was 8 which resolved. Echocardiogram was completed which showed EF 40%. he was started on IV antibiotics, Chest CT completed, shows loculated right-sided pleural effusion. His hemoglobin was 6 on arrival, he received 4 units of packed RBCs. Right femoral CVC was placed 12/03. Patient underwent left-sided chest tube placement on 12/09. Patient received dialysis in the hospital. Surgery was consulted for thoracotomy. Patient had abnormal coagulation profile due to which surgery was postponed. Patient had hemodialysis after which patient blood pressure dropped and patient was on multiple pressors. Family at bedside was explained about the condition of the patient detail and family initially decided for no compressions and no shocks but later decided for terminal weaning. Patient was started on comfort measures and was terminally weaned. Patient seen and pronounced to be by the hospitalist at 0830 on December 18, 2024. Patient was unresponsive to painful stimuli. Heart and lung sounds are absent. No spontaneous cardiac or respiratory activity. Patient was not responding to verbal or painful stimuli. No corneal pupillary reflex present. Pupils were fixed and dilated. Operations or Procedures Operative Report - 2 Report Details Date: 12/09/24 Preop Diagnosis: Right hemothorax Postop Diagnosis: Right hemothorax Surgeon: Mykel Martinez MD Anesthesiologist: None Anesthesia: Local Consent: The patient was informed of the risks and benefits of the procedure. These include but are not limited to complications of anesthesia, postoperative infection, incomplete relief of symptoms, recurrence of symptoms, damage to blood vessels, nerves and tendons, deep venous thrombosis, pulmonary embolism and possible need for repeat surgery in the future. Estimated Blood Loss: 50 mL Findings: Bright loculated hemothorax Indications for Surgery: Right hemothorax Name of Procedure Performed Right chest tube insertion Procedure Details Procedure Details: The patient was consented in. By myself he was prepped and draped normal surgical fashion the right chest wall between the mid axillary line at the level of the nipple was anesthetized 11 blade was used to make an incision a [place] was then used to create a tunnel above the rib which allowed us to puncture into the pleural cavity there was some organized clot that was released with a finger sweep there was definitely a loculated area there with organized clot 32 [place] chest tube was inserted to 16 cm there was blood as well as organized fibrinous clot that drained approximately initially of 50 mL on drapes and then other 50 mL in the lower back. 0 silk suture was used to secure the tube in place. Xeroform followed by gauze and silk tape was applied for the dressing the floor VAC was set up for wall suction at -30. Patient tolerated procedure well postop chest x-ray demonstrated insertion of the chest tube within the pleural cavity with stay curling in the loculated inferior portion of the thoracic cavity. Specimen: None Condition Critical Final Diagnosis/Problems List Cardiopulmonary arrest due to terminal weaning Secondary Diagnosis: Shock likely septic/cardiogenic Presyncope Status post cardiac arrest 12/03/2024 Acute heart failure with reduced ejection fraction hypertension Dyslipidemia Right cephalic vein thrombosis, superficial venous thrombosis Acute hypoxic respiratory failure status post intubation 12/03 Community acquired pneumonia, Gram-positive and gram negative/Aspiration pneumonia Right loculated hemothorax status post chest tube placement 12/09 COPD, stable Transaminitis likely shock liver End-stage renal disease, on hemodialysis ?rhabdomyolisis hyponatremia metabolic acidosis with partially compensated resp alkalosis Anemia due to acute hemorrhage, chronic disease, CKD s/p transfusion thrombocytopenia Coagulopathy DM2 s/p left sided toe amputation, POA s/p right sided 5th digit amputation, POA sepsis with septic shock Hypoglycemia due to sepsis [facility] Dec 20, 2024 22:36
== END 2024-12-18 15:39 | DRG 870 ==
LOC: EDBD 03:36 → ER 03:36 → TELE 08:35 → TELE-WESTW 16:33 → CATH ICU 12-03 18:03 → ICU WEST 12-04 00:45
PROVIDERS: ADMIT Hospitalist; ATTEND Hospitalist
PROC: 30233N1 Transfusion of Nonautologous Red Blood Cells into Peripheral Vein, Percutaneous Approach (ICD-10-PCS; 2024-12-01)
PROC: 5A09357 Assistance with Respiratory Ventilation, Less than 24 Consecutive Hours, Continuous Positive Airway Pressure (ICD-10-PCS; 2024-12-01)
PROC: 5A1955Z Respiratory Ventilation, Greater than 96 Consecutive Hours (ICD-10-PCS; principal; 2024-12-03)
PROC: 5A12012 Performance of Cardiac Output, Single, Manual (ICD-10-PCS; 2024-12-03)
PROC: 0BH17EZ Insertion of Endotracheal Airway into Trachea, Via Natural or Artificial Opening (ICD-10-PCS; 2024-12-03)
PROC: 02H633Z Insertion of Infusion Device into Right Atrium, Percutaneous Approach (ICD-10-PCS; 2024-12-03)
PROC: B548ZZA Ultrasonography of Superior Vena Cava, Guidance (ICD-10-PCS; 2024-12-03)
PROC: 04HY32Z Insertion of Monitoring Device into Lower Artery, Percutaneous Approach (ICD-10-PCS; 2024-12-03)
PROC: 5A1D70Z Performance of Urinary Filtration, Intermittent, Less than 6 Hours Per Day (ICD-10-PCS; 2024-12-04)
PROC: 5A1D70Z Performance of Urinary Filtration, Intermittent, Less than 6 Hours Per Day (ICD-10-PCS; 2024-12-07)
PROC: 30233R1 Transfusion of Nonautologous Platelets into Peripheral Vein, Percutaneous Approach (ICD-10-PCS; 2024-12-09)
PROC: 0W9930Z Drainage of Right Pleural Cavity with Drainage Device, Percutaneous Approach (ICD-10-PCS; 2024-12-09)
PROC: 5A1D70Z Performance of Urinary Filtration, Intermittent, Less than 6 Hours Per Day (ICD-10-PCS; 2024-12-10)
PROC: 5A1D70Z Performance of Urinary Filtration, Intermittent, Less than 6 Hours Per Day (ICD-10-PCS; 2024-12-13)
PROC: 02HV33Z Insertion of Infusion Device into Superior Vena Cava, Percutaneous Approach (ICD-10-PCS; 2024-12-14)
PROC: B548ZZA Ultrasonography of Superior Vena Cava, Guidance (ICD-10-PCS; 2024-12-14)
PROC: 30233K1 Transfusion of Nonautologous Frozen Plasma into Peripheral Vein, Percutaneous Approach (ICD-10-PCS; 2024-12-15)
PROC: 5A1D70Z Performance of Urinary Filtration, Intermittent, Less than 6 Hours Per Day (ICD-10-PCS; 2024-12-16)
DX: A41.9 Sepsis, unspecified organism (principal); J96.01 Acute respiratory failure with hypoxia; N18.6 End stage renal disease; K72.00 Acute and subacute hepatic failure without coma; R65.21 Severe sepsis with septic shock; I50.21 Acute systolic (congestive) heart failure; J15.69 Pneumonia due to other Gram-negative bacteria; J15.9 Unspecified bacterial pneumonia; J44.0 Chronic obstructive pulmonary disease with (acute) lower respiratory infection; J90 Pleural effusion, not elsewhere classified; J94.2 Hemothorax; N25.81 Secondary hyperparathyroidism of renal origin; E87.20 Acidosis, unspecified; J94.8 Other specified pleural conditions; M62.82 Rhabdomyolysis; R18.8 Other ascites; E87.1 Hypo-osmolality and hyponatremia; E87.4 Mixed disorder of acid-base balance; D68.9 Coagulation defect, unspecified; I82.611 Acute embolism and thrombosis of superficial veins of right upper extremity; I13.2 Hypertensive heart and chronic kidney disease with heart failure and with stage 5 chronic kidney disease, or end stage renal disease; I46.9 Cardiac arrest, cause unspecified; R57.8 Other shock; E11.22 Type 2 diabetes mellitus with diabetic chronic kidney disease; I25.10 Atherosclerotic heart disease of native coronary artery without angina pectoris; E83.39 Other disorders of phosphorus metabolism; D63.1 Anemia in chronic kidney disease; E11.65 Type 2 diabetes mellitus with hyperglycemia; E78.5 Hyperlipidemia, unspecified; E87.6 Hypokalemia; D69.6 Thrombocytopenia, unspecified; D50.0 Iron deficiency anemia secondary to blood loss (chronic); E11.649 Type 2 diabetes mellitus with hypoglycemia without coma; Z99.2 Dependence on renal dialysis; Z95.1 Presence of aortocoronary bypass graft; Z99.81 Dependence on supplemental oxygen; Z79.4 Long term (current) use of insulin
CPT/HCPCS: 36415; 36556; 36600; 36620; 70450; 71045; 71250; 74018; 76937; 80048; 80053; 80069; 80074; 80202; 82550; 82565; 82805; 82962; 83540; 83550; 83605; 83615; 83735; 83930; 84100; 84132; 84484; 85007; 85014; 85018; 85025; 85027; 85045; 85610; 85730; 86850; 86900; 86901; 86920; 87040; 87070; 87077; 87081; 87205; 90935; 92950; 93005; 93306; 93970; 93971; 94002; 94003; 94640; 94660; 99291; A4565; C1724; G0378; J0171; J0330; J0692; J1642; J1815; J2003; J2185; J2212; J2248; J2405; J2470; J2543; J3430; J3480; J7060; P9047